=== PATIENT | female | born 1950 | race African-American/Black ===

== ENCOUNTER 2017-11-22 15:20 | Emergency (ER) | payer OTHER ==
--- OUTSIDE RECORDS SUMMARY | 2017-11-22 15:22 | XMS REPORT | Clinical Summary ---
:[address] [facility] Address [address] [place] [address] Phone Care Team Providers Name Role Phone Unavailable Primary Care Provider Unavailable Allergies No Known Allergies Current Medications Prescription Sig. Disp. Refills Start Date End Date Status predniSONE Take 20 mg PO daily for 3 days 10 tablet 0 04/16/2017 Active (DELTASONE) 20 MG then 10 mg PO daily for 4 days. tablet budesonide-formoter Inhale 2 puffs 1 Inhaler 12 04/16/2017 04/16/20 Active ol (SYMBICORT) by mouth via 18 160-4.5 inhaler 2 (two) mcg/actuation times daily. inhaler albuterol HFA Inhale 1 puff 1 Inhaler 0 04/16/2017 04/16/20 Active (PROVENTIL HFA) 90 by mouth via 18 mcg/actuation inhaler every 6 inhaler (six) hours as needed for Wheezing. traMADol (ULTRAM) Take 50 mg by Active 50 mg tablet mouth every 6 (six) hours as needed for Pain. ondansetron Take 4 mg by Active (ZOFRAN) 4 MG mouth 2 (two) tablet times daily as needed for Nausea. simvastatin (ZOCOR) Take 20 mg by Active 20 MG tablet mouth nightly. spironolactone Take 25 mg by Active (ALDACTONE) 25 MG mouth daily. tablet metroNIDAZOLE Take 500 mg by Active (FLAGYL) 500 MG mouth every 8 tablet (eight) hours. pantoprazole Take 40 mg by Active (PROTONIX) 40 MG mouth daily. tablet ambrisentan Take 10 mg by Active (LETAIRIS) 10 MG mouth daily. tablet furosemide (LASIX) Take 20 mg by Active 20 MG tablet mouth 2 (two) times daily. colchicine Take 0.6 mg by Active (COLCRYS) 0.6 mg mouth 2 (two) tablet times daily. ciprofloxacin HCl Take 500 mg by Active (CIPRO) 500 MG mouth 2 (two) tablet times daily. acetaminophen-codei Take 1 tablet Active ne (TYLENOL #3) by mouth every 300-30 mg per 6 (six) hours tablet as needed for Pain. cyanocobalamin, Take 1 tablet Active vitamin B-12, by mouth daily. (VITAMELTS ENERGY) 1,500 mcg TbDL cinnamon bark Take 500 mg by Active (CINNAMON) 500 mg mouth daily capsule Take 2 capsules per day . glimepiride Take 4 mg by Active (AMARYL) 4 MG mouth every tablet morning before breakfast. aspirin 81 MG Take 1 tablet 30 tablet 0 04/17/2017 05/17/20 chewable tablet (81 mg total) 17 by mouth daily for 30 days. atorvastatin Take 1 tablet 30 tablet 0 04/16/2017 05/01/20 Discontinued (LIPITOR) 40 MG (40 mg total) 17 tablet by mouth nightly for 30 days. tadalafil (CIALIS) Take 1 tablet 30 tablet 0 04/17/2017 05/17/20 20 MG tablet (20 mg total) 17 by mouth daily for 30 days. simethicone Take 1 tablet 30 tablet 0 04/16/2017 04/26/20 (MYLICON) 80 MG (80 mg total) 17 chewable tablet by mouth every 4 (four) hours as needed for Flatulence for up to 10 days. pantoprazole Take 1 tablet 10 tablet 0 04/17/2017 04/27/20 (PROTONIX) 40 MG (40 mg total) 17 tablet by mouth daily for 10 days. gabapentin Take 2 capsules 120 capsule 0 04/16/2017 05/16/20 (NEURONTIN) 300 MG (600 mg total) 17 capsule by mouth 2 (two) times daily for 30 days. acetaZOLAMIDE Take 250 mg by 05/01/20 Discontinued (DIAMOX) 250 MG mouth 3 (three) 17 tablet times daily. docusate sodium Take 1 capsule 60 capsule 0 05/01/2017 05/31/20 (COLACE) 100 MG (100 mg total) 17 capsule by mouth 2 (two) times daily for 30 days. polyethylene glycol Take 17 g by 255 g 0 05/01/2017 05/04/20 (GLYCOLAX) 17 mouth daily for 17 gram/dose powder 3 days. ferrous sulfate 325 Take 1 tablet 180 tablet 0 05/01/2017 07/30/19 (65 FE) MG tablet (325 mg total) 18 by mouth 2 (two) times daily with breakfast and dinner for 90 days. magnesium oxide Take 1 tablet 60 tablet 0 05/01/2017 05/31/20 (MAG-OX) 400 mg (400 mg total) 17 tablet by mouth 2 (two) times daily for 30 days. Hospital, Clinic, or Other Ordered Dose Route Frequency Start Date End Date Status Facility Administered Medication influenza vaccine (PF) 0.5 mL IM Once 05/01/2017 05/01/2017 Ended [id number] (FLUZONE HIGH DOSE) syringe (>/=65 yrs) Active Problems Problem Noted Date Chronic diastolic CHF (congestive heart failure) ([facility]) 05/01/2017 Essential hypertension 05/01/2017 Diabetic neuropathy associated with type 2 diabetes mellitus ([facility]) 05/01/2017 Depression 05/01/2017 Anemia of chronic disease 04/10/2017 NSTEMI (non-ST elevated myocardial infarction) ([facility]) 04/09/2017 Pulmonary hypertension ([facility]) 04/09/2017 COPD (chronic obstructive pulmonary disease) ([facility]) 04/09/2017 DM2 (diabetes mellitus, type 2) ([facility]) 04/09/2017 Resolved Problems Problem Noted Date Resolved Date Troponin level elevated 04/10/2017 05/01/2017 Acute renal failure, unspecified acute renal failure type 04/10/20172016 ([facility]) Acute respiratory failure with hypoxia and hypercarbia ([facility]) 04/09/201705/01 Acute renal failure (ARF) ([facility]) 04/09/2017 05/01/2017 Hypoglycemia 04/09/2017 05/01/2017 Hypotension 04/09/2017 05/01/2017 Acute CHF (congestive heart failure) ([facility]) 04/09/2017 05/01/2017 Encounters Date Type Specialty Care Team Description 05/01/2017 Office Visit Cardiology David Cruz NP Chronic diastolic heart failure (HCC) (Primary Dx);Hypomagnesemia 04/10/2017 Orders Only General Internal Medicine 04/09/2017 - Hospital Cardiology Alonzo Olivas Acute renal 04/16/2017 Encounter MD Dilan failure, Cristiano Jones MD unspecified acute [place], renal failure type MD Amanda ([facility]);Acute [place], respiratory failure MD Garcia with hypoxia and hypercarbia ([facility]);Hypoglycemia; NSTEMI (non-ST elevated myocardial infarction) ([facility]);Non-insulin dependent type 2 diabetes mellitus ([facility]);Acute congestive heart failure, unspecified congestive heart failure type ([facility]);Anemia, unspecified type;Pulmonary hypertension ([facility]);Troponin level elevated;COPD with acute exacerbation ([facility]) 04/09/2017 Telephone Critical Care Alonzo Olivas Hypoglycemia Medicine MD Dilan after 11/21/2016 Immunizations Name Dates Previously Given Next Due Influenza High Dose Preservative Free IM 05/01/2017 Family History Medical History Relation Name Comments Heart disease Father Heart failure Father Other Mother encephalitis Relation Name Status Comments Father Mother Social History Tobacco Use Types Packs/Day Years Used Date Former Smoker 07 31 Quit: 04/11/2005 Smokeless Tobacco: Never Used Alcohol Use Drinks/Week oz/Week Comments No Sex Assigned at Date Recorded Not on file Last Filed Vital Signs Vital Sign Reading Time Taken Blood Pressure 109/56 05/01/2017 11:44 AM CDT Pulse 88 05/01/2017 11:44 AM CDT Temperature 37 C (98.6 F) 05/01/2017 11:44 AM CDT Respiratory Rate 18 05/01/2017 11:44 AM CDT Oxygen Saturation 95% 05/01/2017 11:44 AM CDT Inhaled Oxygen Concentration - - Weight 106.1 kg (234 lb) 05/01/2017 11:44 AM CDT Height 166.4 cm (5' 5.5") 05/01/2017 11:44 AM CDT Body Mass Index 38.35 05/01/2017 11:44 AM CDT Plan of Treatment Health Maintenance Due Date Last Done Comments INFLUENZA VACCINE 04/01/2018 05/01/2017 Results B N P (05/01/2017 2:18 PM)Only the most recent of3 resultswithin the time period is included. Component Value Ref Range BNP 393 (H) 0 - 100 pg/mL Specimen Performing Laboratory Blood [facility] [address] [address] Magnesium (05/01/2017 2:18 PM)Only the most recent of2 resultswithin the time period is included. Component Value Ref Range Magnesium 1.5 (L) 1.6 - 2.6 mg/dL Specimen Performing Laboratory Blood [address] [address] Basic Metabolic Panel (05/01/2017 2:18 PM)Only the most recent of9 resultswithin the time period is included. Component Value Ref Range Sodium 140 136 - 145 meq/L Potassium 4.2 3.5 - 5.1 meq/L Chloride 99 98 - 107 meq/L CO2 31 (H) 22 - 29 meq/L BUN 19 7 - 21 mg/dL Creatinine 1.45 (H) 0.57 - 1.25 mg/dL Glucose 99 70 - 105 mg/dL Calcium 9.7 8.4 - 10.2 mg/dL EGFR 44Comment: ESTIMATED GFR IS NOT ACCURATE mL/min/1.73 sq m CREATININE CLEARANCE IN PREDICTING GLOMERULAR FILTRATION RATE. ESTIMATED GFR IS NOT APPLICABLE FOR DIALYSIS PATIENTS. Specimen Performing Laboratory Blood [address] [address] PULMONARY FUNCTION - SCAN (04/20/2017 11:30 AM)EKG-SCANNED (04/17/2017 1:31 PM) RHYTHM STRIP - SCAN (04/17/2017 1:30 PM)POC-Glucose meter (04/16/2017 11:48 AM) Only the most recent of32 resultswithin the time period is included. Component Value Ref Range POC-Glucose Meter 150 (H)Comment: TESTED AT [address] 70 - 110 mg/[place] [address] Specimen Performing Laboratory [address] [address] Lung volumes (04/16/2017 11:32 AM) Narrative Jason Turcios, DIGITAL CAMPAIGN MANAGER, STONE AND PLATE PREPARER APPRENTICE 04/16/2017 11:32 AM [facility] PFT CHARTING REPORT Infection Control/Hand Hygiene procedures followed throughout the encounter with patient: Yes Patient Identification Method: Patient name verified on armband, and Medical record on armband, Is the order complete?: Yes Account ID#: [id number] Patient Name: Radha Pascual Birthdate: 1950 Age: 66 y.o.Sex: female Admission Date: 04/09/2017Patient Status: Inpatient Reasons/Symptom for having the Test?: a history/complaint of a dyspnea and other diagnosis/symptoms as noted Type of study/treatment ordered by physician: Lung volumes with bronchodilator(s) and Single Breath DLCO Lab Results Component Value Date HGB 9.9 (L) 04/16/2017 Ranges: Adult Male 13 - 16.8 g/dlAdult Female 12 - 15 g/dl 6 Minute Walk (read only) 04/16/2017 04/16/2017 04/16/2017 Pulse 73 64 80 SpO2 97 99 98 Study Date: 04/16/17Study Time: 1045 ASSESSMENT History & Physical Mode of Arrival: Wheel chair Pulse: 76Resp: 18SPO2: 98 %On 2 LPM/ FiO2 Pain Assessment Pain:None TESTING/THERAPEUTICS Medications ordered or required for procedure: Albuterol, PT EDUCATION/INSTRUCTIONS Barriers to learning: No known barriers to learning. Learning need identified: Yes, Patient/Family/Guradian was informed of the ordered study by the physician Barriers to performing study or treatment: Patient has no known disability to perform the study or treatment. DISCHARGE The study was completed in accordance with the physician's order and patient released from the lab without adverse outcome. DLCO (single breath diffusion) (04/16/2017 11:32 AM) Jason Fonseca, DIGITAL CAMPAIGN MANAGER, ST[employer] AND PLATE PREPARER APPRENTICE 04/16/2017 11:32 AM [facility] PFT CHARTING REPORT Infection Control/Hand Hygiene procedures followed throughout the encounter with patient: Yes Patient Identification Method: Patient name verified on armband, and Medical record on armband, Is the order complete?: Yes Account ID#: [id number] Patient Name: Radha Pascual Birthdate: 1950 Age: 66 y.o.Sex: female Admission Date: 04/09/2017Patient Status: Inpatient Reasons/Symptom for having the Test?: a history/complaint of a dyspnea and other diagnosis/symptoms as noted Type of study/treatment ordered by physician: Lung volumes with bronchodilator(s) and Single Breath DLCO Lab Results Component Value Date HGB 9.9 (L) 04/16/2017 Ranges: Adult Male 13 - 16.8 g/dlAdult Female 12 - 15 g/dl 6 Minute Walk (read only) 04/16/2017 04/16/2017 04/16/2017 Pulse 73 64 80 SpO2 97 99 98 Study Date: 04/16/17udy Time: 1045 ASSESSMENT History & Physical Mode of Arrival: Wheel chair Pulse: 76Resp: 18SPO2: 98 %On 2 LPM/ FiO2 Pain Assessment Pain:None TESTING/THERAPEUTICS Medications ordered or required for procedure: Albuterol, PT EDUCATION/INSTRUCTIONS Barriers to learning: No known barriers to learning. Learning need identified: Yes, Patient/Family/Guradian was informed of the ordered study by the physician Barriers to performing study or treatment: Patient has no known disability to perform the study or treatment. DISCHARGE The study was completed in accordance with the physician's order and patient released from the lab without adverse outcome. Pulmonary Funct Lab bedside spirometry (04/16/2017 11:32 AM) Jason Fonseca RRT, STONE AND PLATE PREPARER APPRENTICE 04/16/2017 11:32 AM [facility] PFT CHARTING REPORT Infection Control/Hand Hygiene procedures followed throughout the encounter with patient: Yes Patient Identification Method: Patient name verified on armband, and Medical record on armband, Is the order complete?: Yes Account ID#: [id number] Patient Name: Radha Pascual Birthdate: 1950 Age: 66 y.o.Sex: female Admission Date: 04/09/2017Patient Status: Inpatient Reasons/Symptom for having the Test?: a history/complaint of a dyspnea and other diagnosis/symptoms as noted Type of study/treatment ordered by physician: Lung volumes with bronchodilator(s) and Single Breath DLCO Lab Results Component Value Date HGB 9.9 (L) 04/16/2017 Ranges: Adult Male 13 - 16.8 g/dlAdult Female 12 - 15 g/dl 6 Minute Walk (read only) 04/16/2017 04/16/2017 04/16/2017 Pulse 73 64 80 SpO2 97 99 98 Study Date: 04/16/17udy Time: 1045 ASSESSMENT History & Physical Mode of Arrival: Wheel chair Pulse: 76Resp: 18SPO2: 98 %On 2 LPM/ FiO2 Pain Assessment Pain:None TESTING/THERAPEUTICS Medications ordered or required for procedure: Albuterol, PT EDUCATION/INSTRUCTIONS Barriers to learning: No known barriers to learning. Learning need identified: Yes, Patient/Family/Guradian was informed of the ordered study by the physician Barriers to performing study or treatment: Patient has no known disability to perform the study or treatment. DISCHARGE The study was completed in accordance with the physician's order and patient released from the lab without adverse outcome. CBC (hemogram only) (04/16/2017 4:02 AM)Only the most recent of5 resultswithin the time period is included. Component Value Ref Range WBC 12.8 (H) 3.5 - 10.5 K/L RBC 3.43 (L) 3.93 - 5.22 M/L Hemoglobin 9.9 (L) 11.2 - 15.7 GM/DL Hematocrit 31.9 (L) 34.1 - 44.9 % MCV 93.0 79.4 - 94.8 fL MCH 28.9 25.6 - 32.2 pg MCHC 31.0 (L) 32.2 - 35.5 GM/DL RDW 15.0 (H) 11.7 - 14.4 % Platelets 223 150 - 450 K/CU MM MPV 9.3 (L) 9.4 - 12.3 fL nRBC 0 0 - 0 /100 WBC Specimen Performing Laboratory Blood [facility] [address] [place] [id number] CBC with platelet count + automated diff (04/15/2017 4:52 AM)Only the most recent of6 resultswithin the time period is included. Component Value Ref Range WBC 11.3 (H) 3.5 - 10.5 K/L RBC 3.60 (L) 3.93 - 5.22 M/L Hemoglobin 10.5 (L) 11.2 - 15.7 GM/DL Hematocrit 33.6 (L) 34.1 - 44.9 % MCV 93.3 79.4 - 94.8 fL MCH 29.2 25.6 - 32.2 pg MCHC 31.3 (L) 32.2 - 35.5 GM/DL RDW 15.3 (H) 11.7 - 14.4 % Platelets 223 150 - 450 K/CU MM MPV 9.2 (L) 9.4 - 12.3 fL nRBC 0 0 - 0 /100 WBC % Neutros 71 % % Lymphs 19 % % Monos 7 % % Eos 1 % % Baso 0 % # Neutros 7.99 (H) 1.56 - 6.13 K/L # Lymphs 2.15 1.18 - 3.74 K/L # Monos 0.79 (H) 0.24 - 0.36 K/L # Eos 0.16 0.04 - 0.36 K/L # Baso 0.02 0.01 - 0.08 K/L Immature Granulocytes-Relative 2 (H) 0 - 1 % Specimen Performing Laboratory Blood [facility] [address] [address] CBC with platelet count + automated diff (04/15/2017 4:52 AM)Only the most recent of6 resultswithin the time period is included. Specimen Performing Laboratory Blood Narrative The following orders were created for panel order CBC with platelet count + automated diff. Procedure Abnormality Status --------- ------ CBC with platelet count ...[[id number]]AbnormalFinal result Please view results for these tests on the individual orders. NM myocardial perfusion PET (rest and stress) (04/14/2017 12:49 PM) Specimen Performing Laboratory [employer] Narrative FINAL REPORT PROCEDURE: Rest/Stress MYOCARDIAL PERFUSION PET with regadenoson\\XA9\\ CPT CODE:08469 INDICATION:NSTEMI PROTOCOL:Limited low-dose CT imaging was performed for attenuation correction. 32.9 mCi of Rb-82 chloride was injected iv at rest, and gated PET (positron emission tomography) images were obtained. Subsequently, 32.6 mCi of Rb-82 chloride was injected iv at expected peak pharmacologic effect, and gated PET images were obtained. PRELIMINARY STRESS TEST DATA FROM NONINVASIVE CARDIOLOGY: Pharmacologic stress was by 10-second iv infusion of 0.4 mg of regadenoson. Radiotracer was injected 30 seconds after start of stress. Heart rate was 67 beats/min at rest and 85 beats/min (55% of MPHR) at tracer injection. BP was 142/84 mmHg at rest and 135/58 mmHg at tracer injection. Stress was stopped for predetermined endpoint. The patient experienced dyspnea; treatment was not required. Preliminary ECG evaluation revealed sinus rhythm at rest and no ischemic changes with stress. (Final ECG interpretation and other stress and monitoring data are reported separately by Cardiology.) IMAGING FINDINGS: Study quality is fair due to body habitus. Images obtained after rest and stress injections show normal LV activity. LV volume is normal. RV volume is increased. Gated images obtained with stress show normal LV wall motion and thickening. LVEF at stress is 68%. IMPRESSION: 1. Abnormal study only for RV dilation. Adequate pharmacologic stress.3. Normal LV myocardial perfusion.4. Normal resting LV function. RV dilation.5. Normal extracardiac tracer distribution.6. No prior study. Signed: Crow Rowell MD Report Verified Date/Time:04/14/2017 14:55:49 Procedure Note Interface, External Ris In - 04/14/2017 2:58 PM CDT FINAL REPORT PROCEDURE: Rest/Stress MYOCARDIAL PERFUSION PET with regadenoson\\XA9\\ CPT CODE: 90060 INDICATION: NSTEMI PROTOCOL: Limited low-dose CT imaging was performed for attenuation correction. 32.9 mCi of Rb-82 chloride was injected iv at rest, and gated PET (positron emission tomography) images were obtained. Subsequently, 32.6 mCi of Rb-82 chloride was injected iv at expected peak pharmacologic effect, and gated PET images were obtained. PRELIMINARY STRESS TEST DATA FROM NONINVASIVE CARDIOLOGY: Pharmacologic stress was by 10-second iv infusion of 0.4 mg of regadenoson. Radiotracer was injected 30 seconds after start of stress. Heart rate was 67 beats/min at rest and 85 beats/min (55% of MPHR) at tracer injection. BP was 142/84 mmHg at rest and 135/58 mmHg at tracer injection. Stress was stopped for predetermined endpoint. The patient experienced dyspnea; treatment was not required. Preliminary ECG evaluation revealed sinus rhythm at rest and no ischemic changes with stress. (Final ECG interpretation and other stress and monitoring data are reported separately by Cardiology.) IMAGING FINDINGS: Study quality is fair due to body habitus. Images obtained after rest and stress injections show normal LV activity. LV volume is normal. RV volume is increased. Gated images obtained with stress show normal LV wall motion and thickening. LVEF at stress is 68%. IMPRESSION: 1. Abnormal study only for RV dilation. Adequate pharmacologic stress. 3. Normal LV myocardial perfusion. 4. Normal resting LV function. RV dilation. 5. Normal extracardiac tracer distribution. 6. No prior study. Signed: Crow Rowell MD Report Verified Date/Time: 04/14/2017 14:55:49 Treadmill tolerance(Non-Nuclear Treadmill) (04/14/2017 12:42 PM) Specimen Performing Laboratory [employer] [facility] Narrative Protocol Name Regadenoson Time In Exercise Phase 00:01:00 Max. Systolic BP 135 mmHg Max Diastolic BP 58 mmHg Max Heart Rate 85 BPM Max Predicted Heart Rate 152 BPM Reason For Termination Predetermined end point Reason for Test NSTEMI Target HR Formula (220 - Age)*100% Arrhythmias none Resting ECG Normal sinus rhythm nonspecific T wave abnormality RAD ST Changes No Significant Changes Overall Impression Indeterminate due to pharmacological stress Chest Pain none HR Response To Exercise BP Response To Exercise ASA LASIX Atorvastatin Levemir Insulin Confirmed by fellow Vasquez Flood ([id number]) on 04/14/2017 2:34:57 PM Confirmed by MD CORTÉS JOSEPH P ([id number]) on 04/15/2017 6:05:17 PM Procedure Note Interface, External Ris In - 04/15/2017 6:05 PM CDT Protocol Name Regadenoson Time In Exercise Phase 00:01:00 Max. Systolic BP 135 mmHg Max Diastolic BP 58 mmHg Max Heart Rate 85 BPM Max Predicted Heart Rate 152 BPM Reason For Termination Predetermined end point Reason for Test NSTEMI Target HR Formula (220 - Age)*100% Arrhythmias none Resting ECG Normal sinus rhythm nonspecific T wave abnormality RAD ST Changes No Significant Changes Overall Impression Indeterminate due to pharmacological stress Chest Pain none HR Response To Exercise BP Response To Exercise ASA LASIX Atorvastatin Levemir Insulin Confirmed by fellow Vasquez Flood ([id number]) on 04/14/2017 2:34:57 PM Confirmed by MD CORTÉS JOSEPH P ([id number]) on 04/15/2017 6:05:17 PM Sjogren's antibodies (04/14/2017 4:02 AM) Component Value Ref Range Anti-Ss-A <1.0 NEG <1.0 NEGATIVE AI Anti-Ss-B <1.0 NEG <1.0 NEGATIVE AI Specimen Performing Laboratory Blood [facility] [address] [place] [address] Narrative Performing Lab [facility] [address] [place] [address] Jaycee Reed MD HIV-1 Antigen with HIV-1/2 Antibody (04/14/2017 4:02 AM) Component Value Ref Range HIV-1 Antigen with HIV 1&2 Antibody Nonreactive Nonreactive Specimen Performing Laboratory [address] [address] C-Reactive Protein (04/14/2017 4:02 AM) Component Value Ref Range CRP 0.43 0.00 - 0.50 mg/dL Specimen Performing Laboratory Blood [address] [address] Cyclic Citrullinated Peptide Ab,IgG (04/14/2017 4:02 AM) Component Value Ref Range CCP IgG <16 See Note: Units Comment: Reference Range: NEGATIVE: <20 WEAK POSITIVE: 20-39 MODERATE POSITIVE: 40-59 STRONG POSITIVE >59 Specimen Performing Laboratory Blood [facility] [address] [address] Narrative Performing Lab [facility] [address] [address] Jaycee Reed MD Rheumatoid factor Ab, reflex to titer (04/14/2017 4:02 AM) Component Value Ref Range Rheumatoid Factor Negative Specimen Performing Laboratory [address] [address] Sedimentation rate (04/14/2017 4:02 AM) Component Value Ref Range Sed Rate 17 0 - 40 mm/HR Specimen Performing Laboratory [address] [address] Anti-Nuclear Antibody (WAGNER) (04/14/2017 4:02 AM) Component Value Ref Range WAGNER Negative Negative Specimen Performing Laboratory [address] [address] NM lung scan (V/Q) (04/13/2017 4:03 PM) Specimen Performing Laboratory [employer] Narrative FINAL REPORT PROCEDURE: V/Q LUNG SCAN CPT CODE: 13360 INDICATION: Pulmonary hypertension acute respiratory failure PROTOCOL: 10.4 mCi ofXe-133 gas was administered by inhalation. Single breath and rebreathing/washout images were obtained in the anterior and the posterior projections.1.96 mCi of Tc-99m MAA was then injected intravenously, and static perfusion images were obtained in multiple projections. FINDINGS: Ventilation: Initial tracer distribution is physiological. Washout proceeds normally. Perfusion:Tracer distribution is physiological. IMPRESSION: Normal ventilation/perfusion lung scan. Signed: Daniel Kc MD Report Verified Date/Time:04/13/2017 17:00:02 Reading Location: [address] Reading Room Procedure Note Interface, External Ris In - 04/13/2017 5:02 PM CDT FINAL REPORT PROCEDURE: V/Q LUNG SCAN CPT CODE: 60222 INDICATION: Pulmonary hypertension acute respiratory failure PROTOCOL: 10.4 mCi of Xe-133 gas was administered by inhalation. Single breath and rebreathing/washout images were obtained in the anterior and the posterior projections. 1.96 mCi of Tc-99m MAA was then injected intravenously, and static perfusion images were obtained in multiple projections. FINDINGS: Ventilation: Initial tracer distribution is physiological. Washout proceeds normally. Perfusion: Tracer distribution is physiological. IMPRESSION: Normal ventilation/perfusion lung scan. Signed: Daniel Kc MD Report Verified Date/Time: 04/13/2017 17:00:02 Reading Location: [address] Med Reading Room 12 lead (04/13/2017 10:22 AM)Only the most recent of3 resultswithin the time period is included. Specimen Performing Laboratory [facility] Ventricular Rate 84 BPM Atrial Rate 84 BPM P-R Interval 178 ms QRS Duration 104 ms Q-T Interval 360 ms QTC Calculation(Bazett) 425 ms P [place] 74 degrees R [place] 107 degrees T [place] 10 degrees Normal sinus rhythm Possible Right ventricular hypertrophy T wave abnormality, consider inferior ischemia T wave abnormality, consider anterior ischemia Abnormal ECG When compared with ECG of 10-APR-2017 02:16, Incomplete right bundle branch block is no longer Present Confirmed by MD MILANA, MANUEL Hernandez ([id number]) on 04/13/2017 8:25:35 PM Procedure Note Interface, External Ris In - 04/13/2017 8:25 PM CDT Ventricular Rate 84 BPM Atrial Rate 84 BPM P-R Interval 178 ms QRS Duration 104 ms Q-T Interval 360 ms QTC Calculation(Bazett) 425 ms P [place] 74 degrees R [place] 107 degrees T [place] 10 degrees Normal sinus rhythm Possible Right ventricular hypertrophy T wave abnormality, consider inferior ischemia T wave abnormality, consider anterior ischemia Abnormal ECG When compared with ECG of 10-APR-2017 02:16, Incomplete right bundle branch block is no longer Present Confirmed by MD MILANA, MANUEL Hernandez ([id number]) on 04/13/2017 8:25:35 PM Troponin I (04/12/2017 12:13 PM)Only the most recent of2 resultswithin the time period is included. Component Value Ref Range Troponin I 0.35 (HH) 0.00 - 0.03 ng/mL Specimen Performing Laboratory Blood - Central Venous Line [address] [address] Narrative Troponin I (TnI) levels must be interpreted in the context of the presenting symptoms and the clinical findings. Elevated TnI levels indicate myocardial damage, but are not specific for ischemic heart disease. Elevated TnI levels are seen in patients with other cardiac conditions (including myocarditis and congestive heart failure), and slight TnI elevations occur in patients with other conditions, including sepsis, renal failure, acidosis, acute neurological disease, and persistent tachyarrhythmia. Hemoglobin A1c (04/12/2017 4:19 AM) Component Value Ref Range Hemoglobin A1C 5.8 4.3 - 6.1 % Specimen Performing Laboratory Blood - Central Venous Line [address] [address] TRANSFUSION SERVICE REPORT - SCAN (04/11/2017 5:41 PM)CT chest without IV contrast (04/11/2017 1:26 AM) Specimen Performing Laboratory [email or web address] RIS Narrative FINAL REPORT EXAMINATION:CT SCAN OF THE CHEST, ABDOMEN AND PELVIS CLINICAL HISTORY:Sepsis, pneumonia, pulmonary edema COMPARISON EXAM: Abdominal ultrasound 04/10/2017 TECHNIQUE: Following the administration of oral contrast, axial tomographic images were acquired through the chest, abdomen and pelvis. Postprocessing was performed and coronal and sagittal reformatted images were created and reviewed. The exam was performed according to our departmental dose optimization program which includes automated exposure control, adjustment of the mA and/or kV according to patient's size and/or use of iterative reconstructive technique. FINDINGS: Chest: The examination is limited by the absence of IV contrast. Tip of the right jugular central line is in the superior vena cava. The thoracic aorta is normal in caliber. Calcific atherosclerotic changes are noted involving the aorta and great vessels arising off of the aortic arch. The pulmonary trunk is prominent measuring greater than 4 cm. The central pulmonary arteries are also mildly dilated. The heart is enlarged. No evidence of a pericardial effusion. The esophagus is decompressed. No definite evidence of pathologically enlarged axillary or mediastinal lymph nodes. There are small bilateral pleural effusions. Curvilinear parenchymal lung opacities are compatible with associated atelectasis. Groundglass opacities are also noted which may also be related to the atelectatic lung, motion degradation or mild edema. No evidence of a pneumothorax or pneumomediastinum. Trachea and central airways are unremarkable. No evidence of a discrete endobronchial lesion or significant luminal debris. No evidence of an acute thoracic osseous abnormality. Abdomen and pelvis the liver demonstrates mild diffuse increased attenuation, nonspecific but possible minimal disc position. Sequela from amiodarone therapy would be a consideration given the cardiac enlargement. The gallbladder is mildly distended without evidence of pericholecystic edema or biliary dilatation. The pancreas is mildly atrophic with fatty infiltration. The spleen is unremarkable. The adrenal glands are normal in size and shape. No evidence of renal obstruction or nephrolithiasis. There is mild perinephric fat stranding, right slightly greater than left. Upper pole of the right kidney is associated with a mildly heterogeneous 2.5 cm nodule. Lower pole of the right kidney is associated with a relatively simple appearing 6 cm cyst. The stomach is grossly unremarkable. The loops of small bowel are normal in caliber. Colonic diverticulosis is noted without definite evidence of diverticulitis. No evidence of an appendicitis, mechanical bowel obstruction or pneumatosis. The abdominal aorta is normal in caliber. Scattered calcific atherosclerotic plaques are noted involving the aorta, mesenteric, iliac arteries. Further characterization the vascular structures is limited by the absence of contrast. The uterus and adnexa are unremarkable. The bladder is decompressed with a Salas catheter. No significant pelvic free fluid. There are numerous small punctate pelvic calcifications. The vast majority are vascular phleboliths. Evaluation for a nonobstructing distal ureteral calculus is limited on today's noncontrast study. There are numerous small nonspecific mesenteric, upper abdominal and retroperitoneal lymph nodes. There is an adipose tissue containing umbilical hernia. No evidence of associated bowel involvement. Subtle infiltration of the subcutaneous tissues is compatible with third spacing of fluid/anasarca. Degenerative changes are noted in the lumbar spine, sacroiliac joints and the hips. No definite evidence of an acute osseous abnormality. IMPRESSION: Right renal 2.5 cm hyperdense upper pole nodule. Although the finding may reflect a cyst, the nodule is mildly heterogeneous on CT as well as ultrasound. A renal neoplasm cannot be excluded. MRI recommended for further tissue characterization. Mild perinephric fat stranding without evidence of associated hydronephrosis/hydroureter. Although findings may be chronic, correlation with patient's renal function and urinalysis is recommended as a nephritis or pyelitis/pyelonephritis should also be considered. Cardiac enlargement. Small bilateral pleural effusions and adjacent passive atelectasis. Subtle groundglass opacities may reflect mild pulmonary edema. Dilatation of the pulmonary trunk and central pulmonary arteries, nonspecific but concerning for pulmonary hypertension. Colonic diverticulosis without definite evidence of diverticulitis. Signed: Tristan Zaidi MD Report Verified Date/Time:04/11/2017 02:12:58 Reading Location: [address] Reading Room Procedure Note Interface, External Ris In - 04/11/2017 2:15 AM CDT FINAL REPORT EXAMINATION: CT SCAN OF THE CHEST, ABDOMEN AND PELVIS CLINICAL HISTORY:Sepsis, pneumonia, pulmonary edema COMPARISON EXAM: Abdominal ultrasound 04/10/2017 TECHNIQUE: Following the administration of oral contrast, axial tomographic images were acquired through the chest, abdomen and pelvis. Postprocessing was performed and coronal and sagittal reformatted images were created and reviewed. The exam was performed according to our departmental dose optimization program which includes automated exposure control, adjustment of the mA and/or kV according to patient's size and/or use of iterative reconstructive technique. FINDINGS: Chest: The examination is limited by the absence of IV contrast. Tip of the right jugular central line is in the superior vena cava. The thoracic aorta is normal in caliber. Calcific atherosclerotic changes are noted involving the aorta and great vessels arising off of the aortic arch. The pulmonary trunk is prominent measuring greater than 4 cm. The central pulmonary arteries are also mildly dilated. The heart is enlarged. No evidence of a pericardial effusion. The esophagus is decompressed. No definite evidence of pathologically enlarged axillary or mediastinal lymph nodes. There are small bilateral pleural effusions. Curvilinear parenchymal lung opacities are compatible with associated atelectasis. Groundglass opacities are also noted which may also be related to the atelectatic lung, motion degradation or mild edema. No evidence of a pneumothorax or pneumomediastinum. Trachea and central airways are unremarkable. No evidence of a discrete endobronchial lesion or significant luminal debris. No evidence of an acute thoracic osseous abnormality. Abdomen and pelvis the liver demonstrates mild diffuse increased attenuation, nonspecific but possible minimal disc position. Sequela from amiodarone therapy would be a consideration given the cardiac enlargement. The gallbladder is mildly distended without evidence of pericholecystic edema or biliary dilatation. The pancreas is mildly atrophic with fatty infiltration. The spleen is unremarkable. The adrenal glands are normal in size and shape. No evidence of renal obstruction or nephrolithiasis. There is mild perinephric fat stranding, right slightly greater than left. Upper pole of the right kidney is associated with a mildly heterogeneous 2.5 cm nodule. Lower pole of the right kidney is associated with a relatively simple appearing 6 cm cyst. The stomach is grossly unremarkable. The loops of small bowel are normal in caliber. Colonic diverticulosis is noted without definite evidence of diverticulitis. No evidence of an appendicitis, mechanical bowel obstruction or pneumatosis. The abdominal aorta is normal in caliber. Scattered calcific atherosclerotic plaques are noted involving the aorta, mesenteric, iliac arteries. Further characterization the vascular structures is limited by the absence of contrast. The uterus and adnexa are unremarkable. The bladder is decompressed with a Salas catheter. No significant pelvic free fluid. There are numerous small punctate pelvic calcifications. The vast majority are vascular phleboliths. Evaluation for a nonobstructing distal ureteral calculus is limited on today's noncontrast study. There are numerous small nonspecific mesenteric, upper abdominal and retroperitoneal lymph nodes. There is an adipose tissue containing umbilical hernia. No evidence of associated bowel involvement. Subtle infiltration of the subcutaneous tissues is compatible with third spacing of fluid/anasarca. Degenerative changes are noted in the lumbar spine, sacroiliac joints and the hips. No definite evidence of an acute osseous abnormality. IMPRESSION: Right renal 2.5 cm hyperdense upper pole nodule. Although the finding may reflect a cyst, the nodule is mildly heterogeneous on CT as well as ultrasound. A renal neoplasm cannot be excluded. MRI recommended for further tissue characterization. Mild perinephric fat stranding without evidence of associated hydronephrosis/hydroureter. Although findings may be chronic, correlation with patient's renal function and urinalysis is recommended as a nephritis or pyelitis/pyelonephritis should also be considered. Cardiac enlargement. Small bilateral pleural effusions and adjacent passive atelectasis. Subtle groundglass opacities may reflect mild pulmonary edema. Dilatation of the pulmonary trunk and central pulmonary arteries, nonspecific but concerning for pulmonary hypertension. Colonic diverticulosis without definite evidence of diverticulitis. Signed: Tristan Zaidi MD Report Verified Date/Time: 04/11/2017 02:12:58 Reading Location: [address] Reading Room abdomen/pelvis without iv contrast (04/11/2017 1:26 AM) Specimen Performing Laboratory [employer] Narrative FINAL REPORT EXAMINATION:CT SCAN OF THE CHEST, ABDOMEN AND PELVIS CLINICAL HISTORY:Sepsis, pneumonia, pulmonary edema COMPARISON EXAM: Abdominal ultrasound 04/10/2017 TECHNIQUE: Following the administration of oral contrast, axial tomographic images were acquired through the chest, abdomen and pelvis. Postprocessing was performed and coronal and sagittal reformatted images were created and reviewed. The exam was performed according to our departmental dose optimization program which includes automated exposure control, adjustment of the mA and/or kV according to patient's size and/or use of iterative reconstructive technique. FINDINGS: Chest: The examination is limited by the absence of IV contrast. Tip of the right jugular central line is in the superior vena cava. The thoracic aorta is normal in caliber. Calcific atherosclerotic changes are noted involving the aorta and great vessels arising off of the aortic arch. The pulmonary trunk is prominent measuring greater than 4 cm. The central pulmonary arteries are also mildly dilated. The heart is enlarged. No evidence of a pericardial effusion. The esophagus is decompressed. No definite evidence of pathologically enlarged axillary or mediastinal lymph nodes. There are small bilateral pleural effusions. Curvilinear parenchymal lung opacities are compatible with associated atelectasis. Groundglass opacities are also noted which may also be related to the atelectatic lung, motion degradation or mild edema. No evidence of a pneumothorax or pneumomediastinum. Trachea and central airways are unremarkable. No evidence of a discrete endobronchial lesion or significant luminal debris. No evidence of an acute thoracic osseous abnormality. Abdomen and pelvis the liver demonstrates mild diffuse increased attenuation, nonspecific but possible minimal disc position. Sequela from amiodarone therapy would be a consideration given the cardiac enlargement. The gallbladder is mildly distended without evidence of pericholecystic edema or biliary dilatation. The pancreas is mildly atrophic with fatty infiltration. The spleen is unremarkable. The adrenal glands are normal in size and shape. No evidence of renal obstruction or nephrolithiasis. There is mild perinephric fat stranding, right slightly greater than left. Upper pole of the right kidney is associated with a mildly heterogeneous 2.5 cm nodule. Lower pole of the right kidney is associated with a relatively simple appearing 6 cm cyst. The stomach is grossly unremarkable. The loops of small bowel are normal in caliber. Colonic diverticulosis is noted without definite evidence of diverticulitis. No evidence of an appendicitis, mechanical bowel obstruction or pneumatosis. The abdominal aorta is normal in caliber. Scattered calcific atherosclerotic plaques are noted involving the aorta, mesenteric, iliac arteries. Further characterization the vascular structures is limited by the absence of contrast. The uterus and adnexa are unremarkable. The bladder is decompressed with a Salas catheter. No significant pelvic free fluid. There are numerous small punctate pelvic calcifications. The vast majority are vascular phleboliths. Evaluation for a nonobstructing distal ureteral calculus is limited on today's noncontrast study. There are numerous small nonspecific mesenteric, upper abdominal and retroperitoneal lymph nodes. There is an adipose tissue containing umbilical hernia. No evidence of associated bowel involvement. Subtle infiltration of the subcutaneous tissues is compatible with third spacing of fluid/anasarca. Degenerative changes are noted in the lumbar spine, sacroiliac joints and the hips. No definite evidence of an acute osseous abnormality. IMPRESSION: Right renal 2.5 cm hyperdense upper pole nodule. Although the finding may reflect a cyst, the nodule is mildly heterogeneous on CT as well as ultrasound. A renal neoplasm cannot be excluded. MRI recommended for further tissue characterization. Mild perinephric fat stranding without evidence of associated hydronephrosis/hydroureter. Although findings may be chronic, correlation with patient's renal function and urinalysis is recommended as a nephritis or pyelitis/pyelonephritis should also be considered. Cardiac enlargement. Small bilateral pleural effusions and adjacent passive atelectasis. Subtle groundglass opacities may reflect mild pulmonary edema. Dilatation of the pulmonary trunk and central pulmonary arteries, nonspecific but concerning for pulmonary hypertension. Colonic diverticulosis without definite evidence of diverticulitis. Signed: Tristan Zaidi MD Report Verified Date/Time:04/11/2017 02:12:58 Reading Location: [address] Reading Room Procedure Note Interface, External Ris In - 04/11/2017 2:15 AM CDT FINAL REPORT EXAMINATION: CT SCAN OF THE CHEST, ABDOMEN AND PELVIS CLINICAL HISTORY:Sepsis, pneumonia, pulmonary edema COMPARISON EXAM: Abdominal ultrasound 04/10/2017 TECHNIQUE: Following the administration of oral contrast, axial tomographic images were acquired through the chest, abdomen and pelvis. Postprocessing was performed and coronal and sagittal reformatted images were created and reviewed. The exam was performed according to our departmental dose optimization program which includes automated exposure control, adjustment of the mA and/or kV according to patient's size and/or use of iterative reconstructive technique. FINDINGS: Chest: The examination is limited by the absence of IV contrast. Tip of the right jugular central line is in the superior vena cava. The thoracic aorta is normal in caliber. Calcific atherosclerotic changes are noted involving the aorta and great vessels arising off of the aortic arch. The pulmonary trunk is prominent measuring greater than 4 cm. The central pulmonary arteries are also mildly dilated. The heart is enlarged. No evidence of a pericardial effusion. The esophagus is decompressed. No definite evidence of pathologically enlarged axillary or mediastinal lymph nodes. There are small bilateral pleural effusions. Curvilinear parenchymal lung opacities are compatible with associated atelectasis. Groundglass opacities are also noted which may also be related to the atelectatic lung, motion degradation or mild edema. No evidence of a pneumothorax or pneumomediastinum. Trachea and central airways are unremarkable. No evidence of a discrete endobronchial lesion or significant luminal debris. No evidence of an acute thoracic osseous abnormality. Abdomen and pelvis the liver demonstrates mild diffuse increased attenuation, nonspecific but possible minimal disc position. Sequela from amiodarone therapy would be a consideration given the cardiac enlargement. The gallbladder is mildly distended without evidence of pericholecystic edema or biliary dilatation. The pancreas is mildly atrophic with fatty infiltration. The spleen is unremarkable. The adrenal glands are normal in size and shape. No evidence of renal obstruction or nephrolithiasis. There is mild perinephric fat stranding, right slightly greater than left. Upper pole of the right kidney is associated with a mildly heterogeneous 2.5 cm nodule. Lower pole of the right kidney is associated with a relatively simple appearing 6 cm cyst. The stomach is grossly unremarkable. The loops of small bowel are normal in caliber. Colonic diverticulosis is noted without definite evidence of diverticulitis. No evidence of an appendicitis, mechanical bowel obstruction or pneumatosis. The abdominal aorta is normal in caliber. Scattered calcific atherosclerotic plaques are noted involving the aorta, mesenteric, iliac arteries. Further characterization the vascular structures is limited by the absence of contrast. The uterus and adnexa are unremarkable. The bladder is decompressed with a Salas catheter. No significant pelvic free fluid. There are numerous small punctate pelvic calcifications. The vast majority are vascular phleboliths. Evaluation for a nonobstructing distal ureteral calculus is limited on today's noncontrast study. There are numerous small nonspecific mesenteric, upper abdominal and retroperitoneal lymph nodes. There is an adipose tissue containing umbilical hernia. No evidence of associated bowel involvement. Subtle infiltration of the subcutaneous tissues is compatible with third spacing of fluid/anasarca. Degenerative changes are noted in the lumbar spine, sacroiliac joints and the hips. No definite evidence of an acute osseous abnormality. IMPRESSION: Right renal 2.5 cm hyperdense upper pole nodule. Although the finding may reflect a cyst, the nodule is mildly heterogeneous on CT as well as ultrasound. A renal neoplasm cannot be excluded. MRI recommended for further tissue characterization. Mild perinephric fat stranding without evidence of associated hydronephrosis/hydroureter. Although findings may be chronic, correlation with patient's renal function and urinalysis is recommended as a nephritis or pyelitis/pyelonephritis should also be considered. Cardiac enlargement. Small bilateral pleural effusions and adjacent passive atelectasis. Subtle groundglass opacities may reflect mild pulmonary edema. Dilatation of the pulmonary trunk and central pulmonary arteries, nonspecific but concerning for pulmonary hypertension. Colonic diverticulosis without definite evidence of diverticulitis. Signed: Tristan Zaidi MD Report Verified Date/Time: 04/11/2017 02:12:58 Reading Location: [address] Reading Room Blood gas, arterial (04/10/2017 8:37 PM)Only the most recent of5 resultswithin the time period is included. Component Value Ref Range pH, Arterial 7.45 7.35 - 7.45 pCO2, Arterial 51 (H) 35 - 45 mmHg pO2, Arterial 151 (H) 80 - 90 mmHg O2 Sat, Arterial 99.0 (H) 96.0 - 97.0 % HCO3, Arterial 35 (H) 21 - 29 mmol/L Base Excess, Arterial 9.9 (H) -2.0 - 3.0 mmol/L Patient Temperature 37.0 C FIO2 36.0 % Specimen Performing Laboratory Blood, [place] [address] ECHOCARDIOGRAM REPORT - SCAN (04/10/2017 6:20 PM)2D Echo W/Doppler(CW/PW/Color ) (04/10/2017 3:43 PM) Component Value Ref Range Ejection Fraction Specimen Performing Laboratory [facility] MKCKESSON CPACS Narrative Transthoracic Echocardiography Report (TTE) Demographics Patient NameRADHA PASCUAL Date of Study04/10/2017 Gender Female Visit [id number] Race Black [id number] Number Date of 1950 Referring PhysicianChristopher Olivas Age 66 year(s) [employer]ap [employer] Rewrite Editor Toni Clark MD Physician Procedure Type of Study TTE procedure:2DECHO W DOPPLER(CW/PW/COLOR) (VAHID) Indications:Known or suspected cardiomyopathy. Clinical History NSTEMI HYPOTENSION CHF COPD DM Elevated Troponin Contrast Medium: Definity. Height: 60 inches Weight: 90.72 kg (200 lbs) BSA: 1.87 m^2 BMI: 39.06 kg/m^2 HR: 66 bpm BP: 126/63 mmHg Summary The LV apex is incompletely visualized due to foreshortening. Normal left ventricular chamber size. Normal wall thickness. Normal overall left ventricular systolic function. No apparent segmental wall motion abnormalities. Systolic septal flattening suggests RV pressure overload. All of the LV segments contract normally . Estimated LVEF by qualitative assessment is normal (55-60%) . LV endocardium is adequately visualized with IV contrast. Normal left ventricular chamber size. Normal wall thickness. Normal overall left ventricular systolic function. No apparent segmental wall motion abnormalities. Systolic septal flattening suggests RV pressure overload. All of the LV segments contract normally . Estimated LVEF by qualitative assessment is normal (55-60%) . LV endocardium is adequately visualized with IV contrast. The LV apex is incompletely visualized due to foreshortening. The estimated RA pressure by IVC dynamics 5-10mmHg . RV chamber size is severely enlarged . Global RV systolic function is depressed . Mild tricuspid regurgitation. Estimated peak systolic PA pressure is 70-75 mmHg . Signature Findings Technical Quality: Technically difficult exam. Rhythm/BPRegular sinus rhythm during the exam. Left Ventricle Normal left ventricular chamber size. Normal wall thickness. Normal overall left ventricular systolic function. No apparent segmental wall motion abnormalities. Systolic septal flattening suggests RV pressure overload. All of the LV segments contract normally . Estimated LVEF by qualitative assessment is normal (55-60%) . LV endocardium is adequately visualized with IV contrast. The LV apex is incompletely visualized due to foreshortening. Left AtriumLA size is moderately enlarged . Right VentricleRV chamber size is severely enlarged . Global RV systolic function is depressed . Right Atrium RA size is dilated. Aortic Valve Mild AoV cusp thickening. AoV cusp mobility is normal . Mitral Valve Mild MV leaflet thickening. Tricuspid ValveMild tricuspid regurgitation. Estimated peak systolic PA pressure is 70-75 mmHg . Pulmonic Valve Normal PV structure and function by limited views and Doppler. AortaAortic root size (SInus of Valsalva diameter) is normal . PericardiumNo evidence of pericardial effusion. IVC/SVC/PA/PV/PleuralThe estimated RA pressure by IVC dynamics 5-10mmHg . Chambers/Structures Left Atrium LA Dimension: 3.8 cm LA Area: 24.58 cm^2 LA Volume: 83.86 ml LA Vol. Index: 45 ml/m^2 Left Ventricle LVIDd: 4.75 cm LVEDV 2D:104.97 ml LV Septum Diastolic: 1.12 cm LV PW Diastolic: 1.15 cm LVOT Diameter: 2.27 cm Aorta Ao Root S of Carlie.: 3.13 cm Shunts QS:93.2 ml Doppler/Quantitative Measurements LVOT Peak Velocity: 1.14 m/s Peak Gradient: 5.21 mmHg Mean Velocity: 0.71 m/s Mean Gradient: 2.49 mmHg LVOT Diameter: 2.27 cmLVOT VTI: 23.03 cm LVOT Area: 4.05 cm^2LVOT SV:93.16 ml LVOT CO: 6.15 l/min LVOT CI: 3.29 l/min/m^2 Procedure Note Interface, External Ris In - 04/10/2017 5:41 PM CDT Transthoracic Echocardiography Report (TTE) Demographics Patient Name RADHA PASCUAL Date of Study 04/10/2017 Gender Female Visit Number [id number] Race Black Room Number [id number] Number Date of 1950 Referring Physician Alonzo Olivas Age 66 year(s) Sap Bpc Architect Rewrite Editor Toni Lema Interpreting Carlitos Clark MD Physician Procedure Type of Study TTE procedure:2DECHO W DOPPLER(CW/PW/COLOR) (VAHID) Indications:Known or suspected cardiomyopathy. Clinical History NSTEMI HYPOTENSION CHF COPD DM Elevated Troponin Contrast Medium: Definity. Height: 60 inches Weight: 90.72 kg (200 lbs) BSA: 1.87 m^2 BMI: 39.06 kg/m^2 HR: 66 bpm BP: 126/63 mmHg Summary The LV apex is incompletely visualized due to foreshortening. Normal left ventricular chamber size. Normal wall thickness. Normal overall left ventricular systolic function. No apparent segmental wall motion abnormalities. Systolic septal flattening suggests RV pressure overload. All of the LV segments contract normally . Estimated LVEF by qualitative assessment is normal (55-60%) . LV endocardium is adequately visualized with IV contrast. Normal left ventricular chamber size. Normal wall thickness. Normal overall left ventricular systolic function. No apparent segmental wall motion abnormalities. Systolic septal flattening suggests RV pressure overload. All of the LV segments contract normally . Estimated LVEF by qualitative assessment is normal (55-60%) . LV endocardium is adequately visualized with IV contrast. The LV apex is incompletely visualized due to foreshortening. The estimated RA pressure by IVC dynamics 5-10mmHg . RV chamber size is severely enlarged . Global RV systolic function is depressed . Mild tricuspid regurgitation. Estimated peak systolic PA pressure is 70-75 mmHg . Signature Findings Technical Quality: Technically difficult exam. Rhythm/BP Regular sinus rhythm during the exam. Left Ventricle Normal left ventricular chamber size. Normal wall thickness. Normal overall left ventricular systolic function. No apparent segmental wall motion abnormalities. Systolic septal flattening suggests RV pressure overload. All of the LV segments contract normally . Estimated LVEF by qualitative assessment is normal (55-60%) . LV endocardium is adequately visualized with IV contrast. The LV apex is incompletely visualized due to foreshortening. Left Atrium LA size is moderately enlarged . Right Ventricle RV chamber size is severely enlarged . Global RV systolic function is depressed . Right Atrium RA size is dilated. Aortic Valve Mild AoV cusp thickening. AoV cusp mobility is normal . Mitral Valve Mild MV leaflet thickening. Tricuspid Valve Mild tricuspid regurgitation. Estimated peak systolic PA pressure is 70-75 mmHg . Pulmonic Valve Normal PV structure and function by limited views and Doppler. Aorta Aortic root size (SInus of Valsalva diameter) is normal . Pericardium No evidence of pericardial effusion. IVC/SVC/PA/PV/Pleural The estimated RA pressure by IVC dynamics 5-10mmHg . Chambers/Structures Left Atrium LA Dimension: 3.8 cm LA Area: 24.58 cm^2 LA Volume: 83.86 ml LA Vol. Index: 45 ml/m^2 Left Ventricle LVIDd: 4.75 cm LVEDV 2D:104.97 ml LV Septum Diastolic: 1.12 cm LV PW Diastolic: 1.15 cm LVOT Diameter: 2.27 cm Aorta Ao Root S of Carlie.: 3.13 cm Shunts QS:93.2 ml Doppler/Quantitative Measurements LVOT Peak Velocity: 1.14 m/s Peak Gradient: 5.21 mmHg Mean Velocity: 0.71 m/s Mean Gradient: 2.49 mmHg LVOT Diameter: 2.27 cm LVOT VTI: 23.03 cm LVOT Area: 4.05 cm^2 LVOT SV:93.16 ml LVOT CO: 6.15 l/min LVOT CI: 3.29 l/min/m^2 PERIPHERAL VASCULAR REPORT - SCAN (04/10/2017 1:20 PM)US abdomen complete (04/2017 9:23 AM) Specimen Performing Laboratory [facility] FINAL REPORT Abdominal Ultrasound Clinical Diagnosis: Abdomen pain cholecystitis and ascites Comparison: No comparison Technique: Multiple transaxial and longitudinal images were obtained through the abdomen with real time ultrasonography.Five MHz transducer was utilized.91 images were submitted for interpretation. Report: Liver: The liver measures 16 cm in the right midaxillary line.There are no focal masses.The echogenicity is within normal limits. Spleen: The spleen measures 8.9 cm. in the left mid axillary line. Gallbladder: The transverse diameter is 1.6 cm.The wall measures three mm.There are no shadowing stones visualized. Biliary tree: There is no evidence of intra or extra hepatic biliary ductal dilatation.The common bile duct measures six mm. Portal vein: The portal vein measures 12 mm. Pancreas:The pancreatic tail is not well seen secondary to overlying bowel gas. Ascites: Negative Pleural Effusion: Negative Right kidney: The right kidney measures 10.0 cm. in length without evidence of hydronephrosis. There are two renal cysts one lower pole renal cyst measuring 4.9 cm a second upper pole renal cyst measuring 2.3 cm Left kidney: Theleft kidney measures cm. in length evidence of hydronephrosis. IVC/Aorta: Partially seen segments demonstrate no abnormality. maximum transverse dimension of the aorta was visualized proximally measuring 1.8 cm Impression: Mild hepatomegaly. There is no evidence of ascites. Right renal cysts. No sonographic evidence of cholecystitis. No sonographic evidence of cholelithiasis. Signed: Tamar Matthews MD Report Verified Date/Time:04/10/2017 10:09:29 Reading Location: [address] Ultrasound Reading Room Procedure Note Interface, External Ris In - 04/10/2017 10:11 AM CDT FINAL REPORT Abdominal Ultrasound Clinical Diagnosis: Abdomen pain cholecystitis and ascites Comparison: No comparison Technique: Multiple transaxial and longitudinal images were obtained through the abdomen with real time ultrasonography. Five MHz transducer was utilized. 91 images were submitted for interpretation. Report: Liver: The liver measures 16 cm in the right midaxillary line. There are no focal masses. The echogenicity is within normal limits. Spleen: The spleen measures 8.9 cm. in the left mid axillary line. Gallbladder: The transverse diameter is 1.6 cm. The wall measures three mm. There are no shadowing stones visualized. Biliary tree: There is no evidence of intra or extra hepatic biliary ductal dilatation. The common bile duct measures six mm. Portal vein: The portal vein measures 12 mm. Pancreas: The pancreatic tail is not well seen secondary to overlying bowel gas. Ascites: Negative Pleural Effusion: Negative Right kidney: The right kidney measures 10.0 cm. in length without evidence of hydronephrosis. There are two renal cysts one lower pole renal cyst measuring 4.9 cm a second upper pole renal cyst measuring 2.3 cm Left kidney: The left kidney measures cm. in length evidence of hydronephrosis. IVC/Aorta: Partially seen segments demonstrate no abnormality. maximum transverse dimension of the aorta was visualized proximally measuring 1.8 cm Impression: Mild hepatomegaly. There is no evidence of ascites. Right renal cysts. No sonographic evidence of cholecystitis. No sonographic evidence of cholelithiasis. Signed: Tamar Matthews MD Report Verified Date/Time: 04/10/2017 10:09:29 Reading Location: [address] Ultrasound Reading Room Blood culture (04/10/2017 8:25 AM)Only the most recent of2 resultswithin the time period is included. Component Value Ref Range Result No growth in 5 days Specimen Performing Laboratory Blood - Central Venous Line [address] [address] Venous doppler legs bilateral (04/10/2017 8:24 AM) Component Value Ref Range Ejection Fraction Specimen Performing Laboratory [facility] ECHO [facility]ART[facility] MKCKESSON CPACS Impressions Right Impression 1. There is no deep venous obstruction in the common femoral, profunda femoral, femoral, popliteal, posterior tibial or peroneal veins. 2. Only one peroneal vein is visualized. 3. There is no superficial venous obstruction in the great saphenous vein. Left Impression 1. There is no deep venous obstruction in the common femoral, profunda femoral, femoral, popliteal, posterior tibial or peroneal veins. 2. There is no superficial venous obstruction in the great saphenous vein. Conclusions Summary Venous duplex imaging and compression of the bilateral lower extremities were performed. The veins were adequately visualized. The bilateral venous systems were patent and compressible with no evidence of thrombus. The venous Doppler waveforms were phasic with respiration . Signature Velocities are measured in cm/s ; Diameters are measured in cm Narrative PV LAB - Lower Extremities DVT Study Demographics Patient Steven Murrell of Study 2016 66 Visit [id number] Female of 1950 Number Referring [place] Room Number [id number] Physician Dilan Olivas Sap Bpc Architect Edson Garzon. InterpretingVania Pedro RVT, Randal WRIGHT, FRANCESCO Procedure Type of Study: Veins: Lower Extremities DVT Study, VENOUS DOPPLER LEG, BILATERAL. Indications for Study:Bilateral leg swelling. Patient Status:VAHID. Study Location:Portable. Technical Quality:Technically Difficult. Risk Factors History of Disease +---------+----+ + !Diagnosis!Date!Comments ! +---------+----+ + !Other!!CHF, DM, ARF, CHF ! +---------+----+ + - The patient's risk factor(s) include: obesity. Procedure Note Interface, External Ris In - 04/10/2017 12:56 PM CDT PV LAB - Lower Extremities DVT Study Demographics Patient Name RADHA PASCUAL Date of Study 04/10/2017 Age 66 Visit Number [id number] Gender Female Date of 1950 Number Referring [place] Room Number 7218 Physician Dilan Olivas Sap Bpc Architect Edson Garzon. Interpreting Vania Pedro RVT, SUS Physician , FRANCESCO Procedure Type of Study: Veins: Lower Extremities DVT Study, VENOUS DOPPLER LEG, BILATERAL. Indications for Study:Bilateral leg swelling. Patient Status:VAHID. Study Location:Portable. Technical Quality:Technically Difficult. Risk Factors History of Disease +---------+----+ + !Diagnosis!Date!Comments ! +---------+----+ + !Other ! !CHF, DM, ARF, CHF ! +---------+----+ + - The patient's risk factor(s) include: obesity. Impressions Right Impression 1. There is no deep venous obstruction in the common femoral, profunda femoral, femoral, popliteal, posterior tibial or peroneal veins. 2. Only one peroneal vein is visualized. 3. There is no superficial venous obstruction in the great saphenous vein. Left Impression 1. There is no deep venous obstruction in the common femoral, profunda femoral, femoral, popliteal, posterior tibial or peroneal veins. 2. There is no superficial venous obstruction in the great saphenous vein. Conclusions Summary Venous duplex imaging and compression of the bilateral lower extremities were performed. The veins were adequately visualized. The bilateral venous systems were patent and compressible with no evidence of thrombus. The venous Doppler waveforms were phasic with respiration . Signature Velocities are measured in cm/s ; Diameters are measured in cm Lipase (04/10/2017 8:23 AM) Component Value Ref Range Lipase 8 8 - 78 U/L Specimen Performing Laboratory Blood - Central Venous Line [address] [address] Haptoglobin (04/10/2017 8:23 AM) Component Value Ref Range Haptoglobin 194 14 - 258 mg/dL Specimen Performing Laboratory Blood - Central Venous Line [address] [address] Vitamin B12 and Folate (04/10/2017 6:59 AM) Component Value Ref Range Vitamin B12 >2000 (H) 213 - 816 pg/mL Folate 14.9 >=7.0 ng/mL Specimen Performing Laboratory Blood - Central Venous Line [address] [address] Iron, TIBC, % sat. (without ferritin) (04/10/2017 6:59 AM) Component Value Ref Range Iron 20 (L) 40 - 160 ug/dL TIBC 243 (L) 250 - 450 ug/dL Iron % Saturation 8 (L) 20 - 55 % Specimen Performing Laboratory Blood - Central Venous Line [address] [address] Reticulocyte count (04/10/2017 6:59 AM) Component Value Ref Range % Retic 1.9 (H) 0.5 - 1.7 % Specimen Performing Laboratory Blood - Central Venous Line [address] [address] Lactate dehydrogenase (LDH) (04/10/2017 6:59 AM) Component Value Ref Range LDH 276 (H) 125 - 220 U/L Specimen Performing Laboratory Blood - Central Venous Line [address] [address] Ferritin (04/10/2017 6:59 AM) Component Value Ref Range Ferritin 106 5 - 275 ng/mL Specimen Performing Laboratory Blood - Central Venous Line [facility] [address] [address] Lipid panel (04/10/2017 6:59 AM) Component Value Ref Range Triglycerides 54 mg/dL Cholesterol 107 mg/dL HDL 41 mg/dL LDL Calculated 55 mg/dL Specimen Performing Laboratory Blood - Central Venous Line [address] [address] Narrative Triglyceride Reference Range: Low Risk <150 [id number] High Risk 200-499 Very High Risk>=500 Cholesterol Reference Range: Low Risk <200 [id number] High Risk>240 HDL Cholesterol Reference Range: Low Risk >=60 High Risk <40 LDL Cholesterol Reference Range: Optimal<100 Near [id number] [id number] [id number] Very High >=190 XR chest 1 view portable / bedside (04/10/2017 6:19 AM)Only the most recent of2 resultswithin the time period is included. Specimen Performing Laboratory [facility] Narrative FINAL REPORT Comparison exam: 04/10/2017 time 1:09 AM Interval placement of a right IJ central venous catheter with the tip located in the superior vena cava.No pneumothorax. No focal pulmonary consolidation or significant pleural effusion. Stable cardiomediastinal contours. Signed: Ariel Leigh MD Report Verified Date/Time:04/10/2017 06:34:32 Reading Location: [address] Ortho Consult Reading Room Procedure Note Interface, External Ris In - 04/10/2017 6:36 AM CDT FINAL REPORT Comparison exam: 04/10/2017 time 1:09 AM Interval placement of a right IJ central venous catheter with the tip located in the superior vena cava. No pneumothorax. No focal pulmonary consolidation or significant pleural effusion. Stable cardiomediastinal contours. Signed: Ariel Leigh MD Report Verified Date/Time: 04/10/2017 06:34:32 Reading Location: [facility] [id number] Ortho Consult Reading Room Urine culture (04/10/2017 6:16 AM) Component Value Ref Range Result No growth Specimen Performing Laboratory Urine - Urine, [place] [address] [address] Urinalysis w/Microscopic + Reflex to Culture (04/10/2017 6:15 AM) Component Value Ref Range Color, UA Yellow Clarity, UA Clear Specific [place], UA 1.007 1.001 - 1.035 pH, UA 5.0 5.0 - 8.0 Protein, UA Negative Negative Glucose, UA Negative Negative Ketones, UA Negative Negative Bilirubin, UA Negative Negative Blood, UA Negative Negative Nitrite, UA Negative Negative Leukocytes, UA Negative Negative Urobilinogen, UA 0.2 0.2 - 1.0 mg/dL RBC, UA 1 /HPF WBC, UA 0 /HPF Bacteria, UA Rare Hyaline Casts, UA 6 /LPF Specimen Source Specimen Performing Laboratory Urine [address] [address] Sodium, random urine (04/10/2017 6:15 AM) Component Value Ref Range Sodium Urine <20 meq/L Specimen Performing Laboratory Urine [address] [address] Narrative Reference Range: No Normals Protein, random urine (04/10/2017 6:15 AM) Component Value Ref Range Protein, Urine <7 0 - 14 mg/dL Specimen Performing Laboratory Urine [address] [address] Creatinine, random urine (04/10/2017 6:15 AM) Component Value Ref Range Creatinine, Ur 92.9 mg/dL Specimen Performing Laboratory Urine [address] [address] Narrative Reference Range: No Normals aPTT (04/10/2017 5:36 AM) Component Value Ref Range PTT 34.8 22.5 - 36.0 seconds Specimen Performing Laboratory Blood [address] [address] Narrative Prior to initiating heparin Platelet count (04/10/2017 5:36 AM) Component Value Ref Range Platelets 201 150 - 450 K/CU MM Specimen Performing Laboratory Blood [address] [address] Type and screen, automated (04/10/2017 12:54 AM) Component Value Ref Range ABO/RH AUTOMATED (BEAKER) A POSITIVE Ab Scrn NEGATIVE Specimen Performing Laboratory Blood [address] [address] Lactic acid, venous, whole blood (04/10/2017 12:43 AM) Component Value Ref Range Lactate, Venous 0.7Comment: Specimen slightly hemolyzed 0.5 - 2.2 mmol/L Specimen Performing Laboratory Blood [address] [address] Narrative Effective 11/03/2015: Units/Reference Range Change New: 0.5-2.2 mmol/LPrevious: 5-20 mg/dL Phosphorus (04/10/2017 12:43 AM) Component Value Ref Range Phosphorus 4.1Comment: Specimen slightly hemolyzed 2.3 - 4.7 mg/dL Specimen Performing Laboratory Blood [address] [address] Creatine Kinase (CK), Total and MB (04/10/2017 12:43 AM) Component Value Ref Range Total CK 89 29 - 200 U/L CK-MB 2.1 0.0 - 6.6 ng/mL MB Relative Index 2.4 % Specimen Performing Laboratory Blood [address] [address] Narrative CK-MB Reference Range: <6.7Normal 6.7-10.0Borderline >10.0 Abnormal Hepatic function panel (04/10/2017 12:43 AM) Component Value Ref Range Protein, Total 7.2Comment: Specimen slightly hemolyzed 6.0 - 8.3 gm/dL Albumin 3.2 (L)Comment: Specimen slightly hemolyzed 3.5 - 5.0 g/dL Total Bilirubin 0.3Comment: Specimen slightly hemolyzed 0.2 - 1.2 mg/dL Bilirubin, Direct 0.2Comment: Specimen slightly hemolyzed 0.1 - 0.5 mg/dL Alkaline Phosphatase 62 40 - 150 U/L AST 40 (H)Comment: Specimen slightly hemolyzed 5 - 34 U/L ALT 28Comment: Specimen slightly hemolyzed 6 - 55 U/L Specimen Performing Laboratory Blood [address] [address] PT/aPTT (04/10/2017 12:30 AM) Component Value Ref Range Protime 14.7 11.7 - 14.7 seconds INR 1.2 <=5.9 PTT 45.8 (H) 22.5 - 36.0 seconds Specimen Performing Laboratory Blood [address] [address] Narrative RECOMMENDED COUMADIN/WARFARIN INR THERAPY RANGES STANDARD DOSE: 2.0 - 3.0 Includes: PROPHYLAXIS for venous thrombosis, systemic embolization; TREATMENT for venous thrombosis and/or pulmonary embolus. HIGH RISK: Target INR is 2.5-3.5 for patients with mechanical heart valves. Prothrombin time/INR (04/10/2017 12:30 AM) Component Value Ref Range Protime 14.7 11.7 - 14.7 seconds INR 1.2 <=5.9 Specimen Performing Laboratory Blood [address] [address] Narrative RECOMMENDED COUMADIN/WARFARIN INR THERAPY RANGES STANDARD DOSE: 2.0 - 3.0 Includes: PROPHYLAXIS for venous thrombosis, systemic embolization; TREATMENT for venous thrombosis and/or pulmonary embolus. HIGH RISK: Target INR is 2.5-3.5 for patients with mechanical heart valves. after 11/21/2016
--- OUTSIDE RECORDS SUMMARY | 2017-11-22 15:24 | XMS REPORT ---
:1950 [facility] [address] [place] [address] Dr. Vazquez [address] [place] [id number] Care Team Providers Name Role Phone JORDAN JACKSON Unavailable Unavailable TAMMIE WALKER Unavailable Unavailable Problems This patient has no known problems. Allergies, Adverse Reactions, Alerts This patient has no known allergies or adverse reactions. Medications This patient has no known medications. Results Test Description Test Time Test Comments Text Results Atomic Results Result Comments B-TYPE NATRIURETIC FACTOR (BNP) 2017-05-01 14:47:00 Test Item Value Reference Range Comments B-TYPE NATRIURETIC PEPTIDE (BEAKER) (test wude=061) 393 pg/mL 0-100 [id number] 14:39:00 Test Item Value Reference Range Comments MAGNESIUM (BEAKER) (test ffxc=388) 1.5 mg/dL 1.6-2.6 BASIC METABOLIC [id number] 14:39:00 Test Item Value Reference Range Comments SODIUM (BEAKER) (test 140 meq/L 136-145 lnie=583) POTASSIUM (BEAKER) (test 4.2 meq/L 3.5-5.1 qojn=980) CHLORIDE (BEAKER) (test 99 meq/L 98-107 cftb=567) CO2 (BEAKER) (test 31 meq/L 22-29 wpeq=114) BLOOD UREA NITROGEN 19 mg/dL 7-21 (BEAKER) (test jvlc=178) CREATININE (BEAKER) (test 1.45 mg/dL 0.57-1.25 hlpm=681) GLUCOSE RANDOM (BEAKER) 99 mg/dL 70-105 (test myjk=139) CALCIUM (BEAKER) (test 9.7 mg/dL 8.4-10.2 aajm=530) EGFR (BEAKER) (test 44 mL/min/1.73 sq m ESTIMATED GFR IS NOT spyy=6418) ACCURATE CREATININE CLEARANCE IN PREDICTING GLOMERULAR FILTRATION RATE. ESTIMATED GFR IS NOT APPLICABLE FOR DIALYSIS PATIENTS. POCT-GLUCOSE [id number] 11:53:00 Test Item Value Reference Range Comments POC-GLUCOSE METER (BEAKER) 150 mg/dL 70-110 TESTED AT [address] (test nxuu=7139) [place] [address] POCT-GLUCOSE [id number] 07:44:00 Test Item Value Reference Range Comments POC-GLUCOSE METER (BEAKER) 80 mg/dL 70-110 TESTED AT [address] (test mhei=5923) [place] [address] CBC (HEMOGRAM ONLY)2017-04-16 04:17:00 Test Item Value Reference Range Comments WHITE BLOOD CELL COUNT (BEAKER) (test lhaq=060) 12.8 K/ L 3.5-10.5 RED BLOOD CELL COUNT (BEAKER) (test cwpu=622) 3.43 M/ L 3.93-5.22 HEMOGLOBIN (BEAKER) (test lxba=515) 9.9 GM/DL 11.2-15.7 HEMATOCRIT (BEAKER) (test ojvn=687) 31.9 % 34.1-44.9 MEAN CORPUSCULAR VOLUME (BEAKER) (test gzqg=468) 93.0 fL 79.4-94.8 MEAN CORPUSCULAR HEMOGLOBIN (BEAKER) (test 28.9 pg 25.6-32.2 vpqp=360) MEAN CORPUSCULAR HEMOGLOBIN CONC (BEAKER) (test 31.0 GM/DL 32.2-35.5 kwwx=760) RED CELL DISTRIBUTION WIDTH (BEAKER) (test 15.0 % 11.7-14.4 mnhe=872) PLATELET COUNT (BEAKER) (test bpiv=664) 223 K/CU MM 150-450 MEAN PLATELET VOLUME (BEAKER) (test jvuh=526) 9.3 fL 9.4-12.3 NUCLEATED RED BLOOD CELLS (BEAKER) (test 0 /100 WBC 0-0 gcqi=956) POCT-GLUCOSE [id number] 21:08:00 Test Item Value Reference Range Comments POC-GLUCOSE METER (BEAKER) 112 mg/dL 70-110 TESTED AT [address] (test bgrm=9216) [place] [address] POCT-GLUCOSE [id number] 18:00:00 Test Item Value Reference Range Comments POC-GLUCOSE METER (BEAKER) 223 mg/dL 70-110 TESTED AT [facility] [address] [facility] (test acqz=4520) [facility] [address] POCT-GLUCOSE [id number] 11:55:00 Test Item Value Reference Range Comments POC-GLUCOSE METER (BEAKER) 175 mg/dL 70-110 TESTED AT [place] [id number] [facility] (test dyif=2528) [facility] [address] BLOOD [id number] 11:00:00 Test Item Value Reference Range Comments CULTURE (BEAKER) (test zjvt=9578) No growth in 5 days BLOOD [id number] 11:00:00 Test Item Value Reference Range Comments CULTURE (BEAKER) (test aycw=7405) No growth in 5 days POCT-GLUCOSE [id number] 08:11:00 Test Item Value Reference Range Comments POC-GLUCOSE METER (BEAKER) 85 mg/dL 70-110 TESTED AT [address] (test gawm=0233) [place] [id number] BASIC METABOLIC [id number] 06:23:00 Test Item Value Reference Range Comments SODIUM (BEAKER) (test 142 meq/L 136-145 kvpw=545) POTASSIUM (BEAKER) (test 3.7 meq/L 3.5-5.1 slai=117) CHLORIDE (BEAKER) (test 97 meq/L 98-107 plff=301) CO2 (BEAKER) (test 36 meq/L 22-29 ncnz=163) BLOOD UREA NITROGEN 47 mg/dL 7-21 (BEAKER) (test rvhh=407) CREATININE (BEAKER) (test 1.32 mg/dL 0.57-1.25 msfv=972) GLUCOSE RANDOM (BEAKER) 82 mg/dL 70-105 (test jgxv=026) CALCIUM (BEAKER) (test 9.1 mg/dL 8.4-10.2 aokk=556) EGFR (BEAKER) (test 49 mL/min/1.73 sq m ESTIMATED GFR IS NOT furi=2783) ACCURATE CREATININE CLEARANCE IN PREDICTING GLOMERULAR FILTRATION RATE. ESTIMATED GFR IS NOT APPLICABLE FOR DIALYSIS PATIENTS. CBC (HEMOGRAM ONLY)2017-04-15 05:42:00 Test Item Value Reference Range Comments WHITE BLOOD CELL COUNT (BEAKER) (test trqn=604) 11.3 K/ L 3.5-10.5 RED BLOOD CELL COUNT (BEAKER) (test rmuk=895) 3.60 M/ L 3.93-5.22 HEMOGLOBIN (BEAKER) (test tstg=309) 10.5 GM/DL 11.2-15.7 HEMATOCRIT (BEAKER) (test rvlo=335) 33.6 % 34.1-44.9 MEAN CORPUSCULAR VOLUME (BEAKER) (test fqpw=584) 93.3 fL 79.4-94.8 MEAN CORPUSCULAR HEMOGLOBIN (BEAKER) (test 29.2 pg 25.6-32.2 ezmy=218) MEAN CORPUSCULAR HEMOGLOBIN CONC (BEAKER) (test 31.3 GM/DL 32.2-35.5 ljqx=290) RED CELL DISTRIBUTION WIDTH (BEAKER) (test 15.3 % 11.7-14.4 gtdt=450) PLATELET COUNT (BEAKER) (test esju=685) 223 K/CU MM 150-450 MEAN PLATELET VOLUME (BEAKER) (test yxdv=552) 9.2 fL 9.4-12.3 NUCLEATED RED BLOOD CELLS (BEAKER) (test 0 /100 WBC 0-0 bjsu=832) CBC W/PLT COUNT & AUTO [id number] 05:42:00 Test Item Value Reference Range Comments WHITE BLOOD CELL COUNT (BEAKER) (test izjk=763) 11.3 K/ L 3.5-10.5 RED BLOOD CELL COUNT (BEAKER) (test mqfr=648) 3.60 M/ L 3.93-5.22 HEMOGLOBIN (BEAKER) (test funx=091) 10.5 GM/DL 11.2-15.7 HEMATOCRIT (BEAKER) (test yfvi=391) 33.6 % 34.1-44.9 MEAN CORPUSCULAR VOLUME (BEAKER) (test kiws=277) 93.3 fL 79.4-94.8 MEAN CORPUSCULAR HEMOGLOBIN (BEAKER) (test 29.2 pg 25.6-32.2 blgr=055) MEAN CORPUSCULAR HEMOGLOBIN CONC (BEAKER) (test 31.3 GM/DL 32.2-35.5 kown=200) RED CELL DISTRIBUTION WIDTH (BEAKER) (test 15.3 % 11.7-14.4 lrvy=217) PLATELET COUNT (BEAKER) (test uktq=874) 223 K/CU MM 150-450 MEAN PLATELET VOLUME (BEAKER) (test pmzm=874) 9.2 fL 9.4-12.3 NUCLEATED RED BLOOD CELLS (BEAKER) (test 0 /100 WBC 0-0 qjli=154) NEUTROPHILS RELATIVE PERCENT (BEAKER) (test 71 % htka=596) LYMPHOCYTES RELATIVE PERCENT (BEAKER) (test 19 % imdu=296) MONOCYTES RELATIVE PERCENT (BEAKER) (test 7 % ljtm=346) EOSINOPHILS RELATIVE PERCENT (BEAKER) (test 1 % llcv=911) BASOPHILS RELATIVE PERCENT (BEAKER) (test 0 % pcpb=416) NEUTROPHILS ABSOLUTE COUNT (BEAKER) (test 7.99 K/ L 1.56-6.13 gjtt=160) LYMPHOCYTES ABSOLUTE COUNT (BEAKER) (test 2.15 K/ L 1.18-3.74 yoks=846) MONOCYTES ABSOLUTE COUNT (BEAKER) (test 0.79 K/ L 0.24-0.36 rcpe=810) EOSINOPHILS ABSOLUTE COUNT (BEAKER) (test 0.16 K/ L 0.04-0.36 nroe=641) BASOPHILS ABSOLUTE COUNT (BEAKER) (test 0.02 K/ L 0.01-0.08 gzqi=790) IMMATURE GRANULOCYTES-RELATIVE PERCENT (BEAKER) 2 % 0-1 (test auib=6342) POCT-GLUCOSE [id number] 21:27:00 Test Item Value Reference Range Comments POC-GLUCOSE METER (BEAKER) 185 mg/dL 70-110 TESTED AT [place] [id number] [facility] (test awbh=3570) [facility] [address] POCT-GLUCOSE [id number] 17:35:00 Test Item Value Reference Range Comments POC-GLUCOSE METER (BEAKER) 255 mg/dL 70-110 TESTED AT [facility] [address] [facility] (test jfca=3127) [facility] [address] PET, CARDIAC PERFUSION MULTIPLE STUDIES, REST AND [id number] 14:55: 00Reason for exam:->NSTEMIFINAL REPORT PROCEDURE: Rest/Stress MYOCARDIAL PERFUSION PET with regadenoson\XA9\[facility] CODE: [id number]: NSTEMIPROTOCOL: Limited low-dose CT imaging was performed for attenuation correction. 32.9 mCi of Rb-82 chloride was injected iv at rest, and gated PET (positron emission tomography) images were obtained. Subsequently, 32.6 mCi of Rb-82 chloride was injected iv at expected peak pharmacologic effect, and gated PET images were obtained. PRELIMINARY STRESS TEST DATA FROM NONINVASIVE CARDIOLOGY: Pharmacologic stress was by 10- second iv infusion of 0.4 mg of regadenoson. Radiotracer was injected 30 seconds after start of stress. Heart rate was 67 beats/min at rest and 85 beats/ min (55% of MPHR) at tracer injection. BP was 142/84 mmHg at rest and 135/58 mmHg at tracer injection. Stress was stopped for predetermined endpoint. The patient experienced dyspnea; treatment was not required. Preliminary ECG evaluation revealed sinus rhythm at rest and no ischemic changes with stress. ( Final ECG interpretation and other stress and monitoring dataare reported separately by Cardiology.) IMAGING FINDINGS: Study quality is fair due to body habitus. Images obtained after rest and stress injections show normal LV activity. LV volume is normal. RV volume is increased. Gated images obtained with stress show normal LV wall motion and thickening. LVEF at stress is 68%. IMPRESSION: 1. Abnormal study only for RV dilation. Adequate pharmacologicstress. 3. Normal LV myocardial perfusion. 4. Normal resting LV function. RV dilation. 5. Normal extracardiac tracer distribution. 6. No prior study. Signed: Crow Rowell MDReport Verified Date/Time: 04/14/2017 14 :55:49 02: 55PMPOCT-GLUCOSE [id number] 11:00:00 Test Item Value Reference Range Comments POC-GLUCOSE METER ([facility]) 131 mg/dL 70-110 TESTED AT [facility] [address] [place] [address] (test olby=1107) [facility] [address] ANTI-NUCLEAR ANTIBODY (WAGNER)2017-04-14 10:42:00 Test Item Value Reference Range Comments ANTI-NUCLEAR ANTIBODY (WAGNER) ([facility]) (test Negative Negative dmpq=213) SEDIMENTATION [id number] 09:35:00 Test Item Value Reference Range Comments SEDIMENTATION RATE, ERYTHROCYTE ([facility]) (test 17 mm/HR 0-40 ulwp=146) HIV-1 ANTIGEN WITH HIV-1/2 [id number] 09:09:00 Test Item Value Reference Range Comments HIV-1 ANTIGEN WITH HIV 1\T\2 ANTIBODY (2) Nonreactive Nonreactive (BEAKER) (test rsde=0839) POCT-GLUCOSE [id number] 09:08:00 Test Item Value Reference Range Comments POC-GLUCOSE METER (BEAKER) 86 mg/dL 70-110 TESTED AT [facility] [address] [facility] (test eupe=1770) [place] [address] RHEUMATOID FACTOR AB, REFLEX TO [id number] 06:02:00 Test Item Value Reference Range Comments RHEUMATOID FACTOR (BEAKER) (test hyje=158) Negative BASIC METABOLIC [id number] 05:46:00 Test Item Value Reference Range Comments SODIUM (BEAKER) (test 140 meq/L 136-145 siqt=619) POTASSIUM (BEAKER) (test 3.8 meq/L 3.5-5.1 oyoz=884) CHLORIDE (BEAKER) (test 97 meq/L 98-107 muvi=895) CO2 (BEAKER) (test 35 meq/L 22-29 ykhi=247) BLOOD UREA NITROGEN 48 mg/dL 7-21 (BEAKER) (test klos=277) CREATININE (BEAKER) (test 1.34 mg/dL 0.57-1.25 pwul=542) GLUCOSE RANDOM (BEAKER) 99 mg/dL 70-105 (test xhvn=277) CALCIUM (BEAKER) (test 9.0 mg/dL 8.4-10.2 qpjv=842) EGFR (BEAKER) (test 48 mL/min/1.73 sq m ESTIMATED GFR IS NOT vveu=0454) ACCURATE CREATININE CLEARANCE IN PREDICTING GLOMERULAR FILTRATION RATE. ESTIMATED GFR IS NOT APPLICABLE FOR DIALYSIS PATIENTS. C-REACTIVE [id number] 05:46:00 Test Item Value Reference Range Comments C-REACTIVE PROTEIN (BEAKER) (test crem=727) 0.43 mg/dL 0.00-0.50 CBC (HEMOGRAM ONLY)2017-04-14 04:37:00 Test Item Value Reference Range Comments WHITE BLOOD CELL COUNT (BEAKER) (test znoh=312) 11.0 K/ L 3.5-10.5 RED BLOOD CELL COUNT (BEAKER) (test pnmw=807) 3.69 M/ L 3.93-5.22 HEMOGLOBIN (BEAKER) (test ycpc=523) 10.9 GM/DL 11.2-15.7 HEMATOCRIT (BEAKER) (test eubh=448) 34.1 % 34.1-44.9 MEAN CORPUSCULAR VOLUME (BEAKER) (test pfap=617) 92.4 fL 79.4-94.8 MEAN CORPUSCULAR HEMOGLOBIN (BEAKER) (test 29.5 pg 25.6-32.2 kohk=388) MEAN CORPUSCULAR HEMOGLOBIN CONC (BEAKER) (test 32.0 GM/DL 32.2-35.5 xwtt=116) RED CELL DISTRIBUTION WIDTH (BEAKER) (test 15.1 % 11.7-14.4 llxg=088) PLATELET COUNT (BEAKER) (test tfdz=522) 220 K/CU MM 150-450 MEAN PLATELET VOLUME (BEAKER) (test xzgv=430) 9.3 fL 9.4-12.3 NUCLEATED RED BLOOD CELLS (BEAKER) (test 0 /100 WBC 0-0 pcnu=480) CBC W/PLT COUNT & AUTO [id number] 04:37:00 Test Item Value Reference Range Comments WHITE BLOOD CELL COUNT (BEAKER) (test nzhd=568) 11.0 K/ L 3.5-10.5 RED BLOOD CELL COUNT (BEAKER) (test rcth=959) 3.69 M/ L 3.93-5.22 HEMOGLOBIN (BEAKER) (test snwn=065) 10.9 GM/DL 11.2-15.7 HEMATOCRIT (BEAKER) (test uepx=473) 34.1 % 34.1-44.9 MEAN CORPUSCULAR VOLUME (BEAKER) (test gmcu=379) 92.4 fL 79.4-94.8 MEAN CORPUSCULAR HEMOGLOBIN (BEAKER) (test 29.5 pg 25.6-32.2 kgoj=703) MEAN CORPUSCULAR HEMOGLOBIN CONC (BEAKER) (test 32.0 GM/DL 32.2-35.5 xzpg=560) RED CELL DISTRIBUTION WIDTH (BEAKER) (test 15.1 % 11.7-14.4 hnuu=932) PLATELET COUNT (BEAKER) (test kujj=371) 220 K/CU MM 150-450 MEAN PLATELET VOLUME (BEAKER) (test ojny=714) 9.3 fL 9.4-12.3 NUCLEATED RED BLOOD CELLS (BEAKER) (test 0 /100 WBC 0-0 anqg=290) NEUTROPHILS RELATIVE PERCENT (BEAKER) (test 72 % otjn=000) LYMPHOCYTES RELATIVE PERCENT (BEAKER) (test 17 % ckse=894) MONOCYTES RELATIVE PERCENT (BEAKER) (test 8 % rqml=819) EOSINOPHILS RELATIVE PERCENT (BEAKER) (test 1 % oufb=963) BASOPHILS RELATIVE PERCENT (BEAKER) (test 0 % szbi=623) NEUTROPHILS ABSOLUTE COUNT (BEAKER) (test 7.92 K/ L 1.56-6.13 deso=920) LYMPHOCYTES ABSOLUTE COUNT (BEAKER) (test 1.91 K/ L 1.18-3.74 piyh=797) MONOCYTES ABSOLUTE COUNT (BEAKER) (test 0.89 K/ L 0.24-0.36 gbbo=611) EOSINOPHILS ABSOLUTE COUNT (BEAKER) (test 0.09 K/ L 0.04-0.36 elrt=064) BASOPHILS ABSOLUTE COUNT (BEAKER) (test 0.00 K/ L 0.01-0.08 ikre=743) IMMATURE GRANULOCYTES-RELATIVE PERCENT (BEAKER) 1 % 0-1 (test rfsy=6560) CBC (HEMOGRAM ONLY)2017-04-14 04:36:00 Test Item Value Reference Range Comments WHITE BLOOD CELL COUNT (BEAKER) (test kbxj=225) 10.9 K/ L 3.5-10.5 RED BLOOD CELL COUNT (BEAKER) (test jrhn=811) 3.65 M/ L 3.93-5.22 HEMOGLOBIN (BEAKER) (test gtwl=002) 10.6 GM/DL 11.2-15.7 HEMATOCRIT (BEAKER) (test nffz=983) 33.8 % 34.1-44.9 MEAN CORPUSCULAR VOLUME (BEAKER) (test rhjp=472) 92.6 fL 79.4-94.8 MEAN CORPUSCULAR HEMOGLOBIN (BEAKER) (test 29.0 pg 25.6-32.2 xxjq=894) MEAN CORPUSCULAR HEMOGLOBIN CONC (BEAKER) (test 31.4 GM/DL 32.2-35.5 sfxw=773) RED CELL DISTRIBUTION WIDTH (BEAKER) (test 15.1 % 11.7-14.4 nhah=380) PLATELET COUNT (BEAKER) (test ynhc=338) 223 K/CU MM 150-450 MEAN PLATELET VOLUME (BEAKER) (test vnwl=241) 9.5 fL 9.4-12.3 NUCLEATED RED BLOOD CELLS (BEAKER) (test 0 /100 WBC 0-0 sryn=003) POCT-GLUCOSE [id number] 04:31:00 Test Item Value Reference Range Comments POC-GLUCOSE METER (BEAKER) 111 mg/dL 70-110 TESTED AT [address] (test kxkb=6456) [place] [address] POCT-GLUCOSE [id number] 21:57:00 Test Item Value Reference Range Comments POC-GLUCOSE METER (BEAKER) 153 mg/dL 70-110 TESTED AT [address] (test fwad=7856) [place] [address] POCT-GLUCOSE [id number] 17:20:00 Test Item Value Reference Range Comments POC-GLUCOSE METER (BEAKER) 240 mg/dL 70-110 TESTED AT [address] (test ksfs=3565) [place] [address] PUL PERF IMAGING, PARTIC, [id number] 17:00:00With NM brain/kidneys to look for shunting as well as CTEPHFINAL REPORT PROCEDURE: V/Q LUNG SCAN CPT CODE: 00157 INDICATION: Pulmonary hypertension acute respiratory failure PROTOCOL: 10.4 mCi of Xe-133 gas was administered by inhalation. Single breath and rebreathing/washout images were obtained in the anteriorand the posterior projections. 1.96 mCi of Tc-99m MAA was then injected intravenously, and static perfusion images were obtained in multiple projections. FINDINGS: Ventilation: Initial tracer distribution is physiological. Washout proceeds normally. Perfusion: Tracer distribution is physiological. IMPRESSION: Normal ventilation/ perfusion lung scan. Signed: Juan Kc MDRepssm rehab Verified Date/Time: 2016 17:00:02 Reading Location: [address] Reading Room POCT- GLUCOSE [id number] 12:20:00 Test Item Value Reference Range Comments POC-GLUCOSE METER (BEAKER) 178 mg/dL 70-110 TESTED AT [address] (test wluv=6874) [place] [id number] POCT-GLUCOSE [id number] 08:33:00 Test Item Value Reference Range Comments POC-GLUCOSE METER (BEAKER) 79 mg/dL 70-110 TESTED AT [facility] [address] (test mpph=3651) [facility] [address] B-TYPE NATRIURETIC FACTOR (BNP)2017-04-13 05:58:00 Test Item Value Reference Range Comments B-TYPE NATRIURETIC PEPTIDE (BEAKER) (test 312 pg/mL 0-100 xlrb=823) BASIC METABOLIC [id number] 05:47:00 Test Item Value Reference Range Comments SODIUM (BEAKER) (test 141 meq/L 136-145 palv=139) POTASSIUM (BEAKER) (test 4.3 meq/L 3.5-5.1 qtaz=639) CHLORIDE (BEAKER) (test 99 meq/L 98-107 hqmc=042) CO2 (BEAKER) (test 35 meq/L 22-29 tiof=786) BLOOD UREA NITROGEN 44 mg/dL 7-21 (BEAKER) (test ymkn=288) CREATININE (BEAKER) (test 1.40 mg/dL 0.57-1.25 yfzz=032) GLUCOSE RANDOM (BEAKER) 96 mg/dL 70-105 (test wkgp=710) CALCIUM (BEAKER) (test 9.0 mg/dL 8.4-10.2 ijzj=015) EGFR (BEAKER) (test 45 mL/min/1.73 sq m ESTIMATED GFR IS NOT hfqh=3227) ACCURATE CREATININE CLEARANCE IN PREDICTING GLOMERULAR FILTRATION RATE. ESTIMATED GFR IS NOT APPLICABLE FOR DIALYSIS PATIENTS. CBC W/PLT COUNT & AUTO [id number] 05:39:00 Test Item Value Reference Range Comments WHITE BLOOD CELL COUNT (BEAKER) (test vkud=393) 11.5 K/ L 3.5-10.5 RED BLOOD CELL COUNT (BEAKER) (test ouoh=471) 3.44 M/ L 3.93-5.22 HEMOGLOBIN (BEAKER) (test gnhs=311) 10.0 GM/DL 11.2-15.7 HEMATOCRIT (BEAKER) (test qjyf=483) 32.0 % 34.1-44.9 MEAN CORPUSCULAR VOLUME (BEAKER) (test iwfh=473) 93.0 fL 79.4-94.8 MEAN CORPUSCULAR HEMOGLOBIN (BEAKER) (test 29.1 pg 25.6-32.2 klad=291) MEAN CORPUSCULAR HEMOGLOBIN CONC (BEAKER) (test 31.3 GM/DL 32.2-35.5 vxnp=805) RED CELL DISTRIBUTION WIDTH (BEAKER) (test 15.3 % 11.7-14.4 twir=608) PLATELET COUNT (BEAKER) (test baay=196) 216 K/CU MM 150-450 MEAN PLATELET VOLUME (BEAKER) (test zpgg=836) 8.9 fL 9.4-12.3 NUCLEATED RED BLOOD CELLS (BEAKER) (test 0 /100 WBC 0-0 tvxb=809) NEUTROPHILS RELATIVE PERCENT (BEAKER) (test 75 % aqkp=995) LYMPHOCYTES RELATIVE PERCENT (BEAKER) (test 16 % rgjm=890) MONOCYTES RELATIVE PERCENT (BEAKER) (test 8 % xsad=653) EOSINOPHILS RELATIVE PERCENT (BEAKER) (test 1 % bhzj=090) BASOPHILS RELATIVE PERCENT (BEAKER) (test 0 % juim=914) NEUTROPHILS ABSOLUTE COUNT (BEAKER) (test 8.61 K/ L 1.56-6.13 ykby=883) LYMPHOCYTES ABSOLUTE COUNT (BEAKER) (test 1.81 K/ L 1.18-3.74 xigh=854) MONOCYTES ABSOLUTE COUNT (BEAKER) (test 0.92 K/ L 0.24-0.36 jnva=633) EOSINOPHILS ABSOLUTE COUNT (BEAKER) (test 0.11 K/ L 0.04-0.36 irvu=909) BASOPHILS ABSOLUTE COUNT (BEAKER) (test 0.01 K/ L 0.01-0.08 nwqr=668) IMMATURE GRANULOCYTES-RELATIVE PERCENT (BEAKER) 1 % 0-1 (test kljf=0481) POCT-GLUCOSE [id number] 05:04:00 Test Item Value Reference Range Comments POC-GLUCOSE METER (BEAKER) 103 mg/dL 70-110 TESTED AT [address] (test mlrt=7465) [facility] [address] POCT-GLUCOSE [id number] 21:41:00 Test Item Value Reference Range Comments POC-GLUCOSE METER (BEAKER) 176 mg/dL 70-110 TESTED AT [address] (test lqoq=8390) [facility] [address] POCT-GLUCOSE [id number] 17:05:00 Test Item Value Reference Range Comments POC-GLUCOSE METER (BEAKER) 207 mg/dL 70-110 TESTED AT [address] (test sksq=8204) [place] [address] TROPONIN [id number] 13:44:00 Test Item Value Reference Range Comments TROPONIN I (BEAKER) (test fmjh=118) 0.35 ng/mL 0.00-0.03 Troponin I (TnI) levels must be interpreted [...] failure, acidosis, acute neurological disease, and persistent tachyarrhythmia.HEMOGLOBIN [id number] 12:54:00 Test Item Value Reference Range Comments HEMOGLOBIN A1C (BEAKER) (test alyo=323) 5.8 % 4.3-6.1 POCT-GLUCOSE [id number] 11:37:00 Test Item Value Reference Range Comments POC-GLUCOSE METER (BEAKER) 231 mg/dL 70-110 TESTED AT [address] (test xjtj=5450) [place] [address] URINE [id number] 10:51:00 Test Item Value Reference Range Comments CULTURE (BEAKER) (test rszf=5159) No growth POCT-GLUCOSE [id number] 08:01:00 Test Item Value Reference Range Comments POC-GLUCOSE METER (BEAKER) 134 mg/dL 70-110 TESTED AT [address] (test fkvz=7859) [place] [address] BASIC METABOLIC [id number] 05:36:00 Test Item Value Reference Range Comments SODIUM (BEAKER) (test 136 meq/L 136-145 pifn=664) POTASSIUM (BEAKER) (test 5.2 meq/L 3.5-5.1 kjtv=323) CHLORIDE (BEAKER) (test 99 meq/L 98-107 mzie=340) CO2 (BEAKER) (test 30 meq/L 22-29 ezxw=296) BLOOD UREA NITROGEN 43 mg/dL 7-21 (BEAKER) (test veqk=101) CREATININE (BEAKER) (test 1.53 mg/dL 0.57-1.25 bdqy=008) GLUCOSE RANDOM (BEAKER) 159 mg/dL 70-105 (test fkhy=567) CALCIUM (BEAKER) (test 8.8 mg/dL 8.4-10.2 upof=095) EGFR (BEAKER) (test 41 mL/min/1.73 sq m ESTIMATED GFR IS NOT ajie=5167) ACCURATE CREATININE CLEARANCE IN PREDICTING GLOMERULAR FILTRATION RATE. ESTIMATED GFR IS NOT APPLICABLE FOR DIALYSIS PATIENTS. CBC W/PLT COUNT & AUTO [id number] 05:33:00 Test Item Value Reference Range Comments WHITE BLOOD CELL COUNT (BEAKER) (test augb=468) 14.2 K/ L 3.5-10.5 RED BLOOD CELL COUNT (BEAKER) (test bkcn=102) 3.53 M/ L 3.93-5.22 HEMOGLOBIN (BEAKER) (test rqqg=841) 10.5 GM/DL 11.2-15.7 HEMATOCRIT (BEAKER) (test zxrl=290) 33.0 % 34.1-44.9 MEAN CORPUSCULAR VOLUME (BEAKER) (test lhra=247) 93.5 fL 79.4-94.8 MEAN CORPUSCULAR HEMOGLOBIN (BEAKER) (test 29.7 pg 25.6-32.2 mexa=074) MEAN CORPUSCULAR HEMOGLOBIN CONC (BEAKER) (test 31.8 GM/DL 32.2-35.5 xdsc=235) RED CELL DISTRIBUTION WIDTH (BEAKER) (test 15.1 % 11.7-14.4 siwl=269) PLATELET COUNT (BEAKER) (test ednj=706) 229 K/CU MM 150-450 MEAN PLATELET VOLUME (BEAKER) (test zdij=164) 9.6 fL 9.4-12.3 NUCLEATED RED BLOOD CELLS (BEAKER) (test 0 /100 WBC 0-0 oaqa=115) NEUTROPHILS RELATIVE PERCENT (BEAKER) (test 90 % akvd=713) LYMPHOCYTES RELATIVE PERCENT (BEAKER) (test 5 % nvxn=656) MONOCYTES RELATIVE PERCENT (BEAKER) (test 4 % qlvx=184) EOSINOPHILS RELATIVE PERCENT (BEAKER) (test 0 % yxmy=521) BASOPHILS RELATIVE PERCENT (BEAKER) (test 0 % kxyr=428) NEUTROPHILS ABSOLUTE COUNT (BEAKER) (test 12.74 K/ L 1.56-6.13 obzp=554) LYMPHOCYTES ABSOLUTE COUNT (BEAKER) (test 0.76 K/ L 1.18-3.74 joqw=766) MONOCYTES ABSOLUTE COUNT (BEAKER) (test 0.52 K/ L 0.24-0.36 hhse=271) EOSINOPHILS ABSOLUTE COUNT (BEAKER) (test 0.00 K/ L 0.04-0.36 fnvq=836) BASOPHILS ABSOLUTE COUNT (BEAKER) (test 0.01 K/ L 0.01-0.08 scgj=067) IMMATURE GRANULOCYTES-RELATIVE PERCENT (BEAKER) 1 % 0-1 (test cpkf=5800) CBC (HEMOGRAM ONLY)2017-04-12 05:25:00 Test Item Value Reference Range Comments WHITE BLOOD CELL COUNT (BEAKER) (test rspk=558) 14.2 K/ L 3.5-10.5 RED BLOOD CELL COUNT (BEAKER) (test gfke=884) 3.53 M/ L 3.93-5.22 HEMOGLOBIN (BEAKER) (test yaxn=003) 10.5 GM/DL 11.2-15.7 HEMATOCRIT (BEAKER) (test dwzj=143) 33.0 % 34.1-44.9 MEAN CORPUSCULAR VOLUME (BEAKER) (test wdzt=232) 93.5 fL 79.4-94.8 MEAN CORPUSCULAR HEMOGLOBIN (BEAKER) (test 29.7 pg 25.6-32.2 lcud=271) MEAN CORPUSCULAR HEMOGLOBIN CONC (BEAKER) (test 31.8 GM/DL 32.2-35.5 lvru=609) RED CELL DISTRIBUTION WIDTH (BEAKER) (test 15.1 % 11.7-14.4 popc=345) PLATELET COUNT (BEAKER) (test gywi=927) 229 K/CU MM 150-450 MEAN PLATELET VOLUME (BEAKER) (test rikv=186) 9.6 fL 9.4-12.3 NUCLEATED RED BLOOD CELLS (BEAKER) (test 0 /100 WBC 0-0 dkux=917) POCT-GLUCOSE [id number] 21:38:00 Test Item Value Reference Range Comments POC-GLUCOSE METER (BEAKER) 178 mg/dL 70-110 TESTED AT [facility] [address] [facility] (test peev=7596) [facility] [address] POCT-GLUCOSE [id number] 16:53:00 Test Item Value Reference Range Comments POC-GLUCOSE METER (BEAKER) 305 mg/dL 70-110 TESTED AT [facility] [address] [facility] (test vmvr=8382) [facility] [address] POCT-GLUCOSE [id number] 12:07:00 Test Item Value Reference Range Comments POC-GLUCOSE METER (BEAKER) 213 mg/dL 70-110 TESTED AT [facility] [address] [facility] (test jzbi=1576) [facility] [address] POCT-GLUCOSE [id number] 08:42:00 Test Item Value Reference Range Comments POC-GLUCOSE METER (BEAKER) 179 mg/dL 70-110 TESTED AT [address] (test fcaw=7991) [facility] [address] BASIC METABOLIC [id number] 05:03:00 Test Item Value Reference Range Comments SODIUM (BEAKER) (test 138 meq/L 136-145 ednk=794) POTASSIUM (BEAKER) (test 4.7 meq/L 3.5-5.1 xnwh=113) CHLORIDE (BEAKER) (test 98 meq/L 98-107 fxvg=754) CO2 (BEAKER) (test 34 meq/L 22-29 bzgs=179) BLOOD UREA NITROGEN 32 mg/dL 7-21 (BEAKER) (test vrhb=225) CREATININE (BEAKER) (test 1.41 mg/dL 0.57-1.25 zekc=929) GLUCOSE RANDOM (BEAKER) 179 mg/dL 70-105 (test rpvw=014) CALCIUM (BEAKER) (test 9.0 mg/dL 8.4-10.2 gdgk=195) EGFR (BEAKER) (test 45 mL/min/1.73 sq m ESTIMATED GFR IS NOT ukgr=3616) ACCURATE CREATININE CLEARANCE IN PREDICTING GLOMERULAR FILTRATION RATE. ESTIMATED GFR IS NOT APPLICABLE FOR DIALYSIS PATIENTS. CBC W/PLT COUNT & AUTO [id number] 04:53:00 Test Item Value Reference Range Comments WHITE BLOOD CELL COUNT (BEAKER) (test ediu=596) 12.2 K/ L 3.5-10.5 RED BLOOD CELL COUNT (BEAKER) (test mrrm=765) 3.37 M/ L 3.93-5.22 HEMOGLOBIN (BEAKER) (test jxas=578) 9.7 GM/DL 11.2-15.7 HEMATOCRIT (BEAKER) (test nevu=468) 31.7 % 34.1-44.9 MEAN CORPUSCULAR VOLUME (BEAKER) (test ynae=135) 94.1 fL 79.4-94.8 MEAN CORPUSCULAR HEMOGLOBIN (BEAKER) (test 28.8 pg 25.6-32.2 ongi=221) MEAN CORPUSCULAR HEMOGLOBIN CONC (BEAKER) (test 30.6 GM/DL 32.2-35.5 xdpv=618) RED CELL DISTRIBUTION WIDTH (BEAKER) (test 14.7 % 11.7-14.4 yfrf=033) PLATELET COUNT (BEAKER) (test djub=123) 202 K/CU MM 150-450 MEAN PLATELET VOLUME (BEAKER) (test mbzo=107) 9.5 fL 9.4-12.3 NUCLEATED RED BLOOD CELLS (BEAKER) (test 0 /100 WBC 0-0 cklj=276) NEUTROPHILS RELATIVE PERCENT (BEAKER) (test 92 % inhm=351) LYMPHOCYTES RELATIVE PERCENT (BEAKER) (test 4 % thot=668) MONOCYTES RELATIVE PERCENT (BEAKER) (test 3 % kbfo=481) EOSINOPHILS RELATIVE PERCENT (BEAKER) (test 0 % xpzg=903) BASOPHILS RELATIVE PERCENT (BEAKER) (test 0 % aitj=181) NEUTROPHILS ABSOLUTE COUNT (BEAKER) (test 11.29 K/ L 1.56-6.13 czlx=295) LYMPHOCYTES ABSOLUTE COUNT (BEAKER) (test 0.44 K/ L 1.18-3.74 wygl=711) MONOCYTES ABSOLUTE COUNT (BEAKER) (test 0.41 K/ L 0.24-0.36 lnxp=019) EOSINOPHILS ABSOLUTE COUNT (BEAKER) (test 0.00 K/ L 0.04-0.36 uyqx=692) BASOPHILS ABSOLUTE COUNT (BEAKER) (test 0.01 K/ L 0.01-0.08 zwqs=037) IMMATURE GRANULOCYTES-RELATIVE PERCENT (BEAKER) 1 % 0-1 (test snmo=2423) POCT-GLUCOSE [id number] 04:46:00 Test Item Value Reference Range Comments POC-GLUCOSE METER (BEAKER) 201 mg/dL 70-110 TESTED AT [facility] [address] [facility] (test hxne=6570) [facility] [address] CT, CHEST, WITHOUT [id number] 02:12:00FINAL REPORT EXAMINATION: CT SCAN OF THE CHEST, ABDOMEN AND PELVIS CLINICALHISTORY :Sepsis, pneumonia, pulmonary edema COMPARISON EXAM: Abdominal ultrasound 2016 TECHNIQUE: Following the administration of oral contrast, [...] Calcific atherosclerotic changes are noted involving the aortaand great vessels arising off of the aortic arch. The pulmonary trunk is prominent measuring greater than 4 cm. The central pulmonary arteries are also mildly dilated. The heart is enlarged. No evidence of a pericardial effusion. The esophagus is decompressed. No definite evidence of pathologically enlarged axillary or mediastinal lymph nodes. There are small bilateral pleural effusions. Curvilinearparenchymal lung opacities are compatible with associated atelectasis. [...] is mildly atrophic with fatty infiltration. The spleenis unremarkable. The adrenal glands are normal in [...] in caliber. Scattered calcific atherosclerotic plaques are notedinvolving the aorta, mesenteric, iliac arteries. Further characterization the vascular structures islimited by the absence of contrast. The uterus and adnexa are unremarkable. The bladder is decompressed with a Salas catheter. No significant pelvic free fluid. There are numerous small punctate pelviccalcifications. The vast majority are vascular phleboliths. Evaluation [...] findings may be chronic, correlation with patient's renalfunction and urinalysis is recommended as a nephritis or pyelitis/pyelonephritis should also be considered. Cardiac enlargement. Small bilateral pleural effusions and adjacent passive atelectasis. Subtle groundglass opacities may reflect mild pulmonary edema. Dilatation of the pulmonary trunk and central pulmonary arteries, nonspecific but concerning for pulmonary hypertension. Colonic diverticulosis without definite evidence of diverticulitis. Signed: Gokul Zaidi [facility] Verified Date /Time: 04/11/2017 02:12:58 Reading Location: [address] Reading Room [facility] , [id number] 02:12:00FINAL REPORT EXAMINATION: CT SCAN OF THE CHEST, ABDOMEN AND PELVIS CLINICALHISTORY:Sepsis, pneumonia, pulmonary edema COMPARISON EXAM: Abdominal ultrasound [...] Calcific atherosclerotic changes are noted involving the aortaand great vessels arising off of the aortic arch. The pulmonary trunk is prominent measuring greater than 4 cm. The central pulmonary arteries are also mildly dilated. The heart is enlarged. No evidence of a pericardial effusion. The esophagus is decompressed. No definite evidence of pathologically enlarged axillary or mediastinal lymph nodes. There are small bilateral pleural effusions. Curvilinearparenchymal lung opacities are compatible with associated atelectasis. [...] is mildly atrophic with fatty infiltration. The spleenis unremarkable. The adrenal glands are normal in [...] in caliber. Scattered calcific atherosclerotic plaques are notedinvolving the aorta, mesenteric, iliac arteries. Further characterization the vascular structures islimited by the absence of contrast. The uterus and adnexa are unremarkable. The bladder is decompressed with a Salas catheter. No significant pelvic free fluid. There are numerous small punctate pelviccalcifications. The vast majority are vascular phleboliths. Evaluation [...] findings may be chronic, correlation with patient's renalfunction and urinalysis is recommended as a nephritis or pyelitis/pyelonephritis should also be considered. Cardiac enlargement. Small bilateral pleural effusions and adjacent passive atelectasis. Subtle groundglass opacities may reflect mild pulmonary edema. Dilatation of the pulmonary trunk and central pulmonary arteries, nonspecific but concerning for pulmonary hypertension. Colonic diverticulosis without definite evidence of diverticulitis. Signed: Gokul Zaidi [facility] Verified Date /Time: 04/11/2017 02:12:58 Reading Location: [address] Reading Room POCT-GLUCOSE [id number] 00:26:00 Test Item Value Reference Range Comments POC-GLUCOSE METER (BEAKER) 225 mg/dL 70-110 TESTED AT [address] (test aeqd=1634) [facility] [address] BLOOD GAS, [id number] 20:54:00 Test Item Value Reference Range Comments PH ARTERIAL (BEAKER) (test ixix=502) 7.45 7.35-7.45 PCO2 ARTERIAL (BEAKER) (test bghy=266) 51 mmHg 35-45 PO2 ARTERIAL (BEAKER) (test dnrh=647) 151 mmHg 80-90 O2 SATURATION ARTERIAL (BEAKER) (test gqgy=616) 99.0 % 96.0-97.0 HCO3 ARTERIAL (BEAKER) (test wytv=429) 35 mmol/L 21-29 BASE EXCESS ARTERIAL (BEAKER) (test wbdu=880) 9.9 mmol/L -2.0-3.0 PATIENT TEMPERATURE (BEAKER) (test haqo=1718) 37.0 C FIO2 (BEAKER) (test vltg=6235) 36.0 % POCT-GLUCOSE [id number] 20:50:00 Test Item Value Reference Range Comments POC-GLUCOSE METER (BEAKER) 211 mg/dL 70-110 TESTED AT [address] (test prfl=6035) [place] [address] POCT-GLUCOSE [id number] 16:25:00 Test Item Value Reference Range Comments POC-GLUCOSE METER (BEAKER) 227 mg/dL 70-110 TESTED AT [address] (test egkc=6164) [place] [address] BLOOD GAS, [id number] 14:59:00 Test Item Value Reference Range Comments PH ARTERIAL (BEAKER) (test zfij=348) 7.35 7.35-7.45 PCO2 ARTERIAL (BEAKER) (test crax=616) 70 mmHg 35-45 PO2 ARTERIAL (BEAKER) (test iwck=313) 46 mmHg 80-90 O2 SATURATION ARTERIAL (BEAKER) (test dlyn=189) 78.2 % 96.0-97.0 HCO3 ARTERIAL (BEAKER) (test wtzw=890) 37 mmol/L 21-29 BASE EXCESS ARTERIAL (BEAKER) (test jgma=755) 9.3 mmol/L -2.0-3.0 PATIENT TEMPERATURE (BEAKER) (test rdvn=1176) 37.0 C FIO2 (BEAKER) (test wzyg=2029) 40.0 % POCT-GLUCOSE [id number] 12:11:00 Test Item Value Reference Range Comments POC-GLUCOSE METER (BEAKER) 268 mg/dL 70-110 TESTED AT [address] (test mmwi=4428) [place] [id number] BLOOD GAS, [id number] 11:51:00 Test Item Value Reference Range Comments PH ARTERIAL (BEAKER) (test nnhh=141) 7.33 7.35-7.45 PCO2 ARTERIAL (BEAKER) (test yyce=788) 71 mmHg 35-45 PO2 ARTERIAL (BEAKER) (test erkd=851) 69 mmHg 80-90 O2 SATURATION ARTERIAL (BEAKER) (test jukq=793) 92.0 % 96.0-97.0 HCO3 ARTERIAL (BEAKER) (test dpqk=154) 37 mmol/L 21-29 BASE EXCESS ARTERIAL (BEAKER) (test dceu=848) 8.7 mmol/L -2.0-3.0 PATIENT TEMPERATURE (BEAKER) (test upot=6324) 37.0 C FIO2 (BEAKER) (test ysck=3515) 40.0 % U/S, ABDOMINAL, [id number] 10:09:00Reason for exam:->abdominal pain, cholecystitis, ascitesFINAL REPORT Abdominal Ultrasound Clinical Diagnosis: Abdomen pain cholecystitis and ascites Comparison: No comparison Technique: Multiple transaxial and longitudinal images were obtained through the abdomen with real time ultrasonography. Five MHz transducer was utilized. 91images were submitted for interpretation. Report:Liver: The liver measures 16 cm in the right midaxillary line. There are no focal masses. The echogenicity is within normal limits.Spleen: The spleen measures 8.9 cm. in the left mid axillary line. Gallbladder: The transverse diameter is 1.6 cm. The wall measures three mm. There are no shadowing stones visualized. Biliary tree: There is no evidence of intra or extra hepatic biliary ductal dilatation. The common bile duct measures six mm.Portal vein: The portal vein measures 12 mm. Pancreas: The pancreatic tail is not well seen secondary to overlying bowel gas. Ascites: NegativePleural Effusion: NegativeRight kidney: The right kidney measures 10.0 cm. in length without evidence of hydronephrosis. There are two renal cysts one lower pole renal cyst measuring 4.9 cm a second upper pole renal cyst measuring 2.3 cmLeft kidney: The left kidney measures cm. in length evidence of hydronephrosis.IVC/Aorta: Partially seen segments demonstrate no abnormality. maximum transverse dimension of the aorta was visualized proximally measuring 1.8 cm Impression: Mild hepatomegaly.There is no evidence of ascites.Right renal cysts.No sonographic evidence of cholecystitis. No sonographic evidence of cholelithiasis. Signed: Tahir Matthews Verified Date/Time: 2016 10:09:29 Reading Location: [address] Ultrasound ReadingRoom [id number] 09:53:00 Test Item Value Reference Range Comments LIPASE (BEAKER) (test qgvm=075) 8 U/L 8-78 BASIC METABOLIC [id number] 09:53:00 Test Item Value Reference Range Comments SODIUM (BEAKER) (test 136 meq/L 136-145 rhdz=073) POTASSIUM (BEAKER) (test 5.0 meq/L 3.5-5.1 oive=125) CHLORIDE (BEAKER) (test 95 meq/L 98-107 nosl=957) CO2 (BEAKER) (test 36 meq/L 22-29 zcrd=835) BLOOD UREA NITROGEN 32 mg/dL 7-21 (BEAKER) (test bkoe=602) CREATININE (BEAKER) (test 1.76 mg/dL 0.57-1.25 iyft=290) GLUCOSE RANDOM (BEAKER) 249 mg/dL 70-105 (test krxt=118) CALCIUM (BEAKER) (test 8.8 mg/dL 8.4-10.2 gjil=715) EGFR (BEAKER) (test 35 mL/min/1.73 sq m ESTIMATED GFR IS NOT sddc=9097) ACCURATE CREATININE CLEARANCE IN PREDICTING GLOMERULAR FILTRATION RATE. ESTIMATED GFR IS NOT APPLICABLE FOR DIALYSIS PATIENTS. [id number] 09:11:00 Test Item Value Reference Range Comments HAPTOGLOBIN (BEAKER) (test nilu=529) 194 mg/dL 14-258 VITAMIN B12 AND [id number] 08:57:00 Test Item Value Reference Range Comments VITAMIN B12 (BEAKER) (test sgdt=759) > pg/mL 213-816 FOLATE (BEAKER) (test fkzj=729) 14.9 ng/mL >=7.0 POCT-GLUCOSE [id number] 08:29:00 Test Item Value Reference Range Comments POC-GLUCOSE METER (BEAKER) 270 mg/dL 70-110 TESTED AT [facility] [address] [facility] (test nfef=1142) [facility] [address] [id number] 08:24:00 Test Item Value Reference Range Comments FERRITIN (BEAKER) (test owsf=137) 106 ng/mL 5-275 PROTEIN, RANDOM [id number] 08:14:00 Test Item Value Reference Range Comments PROTEIN, URINE (BEAKER) (test ehtf=0813) < mg/dL 0-14 SODIUM, RANDOM [id number] 08:14:00 Test Item Value Reference Range Comments SODIUM URINE (BEAKER) (test rcez=379) < meq/L Reference Range: No NormalsRETICULOCYTE [id number] 08:03:00 Test Item Value Reference Range Comments RETICULOCYTE COUNT PCT (BEAKER) (test qqne=267) 1.9 % 0.5-1.7 IRON, TIBC, % SAT. (WITHOUT FERRITIN)2017-04-10 08:02:00 Test Item Value Reference Range Comments IRON (BEAKER) (test bhoy=428) 20 ug/dL 40-160 TOTAL IRON BINDING CAPACITY (BEAKER) (test 243 ug/dL 250-450 qqxu=464) IRON % SATURATION (2) (BEAKER) (test cxal=1045) 8 % 20-55 LIPID [id number] 08:01:00 Test Item Value Reference Range Comments TRIGLYCERIDES (BEAKER) (test dygu=207) 54 mg/dL CHOLESTEROL (BEAKER) (test hhse=488) 107 mg/dL HDL CHOLESTEROL (BEAKER) (test fjrw=530) 41 mg/dL LDL CHOLESTEROL CALCULATED (BEAKER) (test 55 mg/dL dukq=344) Triglyceride Reference Range: Low Risk <150 Borderline 150- 199 High Risk 200-499 Very High Risk >=500Cholesterol Reference Range: Low Risk <200 Borderline 200-239 High Risk > 240HDL Cholesterol Reference Range: Low Risk >=60 High Risk <40LDL Cholesterol Reference Range: Optimal <100 Near Optimal 100-129 Borderline 130-159 High 160-189 Very High >=190LACTATE DEHYDROGENASE (LDH)2017-04-10 08:01:00 Test Item Value Reference Range Comments LACTATE DEHYDROGENASE (BEAKER) (test ywjj=149) 276 U/L 125-220 CREATININE, RANDOM [id number] 08:01:00 Test Item Value Reference Range Comments CREATININE URINE (BEAKER) (test psme=584) 92.9 mg/dL Reference Range: No NormalsURINALYSIS W/ REFLEX URINE [id number] 07:54:00 Test Item Value Reference Range Comments COLOR (BEAKER) (test ylpz=078) Yellow CLARITY (BEAKER) (test ykta=548) Clear SPECIFIC GRAVITY UA (BEAKER) (test puwz=869) 1.007 1.001-1.035 PH UA (BEAKER) (test iuag=698) 5.0 5.0-8.0 PROTEIN UA (BEAKER) (test cxoh=448) Negative Negative GLUCOSE UA (BEAKER) (test uify=510) Negative Negative KETONES UA (BEAKER) (test bjyz=682) Negative Negative BILIRUBIN UA (BEAKER) (test ponx=930) Negative Negative BLOOD UA (BEAKER) (test kbtm=217) Negative Negative NITRITE UA (BEAKER) (test xftk=412) Negative Negative LEUKOCYTE ESTERASE UA (BEAKER) (test fmyt=005) Negative Negative UROBILINOGEN UA (BEAKER) (test pirr=339) 0.2 mg/dL 0.2-1.0 RBC UA (BEAKER) (test ehrp=703) 1 /HPF WBC UA (BEAKER) (test ddiv=451) 0 /HPF BACTERIA (BEAKER) (test feae=881) Rare HYALINE CASTS (BEAKER) (test ynhb=691) 6 /LPF SOURCE(BEAKER) (test yiqa=5656) PLATELET [id number] 07:26:00 Test Item Value Reference Range Comments PLATELET COUNT (BEAKER) (test gpzw=792) 201 K/CU MM 150-450 POCT-GLUCOSE [id number] 07:15:00 Test Item Value Reference Range Comments POC-GLUCOSE METER (BEAKER) 258 mg/dL 70-110 TESTED AT [facility] [address] [facility] (test eolj=8623) [facility] [address] BASIC METABOLIC [id number] 06:52:00 Test Item Value Reference Range Comments SODIUM (BEAKER) (test 136 meq/L 136-145 dgrs=668) POTASSIUM (BEAKER) (test 4.9 meq/L 3.5-5.1 oqhs=459) CHLORIDE (BEAKER) (test 95 meq/L 98-107 iefp=730) CO2 (BEAKER) (test 32 meq/L 22-29 tauc=907) BLOOD UREA NITROGEN 33 mg/dL 7-21 (BEAKER) (test dztt=441) CREATININE (BEAKER) (test 1.85 mg/dL 0.57-1.25 ozba=852) GLUCOSE RANDOM (BEAKER) 247 mg/dL 70-105 (test tdhh=096) CALCIUM (BEAKER) (test 8.6 mg/dL 8.4-10.2 jxkc=349) EGFR (BEAKER) (test 33 mL/min/1.73 sq m ESTIMATED GFR IS NOT nion=4454) ACCURATE CREATININE CLEARANCE IN PREDICTING GLOMERULAR FILTRATION RATE. ESTIMATED GFR IS NOT APPLICABLE FOR DIALYSIS PATIENTS. BLOOD GAS, [id number] 06:49:00 Test Item Value Reference Range Comments PH ARTERIAL (BEAKER) (test vmrl=951) 7.30 7.35-7.45 PCO2 ARTERIAL (BEAKER) (test fdge=179) 75 mmHg 35-45 PO2 ARTERIAL (BEAKER) (test imik=689) 84 mmHg 80-90 O2 SATURATION ARTERIAL (BEAKER) (test lvpl=240) 94.9 % 96.0-97.0 HCO3 ARTERIAL (BEAKER) (test tbsv=052) 36 mmol/L 21-29 BASE EXCESS ARTERIAL (BEAKER) (test blfa=851) 7.4 mmol/L -2.0-3.0 PATIENT TEMPERATURE (BEAKER) (test cbdl=1414) 37.0 C FIO2 (BEAKER) (test ukoz=1496) 50.0 % RAD, CHEST, 1 VIEW, NON [id number] 06:34:00Reason for exam:->central line placement Should this be performed at the bedside?->YesFINAL REPORT Comparison exam: 04/10/2017 time 1:09 AM Interval placement of a right IJ central venous catheter with the tip located in the superior vena cava. No pneumothorax. No focal pulmonary consolidation or significant pleural effusion. Stable cardiomediastinal contours. Signed: Ariel Hearn [facility] Verified Date/Time: 04/10/2017 06:34:32 Reading Location : [address] Ortho Consult Reading Room [id number] 06:04:00 Test Item Value Reference Range Comments PARTIAL THROMBOPLASTIN TIME (BEAKER) (test 34.8 seconds 22.5-36.0 xicw=293) Prior to initiating heparinCBC W/PLT COUNT & AUTO [id number] 02: 14:00 Test Item Value Reference Range Comments WHITE BLOOD CELL COUNT (BEAKER) (test ypdu=680) 10.1 K/ L 3.5-10.5 RED BLOOD CELL COUNT (BEAKER) (test hhhv=642) 3.72 M/ L 3.93-5.22 HEMOGLOBIN (BEAKER) (test rlkv=777) 10.9 GM/DL 11.2-15.7 HEMATOCRIT (BEAKER) (test tgib=254) 36.7 % 34.1-44.9 MEAN CORPUSCULAR VOLUME (BEAKER) (test cwau=719) 98.7 fL 79.4-94.8 MEAN CORPUSCULAR HEMOGLOBIN (BEAKER) (test 29.3 pg 25.6-32.2 gyja=867) MEAN CORPUSCULAR HEMOGLOBIN CONC (BEAKER) (test 29.7 GM/DL 32.2-35.5 xalb=842) RED CELL DISTRIBUTION WIDTH (BEAKER) (test 14.6 % 11.7-14.4 ljyh=691) PLATELET COUNT (BEAKER) (test sbdj=857) 177 K/CU MM 150-450 MEAN PLATELET VOLUME (BEAKER) (test zhpl=833) 9.7 fL 9.4-12.3 NUCLEATED RED BLOOD CELLS (BEAKER) (test 0 /100 WBC 0-0 buiy=238) NEUTROPHILS RELATIVE PERCENT (BEAKER) (test 96 % igrw=298) LYMPHOCYTES RELATIVE PERCENT (BEAKER) (test 3 % npis=691) MONOCYTES RELATIVE PERCENT (BEAKER) (test 1 % wqre=326) EOSINOPHILS RELATIVE PERCENT (BEAKER) (test 0 % vcqj=463) BASOPHILS RELATIVE PERCENT (BEAKER) (test 0 % jjue=628) NEUTROPHILS ABSOLUTE COUNT (BEAKER) (test 9.70 K/ L 1.56-6.13 bxjh=523) LYMPHOCYTES ABSOLUTE COUNT (BEAKER) (test 0.26 K/ L 1.18-3.74 iseh=090) MONOCYTES ABSOLUTE COUNT (BEAKER) (test 0.09 K/ L 0.24-0.36 hftt=061) EOSINOPHILS ABSOLUTE COUNT (BEAKER) (test 0.00 K/ L 0.04-0.36 hngf=869) BASOPHILS ABSOLUTE COUNT (BEAKER) (test 0.01 K/ L 0.01-0.08 jfvk=026) IMMATURE GRANULOCYTES-RELATIVE PERCENT (BEAKER) 1 % 0-1 (test roaa=3538) TROPONIN [id number] 01:56:00 Test Item Value Reference Range Comments TROPONIN I (BEAKER) (test cjhy=520) 0.62 ng/mL 0.00-0.03 Troponin I (TnI) levels must be interpreted [...] failure, acidosis, acute neurological disease, and persistent tachyarrhythmia.BASIC METABOLIC [id number] 01:46:00 Test Item Value Reference Range Comments SODIUM (BEAKER) (test 135 meq/L 136-145 jpqm=258) POTASSIUM (BEAKER) (test 5.1 meq/L 3.5-5.1 Specimen slightly wpsw=583) hemolyzed CHLORIDE (BEAKER) (test 95 meq/L 98-107 achn=094) CO2 (BEAKER) (test 31 meq/L 22-29 dxll=231) BLOOD UREA NITROGEN 33 mg/dL 7-21 (BEAKER) (test wzrv=469) CREATININE (BEAKER) (test 2.04 mg/dL 0.57-1.25 Specimen slightly qvjy=069) hemolyzed GLUCOSE RANDOM (BEAKER) 234 mg/dL 70-105 (test ptxj=731) CALCIUM (BEAKER) (test 8.6 mg/dL 8.4-10.2 kagi=318) EGFR (BEAKER) (test 29 mL/min/1.73 sq m ESTIMATED GFR IS NOT hjwy=3432) ACCURATE CREATININE CLEARANCE IN PREDICTING GLOMERULAR FILTRATION RATE. ESTIMATED GFR IS NOT APPLICABLE FOR DIALYSIS PATIENTS. [id number] 01:46:00 Test Item Value Reference Range Comments PROTIME (BEAKER) (test plzw=619) 14.7 seconds 11.7-14.7 INR (BEAKER) (test oqkj=391) 1.2 <=5.9 PARTIAL THROMBOPLASTIN TIME (BEAKER) (test 45.8 seconds 22.5-36.0 cocn=148) RECOMMENDED COUMADIN/WARFARIN INR THERAPY RANGESSTANDARD DOSE: 2.0 - 3.0 Includes: PROPHYLAXIS forvenous thrombosis, systemic embolization; TREATMENT for venous thrombosis and/or pulmonary embolus.HIGH RISK: Target INR is 2.5-3.5 for patients with mechanical heart valves.PROTHROMBIN [id number] 01:45: 00 Test Item Value Reference Range Comments PROTIME (BEAKER) (test ykkn=306) 14.7 seconds 11.7-14.7 INR (BEAKER) (test dmxw=616) 1.2 <=5.9 RECOMMENDED COUMADIN/WARFARIN INR THERAPY RANGESSTANDARD DOSE: 2.0 - 3.0 Includes: PROPHYLAXIS forvenous thrombosis, systemic embolization; TREATMENT for venous thrombosis and/or pulmonary embolus.HIGH RISK: Target INR is 2.5-3.5 for patients with mechanical heart valves.CREATINE KINASE (CK), TOTAL AND [id number] 01:44:00 Test Item Value Reference Range Comments CREATINE KINASE TOTAL (BEAKER) (test pgac=396) 89 U/L 29-200 CREATINE KINASE-MB (BEAKER) (test iucs=950) 2.1 ng/mL 0.0-6.6 CREATINE KINASE-MB INDEX (BEAKER) (test mlvm=706) 2.4 % CK-MB Reference Range:<6.7 Normal6.7-10.0 Borderline>10.0 AbnormalRAD, CHEST, 1 VIEW, NON [id number] 01:44:00Reason for exam:-> acute hypoxemic hypercapnic respiratory failure; pneumonia, pulmonary edemaShould this be performed at the bedside?->YesFINAL REPORT Comparison examination: None No pneumothorax, focal pulmonary consolidation, or significant pleural effusion. The cardiac size is magnified by the portable technique. Normal mediastinal contours. Normal skeleton and soft tissues. Impression: No acute abnormality.Signed: Ariel Hearn Verified Date/Time: 04/10/2017 01:44:25 Reading Location: [facility] [id number] Ortho Consult Reading Room Electronically signed by: ARIEL HEARN M.D. on 04/10 01:44 AMB-TYPE NATRIURETIC FACTOR (BNP)2017-04-10 01:43:00 Test Item Value Reference Range Comments B-TYPE NATRIURETIC PEPTIDE (BEAKER) (test 1410 pg/mL 0-100 igtn=968) [id number] 01:38:00 Test Item Value Reference Range Comments MAGNESIUM (BEAKER) (test 1.8 mg/dL 1.6-2.6 Specimen slightly hemolyzed eyyx=783) [id number] 01:38:00 Test Item Value Reference Range Comments PHOSPHORUS (BEAKER) (test 4.1 mg/dL 2.3-4.7 Specimen slightly hemolyzed fywg=873) HEPATIC FUNCTION [id number] 01:38:00 Test Item Value Reference Range Comments TOTAL PROTEIN (BEAKER) (test 7.2 gm/dL 6.0-8.3 Specimen slightly hemolyzed ureg=260) ALBUMIN (BEAKER) (test 3.2 g/dL 3.5-5.0 Specimen slightly hemolyzed rsvr=9649) BILIRUBIN TOTAL (BEAKER) (test 0.3 mg/dL 0.2-1.2 Specimen slightly hemolyzed ejfu=194) BILIRUBIN DIRECT (BEAKER) (test 0.2 mg/dL 0.1-0.5 Specimen slightly hemolyzed gddi=133) ALKALINE PHOSPHATASE (BEAKER) 62 U/L 40-150 (test pkpd=413) AST (SGOT) (BEAKER) (test 40 U/L 5-34 Specimen slightly hemolyzed epsc=227) ALT (SGPT) (BEAKER) (test 28 U/L 6-55 Specimen slightly hemolyzed hcxw=506) LACTIC ACID, VENOUS, WHOLE [id number] 01:32:00 Test Item Value Reference Range Comments LACTATE BLOOD VENOUS (2) 0.7 mmol/L 0.5-2.2 Specimen slightly hemolyzed (BEAKER) (test dura=8816) Effective 11/03/2015: Units/Reference Range ChangeNew: 0.5-2.2 mmol/L Previous: 5 -20 mg/dLBLOOD GAS, [id number] 01:23:00 Test Item Value Reference Range Comments PH ARTERIAL (BEAKER) (test mhfw=482) 7.26 7.35-7.45 PCO2 ARTERIAL (BEAKER) (test gkkz=445) 81 mmHg 35-45 PO2 ARTERIAL (BEAKER) (test uvat=258) 250 mmHg 80-90 O2 SATURATION ARTERIAL (BEAKER) (test akqh=832) 99.4 % 96.0-97.0 HCO3 ARTERIAL (BEAKER) (test mncl=239) 35 mmol/L 21-29 BASE EXCESS ARTERIAL (BEAKER) (test kaqd=770) 5.9 mmol/L -2.0-3.0 PATIENT TEMPERATURE (BEAKER) (test fczj=9400) 37.1 C FIO2 (BEAKER) (test bckj=6782) 70.0 % POCT-GLUCOSE [id number] 23:56:00 Test Item Value Reference Range Comments POC-GLUCOSE METER (BEAKER) 243 mg/dL 70-110 TESTED AT [facility] [address] (test qgwv=6310) [facility] [address]
[2017-11-22 17:16] LABS: Absolute Lymphocytes (CBC) 1.9 K/uL (0.7-4.9); Absolute Monocytes 0.5 K/uL (0.1-1.3); Absolute Neutrophil 4.6 K/uL (1.8-8.0); Basophils % 0.7 % (0-1.3); Hematocrit 36.6 % (36.0-45.0); Lymphocytes % 25.8 % (15.3-44.8); MCH 30.3 pg (27.0-35.0); MCV 93.7 fL (80-100); MPV 7.5 fL (7.6-11.3); Monocytes % 7.2 % (3.3-12.3); RBC Red Blood Cell Count 3.91 M/uL (3.86-4.86)
[2017-11-22 17:22] LABS: Bicarbonate 36 mEq/L (21-31); Glucose Level 83 mg/dL (65-120); Lipase 29 U/L (22-51); Sodium Level 140 mEq/L (135-145)
[2017-11-22 17:29] LABS: ALT/SGPT 15 IU/L (10-60); AST/SGOT 22 IU/L (10-42); Albumin 3.9 g/dL (3.2-5.5); Alkaline Phosphatase 95 IU/L (42-121); BUN Blood Urea Nitrogen 37 mg/dL (6-20); Bilirubin Direct < 0.1 mg/dL (0-0.2); Bilirubin Total 0.5 mg/dL (0.3-1.2); Protein, Total 7.6 g/dL (6.0-8.3)
[2017-11-22 18:07] LABS: Urine Blood NEGATIVE (NEG); Urine Glucose NEGATIVE (NEG); Urine Protein NEGATIVE (NEG); Urine Specific Gravity 1.015 (1.005-1.030)
[2017-11-22 18:11] LABS: Urine Bacteria NONE SEEN /HPF (<20); Urine Culture Reflex Order NOT NEEDED; Urine RBC <5 /HPF (NONE SEEN)
--- NOTE | 2017-11-22 20:16 | RAD REPORT ---
EXAM DESCRIPTION: CT - Abdomen Pelvis Wo Contrast - 11/22/2017 7:49 pm CLINICAL HISTORY: Abdominal pain /lower abdominal pain for 2 weeks COMPARISON: July 2017 TECHNIQUE: Computed axial tomography of the abdomen and pelvis was obtained. IV was not requested. O ral contrast was given. Coronal reconstructions performed. All CT scans are performed using dose optimization technique as appropriate and may include automated exposure control or mA/KV adjustment according to patient size. FINDINGS: The evaluation of solid organs and vessels is limited secondary to the lack of contrast a dministration. The liver, spleen, pancreas, adrenals and left kidney appear grossly normal. Renal cysts are unchanged. The largest measures 5.4 centimeters. The appendix is normal. Diverticula stem from the colon. Minimal stranding is present adjacent to the sigmoid colon. . A small periumbilical hernia contains fat IMPRESSION: Minimal sigmoid diverticulitis
[2017-11-22] MEDS ORDERED: CIPROFLOXACIN HCL 500 MG TAB ONE (21:22)
[2017-11-22] MEDS ORDERED: METRONIDAZOLE 500mg IVPB 500 MG/100 ML BAG IV ONE (21:22)
--- NOTE | 2017-11-22 21:55 | ER ---
Nurse's Notes [facility] Name: Radah Valencia Age: 67 yrs Sex: Female : 1950 Arrival Date: 11/22/2017 Time: 15:23 Bed 13 Private MD: Jass Jasmine Diagnosis: Diverticulitis of large intestine without perforation or abscess without bleeding Presentation: 11/22 15:27 Presenting complaint: Patient states: Lower abdominal pain x 2 weeks. Sent to ER by Dr jose miguel Jasmine for evaluation or possible hernia. Transition of care: patient was not received from another setting of care. Onset of symptoms was November 03, 2017. Care prior to arrival: None. 15:27 Method Of Arrival: Ambulatory 15:27 Acuity: JAKOB 3 aj 21:46 Risk Assessment: Do you want to hurt yourself or someone else? Patient reports no bs1 desire to harm self or others. Initial Sepsis Screen: Does the patient meet any 2 criteria? No. Patient's initial sepsis screen is negative. Does the patient have a suspected source of infection? No. Patient's initial sepsis screen is negative. Triage Assessment: 15:29 General: Appears in no apparent distress. comfortable, Behavior is calm, cooperative, aj appropriate for age. Pain: Complains of pain in right lower quadrant and left lower quadrant. Neuro: Level of Consciousness is awake, alert, obeys commands, Oriented to person, place, time, situation, Appropriate for age. Respiratory: Airway is patent Respiratory effort is even, unlabored, Respiratory pattern is regular, symmetrical. GI: Reports lower abdominal pain. Derm: Skin is intact, is healthy with good turgor, Skin is pink, warm \T\ dry. normal. Historical: - Allergies: 15:29 No Known Allergies; aj - Home Meds: 15:29 Adcirca 20 mg Oral tab 1 tabs once daily [Active]; aspirin 81 mg Oral chew 1 tab once aj daily [Active]; Caltrate with Vitamin D3 Oral [Active]; Cinnamon 500 mg Oral cap 2 cap twice a day [Active]; Combivent 100 - 20 mcg/inh Inhl 1 puff 4 times a day as needed [Active]; diclofenac-capsicum Topical 4 times day [Active]; doxepin 10 mg Oral cap 1 cap nightly [Active]; furosemide 20 mg Oral tab 1 tab 2 times per day [Active]; gabapentin 800 mg Oral tab 1 tab 3 times per day [Active]; glimepiride 2 mg Oral tab 1 tab once daily [Active]; home o2 dependant [Active]; Iron CR Oral [Active]; Letairis 10 mg Oral tab 1 tab once daily [Active]; nabumetone 500 mg Oral tab 2 tabs once daily [Active]; pantoprazole 40 mg Oral TbEC 1 tab once daily [Active]; simvastatin 20 mg Oral tab 1 tab nightly [Active]; Ultram 50 mg Oral tab 1 tab [Active]; - PMHx: 15:29 CHF; COPD; Diabetes - NIDDM; Hypertension; aj - PSHx: 15:29 None; aj - Immunization history:: Adult Immunizations up to date. - Social history:: Smoking status: Patient/guardian denies using tobacco. - Ebola Screening: : Patient negative for fever greater than or equal to 101.5 degrees Fahrenheit, and additional compatible Ebola Virus Disease symptoms Patient denies exposure to infectious person. Screenin:00 Abuse screen: Denies threats or abuse. Denies injuries from another. Nutritional sg screening: No deficits noted. Tuberculosis screening: No symptoms or risk factors identified. Never had TB. Fall Risk None identified. Assessment: 17:00 General: Appears in no apparent distress. comfortable, well groomed, well developed, sg well nourished, Behavior is calm, cooperative, appropriate for age. Pain: Complains of pain in left lower quadrant and right lower quadrant Pain does not radiate. Quality of pain is described as aching, tender. Neuro: No deficits noted. Cardiovascular: Heart tones S1 S2 present Capillary refill is brisk in bilateral fingers Patient's skin is warm and dry. Chest pain is denied. Respiratory: Airway is patent Respiratory effort is even, unlabored, Respiratory pattern is regular, symmetrical, Breath sounds are clear. GI: Abdomen is flat, non-distended, Bowel sounds present X 4 quads. Abd is soft X 4 quads Abdomen is tender to palpation in right lower quadrant and left lower quadrant Reports lower abdominal pain. : No signs and/or symptoms were reported regarding the genitourinary system. EENT: No signs and/or symptoms were reported regarding the EENT system. Derm: Skin is intact, is healthy with good turgor, Skin is dry, Skin is normal, Skin temperature is warm. Musculoskeletal: No deficits noted. 19:10 Reassessment: Report received from TOÑO Bustamante. General: Appears in no apparent bs1 distress. comfortable, well nourished, Behavior is calm, cooperative, appropriate for age. 19:10 Pain: Complains of pain in abdomen and left lower quadrant and right lower quadrant bs1 Pain does not radiate. Neuro: Level of Consciousness is awake, alert, obeys commands, Oriented to person, place, time, situation, Appropriate for age Independent Sales Representative are equal bilaterally. Cardiovascular: Denies chest pain, shortness of breath, Heart tones S1 S2 present Capillary refill < 3 seconds is brisk Patient's skin is warm and dry. Cardiovascular: Chest pain is denied. Respiratory: Airway is patent Trachea midline Respiratory effort is even, unlabored, Respiratory pattern is regular, symmetrical, Breath sounds are clear bilaterally. GI: Abdomen is non-distended, Bowel sounds present X 4 quads. Abdomen is tender to palpation in right lower quadrant and left lower quadrant Reports lower abdominal pain. : No signs and/or symptoms were reported regarding the genitourinary system. EENT: No signs and/or symptoms were reported regarding the EENT system. Derm: Skin is intact, is healthy with good turgor, Skin is dry, Skin is normal, Skin temperature is warm. Musculoskeletal: Circulation, motion, and sensation intact. Capillary refill < 3 seconds, Range of motion: intact in all extremities. 20:45 Reassessment: No changes from previously documented assessment. Patient and/or family bs1 updated on plan of care and expected duration. Pain level reassessed. Patient is alert, oriented x 3, equal unlabored respirations, skin warm/dry/pink. 21:45 Reassessment: Patient appears in no apparent distress at this time. Patient and/or bs1 family updated on plan of care and expected duration. Pain level reassessed. Patient is alert, oriented x 3, equal unlabored respirations, skin warm/dry/pink. 22:00 Reassessment: Patient appears in no apparent distress at this time. Patient and/or bs1 family updated on plan of care and expected duration. Pain level reassessed. Patient is alert, oriented x 3, equal unlabored respirations, skin warm/dry/pink. Patient states feeling better. Vital Signs: 15:29 BP 126 / 61; Pulse 76; Resp 16; Temp 97.2; Pulse Ox 92% on 2 lpm NC; Weight 91.63 kg; aj Height 5 ft. 5 in. (165.10 cm); 18:42 BP 121 / 48; Pulse 78 MON; Resp 18 S; Pulse Ox 94% on 3 lpm NC; sg 20:00 BP 117 / 49; Pulse 84; Resp 16 S; Pulse Ox 98% on 2 lpm NC; bs1 21:00 BP 130 / 90; Pulse 88; Resp 16 S; Pulse Ox 96% on 2 lpm NC; bs1 22:00 BP 127 / 50; Pulse 62; Resp 16; Temp 97.8(O); Pulse Ox 99% on 2 lpm NC; bs1 15:29 Body Mass Index 33.61 (91.63 kg, 165.10 cm) aj ED Course: 15:23 Patient arrived in ED. mr 15:23 Jass Jasmine MD is Private Physician. mr 15:28 Triage completed. aj 15:29 Arm band placed on left wrist. Patient placed in waiting room, Patient notified of wait aj time. 16:32 Daniel Segovia, NASIR is PHCP. pm1 16:32 Cameron Saba MD is Attending Physician. pm1 16:51 Robby Mccoy, TOÑO is Primary Nurse. sg 17:01 Initial lab(s) drawn, by me, sent to lab. Inserted saline lock: 22 gauge in right dh3 antecubital area, using aseptic technique. Blood collected. 17:52 Urine collected: clean catch specimen, clear. 3 19:37 Patient moved to ME. vt 19:49 Abdomen In Process Unspecified. EDMS 21:46 No provider procedures requiring assistance completed. bs1 21:47 Patient has correct armband on for positive identification. Bed in low position. Call bs1 light in reach. Side rails up X 1. Pulse ox on. NIBP on. 21:53 Jass Jasmine MD is Referral Physician. pm1 22:07 IV discontinued, bleeding controlled, No redness/swelling at site. Pressure dressing bs1 applied. Administered Medications: 21:31 Drug: Flagyl 500 mg Volume: 100 ml; Route: IVPB; Rate: 200 ml/hr; Infused Over: 30 jd3 mins; Site: right antecubital; 22:08 Follow up: IV Status: Completed infusion bs1 21:31 Drug: Cipro 500 mg Route: PO; jd3 22:08 Follow up: Response: No adverse reaction bs1 Outcome: 21:54 Discharge ordered by . pm1 22:07 Discharged to home ambulatory. bs1 22:07 Condition: stable 22:07 Discharge instructions given to patient, Instructed on discharge instructions, follow up and referral plans. medication usage, Demonstrated understanding of instructions, follow-up care, medications, Prescriptions given X 2. 22:17 Patient left the ED. bs1 Signatures: Dispatcher [employer] EDMS Robby Mccoy RN Blanca Escobar RN RN aj Rivera, Maria mr Luca, Daniel, ALLIGATOR SHEAR OPERATOR ALLIGATOR SHEAR OPERATOR pm1 [facility] Emmanuel Hernandez RN RN jd3 Jing Hernandez RN RN bs1
--- NOTE | 2017-11-22 21:55 | EDPHYS ---
Physician Documentation [facility] Name: Radha Valencia Age: 67 yrs Sex: Female : 1950 Arrival Date: 11/22/2017 Time: 15:23 Bed 13 Private MD: Jass Jasmine ED Physician Cameron Saba HPI: 11/22 17:00 This 67 yrs old Black Female presents to ER via Ambulatory with complaints of Abdominal pm1 Pain. 17:00 The patient presents with abdominal pain in the lower abdomen. Onset: The pm1 symptoms/episode began/occurred 2 week(s) ago. The symptoms do not radiate. Associated signs and symptoms: Pertinent positives: dysuria, Pertinent negatives: nausea, vomiting, and diarrhea, chest pain, fever, palpitations, shortness of breath. The symptoms are described as achy. Modifying factors: The symptoms are alleviated by nothing, the symptoms are aggravated by nothing. Severity of pain: in the emergency department the pain is a 7 / 10. The patient has been recently seen by a physician: the patient's primary care provider, Dr. Jasmine. Patient sent here for evaluation of lower abdominal pain for the past two weeks. Pain comes and goes. Historical: - Allergies: 15:29 No Known Allergies; aj - Home Meds: 15:29 Adcirca 20 mg Oral tab 1 tabs once daily [Active]; aspirin 81 mg Oral chew 1 tab once aj daily [Active]; Caltrate with Vitamin D3 Oral [Active]; Cinnamon 500 mg Oral cap 2 cap twice a day [Active]; Combivent 100 - 20 mcg/inh Inhl 1 puff 4 times a day as needed [Active]; diclofenac-capsicum Topical 4 times day [Active]; doxepin 10 mg Oral cap 1 cap nightly [Active]; furosemide 20 mg Oral tab 1 tab 2 times per day [Active]; gabapentin 800 mg Oral tab 1 tab 3 times per day [Active]; glimepiride 2 mg Oral tab 1 tab once daily [Active]; home o2 dependant [Active]; Iron CR Oral [Active]; Letairis 10 mg Oral tab 1 tab once daily [Active]; nabumetone 500 mg Oral tab 2 tabs once daily [Active]; pantoprazole 40 mg Oral TbEC 1 tab once daily [Active]; simvastatin 20 mg Oral tab 1 tab nightly [Active]; Ultram 50 mg Oral tab 1 tab [Active]; - PMHx: 15:29 CHF; COPD; Diabetes - NIDDM; Hypertension; aj - PSHx: 15:29 None; aj - Immunization history:: Adult Immunizations up to date. - Social history:: Smoking status: Patient/guardian denies using tobacco. - Ebola Screening: : Patient negative for fever greater than or equal to 101.5 degrees Fahrenheit, and additional compatible Ebola Virus Disease symptoms Patient denies exposure to infectious person. ROS: 17:00 Constitutional: Negative for fever, chills, and weight loss, Eyes: Negative for injury, pm1 pain, redness, and discharge, ENT: Negative for injury, pain, and discharge, Neck: Negative for injury, pain, and swelling, Cardiovascular: Negative for chest pain, palpitations, and edema, Respiratory: Negative for shortness of breath, cough, wheezing, and pleuritic chest pain. 17:00 Back: Negative for injury and pain. 17:00 MS/Extremity: Negative for injury and deformity, Skin: Negative for injury, rash, and discoloration, Neuro: Negative for headache, weakness, numbness, tingling, and seizure. 17:00 Abdomen/GI: Positive for abdominal pain, of the suprapubic area, Negative for nausea, vomiting, and diarrhea. 17:00 : Positive for burning with urination. Exam: 17:00 Constitutional: This is a well developed, well nourished patient who is awake, alert, pm1 and in no acute distress. Head/Face: Normocephalic, atraumatic. Eyes: Pupils equal round and reactive to light, extra-ocular motions intact. Lids and lashes normal. Conjunctiva and sclera are non-icteric and not injected. Cornea within normal limits. Periorbital areas with no swelling, redness, or edema. ENT: Nares patent. No nasal discharge, no septal abnormalities noted. Tympanic membranes are normal and external auditory canals are clear. Oropharynx with no redness, swelling, or masses, exudates, or evidence of obstruction, uvula midline. Mucous membranes moist. Neck: Trachea midline, no thyromegaly or masses palpated, and no cervical lymphadenopathy. Supple, full range of motion without nuchal rigidity, or vertebral point tenderness. No Meningismus. Chest/axilla: Normal chest wall appearance and motion. Nontender with no deformity. No lesions are appreciated. Cardiovascular: Regular rate and rhythm with a normal S1 and S2. No gallops, murmurs, or rubs. Normal PMI, no JVD. No pulse deficits. Respiratory: Lungs have equal breath sounds bilaterally, clear to auscultation and percussion. No rales, rhonchi or wheezes noted. No increased work of breathing, no retractions or nasal flaring. 17:00 Back: No spinal tenderness. No costovertebral tenderness. Full range of motion. Skin: Warm, dry with normal turgor. Normal color with no rashes, no lesions, and no evidence of cellulitis. MS/ Extremity: Pulses equal, no cyanosis. Neurovascular intact. Full, normal range of motion. 17:00 Abdomen/GI: Inspection: abdomen appears normal, Bowel sounds: normal, Palpation: soft, mild abdominal tenderness, in the suprapubic area, mass, is not appreciated, rebound tenderness, is not appreciated. 17:00 Neuro: Orientation: is normal, Mentation: is normal, Motor: is normal, moves all fours. Vital Signs: 15:29 BP 126 / 61; Pulse 76; Resp 16; Temp 97.2; Pulse Ox 92% on 2 lpm NC; Weight 91.63 kg; aj Height 5 ft. 5 in. (165.10 cm); 18:42 BP 121 / 48; Pulse 78 MON; Resp 18 S; Pulse Ox 94% on 3 lpm NC; sg 20:00 BP 117 / 49; Pulse 84; Resp 16 S; Pulse Ox 98% on 2 lpm NC; bs1 21:00 BP 130 / 90; Pulse 88; Resp 16 S; Pulse Ox 96% on 2 lpm NC; bs1 22:00 BP 127 / 50; Pulse 62; Resp 16; Temp 97.8(O); Pulse Ox 99% on 2 lpm NC; bs1 15:29 Body Mass Index 33.61 (91.63 kg, 165.10 cm) aj MDM: 16:32 Patient medically screened. pm1 17:15 ED course: patient reports current pain level 7/10. Offered patient pain medications pm1 but she refused. 20:40 ED course: Cipro given PO due to bioequivalence with IV adminstration. pm1 21:09 Data reviewed: vital signs. Data interpreted: Pulse oximetry: on room air. pm1 21:43 Counseling: I had a detailed discussion with the patient and/or guardian regarding: the pm1 historical points, exam findings, and any diagnostic results supporting the discharge/admit diagnosis, the need for further work-up and treatment in the hospital, Request from her PCP that she stay in the hospital for IV antibiotics for at least observation. Patient refused. She wants to go home to take care of her dogs that are outside. Wants to be able to put them in the house. Patient reports that she has some pain medications at home. Refused pain medications in the ER and for discharge (prescriptions). 21:45 Physician consultation: Jass Jasmine MD was called at 20:25, was contacted at 21:40, pm1 regarding patient's condition, informed patient does not want to stay in the hospital. Request discharge the patient home with Cipro and Flagyl for 10 day. 11/22 16:33 Order name: Basic Metabolic Panel; Complete Time: 17:29 pm11/22 16:33 Order name: CBC with Diff; Complete Time: 17:29 pm11/22 16:33 Order name: Creatinine for Radiology; Complete Time: 17:29 pm11/22 16:33 Order name: Hepatic Function; Complete Time: 17:29 pm11/22 16:33 Order name: Lipase; Complete Time: 17:29 pm11/22 17:14 Order name: Urine Microscopic Only; Complete Time: 18:24 pm11/22 16:33 Order name: IV Saline Lock; Complete Time: 16:51 pm11/22 16:33 Order name: Labs collected and sent; Complete Time: 16:51 pm1 11/22 16:33 Order name: Urine Dipstick-Ancillary (obtain specimen); Complete Time: 17:53 pm1 11/22 18:06 Order name: Urine Dipstick--Ancillary (enter results); Complete Time: 18:24 bd 11/22 18:14 Order name: Abdomen ; Complete Time: 20:22 EDMS Administered Medications: 21:31 Drug: Flagyl 500 mg Volume: 100 ml; Route: IVPB; Rate: 200 ml/hr; Infused Over: 30 jd3 mins; Site: right antecubital; 22:08 Follow up: IV Status: Completed infusion bs1 21:31 Drug: Cipro 500 mg Route: PO; jd3 22:08 Follow up: Response: No adverse reaction bs1 Disposition: 11/23 10:47 Co-signature as Attending Physician, Cameron Saba MD I agree with the assessment and kdr plan of care. Disposition: 11/22/17 21:54 Discharged to Home. Impression: Diverticulitis of large intestine without perforation or abscess without bleeding. - Condition is Stable. - Discharge Instructions: Diverticulitis. - Prescriptions for Flagyl 500 mg Oral Tablet - take 1 tablet by ORAL route every 8 hours for 10 days; 30 tablet. Cipro 500 mg Oral Tablet - take 1 tablet by ORAL route every 12 hours for 10 days; 20 tablet. - Medication Reconciliation Form, Thank You Letter, Antibiotic Education, Prescription Opioid Use form. - Follow up: Emergency Department; When: As needed; Reason: Worsening of condition. Follow up: Jass Jasmine MD; When: 2 - 3 days; Reason: Recheck today's complaints, Continuance of care, Re-evaluation by your physician. - Problem is new. - Symptoms have improved. Signatures: Dispatcher [employer] [facility] Blanca You RN RN aj Rittger, Kevin, MD MD kdr Daniel Segovia, NASIR BANDOLEER STRAIGHTENER STAMPER pm1 Emmanuel Hernandez RN RN Jing Miguel RN RN bs1 Corrections: (The following items were deleted from the chart) 11/22 18:14 17:13 Abdomen Pelvis W [id number] ordered. [facility] 22:17 21:54 11/22/2017 21:54 Discharged to Home. Impression: Diverticulitis of large bs1 intestine without perforation or abscess without bleeding. Condition is Stable. Forms are Medication Reconciliation Form, Thank You Letter, Antibiotic Education, Prescription Opioid Use. Follow up: Emergency Department; When: As needed; Reason: Worsening of condition. Follow up: Jass Jasmine; When: 2 - 3 days; Reason: Recheck today's complaints, Continuance of care, Re-evaluation by your physician. Problem is new. Symptoms have improved. pm1
[2017-11-22 22:28] VITALS: BP 127/50; TEMP 97.8; O2SAT 99
== END 2017-11-22 22:17 | disposition home or self-care (01) ==
LOC: ER 15:20
DX: K57.32 Diverticulitis of large intestine without perforation or abscess without bleeding (principal); I10 Essential (primary) hypertension; E11.9 Type 2 diabetes mellitus without complications; J44.9 Chronic obstructive pulmonary disease, unspecified; Z79.82 Long term (current) use of aspirin
CPT/HCPCS: 36415; 74176; 80048; 80076; 81003; 81015; 83690; 85025; 96365; 99284

== ENCOUNTER 2019-02-18 07:12 | Day surgery (SDC) | payer OTHER ==
--- OUTSIDE RECORDS SUMMARY | 2019-02-18 07:15 | XMS REPORT | Clinical Summary ---
:1950 Author Organization [facility] Address [address] [place] [address] Care Team Providers Name Role Phone Natividad Primary Care Provider Allergies No Known Allergies Medications Medication Sig Dispensed Refills Start Date End Date Status predniSONE (DELTASONE) Take 20 mg PO daily for 3 days 10 tablet 0 2016 Active 20 MG tablet then 10 mg PO daily for 4 days. traMADol (ULTRAM) 50 Take 50 mg by 0 Active mg tablet mouth every 6 (six) hours as needed for Pain. ondansetron (ZOFRAN) 4 Take 4 mg by 0 Active MG tablet mouth 2 (two) times daily as needed for Nausea. simvastatin (ZOCOR) 20 Take 20 mg by 0 Active MG tablet mouth nightly. spironolactone Take 25 mg by 0 Active (ALDACTONE) 25 MG mouth daily. tablet metroNIDAZOLE (FLAGYL) Take 500 mg by 0 Active 500 MG tablet mouth every 8 (eight) hours. pantoprazole Take 40 mg by 0 Active (PROTONIX) 40 MG mouth daily. tablet ambrisentan (LETAIRIS) Take 10 mg by 0 Active 10 MG tablet mouth daily. furosemide (LASIX) 20 Take 20 mg by 0 Active MG tablet mouth 2 (two) times daily. colchicine (COLCRYS) Take 0.6 mg by 0 Active 0.6 mg tablet mouth 2 (two) times daily. ciprofloxacin HCl Take 500 mg by 0 Active (CIPRO) 500 MG tablet mouth 2 (two) times daily. acetaminophen-codeine Take 1 tablet 0 Active (TYLENOL #3) 300-30 mg by mouth every per tablet 6 (six) hours as needed for Pain. cyanocobalamin, Take 1 tablet 0 Active vitamin B-12, by mouth daily. (VITAMELTS ENERGY) 1,500 mcg TbDL cinnamon bark Take 500 mg by 0 Active (CINNAMON) 500 mg mouth daily capsule Take 2 capsules per day . glimepiride (AMARYL) 4 Take 4 mg by 0 Active MG tablet mouth every morning before breakfast. budesonide-formoterol Inhale 2 puffs 1 Inhaler 12 04/16/2017 04/16/2018 (SYMBICORT) 160-4.5 by mouth via mcg/actuation inhaler inhaler 2 (two) times daily. albuterol HFA Inhale 1 puff 1 Inhaler 0 04/16/2017 04/16/2018 (PROVENTIL HFA) 90 by mouth via mcg/actuation inhaler inhaler every 6 (six) hours as needed for Wheezing. Active Problems Problem Noted Date Chronic diastolic CHF (congestive heart failure) 05/01/2017 Essential hypertension 05/01/2017 Diabetic neuropathy associated with type 2 diabetes mellitus 05/01/2017 Depression 05/01/2017 Anemia of chronic disease 04/10/2017 NSTEMI (non-ST elevated myocardial infarction) 04/09/2017 Pulmonary hypertension 04/09/2017 COPD (chronic obstructive pulmonary disease) 04/09/2017 DM2 (diabetes mellitus, type 2) 04/09/2017 Immunizations Name Dates Previously Given Next Due Influenza High Dose Preservative Free IM 05/01/2017 Family History Medical History Relation Name Comments Heart disease Father Heart failure Father Other Mother encephalitis Relation Name Status Comments Father Mother Social History Tobacco Use Types Packs/Day Years Used Date Former Smoker 1 30 Quit: 04/11/2005 Smokeless Tobacco: Never Used Alcohol Use Drinks/Week oz/Week Comments No Sex Assigned at Date Recorded Not on file Job Start Date Occupation Industry Not on file Not on file Not on file Travel History Travel Start Travel End No recent travel history available. Last Filed Vital Signs Not on file Plan of Treatment Health Maintenance Due Date Last Done Comments INFLUENZA VACCINE 04/01/2018 05/01/2017 Results Not on fileafter 02/17/2018 Insurance Payer Benefit Plan / Group Subscriber ID Type Phone Address [employer] - UNITED MEDICARE HMO xxxxxxxxx MEDICARE [place] CARE MEDICAID MEDICAID [place] xxxxxxxxx Medicaid (Home) [address] [place] [address] Advance Directives For more information, please contact:[address] [phone] Code Status Date Activated Date Inactivated Comments Full Code 04/10/2017 8:15 AM 04/16/2017 4:39 PM This code status was determined by: Patient
--- OUTSIDE RECORDS SUMMARY | 2019-02-18 07:16 | XMS REPORT ---
:1950 Author Organization [facility] Address [address] [place] [address] Dr. Vazquez [address] [place] [address] Care Team Providers Name Role Phone JORDAN [...] Range Comments B-TYPE NATRIURETIC PEPTIDE (BEAKER) (test okcb=455) 393 pg/mL 0-100 [id number] 14:39:00 Test Item Value Reference Range Comments MAGNESIUM (BEAKER) (test ftgo=196) 1.5 mg/dL 1.6-2.6 BASIC METABOLIC [id number] 14:39:00 Test Item Value Reference Range Comments SODIUM (BEAKER) (test 140 meq/L 136-145 ckge=643) POTASSIUM (BEAKER) (test 4.2 meq/L 3.5-5.1 mlyt=631) CHLORIDE (BEAKER) (test 99 meq/L 98-107 ubcs=285) CO2 (BEAKER) (test 31 meq/L 22-29 njbk=314) BLOOD UREA NITROGEN 19 mg/dL 7-21 (BEAKER) (test yryh=002) CREATININE (BEAKER) (test 1.45 mg/dL 0.57-1.25 ntlb=454) GLUCOSE RANDOM (BEAKER) 99 mg/dL 70-105 (test horj=758) CALCIUM (BEAKER) (test 9.7 mg/dL 8.4-10.2 nrfr=583) EGFR (BEAKER) (test 44 mL/min/1.73 sq m ESTIMATED GFR IS NOT mrpy=4438) ACCURATE CREATININE CLEARANCE IN PREDICTING GLOMERULAR FILTRATION RATE. ESTIMATED GFR IS NOT APPLICABLE FOR DIALYSIS PATIENTS. POCT-GLUCOSE [id number] 11:53:00 Test Item Value Reference Range Comments POC-GLUCOSE METER (BEAKER) 150 mg/dL 70-110 TESTED AT [address] (test ipwy=9987) [place] [id number] POCT-GLUCOSE [id number] 07:44:00 Test Item Value Reference Range Comments POC-GLUCOSE METER (BEAKER) 80 mg/dL 70-110 TESTED AT [address] (test yyjl=1654) [place] [address] CBC (HEMOGRAM ONLY)2017-04-16 04:17:00 Test Item Value Reference Range Comments WHITE BLOOD CELL COUNT (BEAKER) (test qtvi=283) 12.8 K/ L 3.5-10.5 RED BLOOD CELL COUNT (BEAKER) (test tpdv=424) 3.43 M/ L 3.93-5.22 HEMOGLOBIN (BEAKER) (test etim=978) 9.9 GM/DL 11.2-15.7 HEMATOCRIT (BEAKER) (test qpjd=962) 31.9 % 34.1-44.9 MEAN CORPUSCULAR VOLUME (BEAKER) (test tksn=555) 93.0 fL 79.4-94.8 MEAN CORPUSCULAR HEMOGLOBIN (BEAKER) (test 28.9 pg 25.6-32.2 jcly=506) MEAN CORPUSCULAR HEMOGLOBIN CONC (BEAKER) (test 31.0 GM/DL 32.2-35.5 zdff=411) RED CELL DISTRIBUTION WIDTH (BEAKER) (test 15.0 % 11.7-14.4 jrid=770) PLATELET COUNT (BEAKER) (test tyjf=369) 223 K/CU MM 150-450 MEAN PLATELET VOLUME (BEAKER) (test sdqq=494) 9.3 fL 9.4-12.3 NUCLEATED RED BLOOD CELLS (BEAKER) (test 0 /100 WBC 0-0 nzty=196) POCT-GLUCOSE [id number] 21:08:00 Test Item Value Reference Range Comments POC-GLUCOSE METER (BEAKER) 112 mg/dL 70-110 TESTED AT [address] (test cmyz=4686) [place] [address] POCT-GLUCOSE [id number] 18:00:00 Test Item Value Reference Range Comments POC-GLUCOSE METER (BEAKER) 223 mg/dL 70-110 TESTED AT [facility] [address] [facility] (test subr=2019) [facility] [address] POCT-GLUCOSE [id number] 11:55:00 Test Item Value Reference Range Comments POC-GLUCOSE METER (BEAKER) 175 mg/dL 70-110 TESTED AT [place] [id number] [facility] (test fhzs=9245) [facility] [address] BLOOD [id number] 11:00:00 Test Item Value Reference Range Comments CULTURE (BEAKER) (test ougf=4982) No growth in 5 days BLOOD [id number] 11:00:00 Test Item Value Reference Range Comments CULTURE (BEAKER) (test fdbf=7035) No growth in 5 days POCT-GLUCOSE [id number] 08:11:00 Test Item Value Reference Range Comments POC-GLUCOSE METER (BEAKER) 85 mg/dL 70-110 TESTED AT [address] (test knok=6443) [place] [id number] BASIC METABOLIC [id number] 06:23:00 Test Item Value Reference Range Comments SODIUM (BEAKER) (test 142 meq/L 136-145 bcfd=208) POTASSIUM (BEAKER) (test 3.7 meq/L 3.5-5.1 zlwa=465) CHLORIDE (BEAKER) (test 97 meq/L 98-107 ksku=698) CO2 (BEAKER) (test 36 meq/L 22-29 ahiv=203) BLOOD UREA NITROGEN 47 mg/dL 7-21 (BEAKER) (test jelp=225) CREATININE (BEAKER) (test 1.32 mg/dL 0.57-1.25 ggsh=741) GLUCOSE RANDOM (BEAKER) 82 mg/dL 70-105 (test igus=117) CALCIUM (BEAKER) (test 9.1 mg/dL 8.4-10.2 ghpg=244) EGFR (BEAKER) (test 49 mL/min/1.73 sq m ESTIMATED GFR IS NOT aill=1644) ACCURATE CREATININE CLEARANCE IN PREDICTING GLOMERULAR FILTRATION RATE. ESTIMATED GFR IS NOT APPLICABLE FOR DIALYSIS PATIENTS. CBC (HEMOGRAM ONLY)2017-04-15 05:42:00 Test Item Value Reference Range Comments WHITE BLOOD CELL COUNT (BEAKER) (test dupp=217) 11.3 K/ L 3.5-10.5 RED BLOOD CELL COUNT (BEAKER) (test aydd=174) 3.60 M/ L 3.93-5.22 HEMOGLOBIN (BEAKER) (test zotj=174) 10.5 GM/DL 11.2-15.7 HEMATOCRIT (BEAKER) (test fymt=438) 33.6 % 34.1-44.9 MEAN CORPUSCULAR VOLUME (BEAKER) (test pnlf=272) 93.3 fL 79.4-94.8 MEAN CORPUSCULAR HEMOGLOBIN (BEAKER) (test 29.2 pg 25.6-32.2 tnef=731) MEAN CORPUSCULAR HEMOGLOBIN CONC (BEAKER) (test 31.3 GM/DL 32.2-35.5 bdbl=212) RED CELL DISTRIBUTION WIDTH (BEAKER) (test 15.3 % 11.7-14.4 yvig=189) PLATELET COUNT (BEAKER) (test vfmd=053) 223 K/CU MM 150-450 MEAN PLATELET VOLUME (BEAKER) (test pyeh=442) 9.2 fL 9.4-12.3 NUCLEATED RED BLOOD CELLS (BEAKER) (test 0 /100 WBC 0-0 crwu=796) CBC W/PLT COUNT & AUTO [id number] 05:42:00 Test Item Value Reference Range Comments WHITE BLOOD CELL COUNT (BEAKER) (test awwc=069) 11.3 K/ L 3.5-10.5 RED BLOOD CELL COUNT (BEAKER) (test lpuz=803) 3.60 M/ L 3.93-5.22 HEMOGLOBIN (BEAKER) (test zddj=797) 10.5 GM/DL 11.2-15.7 HEMATOCRIT (BEAKER) (test cwep=674) 33.6 % 34.1-44.9 MEAN CORPUSCULAR VOLUME (BEAKER) (test bqkn=899) 93.3 fL 79.4-94.8 MEAN CORPUSCULAR HEMOGLOBIN (BEAKER) (test 29.2 pg 25.6-32.2 mjjf=748) MEAN CORPUSCULAR HEMOGLOBIN CONC (BEAKER) (test 31.3 GM/DL 32.2-35.5 xkwy=083) RED CELL DISTRIBUTION WIDTH (BEAKER) (test 15.3 % 11.7-14.4 sane=658) PLATELET COUNT (BEAKER) (test nlxl=491) 223 K/CU MM 150-450 MEAN PLATELET VOLUME (BEAKER) (test dyzb=094) 9.2 fL 9.4-12.3 NUCLEATED RED BLOOD CELLS (BEAKER) (test 0 /100 WBC 0-0 wypi=871) NEUTROPHILS RELATIVE PERCENT (BEAKER) (test 71 % awgv=565) LYMPHOCYTES RELATIVE PERCENT (BEAKER) (test 19 % xejb=175) MONOCYTES RELATIVE PERCENT (BEAKER) (test 7 % ibbg=621) EOSINOPHILS RELATIVE PERCENT (BEAKER) (test 1 % srcl=855) BASOPHILS RELATIVE PERCENT (BEAKER) (test 0 % awue=015) NEUTROPHILS ABSOLUTE COUNT (BEAKER) (test 7.99 K/ L 1.56-6.13 qjsg=979) LYMPHOCYTES ABSOLUTE COUNT (BEAKER) (test 2.15 K/ L 1.18-3.74 tepw=465) MONOCYTES ABSOLUTE COUNT (BEAKER) (test 0.79 K/ L 0.24-0.36 bwvb=244) EOSINOPHILS ABSOLUTE COUNT (BEAKER) (test 0.16 K/ L 0.04-0.36 rnhp=904) BASOPHILS ABSOLUTE COUNT (BEAKER) (test 0.02 K/ L 0.01-0.08 hgxc=399) IMMATURE GRANULOCYTES-RELATIVE PERCENT (BEAKER) 2 % 0-1 (test yqqo=9758) POCT-GLUCOSE [id number] 21:27:00 Test Item Value Reference Range Comments POC-GLUCOSE METER (BEAKER) 185 mg/dL 70-110 TESTED AT [place] [id number] [facility] (test rkyw=5867) [facility] [address] POCT-GLUCOSE [id number] 17:35:00 Test Item Value Reference Range Comments POC-GLUCOSE METER (BEAKER) 255 mg/dL 70-110 TESTED AT [place] [id number] [facility] (test odkh=7125) [facility] [address] PET, CARDIAC PERFUSION MULTIPLE STUDIES, REST AND [id number] 14:55: 00Reason for exam:->NSTEMIFINAL REPORT PROCEDURE: Rest/Stress MYOCARDIAL PERFUSION PET with regadenoson\XA9\[facility] CODE: 52561MHAONUCTRE: NSTEMIPROTOCOL: Limited low-dose CT imaging was performed [...] Verified Date/Time: 04/14/2017 14 :55:49 02: 55PMPOCT-GLUCOSE [id number] 11:00:00 Test Item Value Reference Range Comments POC-GLUCOSE METER (LiveRSVP) 131 mg/dL 70-110 TESTED AT [facility] [address] [place] [address] (test sdjl=0484) [facility] [address] ANTI-NUCLEAR ANTIBODY (WAGNER)2017-04-14 10:42:00 Test Item Value Reference Range Comments ANTI-NUCLEAR ANTIBODY (WAGNER) (LiveRSVP) (test Negative Negative sdgk=004) SEDIMENTATION [id number] 09:35:00 Test Item Value Reference Range Comments SEDIMENTATION RATE, ERYTHROCYTE (LiveRSVP) (test 17 mm/HR 0-40 dfav=009) HIV-1 ANTIGEN WITH HIV-1/2 [id number] 09:09:00 Test Item Value Reference Range Comments HIV-1 ANTIGEN WITH HIV 1\T\2 ANTIBODY (2) Nonreactive Nonreactive (BEAKER) (test uxcs=3608) POCT-GLUCOSE [id number] 09:08:00 Test Item Value Reference Range Comments POC-GLUCOSE METER (BEAKER) 86 mg/dL 70-110 TESTED AT [facility] [address] [facility] (test xcxi=9705) [facility] [address] RHEUMATOID FACTOR AB, REFLEX TO [id number] 06:02:00 Test Item Value Reference Range Comments RHEUMATOID FACTOR (BEAKER) (test uquu=104) Negative BASIC METABOLIC [id number] 05:46:00 Test Item Value Reference Range Comments SODIUM (BEAKER) (test 140 meq/L 136-145 fkab=924) POTASSIUM (BEAKER) (test 3.8 meq/L 3.5-5.1 ancl=661) CHLORIDE (BEAKER) (test 97 meq/L 98-107 wciv=996) CO2 (BEAKER) (test 35 meq/L 22-29 nwyu=022) BLOOD UREA NITROGEN 48 mg/dL 7-21 (BEAKER) (test mzib=016) CREATININE (BEAKER) (test 1.34 mg/dL 0.57-1.25 suox=984) GLUCOSE RANDOM (BEAKER) 99 mg/dL 70-105 (test bhyt=386) CALCIUM (BEAKER) (test 9.0 mg/dL 8.4-10.2 mmfw=242) EGFR (BEAKER) (test 48 mL/min/1.73 sq m ESTIMATED GFR IS NOT xkwc=8429) ACCURATE CREATININE CLEARANCE IN PREDICTING GLOMERULAR FILTRATION RATE. ESTIMATED GFR IS NOT APPLICABLE FOR DIALYSIS PATIENTS. C-REACTIVE [id number] 05:46:00 Test Item Value Reference Range Comments C-REACTIVE PROTEIN (BEAKER) (test iwhh=834) 0.43 mg/dL 0.00-0.50 CBC (HEMOGRAM ONLY)2017-04-14 04:37:00 Test Item Value Reference Range Comments WHITE BLOOD CELL COUNT (BEAKER) (test vjns=364) 11.0 K/ L 3.5-10.5 RED BLOOD CELL COUNT (BEAKER) (test dopx=333) 3.69 M/ L 3.93-5.22 HEMOGLOBIN (BEAKER) (test ljuo=993) 10.9 GM/DL 11.2-15.7 HEMATOCRIT (BEAKER) (test zvxg=574) 34.1 % 34.1-44.9 MEAN CORPUSCULAR VOLUME (BEAKER) (test ngoo=856) 92.4 fL 79.4-94.8 MEAN CORPUSCULAR HEMOGLOBIN (BEAKER) (test 29.5 pg 25.6-32.2 mohu=597) MEAN CORPUSCULAR HEMOGLOBIN CONC (BEAKER) (test 32.0 GM/DL 32.2-35.5 ognf=053) RED CELL DISTRIBUTION WIDTH (BEAKER) (test 15.1 % 11.7-14.4 dxnh=895) PLATELET COUNT (BEAKER) (test mdzj=096) 220 K/CU MM 150-450 MEAN PLATELET VOLUME (BEAKER) (test lcto=482) 9.3 fL 9.4-12.3 NUCLEATED RED BLOOD CELLS (BEAKER) (test 0 /100 WBC 0-0 vlyv=153) CBC W/PLT COUNT & AUTO [id number] 04:37:00 Test Item Value Reference Range Comments WHITE BLOOD CELL COUNT (BEAKER) (test jeaf=118) 11.0 K/ L 3.5-10.5 RED BLOOD CELL COUNT (BEAKER) (test nqfn=299) 3.69 M/ L 3.93-5.22 HEMOGLOBIN (BEAKER) (test wnre=882) 10.9 GM/DL 11.2-15.7 HEMATOCRIT (BEAKER) (test jrju=825) 34.1 % 34.1-44.9 MEAN CORPUSCULAR VOLUME (BEAKER) (test mpgz=355) 92.4 fL 79.4-94.8 MEAN CORPUSCULAR HEMOGLOBIN (BEAKER) (test 29.5 pg 25.6-32.2 cbwt=886) MEAN CORPUSCULAR HEMOGLOBIN CONC (BEAKER) (test 32.0 GM/DL 32.2-35.5 pmld=788) RED CELL DISTRIBUTION WIDTH (BEAKER) (test 15.1 % 11.7-14.4 upmi=878) PLATELET COUNT (BEAKER) (test ctii=262) 220 K/CU MM 150-450 MEAN PLATELET VOLUME (BEAKER) (test wmqm=141) 9.3 fL 9.4-12.3 NUCLEATED RED BLOOD CELLS (BEAKER) (test 0 /100 WBC 0-0 psag=986) NEUTROPHILS RELATIVE PERCENT (BEAKER) (test 72 % pcyx=542) LYMPHOCYTES RELATIVE PERCENT (BEAKER) (test 17 % wown=880) MONOCYTES RELATIVE PERCENT (BEAKER) (test 8 % mdwa=107) EOSINOPHILS RELATIVE PERCENT (BEAKER) (test 1 % vbnt=357) BASOPHILS RELATIVE PERCENT (BEAKER) (test 0 % vuxi=416) NEUTROPHILS ABSOLUTE COUNT (BEAKER) (test 7.92 K/ L 1.56-6.13 paqk=503) LYMPHOCYTES ABSOLUTE COUNT (BEAKER) (test 1.91 K/ L 1.18-3.74 gjwf=895) MONOCYTES ABSOLUTE COUNT (BEAKER) (test 0.89 K/ L 0.24-0.36 kvpz=063) EOSINOPHILS ABSOLUTE COUNT (BEAKER) (test 0.09 K/ L 0.04-0.36 paxn=389) BASOPHILS ABSOLUTE COUNT (BEAKER) (test 0.00 K/ L 0.01-0.08 pzmw=362) IMMATURE GRANULOCYTES-RELATIVE PERCENT (BEAKER) 1 % 0-1 (test nbvt=5626) CBC (HEMOGRAM ONLY)2017-04-14 04:36:00 Test Item Value Reference Range Comments WHITE BLOOD CELL COUNT (BEAKER) (test kqbz=583) 10.9 K/ L 3.5-10.5 RED BLOOD CELL COUNT (BEAKER) (test gssl=932) 3.65 M/ L 3.93-5.22 HEMOGLOBIN (BEAKER) (test tkds=668) 10.6 GM/DL 11.2-15.7 HEMATOCRIT (BEAKER) (test qwil=615) 33.8 % 34.1-44.9 MEAN CORPUSCULAR VOLUME (BEAKER) (test ilaw=873) 92.6 fL 79.4-94.8 MEAN CORPUSCULAR HEMOGLOBIN (BEAKER) (test 29.0 pg 25.6-32.2 nlwy=481) MEAN CORPUSCULAR HEMOGLOBIN CONC (BEAKER) (test 31.4 GM/DL 32.2-35.5 vpsm=000) RED CELL DISTRIBUTION WIDTH (BEAKER) (test 15.1 % 11.7-14.4 tmce=844) PLATELET COUNT (BEAKER) (test wihv=610) 223 K/CU MM 150-450 MEAN PLATELET VOLUME (BEAKER) (test zucc=111) 9.5 fL 9.4-12.3 NUCLEATED RED BLOOD CELLS (BEAKER) (test 0 /100 WBC 0-0 xwiz=155) POCT-GLUCOSE [id number] 04:31:00 Test Item Value Reference Range Comments POC-GLUCOSE METER (BEAKER) 111 mg/dL 70-110 TESTED AT [address] (test nnqd=9651) [place] [address] POCT-GLUCOSE [id number] 21:57:00 Test Item Value Reference Range Comments POC-GLUCOSE METER (BEAKER) 153 mg/dL 70-110 TESTED AT [address] (test ixok=2412) [place] [id number] POCT-GLUCOSE [id number] 17:20:00 Test Item Value Reference Range Comments POC-GLUCOSE METER (BEAKER) 240 mg/dL 70-110 TESTED AT [address] (test okxd=2674) [place] [address] PUL PERF IMAGING, PARTIC, [id number] 17:00:00With NM brain/kidneys to look for shunting as well as CTEPHFINAL REPORT PROCEDURE: V/Q LUNG SCAN CPT CODE: 45090 INDICATION: Pulmonary hypertension acute respiratory failure PROTOCOL: [...] ventilation/ perfusion lung scan. Signed: Juan Kc [facility] Verified Date/Time: 2016 17:00:02 Reading Location: [address] [place] [address] Reading Room POCT- GLUCOSE [id number] 12:20:00 Test Item Value Reference Range Comments POC-GLUCOSE METER (BEAKER) 178 mg/dL 70-110 TESTED AT [address] (test objd=0112) [place] [id number] POCT-GLUCOSE [id number] 08:33:00 Test Item Value Reference Range Comments POC-GLUCOSE METER (BEAKER) 79 mg/dL 70-110 TESTED AT [facility] [address] (test xsqr=8179) [place] [address] B-TYPE NATRIURETIC FACTOR (BNP)2017-04-13 05:58:00 Test Item Value Reference Range Comments B-TYPE NATRIURETIC PEPTIDE (BEAKER) (test 312 pg/mL 0-100 jaov=506) BASIC METABOLIC [id number] 05:47:00 Test Item Value Reference Range Comments SODIUM (BEAKER) (test 141 meq/L 136-145 senr=527) POTASSIUM (BEAKER) (test 4.3 meq/L 3.5-5.1 dspt=315) CHLORIDE (BEAKER) (test 99 meq/L 98-107 zddm=921) CO2 (BEAKER) (test 35 meq/L 22-29 mues=434) BLOOD UREA NITROGEN 44 mg/dL 7-21 (BEAKER) (test kazg=182) CREATININE (BEAKER) (test 1.40 mg/dL 0.57-1.25 yzck=154) GLUCOSE RANDOM (BEAKER) 96 mg/dL 70-105 (test ceoc=665) CALCIUM (BEAKER) (test 9.0 mg/dL 8.4-10.2 tvro=905) EGFR (BEAKER) (test 45 mL/min/1.73 sq m ESTIMATED GFR IS NOT tbjw=4839) ACCURATE CREATININE CLEARANCE IN PREDICTING GLOMERULAR FILTRATION RATE. ESTIMATED GFR IS NOT APPLICABLE FOR DIALYSIS PATIENTS. CBC W/PLT COUNT & AUTO [id number] 05:39:00 Test Item Value Reference Range Comments WHITE BLOOD CELL COUNT (BEAKER) (test fcht=561) 11.5 K/ L 3.5-10.5 RED BLOOD CELL COUNT (BEAKER) (test drfq=863) 3.44 M/ L 3.93-5.22 HEMOGLOBIN (BEAKER) (test zngr=418) 10.0 GM/DL 11.2-15.7 HEMATOCRIT (BEAKER) (test mqdv=965) 32.0 % 34.1-44.9 MEAN CORPUSCULAR VOLUME (BEAKER) (test hnma=299) 93.0 fL 79.4-94.8 MEAN CORPUSCULAR HEMOGLOBIN (BEAKER) (test 29.1 pg 25.6-32.2 vrxx=647) MEAN CORPUSCULAR HEMOGLOBIN CONC (BEAKER) (test 31.3 GM/DL 32.2-35.5 ksxn=131) RED CELL DISTRIBUTION WIDTH (BEAKER) (test 15.3 % 11.7-14.4 hieo=588) PLATELET COUNT (BEAKER) (test hjqz=103) 216 K/CU MM 150-450 MEAN PLATELET VOLUME (BEAKER) (test jxmt=857) 8.9 fL 9.4-12.3 NUCLEATED RED BLOOD CELLS (BEAKER) (test 0 /100 WBC 0-0 gfhd=366) NEUTROPHILS RELATIVE PERCENT (BEAKER) (test 75 % klbx=002) LYMPHOCYTES RELATIVE PERCENT (BEAKER) (test 16 % jmpx=392) MONOCYTES RELATIVE PERCENT (BEAKER) (test 8 % kkwt=743) EOSINOPHILS RELATIVE PERCENT (BEAKER) (test 1 % thzh=307) BASOPHILS RELATIVE PERCENT (BEAKER) (test 0 % yzuj=212) NEUTROPHILS ABSOLUTE COUNT (BEAKER) (test 8.61 K/ L 1.56-6.13 ckry=027) LYMPHOCYTES ABSOLUTE COUNT (BEAKER) (test 1.81 K/ L 1.18-3.74 wuqq=437) MONOCYTES ABSOLUTE COUNT (BEAKER) (test 0.92 K/ L 0.24-0.36 cslj=585) EOSINOPHILS ABSOLUTE COUNT (BEAKER) (test 0.11 K/ L 0.04-0.36 qxbc=319) BASOPHILS ABSOLUTE COUNT (BEAKER) (test 0.01 K/ L 0.01-0.08 ruep=764) IMMATURE GRANULOCYTES-RELATIVE PERCENT (BEAKER) 1 % 0-1 (test fyvy=3478) POCT-GLUCOSE [id number] 05:04:00 Test Item Value Reference Range Comments POC-GLUCOSE METER (BEAKER) 103 mg/dL 70-110 TESTED AT [address] (test gaxy=5358) [facility] [address] POCT-GLUCOSE [id number] 21:41:00 Test Item Value Reference Range Comments POC-GLUCOSE METER (BEAKER) 176 mg/dL 70-110 TESTED AT [address] (test ltzz=5798) [facility] [address] POCT-GLUCOSE [id number] 17:05:00 Test Item Value Reference Range Comments POC-GLUCOSE METER (BEAKER) 207 mg/dL 70-110 TESTED AT [address] (test jlyk=2739) [place] [address] TROPONIN [id number] 13:44:00 Test Item Value Reference Range Comments TROPONIN I (BEAKER) (test opqc=522) 0.35 ng/mL 0.00-0.03 Troponin I (TnI) levels [...] acidosis, acute neurological disease, and persistent tachyarrhythmia.HEMOGLOBIN [id number] 12:54:00 Test Item Value Reference Range Comments HEMOGLOBIN A1C (BEAKER) (test xqpu=987) 5.8 % 4.3-6.1 POCT-GLUCOSE [id number] 11:37:00 Test Item Value Reference Range Comments POC-GLUCOSE METER (BEAKER) 231 mg/dL 70-110 TESTED AT [address] (test ayei=6963) [place] [address] URINE [id number] 10:51:00 Test Item Value Reference Range Comments CULTURE (BEAKER) (test tyrl=5490) No growth POCT-GLUCOSE [id number] 08:01:00 Test Item Value Reference Range Comments POC-GLUCOSE METER (BEAKER) 134 mg/dL 70-110 TESTED AT [address] (test yldz=2137) [place] [address] BASIC METABOLIC [id number] 05:36:00 Test Item Value Reference Range Comments SODIUM (BEAKER) (test 136 meq/L 136-145 ifix=055) POTASSIUM (BEAKER) (test 5.2 meq/L 3.5-5.1 voor=729) CHLORIDE (BEAKER) (test 99 meq/L 98-107 vhph=563) CO2 (BEAKER) (test 30 meq/L 22-29 uiwy=265) BLOOD UREA NITROGEN 43 mg/dL 7-21 (BEAKER) (test edua=913) CREATININE (BEAKER) (test 1.53 mg/dL 0.57-1.25 wrup=454) GLUCOSE RANDOM (BEAKER) 159 mg/dL 70-105 (test rknj=592) CALCIUM (BEAKER) (test 8.8 mg/dL 8.4-10.2 hdje=399) EGFR (BEAKER) (test 41 mL/min/1.73 sq m ESTIMATED GFR IS NOT cvse=2231) ACCURATE CREATININE CLEARANCE IN PREDICTING GLOMERULAR FILTRATION RATE. ESTIMATED GFR IS NOT APPLICABLE FOR DIALYSIS PATIENTS. CBC W/PLT COUNT & AUTO [id number] 05:33:00 Test Item Value Reference Range Comments WHITE BLOOD CELL COUNT (BEAKER) (test kdxk=737) 14.2 K/ L 3.5-10.5 RED BLOOD CELL COUNT (BEAKER) (test inss=181) 3.53 M/ L 3.93-5.22 HEMOGLOBIN (BEAKER) (test mebn=818) 10.5 GM/DL 11.2-15.7 HEMATOCRIT (BEAKER) (test yibd=091) 33.0 % 34.1-44.9 MEAN CORPUSCULAR VOLUME (BEAKER) (test zegk=826) 93.5 fL 79.4-94.8 MEAN CORPUSCULAR HEMOGLOBIN (BEAKER) (test 29.7 pg 25.6-32.2 lpto=507) MEAN CORPUSCULAR HEMOGLOBIN CONC (BEAKER) (test 31.8 GM/DL 32.2-35.5 wjhq=147) RED CELL DISTRIBUTION WIDTH (BEAKER) (test 15.1 % 11.7-14.4 mttc=956) PLATELET COUNT (BEAKER) (test pahs=420) 229 K/CU MM 150-450 MEAN PLATELET VOLUME (BEAKER) (test jgdd=601) 9.6 fL 9.4-12.3 NUCLEATED RED BLOOD CELLS (BEAKER) (test 0 /100 WBC 0-0 ruyd=875) NEUTROPHILS RELATIVE PERCENT (BEAKER) (test 90 % tbwt=451) LYMPHOCYTES RELATIVE PERCENT (BEAKER) (test 5 % rign=162) MONOCYTES RELATIVE PERCENT (BEAKER) (test 4 % pbss=449) EOSINOPHILS RELATIVE PERCENT (BEAKER) (test 0 % zrno=946) BASOPHILS RELATIVE PERCENT (BEAKER) (test 0 % cnct=034) NEUTROPHILS ABSOLUTE COUNT (BEAKER) (test 12.74 K/ L 1.56-6.13 tlju=694) LYMPHOCYTES ABSOLUTE COUNT (BEAKER) (test 0.76 K/ L 1.18-3.74 avhw=032) MONOCYTES ABSOLUTE COUNT (BEAKER) (test 0.52 K/ L 0.24-0.36 rtjx=891) EOSINOPHILS ABSOLUTE COUNT (BEAKER) (test 0.00 K/ L 0.04-0.36 wbtx=190) BASOPHILS ABSOLUTE COUNT (BEAKER) (test 0.01 K/ L 0.01-0.08 pnsm=954) IMMATURE GRANULOCYTES-RELATIVE PERCENT (BEAKER) 1 % 0-1 (test tebu=4099) CBC (HEMOGRAM ONLY)2017-04-12 05:25:00 Test Item Value Reference Range Comments WHITE BLOOD CELL COUNT (BEAKER) (test pnxv=246) 14.2 K/ L 3.5-10.5 RED BLOOD CELL COUNT (BEAKER) (test qluy=094) 3.53 M/ L 3.93-5.22 HEMOGLOBIN (BEAKER) (test edzb=784) 10.5 GM/DL 11.2-15.7 HEMATOCRIT (BEAKER) (test hlna=314) 33.0 % 34.1-44.9 MEAN CORPUSCULAR VOLUME (BEAKER) (test jxno=647) 93.5 fL 79.4-94.8 MEAN CORPUSCULAR HEMOGLOBIN (BEAKER) (test 29.7 pg 25.6-32.2 wafd=003) MEAN CORPUSCULAR HEMOGLOBIN CONC (BEAKER) (test 31.8 GM/DL 32.2-35.5 cdxg=432) RED CELL DISTRIBUTION WIDTH (BEAKER) (test 15.1 % 11.7-14.4 mfbv=534) PLATELET COUNT (BEAKER) (test xmgt=745) 229 K/CU MM 150-450 MEAN PLATELET VOLUME (BEAKER) (test kzak=736) 9.6 fL 9.4-12.3 NUCLEATED RED BLOOD CELLS (BEAKER) (test 0 /100 WBC 0-0 fzuy=060) POCT-GLUCOSE [id number] 21:38:00 Test Item Value Reference Range Comments POC-GLUCOSE METER (BEAKER) 178 mg/dL 70-110 TESTED AT [facility] [address] [facility] (test bxyy=0168) [facility] [address] POCT-GLUCOSE [id number] 16:53:00 Test Item Value Reference Range Comments POC-GLUCOSE METER (BEAKER) 305 mg/dL 70-110 TESTED AT [facility] [address] [facility] (test rxym=9360) [facility] [address] POCT-GLUCOSE [id number] 12:07:00 Test Item Value Reference Range Comments POC-GLUCOSE METER (BEAKER) 213 mg/dL 70-110 TESTED AT [facility] [address] [facility] (test wiys=2345) [facility] [address] POCT-GLUCOSE [id number] 08:42:00 Test Item Value Reference Range Comments POC-GLUCOSE METER (BEAKER) 179 mg/dL 70-110 TESTED AT [address] (test xyla=7860) [facility] [address] BASIC METABOLIC [id number] 05:03:00 Test Item Value Reference Range Comments SODIUM (BEAKER) (test 138 meq/L 136-145 issb=366) POTASSIUM (BEAKER) (test 4.7 meq/L 3.5-5.1 xvfz=513) CHLORIDE (BEAKER) (test 98 meq/L 98-107 ltfv=030) CO2 (BEAKER) (test 34 meq/L 22-29 jeie=714) BLOOD UREA NITROGEN 32 mg/dL 7-21 (BEAKER) (test hdyv=597) CREATININE (BEAKER) (test 1.41 mg/dL 0.57-1.25 jfsc=793) GLUCOSE RANDOM (BEAKER) 179 mg/dL 70-105 (test qmtv=206) CALCIUM (BEAKER) (test 9.0 mg/dL 8.4-10.2 wnok=086) EGFR (BEAKER) (test 45 mL/min/1.73 sq m ESTIMATED GFR IS NOT ewcd=9232) ACCURATE CREATININE CLEARANCE IN PREDICTING GLOMERULAR FILTRATION RATE. ESTIMATED GFR IS NOT APPLICABLE FOR DIALYSIS PATIENTS. CBC W/PLT COUNT & AUTO [id number] 04:53:00 Test Item Value Reference Range Comments WHITE BLOOD CELL COUNT (BEAKER) (test skjw=935) 12.2 K/ L 3.5-10.5 RED BLOOD CELL COUNT (BEAKER) (test srun=149) 3.37 M/ L 3.93-5.22 HEMOGLOBIN (BEAKER) (test dgfb=115) 9.7 GM/DL 11.2-15.7 HEMATOCRIT (BEAKER) (test prhu=043) 31.7 % 34.1-44.9 MEAN CORPUSCULAR VOLUME (BEAKER) (test akte=078) 94.1 fL 79.4-94.8 MEAN CORPUSCULAR HEMOGLOBIN (BEAKER) (test 28.8 pg 25.6-32.2 thuj=813) MEAN CORPUSCULAR HEMOGLOBIN CONC (BEAKER) (test 30.6 GM/DL 32.2-35.5 fjex=466) RED CELL DISTRIBUTION WIDTH (BEAKER) (test 14.7 % 11.7-14.4 bghv=356) PLATELET COUNT (BEAKER) (test mbrc=822) 202 K/CU MM 150-450 MEAN PLATELET VOLUME (BEAKER) (test pcua=710) 9.5 fL 9.4-12.3 NUCLEATED RED BLOOD CELLS (BEAKER) (test 0 /100 WBC 0-0 byox=330) NEUTROPHILS RELATIVE PERCENT (BEAKER) (test 92 % mlsi=152) LYMPHOCYTES RELATIVE PERCENT (BEAKER) (test 4 % nnoi=243) MONOCYTES RELATIVE PERCENT (BEAKER) (test 3 % vndo=864) EOSINOPHILS RELATIVE PERCENT (BEAKER) (test 0 % ggct=585) BASOPHILS RELATIVE PERCENT (BEAKER) (test 0 % zccm=815) NEUTROPHILS ABSOLUTE COUNT (BEAKER) (test 11.29 K/ L 1.56-6.13 wavq=668) LYMPHOCYTES ABSOLUTE COUNT (BEAKER) (test 0.44 K/ L 1.18-3.74 kmzy=546) MONOCYTES ABSOLUTE COUNT (BEAKER) (test 0.41 K/ L 0.24-0.36 vhuk=471) EOSINOPHILS ABSOLUTE COUNT (BEAKER) (test 0.00 K/ L 0.04-0.36 vged=335) BASOPHILS ABSOLUTE COUNT (BEAKER) (test 0.01 K/ L 0.01-0.08 qyjc=693) IMMATURE GRANULOCYTES-RELATIVE PERCENT (BEAKER) 1 % 0-1 (test jnzm=7925) POCT-GLUCOSE [id number] 04:46:00 Test Item Value Reference Range Comments POC-GLUCOSE METER (BEAKER) 201 mg/dL 70-110 TESTED AT [facility] [address] [facility] (test jewb=0803) [facility] [address] CT, CHEST, WITHOUT [id number] 02:12:00FINAL REPORT EXAMINATION: CT SCAN OF THE [...] definite evidence of diverticulitis. Signed: Gokul Zaidi [facility] Verified Date /Time: 04/11/2017 02:12:58 Reading Location: [address] Reading Room [facility] , [id number] 02:12:00FINAL REPORT EXAMINATION: CT SCAN OF THE [...] Verified Date /Time: 04/11/2017 02:12:58 Reading Location: [address] Reading Room POCT-GLUCOSE [id number] 00:26:00 Test Item Value Reference Range Comments POC-GLUCOSE METER (BEAKER) 225 mg/dL 70-110 TESTED AT [address] (test wwvb=8061) [facility] [address] BLOOD GAS, [id number] 20:54:00 Test Item Value Reference Range Comments PH ARTERIAL (BEAKER) (test ohzb=651) 7.45 7.35-7.45 PCO2 ARTERIAL (BEAKER) (test fkhy=628) 51 mmHg 35-45 PO2 ARTERIAL (BEAKER) (test yzoq=797) 151 mmHg 80-90 O2 SATURATION ARTERIAL (BEAKER) (test snzs=175) 99.0 % 96.0-97.0 HCO3 ARTERIAL (BEAKER) (test dfst=227) 35 mmol/L 21-29 BASE EXCESS ARTERIAL (BEAKER) (test lbfr=626) 9.9 mmol/L -2.0-3.0 PATIENT TEMPERATURE (BEAKER) (test sort=4800) 37.0 C FIO2 (BEAKER) (test qeys=1397) 36.0 % POCT-GLUCOSE [id number] 20:50:00 Test Item Value Reference Range Comments POC-GLUCOSE METER (BEAKER) 211 mg/dL 70-110 TESTED AT [address] (test rlit=2300) [place] [address] POCT-GLUCOSE [id number] 16:25:00 Test Item Value Reference Range Comments POC-GLUCOSE METER (BEAKER) 227 mg/dL 70-110 TESTED AT [address] (test wohg=0020) [place] [id number] BLOOD GAS, [id number] 14:59:00 Test Item Value Reference Range Comments PH ARTERIAL (BEAKER) (test lxhb=047) 7.35 7.35-7.45 PCO2 ARTERIAL (BEAKER) (test ppkl=806) 70 mmHg 35-45 PO2 ARTERIAL (BEAKER) (test sixr=471) 46 mmHg 80-90 O2 SATURATION ARTERIAL (BEAKER) (test hzro=451) 78.2 % 96.0-97.0 HCO3 ARTERIAL (BEAKER) (test gbkc=167) 37 mmol/L 21-29 BASE EXCESS ARTERIAL (BEAKER) (test pniq=766) 9.3 mmol/L -2.0-3.0 PATIENT TEMPERATURE (BEAKER) (test knag=5823) 37.0 C FIO2 (BEAKER) (test ohaf=6998) 40.0 % POCT-GLUCOSE [id number] 12:11:00 Test Item Value Reference Range Comments POC-GLUCOSE METER (BEAKER) 268 mg/dL 70-110 TESTED AT [address] (test wkrr=5162) [place] [id number] BLOOD GAS, [id number] 11:51:00 Test Item Value Reference Range Comments PH ARTERIAL (BEAKER) (test taig=716) 7.33 7.35-7.45 PCO2 ARTERIAL (BEAKER) (test dwya=932) 71 mmHg 35-45 PO2 ARTERIAL (BEAKER) (test moft=877) 69 mmHg 80-90 O2 SATURATION ARTERIAL (BEAKER) (test lkjo=385) 92.0 % 96.0-97.0 HCO3 ARTERIAL (BEAKER) (test bsyy=287) 37 mmol/L 21-29 BASE EXCESS ARTERIAL (BEAKER) (test xkdv=764) 8.7 mmol/L -2.0-3.0 PATIENT TEMPERATURE (BEAKER) (test tgru=4141) 37.0 C FIO2 (BEAKER) (test mflu=1240) 40.0 % U/S, ABDOMINAL, [id number] 10:09:00Reason for exam:->abdominal pain, cholecystitis, ascitesFINAL REPORT [...] No sonographic evidence of cholelithiasis. Signed: Tahir Matthewsort Verified Date/Time: 2016 10:09:29 Reading Location: [address] Ultrasound ReadingRoom [id number] 09:53:00 Test Item Value Reference Range Comments LIPASE (BEAKER) (test rqii=699) 8 U/L 8-78 BASIC METABOLIC [id number] 09:53:00 Test Item Value Reference Range Comments SODIUM (BEAKER) (test 136 meq/L 136-145 ypas=643) POTASSIUM (BEAKER) (test 5.0 meq/L 3.5-5.1 thlj=009) CHLORIDE (BEAKER) (test 95 meq/L 98-107 pfcy=093) CO2 (BEAKER) (test 36 meq/L 22-29 rboz=025) BLOOD UREA NITROGEN 32 mg/dL 7-21 (BEAKER) (test wtkj=079) CREATININE (BEAKER) (test 1.76 mg/dL 0.57-1.25 swfb=018) GLUCOSE RANDOM (BEAKER) 249 mg/dL 70-105 (test somr=091) CALCIUM (BEAKER) (test 8.8 mg/dL 8.4-10.2 qdfp=908) EGFR (BEAKER) (test 35 mL/min/1.73 sq m ESTIMATED GFR IS NOT duwh=9900) ACCURATE CREATININE CLEARANCE IN PREDICTING GLOMERULAR FILTRATION RATE. ESTIMATED GFR IS NOT APPLICABLE FOR DIALYSIS PATIENTS. [id number] 09:11:00 Test Item Value Reference Range Comments HAPTOGLOBIN (BEAKER) (test fzsb=662) 194 mg/dL 14-258 VITAMIN B12 AND [id number] 08:57:00 Test Item Value Reference Range Comments VITAMIN B12 (BEAKER) (test reql=566) > pg/mL 213-816 FOLATE (BEAKER) (test vzlz=965) 14.9 ng/mL >=7.0 POCT-GLUCOSE [id number] 08:29:00 Test Item Value Reference Range Comments POC-GLUCOSE METER (BEAKER) 270 mg/dL 70-110 TESTED AT [facility] [address] [facility] (test rwyw=3468) [facility] [address] [id number] 08:24:00 Test Item Value Reference Range Comments FERRITIN (BEAKER) (test fiip=514) 106 ng/mL 5-275 PROTEIN, RANDOM [id number] 08:14:00 Test Item Value Reference Range Comments PROTEIN, URINE (BEAKER) (test dvnx=3212) < mg/dL 0-14 SODIUM, RANDOM [id number] 08:14:00 Test Item Value Reference Range Comments SODIUM URINE (BEAKER) (test lpie=444) < meq/L Reference Range: No NormalsRETICULOCYTE [id number] 08:03:00 Test Item Value Reference Range Comments RETICULOCYTE COUNT PCT (BEAKER) (test ndqi=633) 1.9 % 0.5-1.7 IRON, TIBC, % SAT. (WITHOUT FERRITIN)2017-04-10 08:02:00 Test Item Value Reference Range Comments IRON (BEAKER) (test rlhl=838) 20 ug/dL 40-160 TOTAL IRON BINDING CAPACITY (BEAKER) (test 243 ug/dL 250-450 wcax=804) IRON % SATURATION (2) (BEAKER) (test dhmp=5947) 8 % 20-55 LIPID [id number] 08:01:00 Test Item Value Reference Range Comments TRIGLYCERIDES (BEAKER) (test gdql=943) 54 mg/dL CHOLESTEROL (BEAKER) (test diaw=742) 107 mg/dL HDL CHOLESTEROL (BEAKER) (test odlz=708) 41 mg/dL LDL CHOLESTEROL CALCULATED (BEAKER) (test 55 mg/dL chne=927) Triglyceride Reference Range: Low Risk <150 Borderline [...] Reference Range Comments LACTATE DEHYDROGENASE (BEAKER) (test sorw=411) 276 U/L 125-220 CREATININE, RANDOM [id number] 08:01:00 Test Item Value Reference Range Comments CREATININE URINE (BEAKER) (test ixdg=925) 92.9 mg/dL Reference Range: No NormalsURINALYSIS W/ REFLEX URINE [id number] 07:54:00 Test Item Value Reference Range Comments COLOR (BEAKER) (test wkfb=100) Yellow CLARITY (BEAKER) (test fgwb=089) Clear SPECIFIC GRAVITY UA (BEAKER) (test dxjc=147) 1.007 1.001-1.035 PH UA (BEAKER) (test nnmy=159) 5.0 5.0-8.0 PROTEIN UA (BEAKER) (test bsvv=156) Negative Negative GLUCOSE UA (BEAKER) (test yxyg=088) Negative Negative KETONES UA (BEAKER) (test sgmu=946) Negative Negative BILIRUBIN UA (BEAKER) (test wfyp=931) Negative Negative BLOOD UA (BEAKER) (test cqcn=305) Negative Negative NITRITE UA (BEAKER) (test ndcc=120) Negative Negative LEUKOCYTE ESTERASE UA (BEAKER) (test pfzf=483) Negative Negative UROBILINOGEN UA (BEAKER) (test ivnu=579) 0.2 mg/dL 0.2-1.0 RBC UA (BEAKER) (test intd=487) 1 /HPF WBC UA (BEAKER) (test uvax=624) 0 /HPF BACTERIA (BEAKER) (test gebm=576) Rare HYALINE CASTS (BEAKER) (test wvsf=011) 6 /LPF SOURCE(BEAKER) (test xlyh=5647) PLATELET [id number] 07:26:00 Test Item Value Reference Range Comments PLATELET COUNT (BEAKER) (test jxap=585) 201 K/CU MM 150-450 POCT-GLUCOSE [id number] 07:15:00 Test Item Value Reference Range Comments POC-GLUCOSE METER (BEAKER) 258 mg/dL 70-110 TESTED AT [facility] [address] [facility] (test ghmv=2338) [facility] [address] BASIC METABOLIC [id number] 06:52:00 Test Item Value Reference Range Comments SODIUM (BEAKER) (test 136 meq/L 136-145 qptp=432) POTASSIUM (BEAKER) (test 4.9 meq/L 3.5-5.1 dwfa=668) CHLORIDE (BEAKER) (test 95 meq/L 98-107 aihj=450) CO2 (BEAKER) (test 32 meq/L 22-29 ztvy=804) BLOOD UREA NITROGEN 33 mg/dL 7-21 (BEAKER) (test pnfv=338) CREATININE (BEAKER) (test 1.85 mg/dL 0.57-1.25 aock=500) GLUCOSE RANDOM (BEAKER) 247 mg/dL 70-105 (test ztcm=103) CALCIUM (BEAKER) (test 8.6 mg/dL 8.4-10.2 kpus=691) EGFR (BEAKER) (test 33 mL/min/1.73 sq m ESTIMATED GFR IS NOT veeg=6847) ACCURATE CREATININE CLEARANCE IN PREDICTING GLOMERULAR FILTRATION RATE. ESTIMATED GFR IS NOT APPLICABLE FOR DIALYSIS PATIENTS. BLOOD GAS, [id number] 06:49:00 Test Item Value Reference Range Comments PH ARTERIAL (BEAKER) (test java=072) 7.30 7.35-7.45 PCO2 ARTERIAL (BEAKER) (test qkvd=387) 75 mmHg 35-45 PO2 ARTERIAL (BEAKER) (test srxx=182) 84 mmHg 80-90 O2 SATURATION ARTERIAL (BEAKER) (test qsol=140) 94.9 % 96.0-97.0 HCO3 ARTERIAL (BEAKER) (test ropd=039) 36 mmol/L 21-29 BASE EXCESS ARTERIAL (BEAKER) (test fwua=339) 7.4 mmol/L -2.0-3.0 PATIENT TEMPERATURE (BEAKER) (test ongu=4754) 37.0 C FIO2 (BEAKER) (test vjpr=8329) 50.0 % RAD, CHEST, 1 VIEW, NON [id number] 06:34:00Reason for exam:->central line placement Should this be performed at the bedside?->YesFINAL REPORT Comparison exam: 04/10/2017 time 1:09 AM Interval placement of a right IJ central venous catheter with the tip located in the superior vena cava. No pneumothorax. No focal pulmonary consolidation or significant pleural effusion. Stable cardiomediastinal contours. Signed: Ariel Hearneport Verified Date/Time: 04/10/2017 06:34:32 Reading Location : [facility] C0X Ortho Consult Reading Room [id number] 06:04:00 Test Item Value Reference Range Comments PARTIAL THROMBOPLASTIN TIME (BEAKER) (test 34.8 seconds 22.5-36.0 lfqr=540) Prior to initiating heparinCBC W/PLT COUNT & AUTO [id number] 02: 14:00 Test Item Value Reference Range Comments WHITE BLOOD CELL COUNT (BEAKER) (test ykpz=476) 10.1 K/ L 3.5-10.5 RED BLOOD CELL COUNT (BEAKER) (test uclb=965) 3.72 M/ L 3.93-5.22 HEMOGLOBIN (BEAKER) (test gppi=519) 10.9 GM/DL 11.2-15.7 HEMATOCRIT (BEAKER) (test xncw=633) 36.7 % 34.1-44.9 MEAN CORPUSCULAR VOLUME (BEAKER) (test idxw=345) 98.7 fL 79.4-94.8 MEAN CORPUSCULAR HEMOGLOBIN (BEAKER) (test 29.3 pg 25.6-32.2 tedj=209) MEAN CORPUSCULAR HEMOGLOBIN CONC (BEAKER) (test 29.7 GM/DL 32.2-35.5 zgbo=540) RED CELL DISTRIBUTION WIDTH (BEAKER) (test 14.6 % 11.7-14.4 bueq=568) PLATELET COUNT (BEAKER) (test mkjg=176) 177 K/CU MM 150-450 MEAN PLATELET VOLUME (BEAKER) (test mgqy=088) 9.7 fL 9.4-12.3 NUCLEATED RED BLOOD CELLS (BEAKER) (test 0 /100 WBC 0-0 wakr=024) NEUTROPHILS RELATIVE PERCENT (BEAKER) (test 96 % cery=226) LYMPHOCYTES RELATIVE PERCENT (BEAKER) (test 3 % wlbq=102) MONOCYTES RELATIVE PERCENT (BEAKER) (test 1 % dpaj=420) EOSINOPHILS RELATIVE PERCENT (BEAKER) (test 0 % cwmx=925) BASOPHILS RELATIVE PERCENT (BEAKER) (test 0 % qkgi=019) NEUTROPHILS ABSOLUTE COUNT (BEAKER) (test 9.70 K/ L 1.56-6.13 sabi=360) LYMPHOCYTES ABSOLUTE COUNT (BEAKER) (test 0.26 K/ L 1.18-3.74 ulta=430) MONOCYTES ABSOLUTE COUNT (BEAKER) (test 0.09 K/ L 0.24-0.36 wxmy=529) EOSINOPHILS ABSOLUTE COUNT (BEAKER) (test 0.00 K/ L 0.04-0.36 vcni=595) BASOPHILS ABSOLUTE COUNT (BEAKER) (test 0.01 K/ L 0.01-0.08 falc=358) IMMATURE GRANULOCYTES-RELATIVE PERCENT (BEAKER) 1 % 0-1 (test ehip=8266) TROPONIN [id number] 01:56:00 Test Item Value Reference Range Comments TROPONIN I (BEAKER) (test jbzz=432) 0.62 ng/mL 0.00-0.03 Troponin I (TnI) levels [...] acute neurological disease, and persistent tachyarrhythmia.BASIC METABOLIC [id number] 01:46:00 Test Item Value Reference Range Comments SODIUM (BEAKER) (test 135 meq/L 136-145 hxaw=262) POTASSIUM (BEAKER) (test 5.1 meq/L 3.5-5.1 Specimen slightly jkre=662) hemolyzed CHLORIDE (BEAKER) (test 95 meq/L 98-107 vwgr=164) CO2 (BEAKER) (test 31 meq/L 22-29 bzir=706) BLOOD UREA NITROGEN 33 mg/dL 7-21 (BEAKER) (test dcjr=994) CREATININE (BEAKER) (test 2.04 mg/dL 0.57-1.25 Specimen slightly vfvd=229) hemolyzed GLUCOSE RANDOM (BEAKER) 234 mg/dL 70-105 (test jyre=166) CALCIUM (BEAKER) (test 8.6 mg/dL 8.4-10.2 lmjx=762) EGFR (BEAKER) (test 29 mL/min/1.73 sq m ESTIMATED GFR IS NOT anmt=3037) ACCURATE CREATININE CLEARANCE IN PREDICTING GLOMERULAR FILTRATION RATE. ESTIMATED GFR IS NOT APPLICABLE FOR DIALYSIS PATIENTS. [id number] 01:46:00 Test Item Value Reference Range Comments PROTIME (BEAKER) (test jjzs=791) 14.7 seconds 11.7-14.7 INR (BEAKER) (test ijym=443) 1.2 <=5.9 PARTIAL THROMBOPLASTIN TIME (BEAKER) (test 45.8 seconds 22.5-36.0 flkb=224) RECOMMENDED COUMADIN/WARFARIN INR THERAPY RANGESSTANDARD DOSE: 2.0 - 3.0 Includes: PROPHYLAXIS forvenous thrombosis, systemic embolization; TREATMENT for venous thrombosis and/or pulmonary embolus.HIGH RISK: Target INR is 2.5-3.5 for patients with mechanical heart valves.PROTHROMBIN [id number] 01:45: 00 Test Item Value Reference Range Comments PROTIME (BEAKER) (test tcdn=871) 14.7 seconds 11.7-14.7 INR (BEAKER) (test izga=051) 1.2 <=5.9 RECOMMENDED COUMADIN/WARFARIN INR THERAPY RANGESSTANDARD DOSE: 2.0 - 3.0 Includes: PROPHYLAXIS forvenous thrombosis, systemic embolization; TREATMENT for venous thrombosis and/or pulmonary embolus.HIGH RISK: Target INR is 2.5-3.5 for patients with mechanical heart valves.CREATINE KINASE (CK), TOTAL AND [id number] 01:44:00 Test Item Value Reference Range Comments CREATINE KINASE TOTAL (BEAKER) (test gfsk=205) 89 U/L 29-200 CREATINE KINASE-MB (BEAKER) (test cgqc=054) 2.1 ng/mL 0.0-6.6 CREATINE KINASE-MB INDEX (BEAKER) (test lnsz=866) 2.4 % CK-MB Reference Range:<6.7 Normal6.7-10.0 Borderline>10.0 AbnormalRAD, CHEST, 1 VIEW, NON [id number] 01:44:00Reason for exam:-> acute hypoxemic hypercapnic respiratory failure; pneumonia, pulmonary edemaShould this be performed at the bedside?->YesFINAL REPORT Comparison examination: None No pneumothorax, focal pulmonary consolidation, or significant pleural effusion. The cardiac size is magnified by the portable technique. Normal mediastinal contours. Normal skeleton and soft tissues. Impression: No acute abnormality.Signed: Ariel Hearn Verified Date/Time: 04/10/2017 01:44:25 Reading Location: [facility] C013X [facility] Consult Reading Room Electronically signed by: ARIEL HEARN M.D. on 04/10 01:44 AMB-TYPE NATRIURETIC FACTOR (BNP)2017-04-10 01:43:00 Test Item Value Reference Range Comments B-TYPE NATRIURETIC PEPTIDE (BEAKER) (test 1410 pg/mL 0-100 qmbc=366) [id number] 01:38:00 Test Item Value Reference Range Comments MAGNESIUM (BEAKER) (test 1.8 mg/dL 1.6-2.6 Specimen slightly hemolyzed kgzw=569) [id number] 01:38:00 Test Item Value Reference Range Comments PHOSPHORUS (BEAKER) (test 4.1 mg/dL 2.3-4.7 Specimen slightly hemolyzed zdko=458) HEPATIC FUNCTION [id number] 01:38:00 Test Item Value Reference Range Comments TOTAL PROTEIN (BEAKER) (test 7.2 gm/dL 6.0-8.3 Specimen slightly hemolyzed fexa=238) ALBUMIN (BEAKER) (test 3.2 g/dL 3.5-5.0 Specimen slightly hemolyzed qtfj=3904) BILIRUBIN TOTAL (BEAKER) (test 0.3 mg/dL 0.2-1.2 Specimen slightly hemolyzed wnmd=239) BILIRUBIN DIRECT (BEAKER) (test 0.2 mg/dL 0.1-0.5 Specimen slightly hemolyzed aaui=183) ALKALINE PHOSPHATASE (BEAKER) 62 U/L 40-150 (test tjxw=510) AST (SGOT) (BEAKER) (test 40 U/L 5-34 Specimen slightly hemolyzed cfec=698) ALT (SGPT) (BEAKER) (test 28 U/L 6-55 Specimen slightly hemolyzed stgr=705) LACTIC ACID, VENOUS, WHOLE [id number] 01:32:00 Test Item Value Reference Range Comments LACTATE BLOOD VENOUS (2) 0.7 mmol/L 0.5-2.2 Specimen slightly hemolyzed (BEAKER) (test lkwk=0752) Effective 11/03/2015: Units/Reference Range ChangeNew: 0.5-2.2 mmol/L Previous: 5 -20 mg/dLBLOOD GAS, [id number] 01:23:00 Test Item Value Reference Range Comments PH ARTERIAL (BEAKER) (test wqnf=114) 7.26 7.35-7.45 PCO2 ARTERIAL (BEAKER) (test rkxe=647) 81 mmHg 35-45 PO2 ARTERIAL (BEAKER) (test wpmc=624) 250 mmHg 80-90 O2 SATURATION ARTERIAL (BEAKER) (test rryp=895) 99.4 % 96.0-97.0 HCO3 ARTERIAL (BEAKER) (test ruho=409) 35 mmol/L 21-29 BASE EXCESS ARTERIAL (BEAKER) (test btdb=878) 5.9 mmol/L -2.0-3.0 PATIENT TEMPERATURE (BEAKER) (test hlcy=7962) 37.1 C FIO2 (BEAKER) (test txim=9497) 70.0 % POCT-GLUCOSE [id number] 23:56:00 Test Item Value Reference Range Comments POC-GLUCOSE METER (BEAKER) 243 mg/dL 70-110 TESTED AT [facility] [address] [facility] (test bjrw=6138) [facility] [address]
[2019-02-18] MEDS ORDERED: NA CHLORIDE 0.9% 1,000 ML ONE (07:17)
[2019-02-18 07:40] VITALS: O2SAT 100
[2019-02-18] MEDS ORDERED: LIDOCAINE 1% MPF 5 ML VIAL ONE (08:31)
[2019-02-18] MEDS ORDERED: PROPOFOL 200 MG/20 ML VIAL IV ONE (08:31)
[2019-02-18 10:06] VITALS: BP 134/70; TEMP 97
--- NOTE | 2019-02-18 20:29 | OP ---
Surgeon: Raphael Burch MD Procedure To Be Performed: Colonoscopy. Indication For Procedure: Screening, also history of polyps. Plan For Anesthesia: Monitored anesthesia care. Complexity: High due to patient's significant COPD, requiring oxygen. Technique: After obtaining informed consent from the patient and explaining risks and complications which include, but are not limited to bleeding, infection, perforation, and anesthesia complication, the patient was placed in the left lateral position and sedation was given. From then on, a digital rectal exam was performed. Scope was advanced through the rectum and carefully guided up until the c ecum. The cecum was identified by the ileocecal valve and appendiceal orifice. Subsequently, the sc ope was gradually withdrawn while carefully examining the mucosa. Scope withdrawal time was 12 minut es. Quality of prep according to [place] prep score was 2 + 2 + 2, which is equal to 6/9. Findings: Digital rectal exam was normal. A few small diverticula were seen in the sigmoid. In the descending colon, a sessile 4 mm polyp was seen. This was removed by hot biopsy. No other gross le sions were seen in the remainder of colon. Retroflexion revealed grade 1 internal hemorrhoids. Complications: None. Tolerance To Anesthesia: Excellent. Postoperative Diagnoses: Diverticulosis, colon polyp. Plan: 1.Await pathology results. 2.Follow up in the GI clinic in 2 weeks. 3.Repeat colonoscopy based on pathology results in 3-5 years. 4.High-fiber diet. US/MODL Voice ID: [id number] Report ID: [id number]
== END 2019-02-18 10:25 | disposition home or self-care (01) ==
LOC: OR 07:12
PROVIDERS: ATTEND Internal Medicine Gastroenterology
PROC: 0DBM8ZX Excision of Descending Colon, Via Natural or Artificial Opening Endoscopic, Diagnostic (ICD-10-PCS; principal; 2019-02-18 08:45)
DX: Z12.11 Encounter for screening for malignant neoplasm of colon (principal); K63.5 Polyp of colon; K57.30 Diverticulosis of large intestine without perforation or abscess without bleeding; K64.8 Other hemorrhoids; E11.9 Type 2 diabetes mellitus without complications; I10 Essential (primary) hypertension; J44.9 Chronic obstructive pulmonary disease, unspecified; Z86.010 Personal history of colon polyps; Z99.81 Dependence on supplemental oxygen; E66.9 Obesity, unspecified; Z68.35 Body mass index [BMI] 35.0-35.9, adult; Z09 Encounter for follow-up examination after completed treatment for conditions other than malignant neoplasm
CPT/HCPCS: 45384; 82962 ×2; 88305; J2704; J7030

== ENCOUNTER 2019-11-05 05:35 | Inpatient (IN) | payer OTHER ==
--- OUTSIDE RECORDS SUMMARY | 2019-11-05 05:39 | XMS REPORT ---
:1950 Author Organization [facility] t Address [address] [place] [address] Dr. Vazquez [address] [place] [address] Care Team Providers Name Role Phone MANUEL Unavailable Unavailable MARY BETH WALKER Unavailable Unavailable Payers Payer Name Policy Type Policy Number Effective Date Expiration D ate Problems This patient has no known problems. Allergies, Adverse Reactions, Alerts Allergy Allergy Status Severity Reaction(s) Onset Inactive Treating C delio Name Type Date Date Clinician No Known DA Active U 2019-07 Allergies -13 00:00:0 0 No Known DA Active U 2019-07 Allergies -07 00:00:0 0 Medications This patient has no known medications. Results Test Description Test Time Test Comments Text Results Atomic Results Result Comments SURG 2019-07-15 RUN DATE: 14:46:00 07/15/19 [facility] PAGE 1 RUN TIME: 1446 Specimen Inquiry RUN USER: INTERFACE PATIENT: BARBARA PASCUAL LOC: SUKH U #: [id number] AGE/SX: 68/F ROOM: RE07/14/19[facility] DR: Uday Peter MD : BED: DIS: STATUS: [facility] [place]: SPEC #: [id number] RECD: 07/14/19 [facility]: [id number] MIRIAM: [facility] DR: Uday Peter MD ENTERED: 07/14/19 SP TYPE: SURG O THR DR: Jass Jasmine MD ORDERED: SURG PATH LVL 10/01 COPIES TO: Jass Jasmine MD [address] [place] [id number] Uday Peter MD [address] [place], [place] [id number] HIS TOLOGY: TISSUE ID BLK PCS ANG LEV PROCEDURE DISPOSITION ____ ___ ___ ___ STOMACH, NOS A 1 2 STOMACH, NOS B 1 2 PROCEDURES: SURG PATH LVL 4 (07/14/191445) TISSUES: A. STOMACH, NOS - ANTRUM BIOPSY B. STOMACH, NOS - BODY AND FUNDUS BIOPS Y CLINICAL HISTORY ABD PAIN -R10.84; NAUSEA -R11 CPT CODES CPT CODE(S): 91550K2 , , , , , , FINAL DIAGNOSIS A. Stomach, antrum, biopsy: REACTIVE/CHEMICAL GASTROPATHY NEGATIVE FOR HELICOBACTER PYL DAVID ORGANISMS NEGATIVE FOR INTESTINAL METAPLASIA, DYSPLASIA, OR MALIGNANCY B. Stomach, body an d fundus, biopsy: GASTRIC MUCOSA WITH NO PATHOLOGIC DIAGNOSIS NEGATIVE FOR INTESTINAL METAP LASIA, DYSPLASIA, OR MALIGNANCY CONTINUED ON NEXT PAGE RUN DATE: 07/15/19 [facility] PAGE 2 RUN TIME: 1446 Specimen Inquiry RUN USER: INTERFACE SPEC #: [id number] PATIENT: BARBARA GERMAN #[id number] (Continued) FINAL UNRY GNOSIS (Continued) NEGATIVE FOR HELICOBACTER PYLORI ORGANISMS GROSS DESCRIPTION A . Antrum biopsy. Received in formalin is a ferreira tissue fragment, 0.3 cm. The entire specimen submitt ed as A. B. Body and fundus biopsy. Received in formalin are two ferreira tissue fragments, 0.1 and 0.8 cm. The entire specimen submitted as B. camila/nr Grossing performed at [facility] Pathology, [address] [place] [address], [address], [place] [address]. Ladle Pourer: Rubens Genia, M.D. MICROSCOPIC DESCRIPTION A. Antrum biopsy. Sections demonstrate gastric mucosa is slightly reactiv e appearance. The lamina propria demonstrates spindle cell muscle cells, consistent with reactive ga stropathy. No dysplasia or malignancy is identified. B. Body and fundus biopsy. Sections demonstrate gastric mucosa with no increased inflammation. No dysplasia or malignancy is identified. Signed SIGNATURE ON FILE Nicho Xavier Iggy 07/15/19 1446 END OF REPORT GLUCOSE BEDSIDE TESTING 2019-07-14 07:00:00 Test Item Value Reference Range Comments GLUCOSE BEDSIDE TESTING (test code = GLUBED) 89 mg/dL 70- 110 B-TYPE NATRIURETIC FACTOR (BNP)2017-05-01 14:47:00 Test Item Value Reference Range Comments B-TYPE NATRIURETIC PEPTIDE (BEAKER) (test code = 393 pg/mL 0-100 700) [id number] 14:39:00 Test Item Value Reference Range Comments MAGNESIUM (BEAKER) (test code = 627) 1.5 mg/dL 1.6-2.6 BASIC METABOLIC [id number] 14:39:00 Test Item Value Reference Range Comments SODIUM (BEAKER) (test 140 meq/L 136-145 code = 381) POTASSIUM (BEAKER) (test 4.2 meq/L 3.5-5.1 code = 379) CHLORIDE (BEAKER) (test 99 meq/L 98-107 code = 382) CO2 (BEAKER) (test code = 31 meq/L 22-29 355) BLOOD UREA NITROGEN 19 mg/dL 7-21 (BEAKER) (test code = 354) CREATININE (BEAKER) (test 1.45 mg/dL 0.57-1.25 code = 358) GLUCOSE RANDOM (BEAKER) 99 mg/dL 70-105 (test code = 652) CALCIUM (BEAKER) (test 9.7 mg/dL 8.4-10.2 code = 697) EGFR (BEAKER) (test code 44 mL/min/1.73 sq m EST IMATED GFR IS NOT = 1092) ACCURATE CREA TININE CLEARANCE IN PRE DICTING GLOMERULAR FILTR ATION RATE. ESTIMATED GFR IS NOT APPLICABLE F OR DIALYSIS PATIENT S. POCT-GLUCOSE [id number] 11:53:00 Test Item Value Reference Range Comments POC-GLUCOSE METER (BEAKER) 150 mg/dL 70-110 TESTE D AT [facility] [address] [facility] (test code = 1538) [place] [address]30 POCT-GLUCOSE [id number] 07:44:00 Test Item Value Reference Range Comments POC-GLUCOSE METER (BEAKER) 80 mg/dL 70-110 TESTE D AT [facility] [address] [place] [address] (test code = 1538) [facility] 77 030 CBC (HEMOGRAM ONLY)2017-04-16 04:17:00 Test Item Value Reference Range Comments WHITE BLOOD CELL COUNT (BEAKER) (test code = 12.8 K/ L 3.5 -10.5 775) RED BLOOD CELL COUNT (BEAKER) (test code = 761) 3.43 M/ L 3.93-5.22 HEMOGLOBIN (BEAKER) (test code = 410) 9.9 GM/DL 11.2-15.7 HEMATOCRIT (BEAKER) (test code = 411) 31.9 % 34.1-44.9 MEAN CORPUSCULAR VOLUME (BEAKER) (test code = 93.0 fL 79 .4-94.8 753) MEAN CORPUSCULAR HEMOGLOBIN (BEAKER) (test code 28.9 pg 25.6-32.2 = 751) MEAN CORPUSCULAR HEMOGLOBIN CONC (BEAKER) (test 31.0 GM/DL 32.2-35.5 code = 752) RED CELL DISTRIBUTION WIDTH (BEAKER) (test code 15.0 % 11.7-14.4 = 412) PLATELET COUNT (BEAKER) (test code = 756) 223 K/CU MM 150-45 0 MEAN PLATELET VOLUME (BEAKER) (test code = 754) 9.3 fL 9.4-12.3 NUCLEATED RED BLOOD CELLS (BEAKER) (test code = 0 /100 WBC 0-0 413) POCT-GLUCOSE [id number] 21:08:00 Test Item Value Reference Range Comments POC-GLUCOSE METER (BEAKER) 112 mg/dL 70-110 TESTE D AT [address] (test code = 1538) [place] [address]30 POCT-GLUCOSE [id number] 18:00:00 Test Item Value Reference Range Comments POC-GLUCOSE METER (BEAKER) 223 mg/dL 70-110 TESTE D AT [address] (test code = 1538) [place] [address]30 POCT-GLUCOSE [id number] 11:55:00 Test Item Value Reference Range Comments POC-GLUCOSE METER (BEAKER) 175 mg/dL 70-110 TESTE D AT [address] (test code = 1538) [place] [address]30 BLOOD [id number] 11:00:00 Test Item Value Reference Range Comments CULTURE (BEAKER) (test code = 1095) No growth in 5 days BLOOD [id number] 11:00:00 Test Item Value Reference Range Comments CULTURE (BEAKER) (test code = 1095) No growth in 5 days POCT-GLUCOSE [id number] 08:11:00 Test Item Value Reference Range Comments POC-GLUCOSE METER (BEAKER) 85 mg/dL 70-110 TESTE D AT [address] (test code = 1538) [place] [address]30 BASIC METABOLIC [id number] 06:23:00 Test Item Value Reference Range Comments SODIUM (BEAKER) (test 142 meq/L 136-145 code = 381) POTASSIUM (BEAKER) (test 3.7 meq/L 3.5-5.1 code = 379) CHLORIDE (BEAKER) (test 97 meq/L 98-107 code = 382) CO2 (BEAKER) (test code = 36 meq/L 22-29 355) BLOOD UREA NITROGEN 47 mg/dL 7-21 (BEAKER) (test code = 354) CREATININE (BEAKER) (test 1.32 mg/dL 0.57-1.25 code = 358) GLUCOSE RANDOM (BEAKER) 82 mg/dL 70-105 (test code = 652) CALCIUM (BEAKER) (test 9.1 mg/dL 8.4-10.2 code = 697) EGFR (BEAKER) (test code 49 mL/min/1.73 sq m EST IMATED GFR IS NOT = 1092) ACCURATE CREA TININE CLEARANCE IN PRE DICTING GLOMERULAR FILTR ATION RATE. ESTIMATED GFR IS NOT APPLICABLE F OR DIALYSIS PATIENT S. CBC (HEMOGRAM ONLY)2017-04-15 05:42:00 Test Item Value Reference Range Comments WHITE BLOOD CELL COUNT (BEAKER) (test code = 11.3 K/ L 3.5 -10.5 775) RED BLOOD CELL COUNT (BEAKER) (test code = 761) 3.60 M/ L 3.93-5.22 HEMOGLOBIN (BEAKER) (test code = 410) 10.5 GM/DL 11.2-15.7 HEMATOCRIT (BEAKER) (test code = 411) 33.6 % 34.1-44.9 MEAN CORPUSCULAR VOLUME (BEAKER) (test code = 93.3 fL 79 .4-94.8 753) MEAN CORPUSCULAR HEMOGLOBIN (BEAKER) (test code 29.2 pg 25.6-32.2 = 751) MEAN CORPUSCULAR HEMOGLOBIN CONC (BEAKER) (test 31.3 GM/DL 32.2-35.5 code = 752) RED CELL DISTRIBUTION WIDTH (BEAKER) (test code 15.3 % 11.7-14.4 = 412) PLATELET COUNT (BEAKER) (test code = 756) 223 K/CU MM 150-45 0 MEAN PLATELET VOLUME (BEAKER) (test code = 754) 9.2 fL 9.4-12.3 NUCLEATED RED BLOOD CELLS (BEAKER) (test code = 0 /100 WBC 0-0 413) CBC W/PLT COUNT & AUTO [id number] 05:42:00 Test Item Value Reference Range Comments WHITE BLOOD CELL COUNT (BEAKER) (test code = 11.3 K/ L 3.5 -10.5 775) RED BLOOD CELL COUNT (BEAKER) (test code = 761) 3.60 M/ L 3.93-5.22 HEMOGLOBIN (BEAKER) (test code = 410) 10.5 GM/DL 11.2-15.7 HEMATOCRIT (BEAKER) (test code = 411) 33.6 % 34.1-44.9 MEAN CORPUSCULAR VOLUME (BEAKER) (test code = 93.3 fL 79 .4-94.8 753) MEAN CORPUSCULAR HEMOGLOBIN (BEAKER) (test code 29.2 pg 25.6-32.2 = 751) MEAN CORPUSCULAR HEMOGLOBIN CONC (BEAKER) (test 31.3 GM/DL 32.2-35.5 code = 752) RED CELL DISTRIBUTION WIDTH (BEAKER) (test code 15.3 % 11.7-14.4 = 412) PLATELET COUNT (BEAKER) (test code = 756) 223 K/CU MM 150-45 0 MEAN PLATELET VOLUME (BEAKER) (test code = 754) 9.2 fL 9.4-12.3 NUCLEATED RED BLOOD CELLS (BEAKER) (test code = 0 /100 WBC 0-0 413) NEUTROPHILS RELATIVE PERCENT (BEAKER) (test code 71 % = 429) LYMPHOCYTES RELATIVE PERCENT (BEAKER) (test code 19 % = 430) MONOCYTES RELATIVE PERCENT (BEAKER) (test code = 7 % 431) EOSINOPHILS RELATIVE PERCENT (BEAKER) (test code 1 % = 432) BASOPHILS RELATIVE PERCENT (BEAKER) (test code = 0 % 437) NEUTROPHILS ABSOLUTE COUNT (BEAKER) (test code = 7.99 K/ L 1.56-6.13 670) LYMPHOCYTES ABSOLUTE COUNT (BEAKER) (test code = 2.15 K/ L 1.18-3.74 414) MONOCYTES ABSOLUTE COUNT (BEAKER) (test code = 0.79 K/ L 0 .24-0.36 415) EOSINOPHILS ABSOLUTE COUNT (BEAKER) (test code = 0.16 K/ L 0.04-0.36 416) BASOPHILS ABSOLUTE COUNT (BEAKER) (test code = 0.02 K/ L 0 .01-0.08 417) IMMATURE GRANULOCYTES-RELATIVE PERCENT (BEAKER) 2 % 0-1 (test code = 2801) POCT-GLUCOSE [id number] 21:27:00 Test Item Value Reference Range Comments POC-GLUCOSE METER (BEAKER) 185 mg/dL 70-110 TESTE D AT [address] (test code = 1538) [facility] 77 030 POCT-GLUCOSE [id number] 17:35:00 Test Item Value Reference Range Comments POC-GLUCOSE METER (SACHA) 255 mg/dL 70-110 TESTE D AT [facility] [address] (test code = 1538) [place] [address] PET, CARDIAC PERFUSION MULTIPLE STUDIES, REST AND [id number] 14:55:00 Reason for exam:->NSTEMIFINAL REPORT PROCEDURE: Rest/Stress MYOCARDIAL PERFUSION PET with regadenoson\XA9\CPT CODE: [id number]: NSTEMIPROTOCOL: Limited low-dose CT imaging was performed [...] was stopped for predetermined endpoint. The patient expe rienced dyspnea; treatment was not required. Preliminary ECG [...] resting LV function. RV dilation. 5. Normal e xtracardiac tracer distribution. 6. No prior study. Signed: Crow Rowell MDReport Verified Date/Time: 04/14/2017 14:55:49 POCT-GLUCOSE [id number] 11:00:00 Test Item Value Reference Range Comments POC-GLUCOSE METER (BEAKER) 131 mg/dL 70-110 TESTE D AT [address] (test code = 1538) [place] [address] ANTI-NUCLEAR ANTIBODY (WAGNER)2017-04-14 10:42:00 Test Item Value Reference Range Comments ANTI-NUCLEAR ANTIBODY (WAGNER) (BEAKER) (test code = Negative Negative 418) SEDIMENTATION [id number] 09:35:00 Test Item Value Reference Range Comments SEDIMENTATION RATE, ERYTHROCYTE (BEAKER) (test code 17 mm/HR 0-40 = 766) HIV-1 ANTIGEN WITH HIV-1/2 [id number] 09:09:00 Test Item Value Reference Range Comments HIV-1 ANTIGEN WITH HIV 1\T\2 ANTIBODY (2) Nonreactive Nonrea ctive (BEAKER) (test code = 2586) POCT-GLUCOSE [id number] 09:08:00 Test Item Value Reference Range Comments POC-GLUCOSE METER (BEAKER) 86 mg/dL 70-110 TESTE D AT [address] (test code = 1538) [place] [address]30 RHEUMATOID FACTOR AB, REFLEX TO [id number] 06:02:00 Test Item Value Reference Range Comments RHEUMATOID FACTOR (BEAKER) (test code = 573) Negative BASIC METABOLIC [id number] 05:46:00 Test Item Value Reference Range Comments SODIUM (BEAKER) (test 140 meq/L 136-145 code = 381) POTASSIUM (BEAKER) (test 3.8 meq/L 3.5-5.1 code = 379) CHLORIDE (BEAKER) (test 97 meq/L 98-107 code = 382) CO2 (BEAKER) (test code = 35 meq/L 22-29 355) BLOOD UREA NITROGEN 48 mg/dL 7-21 (BEAKER) (test code = 354) CREATININE (BEAKER) (test 1.34 mg/dL 0.57-1.25 code = 358) GLUCOSE RANDOM (BEAKER) 99 mg/dL 70-105 (test code = 652) CALCIUM (BEAKER) (test 9.0 mg/dL 8.4-10.2 code = 697) EGFR (BEAKER) (test code 48 mL/min/1.73 sq m EST IMATED GFR IS NOT = 1092) ACCURATE CREA TININE CLEARANCE IN PRE DICTING GLOMERULAR FILTR ATION RATE. ESTIMATED GFR IS NOT APPLICABLE F OR DIALYSIS PATIENT S. C-REACTIVE [id number] 05:46:00 Test Item Value Reference Range Comments C-REACTIVE PROTEIN (BEAKER) (test code = 676) 0.43 mg/dL 0. 00-0.50 CBC (HEMOGRAM ONLY)2017-04-14 04:37:00 Test Item Value Reference Range Comments WHITE BLOOD CELL COUNT (BEAKER) (test code = 11.0 K/ L 3.5 -10.5 775) RED BLOOD CELL COUNT (BEAKER) (test code = 761) 3.69 M/ L 3.93-5.22 HEMOGLOBIN (BEAKER) (test code = 410) 10.9 GM/DL 11.2-15.7 HEMATOCRIT (BEAKER) (test code = 411) 34.1 % 34.1-44.9 MEAN CORPUSCULAR VOLUME (BEAKER) (test code = 92.4 fL 79 .4-94.8 753) MEAN CORPUSCULAR HEMOGLOBIN (BEAKER) (test code 29.5 pg 25.6-32.2 = 751) MEAN CORPUSCULAR HEMOGLOBIN CONC (BEAKER) (test 32.0 GM/DL 32.2-35.5 code = 752) RED CELL DISTRIBUTION WIDTH (BEAKER) (test code 15.1 % 11.7-14.4 = 412) PLATELET COUNT (BEAKER) (test code = 756) 220 K/CU MM 150-45 0 MEAN PLATELET VOLUME (BEAKER) (test code = 754) 9.3 fL 9.4-12.3 NUCLEATED RED BLOOD CELLS (BEAKER) (test code = 0 /100 WBC 0-0 413) CBC W/PLT COUNT & AUTO [id number] 04:37:00 Test Item Value Reference Range Comments WHITE BLOOD CELL COUNT (BEAKER) (test code = 11.0 K/ L 3.5 -10.5 775) RED BLOOD CELL COUNT (BEAKER) (test code = 761) 3.69 M/ L 3.93-5.22 HEMOGLOBIN (BEAKER) (test code = 410) 10.9 GM/DL 11.2-15.7 HEMATOCRIT (BEAKER) (test code = 411) 34.1 % 34.1-44.9 MEAN CORPUSCULAR VOLUME (BEAKER) (test code = 92.4 fL 79 .4-94.8 753) MEAN CORPUSCULAR HEMOGLOBIN (BEAKER) (test code 29.5 pg 25.6-32.2 = 751) MEAN CORPUSCULAR HEMOGLOBIN CONC (BEAKER) (test 32.0 GM/DL 32.2-35.5 code = 752) RED CELL DISTRIBUTION WIDTH (BEAKER) (test code 15.1 % 11.7-14.4 = 412) PLATELET COUNT (BEAKER) (test code = 756) 220 K/CU MM 150-45 0 MEAN PLATELET VOLUME (BEAKER) (test code = 754) 9.3 fL 9.4-12.3 NUCLEATED RED BLOOD CELLS (BEAKER) (test code = 0 /100 WBC 0-0 413) NEUTROPHILS RELATIVE PERCENT (BEAKER) (test code 72 % = 429) LYMPHOCYTES RELATIVE PERCENT (BEAKER) (test code 17 % = 430) MONOCYTES RELATIVE PERCENT (BEAKER) (test code = 8 % 431) EOSINOPHILS RELATIVE PERCENT (BEAKER) (test code 1 % = 432) BASOPHILS RELATIVE PERCENT (BEAKER) (test code = 0 % 437) NEUTROPHILS ABSOLUTE COUNT (BEAKER) (test code = 7.92 K/ L 1.56-6.13 670) LYMPHOCYTES ABSOLUTE COUNT (BEAKER) (test code = 1.91 K/ L 1.18-3.74 414) MONOCYTES ABSOLUTE COUNT (BEAKER) (test code = 0.89 K/ L 0 .24-0.36 415) EOSINOPHILS ABSOLUTE COUNT (BEAKER) (test code = 0.09 K/ L 0.04-0.36 416) BASOPHILS ABSOLUTE COUNT (BEAKER) (test code = 0.00 K/ L 0 .01-0.08 417) IMMATURE GRANULOCYTES-RELATIVE PERCENT (BEAKER) 1 % 0-1 (test code = 2801) CBC (HEMOGRAM ONLY)2017-04-14 04:36:00 Test Item Value Reference Range Comments WHITE BLOOD CELL COUNT (BEAKER) (test code = 10.9 K/ L 3.5 -10.5 775) RED BLOOD CELL COUNT (BEAKER) (test code = 761) 3.65 M/ L 3.93-5.22 HEMOGLOBIN (BEAKER) (test code = 410) 10.6 GM/DL 11.2-15.7 HEMATOCRIT (BEAKER) (test code = 411) 33.8 % 34.1-44.9 MEAN CORPUSCULAR VOLUME (BEAKER) (test code = 92.6 fL 79 .4-94.8 753) MEAN CORPUSCULAR HEMOGLOBIN (BEAKER) (test code 29.0 pg 25.6-32.2 = 751) MEAN CORPUSCULAR HEMOGLOBIN CONC (BEAKER) (test 31.4 GM/DL 32.2-35.5 code = 752) RED CELL DISTRIBUTION WIDTH (BEAKER) (test code 15.1 % 11.7-14.4 = 412) PLATELET COUNT (BEAKER) (test code = 756) 223 K/CU MM 150-45 0 MEAN PLATELET VOLUME (BEAKER) (test code = 754) 9.5 fL 9.4-12.3 NUCLEATED RED BLOOD CELLS (BEAKER) (test code = 0 /100 WBC 0-0 413) POCT-GLUCOSE [id number] 04:31:00 Test Item Value Reference Range Comments POC-GLUCOSE METER (BEAKER) 111 mg/dL 70-110 TESTE D AT [address] (test code = 1538) [place] [address] POCT-GLUCOSE [id number] 21:57:00 Test Item Value Reference Range Comments POC-GLUCOSE METER (BEAKER) 153 mg/dL 70-110 TESTE D AT [address] (test code = 1538) [place] [address]30 POCT-GLUCOSE [id number] 17:20:00 Test Item Value Reference Range Comments POC-GLUCOSE METER (BEAKER) 240 mg/dL 70-110 TESTE D AT [address] (test code = 1538) [place] [address] PUL PERF IMAGING, PARTIC, [id number] 17:00:00With NM brain/kidneys to look for shunting as well as CTEPHFINAL REPORT PROCEDURE: V/Q LUNG SCAN CPT CODE: 97435 INDICATION: Pulmonary hypertension acute respiratory failure PROTOCOL: [...] Normal ventilation/perfusion lung scan. Signed: [place] MDReport Verified Date/Time: 04/13/2017 17:00:02 Reading Location: [address] Reading Room POCT-GLUCOSE METER 2017-04-13 12:20:00 Test Item Value Reference Range Comments POC-GLUCOSE METER (BEAKER) 178 mg/dL 70-110 TESTE D AT [address] (test code = 1538) [place] [address] POCT-GLUCOSE [id number] 08:33:00 Test Item Value Reference Range Comments POC-GLUCOSE METER (BEAKER) 79 mg/dL 70-110 TESTE D AT [address] (test code = 1538) [place] [address] B-TYPE NATRIURETIC FACTOR (BNP)2017-04-13 05:58:00 Test Item Value Reference Range Comments B-TYPE NATRIURETIC PEPTIDE (BEAKER) (test code = 312 pg/mL 0-100 700) BASIC METABOLIC [id number] 05:47:00 Test Item Value Reference Range Comments SODIUM (BEAKER) (test 141 meq/L 136-145 code = 381) POTASSIUM (BEAKER) (test 4.3 meq/L 3.5-5.1 code = 379) CHLORIDE (BEAKER) (test 99 meq/L 98-107 code = 382) CO2 (BEAKER) (test code = 35 meq/L 22-29 355) BLOOD UREA NITROGEN 44 mg/dL 7-21 (BEAKER) (test code = 354) CREATININE (BEAKER) (test 1.40 mg/dL 0.57-1.25 code = 358) GLUCOSE RANDOM (BEAKER) 96 mg/dL 70-105 (test code = 652) CALCIUM (BEAKER) (test 9.0 mg/dL 8.4-10.2 code = 697) EGFR (BEAKER) (test code 45 mL/min/1.73 sq m EST IMATED GFR IS NOT = 1092) ACCURATE CREA TININE CLEARANCE IN PRE DICTING GLOMERULAR FILTR ATION RATE. ESTIMATED GFR IS NOT APPLICABLE F OR DIALYSIS PATIENT S. CBC W/PLT COUNT & AUTO [id number] 05:39:00 Test Item Value Reference Range Comments WHITE BLOOD CELL COUNT (BEAKER) (test code = 11.5 K/ L 3.5 -10.5 775) RED BLOOD CELL COUNT (BEAKER) (test code = 761) 3.44 M/ L 3.93-5.22 HEMOGLOBIN (BEAKER) (test code = 410) 10.0 GM/DL 11.2-15.7 HEMATOCRIT (BEAKER) (test code = 411) 32.0 % 34.1-44.9 MEAN CORPUSCULAR VOLUME (BEAKER) (test code = 93.0 fL 79 .4-94.8 753) MEAN CORPUSCULAR HEMOGLOBIN (BEAKER) (test code 29.1 pg 25.6-32.2 = 751) MEAN CORPUSCULAR HEMOGLOBIN CONC (BEAKER) (test 31.3 GM/DL 32.2-35.5 code = 752) RED CELL DISTRIBUTION WIDTH (BEAKER) (test code 15.3 % 11.7-14.4 = 412) PLATELET COUNT (BEAKER) (test code = 756) 216 K/CU MM 150-45 0 MEAN PLATELET VOLUME (BEAKER) (test code = 754) 8.9 fL 9.4-12.3 NUCLEATED RED BLOOD CELLS (BEAKER) (test code = 0 /100 WBC 0-0 413) NEUTROPHILS RELATIVE PERCENT (BEAKER) (test code 75 % = 429) LYMPHOCYTES RELATIVE PERCENT (BEAKER) (test code 16 % = 430) MONOCYTES RELATIVE PERCENT (BEAKER) (test code = 8 % 431) EOSINOPHILS RELATIVE PERCENT (BEAKER) (test code 1 % = 432) BASOPHILS RELATIVE PERCENT (BEAKER) (test code = 0 % 437) NEUTROPHILS ABSOLUTE COUNT (BEAKER) (test code = 8.61 K/ L 1.56-6.13 670) LYMPHOCYTES ABSOLUTE COUNT (BEAKER) (test code = 1.81 K/ L 1.18-3.74 414) MONOCYTES ABSOLUTE COUNT (BEAKER) (test code = 0.92 K/ L 0 .24-0.36 415) EOSINOPHILS ABSOLUTE COUNT (BEAKER) (test code = 0.11 K/ L 0.04-0.36 416) BASOPHILS ABSOLUTE COUNT (BEAKER) (test code = 0.01 K/ L 0 .01-0.08 417) IMMATURE GRANULOCYTES-RELATIVE PERCENT (BEAKER) 1 % 0-1 (test code = 2801) POCT-GLUCOSE [id number] 05:04:00 Test Item Value Reference Range Comments POC-GLUCOSE METER (BEAKER) 103 mg/dL 70-110 TESTE D AT [address] (test code = 1538) [place] [id number] POCT-GLUCOSE [id number] 21:41:00 Test Item Value Reference Range Comments POC-GLUCOSE METER (BEAKER) 176 mg/dL 70-110 TESTE D AT [address] (test code = 1538) [place] [id number] POCT-GLUCOSE [id number] 17:05:00 Test Item Value Reference Range Comments POC-GLUCOSE METER (BEAKER) 207 mg/dL 70-110 TESTE D AT [address] (test code = 1538) [place] [address] TROPONIN [id number] 13:44:00 Test Item Value Reference Range Comments TROPONIN I (BEAKER) (test code = 397) 0.35 ng/mL 0.00-0.03 Troponin I (TnI) levels [...] acidosis, acute neurological disease, and persistent tachyarrhythmia.HEMOGLOBIN [id number] 12:54:00 Test Item Value Reference Range Comments HEMOGLOBIN A1C (BEAKER) (test code = 368) 5.8 % 4.3-6. 1 POCT-GLUCOSE [id number] 11:37:00 Test Item Value Reference Range Comments POC-GLUCOSE METER (BEAKER) 231 mg/dL 70-110 TESTE D AT [address] (test code = 1538) [place] [id number] URINE [id number] 10:51:00 Test Item Value Reference Range Comments CULTURE (BEAKER) (test code = 1095) No growth POCT-GLUCOSE [id number] 08:01:00 Test Item Value Reference Range Comments POC-GLUCOSE METER (BEAKER) 134 mg/dL 70-110 TESTE D AT [facility] [address] (test code = 1538) [facility] [id number] BASIC METABOLIC [id number] 05:36:00 Test Item Value Reference Range Comments SODIUM (BEAKER) (test 136 meq/L 136-145 code = 381) POTASSIUM (BEAKER) (test 5.2 meq/L 3.5-5.1 code = 379) CHLORIDE (BEAKER) (test 99 meq/L 98-107 code = 382) CO2 (BEAKER) (test code = 30 meq/L 22-29 355) BLOOD UREA NITROGEN 43 mg/dL 7-21 (BEAKER) (test code = 354) CREATININE (BEAKER) (test 1.53 mg/dL 0.57-1.25 code = 358) GLUCOSE RANDOM (BEAKER) 159 mg/dL 70-105 (test code = 652) CALCIUM (BEAKER) (test 8.8 mg/dL 8.4-10.2 code = 697) EGFR (BEAKER) (test code 41 mL/min/1.73 sq m EST IMATED GFR IS NOT = 1092) ACCURATE CREA TININE CLEARANCE IN PRE DICTING GLOMERULAR FILTR ATION RATE. ESTIMATED GFR IS NOT APPLICABLE F OR DIALYSIS PATIENT S. CBC W/PLT COUNT & AUTO [id number] 05:33:00 Test Item Value Reference Range Comments WHITE BLOOD CELL COUNT (BEAKER) (test code = 14.2 K/ L 3.5 -10.5 775) RED BLOOD CELL COUNT (BEAKER) (test code = 761) 3.53 M/ L 3.93-5.22 HEMOGLOBIN (BEAKER) (test code = 410) 10.5 GM/DL 11.2-15.7 HEMATOCRIT (BEAKER) (test code = 411) 33.0 % 34.1-44.9 MEAN CORPUSCULAR VOLUME (BEAKER) (test code = 93.5 fL 79 .4-94.8 753) MEAN CORPUSCULAR HEMOGLOBIN (BEAKER) (test code 29.7 pg 25.6-32.2 = 751) MEAN CORPUSCULAR HEMOGLOBIN CONC (BEAKER) (test 31.8 GM/DL 32.2-35.5 code = 752) RED CELL DISTRIBUTION WIDTH (BEAKER) (test code 15.1 % 11.7-14.4 = 412) PLATELET COUNT (BEAKER) (test code = 756) 229 K/CU MM 150-45 0 MEAN PLATELET VOLUME (BEAKER) (test code = 754) 9.6 fL 9.4-12.3 NUCLEATED RED BLOOD CELLS (BEAKER) (test code = 0 /100 WBC 0-0 413) NEUTROPHILS RELATIVE PERCENT (BEAKER) (test code 90 % = 429) LYMPHOCYTES RELATIVE PERCENT (BEAKER) (test code 5 % = 430) MONOCYTES RELATIVE PERCENT (BEAKER) (test code = 4 % 431) EOSINOPHILS RELATIVE PERCENT (BEAKER) (test code 0 % = 432) BASOPHILS RELATIVE PERCENT (BEAKER) (test code = 0 % 437) NEUTROPHILS ABSOLUTE COUNT (BEAKER) (test code = 12.74 K/ L 1.56-6.13 670) LYMPHOCYTES ABSOLUTE COUNT (BEAKER) (test code = 0.76 K/ L 1.18-3.74 414) MONOCYTES ABSOLUTE COUNT (BEAKER) (test code = 0.52 K/ L 0 .24-0.36 415) EOSINOPHILS ABSOLUTE COUNT (BEAKER) (test code = 0.00 K/ L 0.04-0.36 416) BASOPHILS ABSOLUTE COUNT (BEAKER) (test code = 0.01 K/ L 0 .01-0.08 417) IMMATURE GRANULOCYTES-RELATIVE PERCENT (BEAKER) 1 % 0-1 (test code = 2801) CBC (HEMOGRAM ONLY)2017-04-12 05:25:00 Test Item Value Reference Range Comments WHITE BLOOD CELL COUNT (BEAKER) (test code = 14.2 K/ L 3.5 -10.5 775) RED BLOOD CELL COUNT (BEAKER) (test code = 761) 3.53 M/ L 3.93-5.22 HEMOGLOBIN (BEAKER) (test code = 410) 10.5 GM/DL 11.2-15.7 HEMATOCRIT (BEAKER) (test code = 411) 33.0 % 34.1-44.9 MEAN CORPUSCULAR VOLUME (BEAKER) (test code = 93.5 fL 79 .4-94.8 753) MEAN CORPUSCULAR HEMOGLOBIN (BEAKER) (test code 29.7 pg 25.6-32.2 = 751) MEAN CORPUSCULAR HEMOGLOBIN CONC (BEAKER) (test 31.8 GM/DL 32.2-35.5 code = 752) RED CELL DISTRIBUTION WIDTH (BEAKER) (test code 15.1 % 11.7-14.4 = 412) PLATELET COUNT (BEAKER) (test code = 756) 229 K/CU MM 150-45 0 MEAN PLATELET VOLUME (BEAKER) (test code = 754) 9.6 fL 9.4-12.3 NUCLEATED RED BLOOD CELLS (BEAKER) (test code = 0 /100 WBC 0-0 413) POCT-GLUCOSE [id number] 21:38:00 Test Item Value Reference Range Comments POC-GLUCOSE METER (BEAKER) 178 mg/dL 70-110 TESTE D AT [address] (test code = 1538) [place] [id number] POCT-GLUCOSE [id number] 16:53:00 Test Item Value Reference Range Comments POC-GLUCOSE METER (BEAKER) 305 mg/dL 70-110 TESTE D AT [address] (test code = 1538) [place] [address] POCT-GLUCOSE [id number] 12:07:00 Test Item Value Reference Range Comments POC-GLUCOSE METER (BEAKER) 213 mg/dL 70-110 TESTE D AT [address] (test code = 1538) [place] [address] POCT-GLUCOSE [id number] 08:42:00 Test Item Value Reference Range Comments POC-GLUCOSE METER (BEAKER) 179 mg/dL 70-110 TESTE D AT [address] (test code = 1538) [place] [address] BASIC METABOLIC [id number] 05:03:00 Test Item Value Reference Range Comments SODIUM (BEAKER) (test 138 meq/L 136-145 code = 381) POTASSIUM (BEAKER) (test 4.7 meq/L 3.5-5.1 code = 379) CHLORIDE (BEAKER) (test 98 meq/L 98-107 code = 382) CO2 (BEAKER) (test code = 34 meq/L 22-29 355) BLOOD UREA NITROGEN 32 mg/dL 7-21 (BEAKER) (test code = 354) CREATININE (BEAKER) (test 1.41 mg/dL 0.57-1.25 code = 358) GLUCOSE RANDOM (BEAKER) 179 mg/dL 70-105 (test code = 652) CALCIUM (BEAKER) (test 9.0 mg/dL 8.4-10.2 code = 697) EGFR (BEAKER) (test code 45 mL/min/1.73 sq m EST IMATED GFR IS NOT = 1092) ACCURATE CREA TININE CLEARANCE IN PRE DICTING GLOMERULAR FILTR ATION RATE. ESTIMATED GFR IS NOT APPLICABLE F OR DIALYSIS PATIENT S. CBC W/PLT COUNT & AUTO [id number] 04:53:00 Test Item Value Reference Range Comments WHITE BLOOD CELL COUNT (BEAKER) (test code = 12.2 K/ L 3.5 -10.5 775) RED BLOOD CELL COUNT (BEAKER) (test code = 761) 3.37 M/ L 3.93-5.22 HEMOGLOBIN (BEAKER) (test code = 410) 9.7 GM/DL 11.2-15.7 HEMATOCRIT (BEAKER) (test code = 411) 31.7 % 34.1-44.9 MEAN CORPUSCULAR VOLUME (BEAKER) (test code = 94.1 fL 79 .4-94.8 753) MEAN CORPUSCULAR HEMOGLOBIN (BEAKER) (test code 28.8 pg 25.6-32.2 = 751) MEAN CORPUSCULAR HEMOGLOBIN CONC (BEAKER) (test 30.6 GM/DL 32.2-35.5 code = 752) RED CELL DISTRIBUTION WIDTH (BEAKER) (test code 14.7 % 11.7-14.4 = 412) PLATELET COUNT (BEAKER) (test code = 756) 202 K/CU MM 150-45 0 MEAN PLATELET VOLUME (BEAKER) (test code = 754) 9.5 fL 9.4-12.3 NUCLEATED RED BLOOD CELLS (BEAKER) (test code = 0 /100 WBC 0-0 413) NEUTROPHILS RELATIVE PERCENT (BEAKER) (test code 92 % = 429) LYMPHOCYTES RELATIVE PERCENT (BEAKER) (test code 4 % = 430) MONOCYTES RELATIVE PERCENT (BEAKER) (test code = 3 % 431) EOSINOPHILS RELATIVE PERCENT (BEAKER) (test code 0 % = 432) BASOPHILS RELATIVE PERCENT (BEAKER) (test code = 0 % 437) NEUTROPHILS ABSOLUTE COUNT (BEAKER) (test code = 11.29 K/ L 1.56-6.13 670) LYMPHOCYTES ABSOLUTE COUNT (BEAKER) (test code = 0.44 K/ L 1.18-3.74 414) MONOCYTES ABSOLUTE COUNT (BEAKER) (test code = 0.41 K/ L 0 .24-0.36 415) EOSINOPHILS ABSOLUTE COUNT (BEAKER) (test code = 0.00 K/ L 0.04-0.36 416) BASOPHILS ABSOLUTE COUNT (BEAKER) (test code = 0.01 K/ L 0 .01-0.08 417) IMMATURE GRANULOCYTES-RELATIVE PERCENT (BEAKER) 1 % 0-1 (test code = 2801) POCT-GLUCOSE [id number] 04:46:00 Test Item Value Reference Range Comments POC-GLUCOSE METER (BEAKER) 201 mg/dL 70-110 TESTE D AT [address] (test code = 1538) [facility] [address], CHEST, WITHOUT [id number] 02:12:00FINAL REPORT EXAMINATION: CT SCAN OF THE [...] definite evidence of diverticulitis. Signed: Tristan Zaidi MDReport Verified Date/Time: 04/11/2017 02:12:58 Reading Location: [address] [place] CT, ABDOMEN 2017-04-11 02:12:00FINAL REPORT EXAMINATION: CT SCAN OF THE [...] a nephritis or pyelitis/pyelonephritis should also be consi dered. Cardiac enlargement. Small bilateral pleural effusions and adjacent passive atelectasis. Subtle groundglass opacities may reflect mild pulmonary edema. Dilatation of the pulmonary trunk and central pulmonary arteries, nonspecific but concerning for pulmonary hypertension. Colonic diverticulosis without definite evidence of diverticulitis. Signed: Tristan Zaiid MDReport Verified Date/Time: 04/11/2017 02:12:58 Reading Location: [address] Reading Room POCT-GLUCOSE [id number] 00:26:00 Test Item Value Reference Range Comments POC-GLUCOSE METER (BEAKER) 225 mg/dL 70-110 TESTE D AT [address] (test code = 1538) [place] [address] BLOOD GAS, [id number] 20:54:00 Test Item Value Reference Range Comments PH ARTERIAL (BEAKER) (test code = 383) 7.45 7.35-7.45 PCO2 ARTERIAL (BEAKER) (test code = 384) 51 mmHg 35-45 PO2 ARTERIAL (BEAKER) (test code = 385) 151 mmHg 80-90 O2 SATURATION ARTERIAL (BEAKER) (test code = 386) 99.0 % 96.0-97.0 HCO3 ARTERIAL (BEAKER) (test code = 388) 35 mmol/L 21-29 BASE EXCESS ARTERIAL (BEAKER) (test code = 387) 9.9 mmol/L -2.0-3.0 PATIENT TEMPERATURE (BEAKER) (test code = 1818) 37.0 C FIO2 (BEAKER) (test code = 1819) 36.0 % POCT-GLUCOSE [id number] 20:50:00 Test Item Value Reference Range Comments POC-GLUCOSE METER (BEAKER) 211 mg/dL 70-110 TESTE D AT [address] (test code = 1538) [place] [address] POCT-GLUCOSE [id number] 16:25:00 Test Item Value Reference Range Comments POC-GLUCOSE METER (BEAKER) 227 mg/dL 70-110 TESTE D AT [address] (test code = 1538) [place] [address] BLOOD GAS, [id number] 14:59:00 Test Item Value Reference Range Comments PH ARTERIAL (BEAKER) (test code = 383) 7.35 7.35-7.45 PCO2 ARTERIAL (BEAKER) (test code = 384) 70 mmHg 35-45 PO2 ARTERIAL (BEAKER) (test code = 385) 46 mmHg 80-90 O2 SATURATION ARTERIAL (BEAKER) (test code = 386) 78.2 % 96.0-97.0 HCO3 ARTERIAL (BEAKER) (test code = 388) 37 mmol/L 21-29 BASE EXCESS ARTERIAL (BEAKER) (test code = 387) 9.3 mmol/L -2.0-3.0 PATIENT TEMPERATURE (BEAKER) (test code = 1818) 37.0 C FIO2 (BEAKER) (test code = 1819) 40.0 % POCT-GLUCOSE [id number] 12:11:00 Test Item Value Reference Range Comments POC-GLUCOSE METER (BEAKER) 268 mg/dL 70-110 TESTE D AT [facility] [address] [facility] (test code = 1538) [facility] [address] BLOOD GAS, [id number] 11:51:00 Test Item Value Reference Range Comments PH ARTERIAL (BEAKER) (test code = 383) 7.33 7.35-7.45 PCO2 ARTERIAL (BEAKER) (test code = 384) 71 mmHg 35-45 PO2 ARTERIAL (BEAKER) (test code = 385) 69 mmHg 80-90 O2 SATURATION ARTERIAL (BEAKER) (test code = 386) 92.0 % 96.0-97.0 HCO3 ARTERIAL (BEAKER) (test code = 388) 37 mmol/L 21-29 BASE EXCESS ARTERIAL (BEAKER) (test code = 387) 8.7 mmol/L -2.0-3.0 PATIENT TEMPERATURE (BEAKER) (test code = 1818) 37.0 C FIO2 (BEAKER) (test code = 1819) 40.0 % U/S, ABDOMINAL, [id number] 10:09:00Reason for exam:->abdominal pain, cholecystitis, ascitesFINAL REPORT [...] The transverse diameter is 1.6 cm. The w all measures three mm. There are no shadowing [...] length evidence of hydronephrosis.IVC/Aorta: Partially seen segments d emonstrate no abnormality. maximum transverse dimension of the aorta was visualized proximally measuring 1.8 cm Impression:Mild hepatomegaly.There is no evidence of ascites.Right renal cysts.No sonographic evidence of cholecystitis. No sonographic evidence of cholelithiasis. Signed: Tamar Matthewseport Verified Date/Time: 04/10/2017 10:09:29 Reading Location: [facility] [id number] Ultrasound ReadingRoom [id number] 09:53:00 Test Item Value Reference Range Comments LIPASE (BEAKER) (test code = 749) 8 U/L 8-78 BASIC METABOLIC [id number] 09:53:00 Test Item Value Reference Range Comments SODIUM (BEAKER) (test 136 meq/L 136-145 code = 381) POTASSIUM (BEAKER) (test 5.0 meq/L 3.5-5.1 code = 379) CHLORIDE (BEAKER) (test 95 meq/L 98-107 code = 382) CO2 (BEAKER) (test code = 36 meq/L 22-29 355) BLOOD UREA NITROGEN 32 mg/dL 7-21 (BEAKER) (test code = 354) CREATININE (BEAKER) (test 1.76 mg/dL 0.57-1.25 code = 358) GLUCOSE RANDOM (BEAKER) 249 mg/dL 70-105 (test code = 652) CALCIUM (BEAKER) (test 8.8 mg/dL 8.4-10.2 code = 697) EGFR (BEAKER) (test code 35 mL/min/1.73 sq m EST IMATED GFR IS NOT = 1092) ACCURATE CREA TININE CLEARANCE IN PRE DICTING GLOMERULAR FILTR ATION RATE. ESTIMATED GFR IS NOT APPLICABLE F OR DIALYSIS PATIENT S. [id number] 09:11:00 Test Item Value Reference Range Comments HAPTOGLOBIN (BEAKER) (test code = 366) 194 mg/dL 14-258 VITAMIN B12 AND [id number] 08:57:00 Test Item Value Reference Range Comments VITAMIN B12 (BEAKER) (test code = 774) > pg/mL 213-816 FOLATE (BEAKER) (test code = 362) 14.9 ng/mL >=7.0 POCT-GLUCOSE [id number] 08:29:00 Test Item Value Reference Range Comments POC-GLUCOSE METER (BEAKER) 270 mg/dL 70-110 TESTE D AT [facility] [address] [facility] (test code = 1538) [place] [address] [id number] 08:24:00 Test Item Value Reference Range Comments FERRITIN (BEAKER) (test code = 361) 106 ng/mL 5-275 PROTEIN, RANDOM [id number] 08:14:00 Test Item Value Reference Range Comments PROTEIN, URINE (BEAKER) (test code = 1569) < mg/dL 0-14 SODIUM, RANDOM [id number] 08:14:00 Test Item Value Reference Range Comments SODIUM URINE (BEAKER) (test code = 243) < meq/L Reference Range: No NormalsRETICULOCYTE [id number] 08:03:00 Test Item Value Reference Range Comments RETICULOCYTE COUNT PCT (BEAKER) (test code = 575) 1.9 % 0.5-1.7 IRON, TIBC, % SAT. (WITHOUT FERRITIN)2017-04-10 08:02:00 Test Item Value Reference Range Comments IRON (BEAKER) (test code = 547) 20 ug/dL 40-160 TOTAL IRON BINDING CAPACITY (BEAKER) (test code = 243 ug/dL 250-450 769) IRON % SATURATION (2) (BEAKER) (test code = 2590) 8 % 20-55 LIPID [id number] 08:01:00 Test Item Value Reference Range Comments TRIGLYCERIDES (BEAKER) (test code = 540) 54 mg/dL CHOLESTEROL (BEAKER) (test code = 631) 107 mg/dL HDL CHOLESTEROL (BEAKER) (test code = 976) 41 mg/dL LDL CHOLESTEROL CALCULATED (BEAKER) (test code = 55 mg/dL 633) Triglyceride Reference Range: Low Risk <150 Borderline 150-199 High Risk 200-499 Very High Risk >=500Cholesterol Reference Range: Low Risk <200 Borderline 200-239 High Risk >240HDL Cholesterol Reference Range: Low Risk >=60 High Risk <40LDL Cholesterol Reference Range: Optimal <100 Near Optimal 100-129 Borderline 130-159 High 160-189 Very High >=190LACTATE DEHYDROGENASE (LDH)2017-04-10 08:01:00 Test Item Value Reference Range Comments LACTATE DEHYDROGENASE (BEAKER) (test code = 635) 276 U/L 125-220 CREATININE, RANDOM [id number] 08:01:00 Test Item Value Reference Range Comments CREATININE URINE (BEAKER) (test code = 375) 92.9 mg/dL Reference Range: No NormalsURINALYSIS W/ REFLEX URINE [id number] 07:54:00 Test Item Value Reference Range Comments COLOR (BEAKER) (test code = 470) Yellow CLARITY (BEAKER) (test code = 469) Clear SPECIFIC GRAVITY UA (BEAKER) (test code = 468) 1.007 1 .001-1.035 PH UA (BEAKER) (test code = 467) 5.0 5.0-8.0 PROTEIN UA (BEAKER) (test code = 464) Negative Negative GLUCOSE UA (BEAKER) (test code = 365) Negative Negative KETONES UA (BEAKER) (test code = 371) Negative Negative BILIRUBIN UA (BEAKER) (test code = 462) Negative Negative BLOOD UA (BEAKER) (test code = 461) Negative Negative NITRITE UA (BEAKER) (test code = 465) Negative Negative LEUKOCYTE ESTERASE UA (BEAKER) (test code = 466) Negative Negative UROBILINOGEN UA (BEAKER) (test code = 463) 0.2 mg/dL 0.2-1 .0 RBC UA (BEAKER) (test code = 519) 1 /HPF WBC UA (BEAKER) (test code = 520) 0 /HPF BACTERIA (BEAKER) (test code = 517) Rare HYALINE CASTS (BEAKER) (test code = 514) 6 /LPF SOURCE(BEAKER) (test code = 2795) PLATELET [id number] 07:26:00 Test Item Value Reference Range Comments PLATELET COUNT (BEAKER) (test code = 756) 201 K/CU MM 150-45 0 POCT-GLUCOSE [id number] 07:15:00 Test Item Value Reference Range Comments POC-GLUCOSE METER (BEAKER) 258 mg/dL 70-110 TESTE D AT [facility] [address] (test code = 1538) [facility] [address] BASIC METABOLIC [id number] 06:52:00 Test Item Value Reference Range Comments SODIUM (BEAKER) (test 136 meq/L 136-145 code = 381) POTASSIUM (BEAKER) (test 4.9 meq/L 3.5-5.1 code = 379) CHLORIDE (BEAKER) (test 95 meq/L 98-107 code = 382) CO2 (BEAKER) (test code = 32 meq/L 22-29 355) BLOOD UREA NITROGEN 33 mg/dL 7-21 (BEAKER) (test code = 354) CREATININE (BEAKER) (test 1.85 mg/dL 0.57-1.25 code = 358) GLUCOSE RANDOM (BEAKER) 247 mg/dL 70-105 (test code = 652) CALCIUM (BEAKER) (test 8.6 mg/dL 8.4-10.2 code = 697) EGFR (BEAKER) (test code 33 mL/min/1.73 sq m EST IMATED GFR IS NOT = 1092) ACCURATE CREA TININE CLEARANCE IN PRE DICTING GLOMERULAR FILTR ATION RATE. ESTIMATED GFR IS NOT APPLICABLE F OR DIALYSIS PATIENT S. BLOOD GAS, [id number] 06:49:00 Test Item Value Reference Range Comments PH ARTERIAL (BEAKER) (test code = 383) 7.30 7.35-7.45 PCO2 ARTERIAL (BEAKER) (test code = 384) 75 mmHg 35-45 PO2 ARTERIAL (BEAKER) (test code = 385) 84 mmHg 80-90 O2 SATURATION ARTERIAL (BEAKER) (test code = 386) 94.9 % 96.0-97.0 HCO3 ARTERIAL (BEAKER) (test code = 388) 36 mmol/L 21-29 BASE EXCESS ARTERIAL (BEAKER) (test code = 387) 7.4 mmol/L -2.0-3.0 PATIENT TEMPERATURE (BEAKER) (test code = 1818) 37.0 C FIO2 (BEAKER) (test code = 1819) 50.0 % RAD, CHEST, 1 VIEW, NON [id number] 06:34:00Reason for exam:->central line placement Should this be performed at the bedside?->YesFINAL REPORT Comparison exam: 04/10/2017 time 1:09 AM Interval placement of a right IJ central venous catheter with the tip located in the superior vena cava. No pneumothorax. No focal pulmonary consolidation or significant pleural effusion. Stable cardiomediastinal contours. Signed: Ariel Leigheport Verified Date/Time: 04/10/2017 06:34:32 Reading Location: [address] Ortho Consult Reading Room [id number] 06:04:00 Test Item Value Reference Range Comments PARTIAL THROMBOPLASTIN TIME (BEAKER) (test code 34.8 seconds 22.5-36.0 = 760) Prior to initiating heparinCBC W/PLT COUNT & AUTO [id number] 02:14:00 Test Item Value Reference Range Comments WHITE BLOOD CELL COUNT (BEAKER) (test code = 10.1 K/ L 3.5 -10.5 775) RED BLOOD CELL COUNT (BEAKER) (test code = 761) 3.72 M/ L 3.93-5.22 HEMOGLOBIN (BEAKER) (test code = 410) 10.9 GM/DL 11.2-15.7 HEMATOCRIT (BEAKER) (test code = 411) 36.7 % 34.1-44.9 MEAN CORPUSCULAR VOLUME (BEAKER) (test code = 98.7 fL 79 .4-94.8 753) MEAN CORPUSCULAR HEMOGLOBIN (BEAKER) (test code 29.3 pg 25.6-32.2 = 751) MEAN CORPUSCULAR HEMOGLOBIN CONC (BEAKER) (test 29.7 GM/DL 32.2-35.5 code = 752) RED CELL DISTRIBUTION WIDTH (BEAKER) (test code 14.6 % 11.7-14.4 = 412) PLATELET COUNT (BEAKER) (test code = 756) 177 K/CU MM 150-45 0 MEAN PLATELET VOLUME (BEAKER) (test code = 754) 9.7 fL 9.4-12.3 NUCLEATED RED BLOOD CELLS (BEAKER) (test code = 0 /100 WBC 0-0 413) NEUTROPHILS RELATIVE PERCENT (BEAKER) (test code 96 % = 429) LYMPHOCYTES RELATIVE PERCENT (BEAKER) (test code 3 % = 430) MONOCYTES RELATIVE PERCENT (BEAKER) (test code = 1 % 431) EOSINOPHILS RELATIVE PERCENT (BEAKER) (test code 0 % = 432) BASOPHILS RELATIVE PERCENT (BEAKER) (test code = 0 % 437) NEUTROPHILS ABSOLUTE COUNT (BEAKER) (test code = 9.70 K/ L 1.56-6.13 670) LYMPHOCYTES ABSOLUTE COUNT (BEAKER) (test code = 0.26 K/ L 1.18-3.74 414) MONOCYTES ABSOLUTE COUNT (BEAKER) (test code = 0.09 K/ L 0 .24-0.36 415) EOSINOPHILS ABSOLUTE COUNT (BEAKER) (test code = 0.00 K/ L 0.04-0.36 416) BASOPHILS ABSOLUTE COUNT (BEAKER) (test code = 0.01 K/ L 0 .01-0.08 417) IMMATURE GRANULOCYTES-RELATIVE PERCENT (BEAKER) 1 % 0-1 (test code = 2801) TROPONIN [id number] 01:56:00 Test Item Value Reference Range Comments TROPONIN I (BEAKER) (test code = 397) 0.62 ng/mL 0.00-0.03 Troponin I (TnI) levels [...] acute neurological disease, and persistent tachyarrhythmia.BASIC METABOLIC [id number] 01:46:00 Test Item Value Reference Range Comments SODIUM (BEAKER) (test 135 meq/L 136-145 code = 381) POTASSIUM (BEAKER) (test 5.1 meq/L 3.5-5.1 Specime n slightly code = 379) hemolyzed CHLORIDE (BEAKER) (test 95 meq/L 98-107 code = 382) CO2 (BEAKER) (test code = 31 meq/L 22-29 355) BLOOD UREA NITROGEN 33 mg/dL 7-21 (BEAKER) (test code = 354) CREATININE (BEAKER) (test 2.04 mg/dL 0.57-1.25 Specim en slightly code = 358) hemolyzed GLUCOSE RANDOM (BEAKER) 234 mg/dL 70-105 (test code = 652) CALCIUM (BEAKER) (test 8.6 mg/dL 8.4-10.2 code = 697) EGFR (BEAKER) (test code 29 mL/min/1.73 sq m EST IMATED GFR IS NOT = 1092) ACCURATE CREA TININE CLEARANCE IN PRE DICTING GLOMERULAR FILTR ATION RATE. ESTIMATED GFR IS NOT APPLICABLE F OR DIALYSIS PATIENT S. PT/[id number] 01:46:00 Test Item Value Reference Range Comments PROTIME (BEAKER) (test code = 759) 14.7 seconds 11.7-14.7 INR (BEAKER) (test code = 370) 1.2 <=5.9 PARTIAL THROMBOPLASTIN TIME (BEAKER) (test code 45.8 seconds 22.5-36.0 = 760) RECOMMENDED COUMADIN/WARFARIN INR THERAPY RANGESSTANDARD DOSE: 2.0 - 3.0 Includes: PROPHYLAXIS forvenous thrombosis, systemic embolization; TREATMENT for venous thrombosis and/or pulmonary embolus.HIGH RISK: Target INR is 2.5-3.5 for patients with mechanical heart valves.PROTHROMBIN TIME/[id number] 01:45:00 Test Item Value Reference Range Comments PROTIME (BEAKER) (test code = 759) 14.7 seconds 11.7-14.7 INR (BEAKER) (test code = 370) 1.2 <=5.9 RECOMMENDED COUMADIN/WARFARIN INR THERAPY RANGESSTANDARD DOSE: 2.0 - 3.0 Includes: PROPHYLAXIS forvenous thrombosis, systemic embolization; TREATMENT for venous thrombosis and/or pulmonary embolus.HIGH RISK: Target INR is 2.5-3.5 for patients with mechanical heart valves.CREATINE KINASE (CK), TOTAL AND MB 2017-04-10 01:44:00 Test Item Value Reference Range Comments CREATINE KINASE TOTAL (BEAKER) (test code = 380) 89 U/L 29-200 CREATINE KINASE-MB (BEAKER) (test code = 750) 2.1 ng/mL 0. 0-6.6 CREATINE KINASE-MB INDEX (BEAKER) (test code = 2.4 % 395) CK-MB Reference Range:<6.7 Normal6.7-10.0 Borderline>10.0 AbnormalRAD, CHEST, 1 VIEW, NON [id number] 01:44:00Reason for exam:- >acute hypoxemic hypercapnic respiratory failure; pneumonia, pulmonary edemaShould this be performed at the bedside?->YesFINAL REPORT Comparison examination: None No pneumothorax, focal pulmonary co nsolidation, or significant pleural effusion. The cardiac size is magnified by the portable technique. Normal mediastinal contours. Normal skeleton and soft tissues. Impression: No acute abnormality.Signed: Ariel Leigh Verified Date/Time: 04/10/2017 01:44:25 Reading Location: [address] Ortho Consult Reading Room B-TYPE NATRIURETIC FACTOR (BNP)2017-04-10 01:43:00 Test Item Value Reference Range Comments B-TYPE NATRIURETIC PEPTIDE (BEAKER) (test code = 1410 pg/mL 0-100 700) [id number] 01:38:00 Test Item Value Reference Range Comments MAGNESIUM (BEAKER) (test code = 1.8 mg/dL 1.6-2.6 Specimen slightly hemolyzed 627) [id number] 01:38:00 Test Item Value Reference Range Comments PHOSPHORUS (BEAKER) (test code 4.1 mg/dL 2.3-4.7 S pecimen slightly hemolyzed = 604) HEPATIC FUNCTION [id number] 01:38:00 Test Item Value Reference Range Comments TOTAL PROTEIN (BEAKER) (test 7.2 gm/dL 6.0-8.3 Spe cimen slightly hemolyzed code = 770) ALBUMIN (BEAKER) (test code = 3.2 g/dL 3.5-5.0 Sp ecimen slightly hemolyzed 1145) BILIRUBIN TOTAL (BEAKER) (test 0.3 mg/dL 0.2-1.2 S pecimen slightly hemolyzed code = 377) BILIRUBIN DIRECT (BEAKER) (test 0.2 mg/dL 0.1-0.5 Specimen slightly hemolyzed code = 706) ALKALINE PHOSPHATASE (BEAKER) 62 U/L 40-150 (test code = 346) AST (SGOT) (BEAKER) (test code 40 U/L 5-34 S pecimen slightly hemolyzed = 353) ALT (SGPT) (BEAKER) (test code 28 U/L 6-55 S pecimen slightly hemolyzed = 347) LACTIC ACID, VENOUS, WHOLE [id number] 01:32:00 Test Item Value Reference Range Comments LACTATE BLOOD VENOUS (2) 0.7 mmol/L 0.5-2.2 Specime n slightly hemolyzed (BEAKER) (test code = 2872) Effective 11/03/2015: Units/Reference Range ChangeNew: 0.5-2.2 mmol/L Previous: 5-20 mg/dLBLOOD GAS, [id number] 01:23:00 Test Item Value Reference Range Comments PH ARTERIAL (BEAKER) (test code = 383) 7.26 7.35-7.45 PCO2 ARTERIAL (BEAKER) (test code = 384) 81 mmHg 35-45 PO2 ARTERIAL (BEAKER) (test code = 385) 250 mmHg 80-90 O2 SATURATION ARTERIAL (BEAKER) (test code = 386) 99.4 % 96.0-97.0 HCO3 ARTERIAL (BEAKER) (test code = 388) 35 mmol/L 21-29 BASE EXCESS ARTERIAL (BEAKER) (test code = 387) 5.9 mmol/L -2.0-3.0 PATIENT TEMPERATURE (BEAKER) (test code = 1818) 37.1 C FIO2 (BEAKER) (test code = 1819) 70.0 % POCT-GLUCOSE [id number] 23:56:00 Test Item Value Reference Range Comments POC-GLUCOSE METER (BEAKER) 243 mg/dL 70-110 TESTE D AT [place] [id number] [facility] (test code = 1538) [facility] [address]
--- OUTSIDE RECORDS SUMMARY | 2019-11-05 05:41 | XMS REPORT | Summary of Care ---
:1950 Author Organization [facility] Address [address] [place] [id number] Care Team Providers Name Role Phone Jasmine Jass Zhang Primary Care Provider Reason for Visit Auth/Cert Status Reason Specialty Diagnoses / Procedures Referred By Leatha ontact Referred To Contact Surgery Diagnoses Age-related nuclear cataract, left eye Cataract of the L eye Adc Pre/Pacu/Post Procedures ME XCAPSL CTRC RMVL INSJ IO LENS PROSTH W/O ECP PHACOEMULSIFICATION OF CATARACT WITH INTRAOCULAR LENS IMPLANT [address] [place] [address] [place] [address] Phone: Fax: Encounter Details Date Type Department Care Team Description 08/26/2019 Hospital Encounter [facility] [address] [place] [address] [place] [address] [place] [address] [place] [address] Allergies No Known Allergiesdocumented as of this encounter (statuses as of 08/26/2019) Medications Medication Sig Dispensed Refills Start Date End Date Status gabapentin (NEURONTIN) Take 300 mg by 0 Active 300 mg capsule mouth 2 (two) times daily. brimonidine 0.15 % INSTILL 1 DROP 5 02/27/2019 Active ophthalmic drops INTO EACH EYE EVERY 12 HOURS SYMBICORT 160-4.5 INHALE 2 PUFFS BY 6 01/14/2019 Active mcg/actuation inhaler MOUTH TWICE DAILY NEEDED cyclobenzaprine 10 mg TAKE 1 TABLET BY 3 01/20/2019 Active tablet MOUTH EVERY DAY AT BEDTIME furosemide 20 mg Take 20 mg by 3 02/24/2019 Active tablet mouth 2 (two) times daily. COMBIVENT RESPIMAT INHALE 1 PUFF BY 2 02/15/2019 Active 20-100 mcg/actuation MOUTH 4 TIMES inhaler DAILY simvastatin 20 mg TAKE 1 TABLET BY 6 02/24/2019 Active tablet MOUTH ONCE DAILY IN THE EVENING spironolactone 25 mg Take 25 mg by 3 02/27/2019 Active tablet mouth 2 (two) times daily. traMADol 50 mg tablet TAKE 1 TABLET BY 0 01/13/2019 Active MOUTH THREE TIMES DAILY ambrisentan (LETAIRIS) Take 10 mg by 0 Active 10 mg tablet mouth daily. colchicine 0.6 mg Cap Take by mouth. 0 Active Cholecalciferol, Take by mouth. 0 Active Vitamin D3, (VITAMIN D3) 1,000 unit capsule vitamin B-12 (VITAMIN Take 500 mcg by 0 Active B-12) 500 mcg tablet mouth daily. flu vacc PHARMACIST 0 04/02/2019 Active [id number],65yr up,/PF ADMINISTERED (FLUZONE HIGH-DOSE IMMUNIZATION 2018-20, PF, IM) ADMINISTERED AT TIME OF DISPENSING baclofen 10 mg tablet Take 10 mg by 1 04/26/2019 Active mouth 2 (two) times daily. ONETOUCH VERIO strip USE TO TEST DAILY 11 05/04/2019 Active carBAMazepine 200 mg Take 200 mg by 3 05/13/2019 Active tablet mouth 2 (two) times daily. levoFLOXacin 500 mg TAKE 1 TABLET BY 0 05/21/2019 Active tablet MOUTH ONCE DAILY FOR 7 DAYS aspirin 81 mg EC Take 81 mg by 0 Active tablet mouth daily. ferrous sulfate 325 mg Take 325 mg by 0 Active (65 mg iron) tablet mouth daily. pantoprazole 40 mg EC Take 40 mg by 0 Active tablet mouth daily. tiotropium 18 mcg Inhale 18 mcg 0 Active inhalation daily. 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 me llitus 05/01/2017 Essential hypertension 05/01/2017 Anemia of chronic disease 04/10/2017 COPD (chronic obstructive pulmonary disease) 7 DM2 (diabetes mellitus, type 2) 04/09/2017 NSTEMI (non-ST elevated myocardial infarction) 017 Pulmonary hypertension 04/09/2017 documented as of this encounter (statuses as of 08/26/2019) Immunizations Name Administration Dates Next Due Influenza Virus Vaccine 04/02/2019 documented as of this encounter Social History Tobacco Use Types Packs/Day Years Used Date Former Smoker Cigarettes Quit: 03/21/19 99 Smokeless Tobacco: Never Used Alcohol Use Drinks/Week oz/Week Comments No 0 Standard drinks or equivalent 0.0 Sex Assigned at Date Recorded Not on file Job Start Date Occupation Industry Not on file Not on file Not on file Travel History Travel Start Travel End No recent travel history available. documented as of this encounter Last Filed Vital Signs Vital Sign Reading Time Taken Comments Blood Pressure 101/53 08/26/2019 9:19 AM WEB SITE ADMINISTRATOR Pulse 68 08/26/2019 9:19 AM WEB SITE ADMINISTRATOR Temperature 36.8 C (98.3 F) 08/26/2019 9:19 AM WEB SITE ADMINISTRATOR Respiratory Rate 18 08/26/2019 9:19 AM WEB SITE ADMINISTRATOR Oxygen Saturation 100% 08/26/2019 9:19 AM WEB SITE ADMINISTRATOR Inhaled Oxygen Concentration - - Weight 99.8 kg (220 lb) 08/22/2019 10:00 AM WEB SITE ADMINISTRATOR Height 166.4 cm (5' 5.5") 08/22/2019 10:00 AM WEB SITE ADMINISTRATOR Body Mass Index 36.05 08/22/2019 10:00 AM WEB SITE ADMINISTRATOR documented in this encounter Discharge Instructions Jorge Glass RN - 08/26/2019 Patient Discharge Instructions Discharge date: 08/26/2019 Procedure(s): Procedure(s): PHACOEMULSIFICATION OF CATARACT WITH INTRAOCULAR LENS IMPLANT Discharge Orders Wound Care Order Comments: WOUND CARE INSTRUCTIONS Leave patch on Regular Diet; Texture: Regular Texture Regular Diabetic: No Follow instructions as indicated below: 1. The medication that was used will be acting in your system for the next 24 hours, so you might feel a little drowsy, with impaired judgment and or motor function. This feeling should go wear off. Because the medication is still in your system for the next 24 hours you SHOULD NOT: Drive a car, operate machinery or power tool. Drink any alcohol beverages (including beer or wine). Make any important decisions or sign any legal documents. 2. You should rest the remainder of the day and not engage in any physical activity. Move slowly today. After lying down, sit on the edge of the bed for a moment before standing. YOU ARE RESPONSIBLEFOR HAVING SOMEONE AT HOME WITH YOU DURING THE AFTERNOON AND NIGHT IMMEDIATELY FOLLOWING YOUR SURGERY. Patient should cough and deep breathe every 2-4 hours while awake to avoid respiratory complications. 4. Lifting: No lifting over 5 pounds 5. Weight: In general, sudden weight gains or losses should be reported to your provider. Cardiac patients should weigh daily and notify their provider for a weight gain of 3 pounds per day or 5 pounds per week. 6. Tobacco Avoidance: Follow recommendations below 7. Because the medications used could procedure some residual nausea and vomiting after you go home,you should eat lightly today, starting with clear liquids (broth, soft drinks, apple juice, jello) and toast or crackers, progressing to bland solid foods and then to your normal diet as tolerated, unle ss otherwise stated by your surgeon. If you get sick, wait a couple of hours and then begin to eat. After 24 hours the nausea should be gone. 8. You may experience some pain and your physician will advise you on what to take for discomfort. This should be taken as directed. If the pain is not relieved, contact your physician. You may alsohave a sore throat from the airway that was in place. You may uses lozenges, throat spray (such as C hloraseptic), or warm salt water gargles for symptomatic relief. 9. If you feel warm, take your temperature. If it is 101 degrees or above call your physician. 10. If you are unable to urinate within five hours after your procedure, call your physician. 11. The type of surgery performed will determine how much bleeding (if any) to expect. Normally, some spotting might occur. If your dressing pad becomes saturated, notify your physician. Elevate surgical site, if applicable, to reduced swelling and pain. 12. Wound/dressing care: DO NOT REMOVE EYE PATCH UNTIL POST OP VISIT. DO NOT GET WET Tips on preventing a surgical site infection.. Dont smoke. It is best to quit at least 30 days before surgery, but quitting after surgery is also helpful. If you are diabetic, keep your blood sugar well controlled. WASH YOUR HANDS. Keep your wound clean and remember to wash your hands before and after contact with the area. All health care workers should also wash their hands or use an alcohol based hand rub prior to examining you. If antibiotics are prescribed, take them as directed. Finish the entire course of antibiotics. Call your doctor if you have signs of infection: ? Increased tenderness at the surgical site ? Red streaks or increased redness of the area ? Bad-smelling discharge from the incision ? Fever of 101F or higher ? General tired feeling that doesnt improve 13. Other discharge instructions: None 14. Special Instructions: NONE CATARACT DISCHARGE INSTRUCTIONS 1. DO NOT Remove the eye patch. Leave on until you post-operative visit tomorrow. Keep it dry. 2. Activities as tolerated 3. Please no heavy lifting, and do not drive or operate machinery until you are seen by a doctor on your first post op day. 4. Your depth perception may be off, so walk a little slower. Be careful on steps or stairs and uneven ground and go slower around corners. 5. Most likely your eye will stay numb until tomorrow and you should not experience any extreme pain. However, if you should have bad pain or nausea, please call the doctor's office or hospital assembly line robot operator to get in touch with doctor. 6. For mild discomfort or a headache, you may take Tylenol, Aspirin, or Ibuprofen (in not allergic). 7. You may resume your pre-operative diet. 8. If you have any further questions or concerns, please call the office or hospital assembly line robot operator to getin touch with the doctor. Take Home Medications These are medications ordered for you by your healthcare provider. Do not take any other medications or supplements unless advised by your healthcare provider. Current Discharge Medication List CONTINUE these medications which have NOT CHANGED Details aspirin 81 mg EC tablet Take 81 mg by mouth daily. ferrous sulfate 325 mg (65 mg iron) tablet Take 325 mg by mouth daily. pantoprazole 40 mg EC tablet Take 40 mg by mouth daily. tiotropium 18 mcg inhalation Inhale 18 mcg daily. baclofen 10 mg tablet Take 10 mg by mouth 2 (two) times daily. Refills: 1 carBAMazepine 200 mg tablet Take 200 mg by mouth 2 (two) times daily. Refills: 3 ambrisentan (LETAIRIS) 10 mg tablet Take 10 mg by mouth daily. cyclobenzaprine 10 mg tablet TAKE 1 TABLET BY MOUTH EVERY DAY AT BEDTIME Refills: 3 simvastatin 20 mg tablet TAKE 1 TABLET BY MOUTH ONCE DAILY IN THE EVENING Refills: 6 SYMBICORT 160-4.5 mcg/actuation inhaler INHALE 2 PUFFS BY MOUTH TWICE DAILY NEEDED Refills: 6 traMADol 50 mg tablet TAKE 1 TABLET BY MOUTH THREE TIMES DAILY Refills: 0 gabapentin (NEURONTIN) 300 mg capsule Take 300 mg by mouth 2 (two) times daily. flu vacc [id number],65yr up,/PF (FLUZONE HIGH-DOSE , PF, IM) PHARMACIST ADMINISTERED IMMUNIZATION ADMINISTERED AT TIME OF DISPENSING Refills: 0 levoFLOXacin 500 mg tablet TAKE 1 TABLET BY MOUTH ONCE DAILY FOR 7 DAYS Refills: 0 ONETOUCH VERIO strip USE TO TEST DAILY Refills: 11 brimonidine 0.15 % ophthalmic drops INSTILL 1 DROP INTO EACH EYE EVERY 12 HOURS Refills: 5 Cholecalciferol, Vitamin D3, (VITAMIN D3) 1,000 unit capsule Take by mouth. colchicine 0.6 mg Cap Take by mouth. COMBIVENT RESPIMAT 20-100 mcg/actuation inhaler INHALE 1 PUFF BY MOUTH 4 TIMES DAILY Refills: 2 furosemide 20 mg tablet Take 20 mg by mouth 2 (two) times daily. Refills: 3 spironolactone 25 mg tablet Take 25 mg by mouth 2 (two) times daily. Refills: 3 vitamin B-12 (VITAMIN B-12) 500 mcg tablet Take 500 mcg by mouth daily. Follow-up appointments: Your follow up appointment with your surgeon has been made. Appointment Date: August Appointment Time 0800. For questions regarding follow-up instructions call the Healthcare Hotline at or If you experience any of the following symptoms For worsening symptoms/changing condition/problems or questions: Non-emergency/urgent: Call the Healthcare Hotline at or or Emergency: Go to the closest emergency room or call 138 If you receive the patient satisfaction survey by mail please complete and return and let us know how we are doing. TOBACCO AVOIDANCE Exposure to tobacco either from smoking or from second hand (environmental) smoke or smokeless tobacco (snuff) is damaging to your health. This information is to encourage everyone to avoid tobacco exposure. It is recommended that you: ? If you smoke or use smokeless tobacco, we encourage you to quit. ? If you have already quit smoking, continue your good work! ? If you do not smoke or use smokeless tobacco, do not start. ? Avoid secondhand smoke. Additional Resources You may want to contact these organizations for further information on smoking and how to quit. [place] [employer], http://www.lungusa.org/stop-smoking/ [place] [employer], http://www.cancer.org/Healthy/StayAwayfromTobacco/index [place] [employer], http://www.heart.org/HEARTORG/GettingHealthy/QuitSmoking/Quit-Smoking_[facility] _001085_SubHomePage.jsp documented in this encounter Plan of Treatment Name Type Priority Associated Diagnoses Order S chedule EKG-12 LEAD ROUTINE HEART STATION Routine ONCE fo r 1 Occurrences starting 2019 until 0 Health Maintenance Due Date Last Done Comments HEPATITIS C (HCV) SCREEN 1948 HgA1C 1949 CREATININE (SERUM) 1958 EYE EXAM 1958 LDL-C 1958 URINE MICROALBUMIN 1958 DTaP,Tdap,and Td Vaccines (1 - Tdap) 09/07/1959 FOOT EXAM 1966 COLONOSCOPY 1998 Zoster Recombinant Vaccine (SHINGRIX) (1 of 2) 1998 Medicare Wellness Visit 2013 Osteoporosis Screening 2013 PNEUMOCOCCAL VACCINES 65+ (1 of 2 - PCV13) 2013 Breast Cancer Screening (MAMMOGRAM) 10/05/2019 10/04/2018 INFLUENZA VACCINE Completed 04/02/2019 documented as of this encounter Implants Implanted Type Area Packaging Supervisor Device Shelf Model / Serial Identifier Expiration / Lot Date Lens, Luke #[id number] - S0 LENS Left: Eye Luke 03/31 [id number] / Implanted: Qty: 1 on 08/26/2019 by Earnestine Felix MD at [facility] 0 / [id number] documented as of this encounter Procedures Procedure Name Priority Date/Time Associated Comments Diagnosis POCT GLUCOSE(AGE Routine 08/26/2019 7:53 Results for this >30DAYS) AM WEB SITE ADMINISTRATOR procedure are i n the results section. CBC WITH DIFFERENTIAL Routine 08/26/2019 7:39 Re sults for this AM WEB SITE ADMINISTRATOR procedure are i n the results section. CBC WITH DIFFERENTIAL Routine 08/26/2019 7:39 Re sults for this AM WEB SITE ADMINISTRATOR procedure are i n the results section. BASIC METABOLIC PANEL Routine 08/26/2019 7:39 Re sults for this (NA, K, CL, CO2, AM WEB SITE ADMINISTRATOR procedure a re in GLUCOSE, BUN, the results CREATININE, CA) section. documented in this encounter Results POCT Glucose (08/26/2019 7:53 AM WEB SITE ADMINISTRATOR) [facility] POCT Glu (age>30days) 95 70 - 110 mg/dL Specimen Blood - CAPILLARY CBC WITH DIFFERENTIAL (08/26/2019 7:39 AM WEB SITE ADMINISTRATOR) [facility] WBC 6.06 4.30 - 11.10 [facility] 10*3/L [facility] RBC 3.55 (L) 3.93 - 5.25 [facility] 10*6/L [facility] HGB 10.9 (L) 11.6 - 15.0 [facility] g/dL [facility] HCT 34.5 (L) 35.7 - 45.2 % [facility] MCV 97.2 (H) 80.6 - 95.5 fL [facility] MCH 30.7 25.9 - 32.8 pg [facility] MCHC 31.6 31.6 - 35.1 [facility] g/dL [facility] RDW-SD 47.1 39.0 - 49.9 fL [facility] RDW-CV 13.2 12.0 - 15.5 % [facility] PLT 147 (L) 166 - 358 [facility] 10*3/L [facility] MPV 9.5 9.5 - 12.9 fL [facility] NRBC/100 WBC 0.0 0.0 - 10.0 /100 [facility] WBCs [facility] NRBC x10^3 <0.01 10*3/L [facility] GRAN MAT (NEUT) % 57.7 % [facility] IMM GRAN % 0.30 % [facility] LYMPH % 33.3 % [facility] MONO % 5.9 % [facility] EOS % 2.6 % [facility] BASO % 0.2 % [facility] GRAN MAT x10^3(ANC) 3.49 1.88 - 7.09 [facility] 10*3/uL HOSPITAL LAB[facility] IMM GRAN x10^3 <0.03 0.00 - 0.06 [facility] 10*3/uL HOSPITAL [facility] LYMPH x10^3 2.02 1.32 - 3.29 [facility] 10*3/uL [facility] MONO x10^3 0.36 0.33 - 0.92 [facility] 10*3/uL [facility] EOS x10^3 0.16 0.03 - 0.39 [facility] 10*3/uL [facility] BASO x10^3 <0.03 0.01 - 0.[address]/[facility] LABORATORY Specimen Blood - ARM, LEFT Performing Organization Address City/State/Zipcode Phone Number [facility] CLIA: [id number], [address] [place], [place] [address] Basic Metabolic Panel (NA, K, CL, CO2, Glucose, BUN, Creatinine, CA) (08/26/2019 7:39 AM WEB SITE ADMINISTRATOR) NA 140 135 - 145 [facility] mmol/L [facility] K 4.6 3.5 - 5.0 [facility] mmol/L [facility] CL 98 98 - 108 mmol/L [facility] CO2 TOTAL 37 (H) 23 - 31 mmol/L [facility] AGAP 5 2 - 16 [facility] BUN 37 (H) 7 - 23 mg/dL [facility] GLUCOSE 105 70 - 110 mg/dL [facility] CREATININE 1.41 (H) 0.50 - 1.04 [facility] mg/dL [facility] CALCIUM 9.2 8.6 - 10.6 [facility] mg/dL [facility] eGFR Calculation 36.9 mL/min/1.73m2 [facility] ([facility] [place]) eGFR Calculation 44.7 mL/min/1.73m2 [facility] LABORATORY Specimen Blood - ARM, LEFT Narrative Performed At Association of Glomerular Filtration Rate (GFR) [facility] and Staging of Kidney Disease* + + +- + | GFR (mL/min/1.73 m2) | With Kidney Damage | Without Kidney Damage + + +- + | >90 | Stage one | Normal + + +- + | 60-89 | Stage two | Decreased GFR + + +- + | 30-59 | Stage three | Stage three + + +- + | 15-29 | Stage four | Stage four + + +- + | <15 (or dialysis) | Stage five | Stage five + + +- + *Each stage assumes the associated GFR level has been in effect for at least three months. Stages 1 to 5, with or without kidney disease, indicate chronic kidney disease. Notes: Determination of stages one and two (with eGFR >59mL/min/1.73 m2) requires estimation of kidney damage for at least three months as defined by structural or functional abnormalities of the kidney, manifested by either: Pathological abnormalities or Markers of kidney damage (including abnormalities in the composition of the blood or urine or abnormalities in imaging tests). Performing Organization Address City/State/Zipcode Phone Number [facility] CLIA: [id number], [address] [place], [place] [address] documented in this encounter Visit Diagnoses Diagnosis Cortical age-related cataract of left ey e - Primary Cortical senile cataract documented in this encounter Administered Medications Medication Order MAR Action Action Date Dose Rate Site lidocaine 1% (PF) (XYLOCAINE) Given 08/26/2019 8:40 AM WEB SITE ADMINISTRATOR 0.7 mL Left Eye injection PRN, Starting 08/26/19 at 0840, Until Discontinued, Routine, Intra-op moxifloxacin (VIGAMOX) 0.5 % Given 08/26/2019 8:39 AM WEB SITE ADMINISTRATOR 0.07 Drops Left Eye ophthalmic drops PRN, Starting 08/26/19 at 0839, Until Discontinued, Routine, Intra-op NaCl 0.9% (NS) IV infusion 500 mL New Bag 08/26/2019 7:42 AM WEB SITE ADMINISTRATOR 500 mL 42 mL/hr at 42 mL/hr, IV Infusion, CONTINUOUS, Starting 08/26/19 at 0745, Until Discontinued, Routine, DSU Pre-op trypan blue (VISION BLUE) 0.06 % Given 08/26/2019 8:38 AM WEB SITE ADMINISTRATOR 1 mL Left Eye syringe PRN, Starting Tue 20 at 0838, Until Discontinued, Routine, Intra-op Medication Order MAR Action Action Date Dose Rate Site cyclopentolate (CYCLOGYL) 1 % Given 08/26/2019 7:55 AM WEB SITE ADMINISTRATOR 1 Dr op ophthalmic drops 1 Drop 1 Drop, Left Eye, Q5MIN, 3 doses, First dose on Sun08/26/19 at 0745, Last dose on Sun08/26/19 at 0755, Routine, DSU Pre-op Given 08/26/2019 7:50 AM WEB SITE ADMINISTRATOR 1 Drop Given 08/26/2019 7:44 AM WEB SITE ADMINISTRATOR 1 Drop Lidocaine (PF) (AKTEN (PF)) 3.5 % ophthalmic Given 7:55 AM WEB SITE ADMINISTRATOR 1 Drop gel 1 Drop 1 Drop, Left Eye, ONCE, 1 dose, Sun08/26/19 at 0745, Routine, DSU Pre-op, membership assistant approving Non-formulary medication: EARNESTINE LONG, Reason for Non-Formulary Use: SPECIFIC INDICATION FOR NONFORMULARY PRODUCT phenylephrine (ALEX-SYNEPHRINE VISCOUS) 10 % Given 08/03 7:55 AM WEB SITE ADMINISTRATOR 1 Drop ophthalmic drops 1 Drop 1 Drop, Left Eye, Q5MIN, 3 doses, First dose on Sun08/26/19 at 0745, Last dose on Sun08/26/19 at 0755, Routine, DSU Pre-op Given 08/26/2019 7:50 AM WEB SITE ADMINISTRATOR 1 Drop Given 08/26/2019 7:44 AM WEB SITE ADMINISTRATOR 1 Drop documented in this encounter Insurance Payer Benefit Plan / Subscriber ID Effective Phone Address T ype [facility] [id number] 2017-Pres Medica re HEALTHCARE - HEALTHCARE ent Adv HM O MANAGED DUAL COMPLETE MEDICARE HMO [facility] MEDICAID OF xxxxxxxxx 2013-Pres [phone] [place] [phone] [place] [address] documented as of this encounter
--- OUTSIDE RECORDS SUMMARY | 2019-11-05 05:41 | XMS REPORT | Summary of Care ---
:1950 Author Organization [facility] - Health Address [address] [place] [id number] Care Team Providers Name Role Phone Jass Jasmine Primary Care Provider Encounter Details Date Type Department Care Team Description 08/13/2019 Orders Only [facility] Doctor Unassigned, No [facility] [place] [phone] [place] [id number] Allergies No Known Allergiesdocumented as of this encounter (statuses as of 08/13/2019) Medications Medication Sig Dispensed Refills Start Date End Date Status gabapentin (NEURONTIN) Take 300 mg by 0 Active 300 mg capsule mouth 2 (two) times daily. brimonidine 0.15 % INSTILL 1 DROP 5 02/27/2019 Active ophthalmic drops INTO EACH EYE EVERY 12 HOURS SYMBICORT 160-4.5 INHALE 2 PUFFS BY 01/14/2019 Active mcg/actuation inhaler MOUTH TWICE DAILY NEEDED cyclobenzaprine 10 mg TAKE 1 TABLET BY 01/20/2019 Active tablet MOUTH EVERY DAY AT BEDTIME furosemide 20 mg Take 20 mg by 02/24/2019 Active tablet mouth 2 (two) times daily. COMBIVENT RESPIMAT INHALE 1 PUFF BY 2 02/15/2019 Active 20-100 mcg/actuation MOUTH 4 TIMES inhaler DAILY simvastatin 20 mg TAKE 1 TABLET BY 02/24/2019 Active tablet MOUTH ONCE DAILY IN THE EVENING spironolactone 25 mg Take 25 mg by 02/27/2019 Active tablet mouth 2 (two) times [...] daily. flu vacc PHARMACIST 0 04/02/2019 Active [id number],65yr up,/PF ADMINISTERED (FLUZONE HIGH-DOSE IMMUNIZATION , PF, IM) ADMINISTERED AT TIME OF DISPENSING baclofen 10 mg tablet Take 10 mg by 1 04/26/2019 Active mouth 2 (two) times daily. ONETOUCH VERIO strip USE TO TEST DAILY 05/04/2019 Active carBAMazepine 200 mg Take 200 mg by 3 05/13/2019 Active tablet mouth 2 (two) times daily. levoFLOXacin 500 mg TAKE 1 TABLET BY 0 05/21/2019 Active tablet MOUTH ONCE DAILY FOR 7 DAYS documented as of this encounter (statuses as of 08/13/2019) Active Problems Problem Noted Date Postmenopausal atrophic [...] as of this encounter (statuses as of 08/13/2019) Immunizations Name Administration Dates Next Due Influenza [...] of this encounter Last Filed Vital Signs Not on filedocumented in this encounter Plan of Treatment Date Type Specialty Care Team Description 08/26/2019 Hospital Encounter Surgery Earnestine Randall MD [address] [place], [place] [id number] 08/26/2019 Surgery Surgery Earnestine Randall PHACOEMULSIFI CATION OF MD Luther CATARACT WITH INTRAOCULAR [address] LENS IMPLANT [place], [place] [id number] Health Maintenance Due Date Last Done Comments [...] Completed 04/02/2019 documented as of this encounter Procedures Procedure Name Priority Date/Time Associated Diagnosis Comme nts ASSIGNMENT OF BENEFITS Routine 08/13/2019 3:30 PM HELICOPTER PILOT documented in this encounter Results Not on filedocumented in this encounter Insurance Payer Benefit Plan / Subscriber ID Effective Phone Address T e Group Dates [facility] [id number] 2017-Pres Medica re HEALTHCARE - HEALTHCARE ent Adv HM O MANAGED DUAL COMPLETE MEDICARE HMO TMHP MEDICAID OF xxxxxxxxx 2013-Pres [phone] Medi caid [place] ent [id number] [place] [address] documented as of this encounter
--- OUTSIDE RECORDS SUMMARY | 2019-11-05 05:42 | XMS REPORT | Summary of Care ---
:1950 Author Organization [facility] - Health Address [address] [place] [id number] Care Team Providers Name Role Phone Jass Jasmine Primary Care Provider Encounter Details Date Type Department Care Team Description 08/26/2019 Orders Only [facility] Doctor Unassigned, No 301 [facility] Name [place] [phone] [place] [id number] Allergies No Known Allergiesdocumented as of this encounter (statuses as of 08/27/2019) Medications Medication Sig Dispensed Refills Start Date [...] daily. flu vacc PHARMACIST 0 04/02/2019 Active [id number],65yr up,/PF ADMINISTERED (FLUZONE HIGH-DOSE IMMUNIZATION , PF, [...] as of this encounter (statuses as of 08/27/2019) Active Problems Problem Noted Date Postmenopausal atrophic [...] as of this encounter (statuses as of 08/27/2019) Immunizations Name Administration Dates Next Due Influenza [...] filedocumented in this encounter Plan of Treatment Health Maintenance Due Date Last Done Comments HEPATITIS C (HCV) SCREEN 1950 HgA1C 1949 EYE EXAM 1958 LDL-C 1958 URINE MICROALBUMIN 1958 DTaP,Tdap,and Td Vaccines (1 - Tdap) 09/07/1959 FOOT EXAM 1966 COLONOSCOPY 1998 Zoster Recombinant Vaccine (SHINGRIX) (1 of 2) 1998 Medicare Wellness Visit 2013 Osteoporosis Screening 2013 PNEUMOCOCCAL VACCINES 65+ (1 of 2 - PCV13) 2013 Breast Cancer Screening (MAMMOGRAM) 10/05/2019 10/04/2018 CREATININE (SERUM) 08/26/2020 08/26/2019 INFLUENZA VACCINE Completed 04/02/2019 documented as of this encounter Implants Implanted Type Area Sole Tacker Device Shelf Model / Serial Identifier Expiration / Lot Date Lens, Luke #[id number] - [id number] LENS Left: Eye Luke 03/31/2024 [id number] / Implanted: Qty: 1 on 08/26/2019 by Earnestine Felix MD at [facility] 8 [id number] / 0 documented as of this encounter Procedures Procedure Name Priority Date/Time Associated Diagnosis Comme SURGERY - ADC Routine 08/26/2019 12:01 AM 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
[2019-11-05] MEDS ORDERED: RSI MEDICATION KIT IV ONE (05:53)
[2019-11-05] MEDS ORDERED: PROPOFOL 1,000 MG/100 ML VIAL IV ONE (05:56)
[2019-11-05] MEDS ORDERED: VECURONIUM 10 MG/VIAL IV ONE (06:22)
[2019-11-05] MEDS ORDERED: WATER FOR INJ,STERILE 10 ML ONE ×2 (06:24→21:55)
--- NOTE | 2019-11-05 06:38 | EDPHYS ---
Physician Documentation [facility] Name: Radha Valencia Age: 69 yrs Sex: Female : 1950 Arrival Date: 11/05/2019 Time: 05:36 Bed 2 Private MD: ED Physician Felix Cardozo HPI: 11/04 06:42 This 69 yrs old Black Female presents to ER via EMS with complaints of Altered Mental tw4 Status. 06:42 The patient presents with decreased mental status, decreased responsiveness. Onset: The tw4 symptoms/episode began/occurred just prior to arrival. Possible causes: unknown. Associated signs and symptoms: The patient has no apparent associated signs or symptoms. Current symptoms: In the emergency department the patient's symptoms are unchanged from the initial presentation. Patient's baseline: Neuro: alert and fully oriented, Motor: no deficits. The patient has not experienced similar symptoms in the past. Historical: - Allergies: 06:35 No Known Allergies; sg - PMHx: 06:35 CHF; COPD; Diabetes - NIDDM; Hypertension; sg - PSHx: 06:35 None; sg - Immunization history:: Adult Immunizations unknown. - Social history:: Smoking status: unknown. ROS: 06:42 Constitutional: Negative for fever, chills, and weight loss, Eyes: Negative for injury, tw4 pain, redness, and discharge, Cardiovascular: Negative for chest pain, palpitations, and edema, Abdomen/GI: Negative for abdominal pain, nausea, vomiting, diarrhea, and constipation, Back: Negative for injury and pain, MS/Extremity: Negative for injury and deformity, Skin: Negative for injury, rash, and discoloration. 06:42 Respiratory: Positive for shortness of breath. 06:42 Neuro: Positive for altered mental status. Exam: 06:42 Constitutional: This is a well developed, well nourished patient who is awake, alert, tw4 and in no acute distress. Head/Face: Normocephalic, atraumatic. Chest/axilla: Normal chest wall appearance and motion. Nontender with no deformity. No lesions are appreciated. Cardiovascular: Regular rate and rhythm with a normal S1 and S2. No gallops, murmurs, or rubs. Normal PMI, no JVD. No pulse deficits. 06:42 Respiratory: moderate respiratory distress is noted, Respirations: labored breathing, that is moderate, asymmetrical chest movement, that is moderate, accessory muscle usage, intercostal retractions, that is moderate, shallow respirations, Breath sounds: rhonchi, that are moderate, are heard diffusely. 07:18 ECG was reviewed by the Attending Physician. jr8 Vital Signs: 05:42 Pulse 108 MON; Resp 36 S; Temp 102.1; Pulse Ox 87% on 100% Non-rebreather mask; Weight sg 115 kg; Height 5 ft. 6 in. (167.64 cm); 05:45 BP 142 / 77; Pulse 113; Pulse Ox 98% ; ea 06:08 BP 125 / 65; Pulse 109; Resp 16 A; Pulse Ox 99% on ETT vent; ea 06:45 BP 105 / 56; Pulse 105; Resp 16; Pulse Ox 100% on ETT vent; ea 07:00 BP 109 / 73; Pulse 114; Resp 18; Pulse Ox 100% on ETT vent; ea 07:30 BP 95 / 60; Pulse 99; Resp 18; Temp 102.1(C); Pulse Ox 95% on 40% FiO2 ETT vent; hb 08:00 BP 108 / 57; Pulse 96; Resp 18; Pulse Ox 97% on 40% FiO2 ETT vent; hb 08:30 BP 109 / 68; Pulse 89; Resp 18; Pulse Ox 94% on 40% FiO2 ETT vent; hb 09:00 BP 103 / 52; Pulse 86; Resp 18; Temp 102(C); Pulse Ox 94% on 40% FiO2 ETT vent; hb 09:15 BP 94 / 60; Pulse 87; hb 09:30 BP 72 / 22; Pulse 80; hb 09:45 BP 74 / 58; Pulse 95; hb 10:00 BP 95 / 47; Pulse 90; Resp 18; Temp 102(C); Pulse Ox 96% on 40% FiO2 ETT vent; hb 10:15 BP 132 / 64; Pulse 93; hb 10:30 BP 109 / 59; Pulse 86; hb 10:45 BP 108 / 58; Pulse 89; hb 11:00 BP 82 / 49; Pulse 94; Resp 18; Temp 102.2(C); Pulse Ox 100% on 40% FiO2 ETT vent; hb 11:15 BP 92 / 56; Pulse 89; hb 11:30 BP 106 / 66; Pulse 89; hb 11:45 BP 112 / 68; Pulse 94; hb 12:00 BP 128 / 72; Pulse 90; Resp 18; Temp 102.2(C); Pulse Ox 96% on 40% FiO2 ETT vent; hb 12:15 BP 96 / 76; Pulse 94; hb 12:30 BP 102 / 67; Pulse 91; hb 05:42 Body Mass Index 40.92 (115.00 kg, 167.64 cm) sg Procedures: 06:40 Central Line: the site was prepped with Betadine, in sterile fashion, a triple lumen jr8 catheter was inserted, in the right femoral vein, in 1 attempts. placement was verified, by blood return, the site was dressed with 4X4s, Tegaderm, using sterile technique, the patient tolerated the procedure, well. 06:44 Intubation: Ventilated with 100% NRB prior to procedure. O2 saturation prior to tw4 procedure was 94 %. Intubated orally using # 4 Alcides blade with 7.5 mm ETT. was successful on first attempt. Ventilated with ventilator. Tube secured with ETT oneill Placement verified by CXR, Patient tolerated. MDM: 06:38 Patient medically screened. jr8 06:43 ED course: Restricting fluids as this is an active pulmonary edema patient with jr8 possible COVID-19. Antibiotics still given after stabilization of patient with central line and intubation . 07:51 ED course: After reviewing CXR. Determined most likely infectious in origin. No jr8 overload pattern noted. Will give the 30ml/kg fluid bolus to patient . 08:21 Data reviewed: vital signs, nurses notes, lab test result(s), EKG, radiologic studies, jr8 CT scan, plain films. Data interpreted: Pulse oximetry: on 100 % NRB is 88 %. Interpretation: hypoxia. Counseling: I had a detailed discussion with the patient and/or guardian regarding: the historical points, exam findings, and any diagnostic results supporting the discharge/admit diagnosis, lab results, radiology results, the need for further work-up and treatment in the hospital. Physician consultation: A Mitali WRIGHT was called at 08:21, was contacted at 08:21, regarding admission, to the ICU, consult, patient's condition, and will see patient in ED, in the emergency department to see patient at 08:21. 11/04 05:37 Order name: Basic Metabolic Panel; Complete Time: 09:09 tw4 11/04 05:37 Order name: CBC with Diff; Complete Time: 08:51 tw4 11/04 05:37 Order name: LFT's; Complete Time: 09:09 tw4 11/04 05:37 Order name: Magnesium; Complete Time: 09:09 4 11/04 05:37 Order name: NT PRO-BNP; Complete Time: 09:09 tw4 11/04 05:37 Order name: PT-INR; Complete Time: 08:51 tw4 11/04 05:37 Order name: Troponin (emerg Dept Use Only); Complete Time: 09:09 tw4 11/04 05:43 Order name: ABG; Complete Time: 07:51 4 11/04 05:49 Order name: COVID-19; Complete Time: 10:37 tw4 11/04 05:49 Order name: Flu; Complete Time: 07:33 4 11/04 05:49 Order name: Strep; Complete Time: 07:33 4 11/04 05:50 Order name: Lactate; Complete Time: 07:33 tw4 11/04 05:50 Order name: Blood Culture Adult (2) 11/04 06:39 Order name: Procalcitonin; Complete Time: 09:45 8 11/04 05:37 Order name: XRAY Chest (1 view); Complete Time: 07:33 tw4 11/04 05:43 Order name: CT Head Brain wo Cont tw4 11/04 06:39 Order name: CRP; Complete Time: 09:09 8 11/04 06:39 Order name: ESR; Complete Time: 09:09 8 11/04 07:22 Order name: Throat Culture EDMS 11/04 09:17 Order name: ABG Arterial Blood Gas EDMS 11/04 09:17 Order name: ABG Arterial Blood Gas EDMS 11/04 09:17 Order name: Chest Single View EDMS 11/04 09:25 Order name: Basic Metabolic Panel EDMS 11/04 09:25 Order name: Basic Metabolic Panel EDMS 11/04 09:25 Order name: CBC with Automated Diff EDMS 11/04 09:25 Order name: CBC with Automated Diff EDMS 11/04 09:25 Order name: Lipid Profile EDMS 11/04 09:25 Order name: Lipid Profile EDMS 11/04 09:25 Order name: Sputum Culture EDHI 11/04 09:25 Order name: Sputum Gram Stain EDHI 11/04 05:37 Order name: EKG; Complete Time: 05:38 tw4 11/04 05:37 Order name: Cardiac monitoring; Complete Time: 07:18 tw4 11/04 05:37 Order name: EKG - Nurse/Tech; Complete Time: 07:18 tw4 11/04 05:37 Order name: IV Saline Lock; Complete Time: 07:18 tw4 11/04 05:37 Order name: Labs collected and sent; Complete Time: 07:18 tw4 11/04 05:37 Order name: O2 Per Protocol; Complete Time: 07:18 tw4 11/04 05:37 Order name: O2 Sat Monitoring; Complete Time: 07:18 tw4 11/04 05:49 Order name: Droplet/Contact Precautions; Complete Time: 07:18 tw4 11/04 05:49 Order name: Labs collected and sent; Complete Time: 07:18 tw4 11/04 09:17 Order name: Respiratory Therapy Consult [facility] 11/04 09:18 Order name: Chest Single View [facility] 11/04 09:24 Order name: CONS Pharmacy Consult [facility] 11/04 09:24 Order name: Respiratory Therapy Consult [facility] 11/04 09:25 Order name: NPO [facility] 11/04 09:28 Order name: CONS Physician Consult [facility] 11/04 13:10 Order name: CT; Complete Time: 13:16 EDMS EC:18 Rate is 107 beats/min. Rhythm is regular, Sinus tachycardia. Right axis deviation jr8 noted. PA interval is normal at 154 msec. QRS interval is normal at 82 msec. QT interval is normal at 314 msec. No Q waves. T waves are Inverted in lead V1. No ST changes noted. Clinical impression: Sinus tachycardia and No evidence of ischemia. Interpreted by me. Reviewed by me. Administered Medications: 06:06 Drug: Succinylcholine 100 mg Route: IVP; Site: left wrist; jd3 06:06 Drug: Etomidate 20 mg Route: IVP; Site: left wrist; jd3 06:06 Drug: NS 0.9% 1000 ml Route: IV; Rate: 1 bolus; Site: left wrist; jd3 07:05 Follow up: Response: No adverse reaction; IV Status: Completed infusion; IV Intake: hb 1000ml 06:10 Drug: Propofol 5 mcg/kg/min Route: IV; Rate: calculated rate; Site: left wrist; jd3 12:40 Follow up: Response: No adverse reaction; IV Status: Infusion continued upon admission hb 06:30 Drug: VecuroNIUM 10 mg Route: IVP; Site: left wrist; jd3 10:23 Follow up: Response: No adverse reaction ph 06:45 Drug: Tylenol Suppository 650 mg Route: PA; jd3 10:23 Follow up: Response: No adverse reaction; Temperature is unchanged ph 08:00 Drug: Cefepime 1 grams Route: IVPB; Rate: 200 ml/hr; Infused Over: 30 mins; Site: Other;jd3 08:35 Follow up: Response: No adverse reaction; IV Status: Completed infusion ph 08:00 Drug: NS 0.9% 2000 ml Route: IV; Rate: 1000 ml; Site: Other; jd3 10:15 Follow up: Response: No adverse reaction; IV Status: Completed infusion; IV Intake: hb 2000ml 08:22 Drug: vancoMYCIN 1 grams Route: IVPB; Infused Over: 2 hrs; Site: left upper arm; hb 10:00 Follow up: Response: No adverse reaction; IV Status: Completed infusion; IV Intake: hb 200ml 09:36 Drug: Levophed (4 mg/250 mL D5W 4 mcg/min Route: IV; Rate: calculated rate; Site: Other;hb 12:40 Follow up: Response: No adverse reaction; IV Status: Infusion continued upon admission; hb IV Intake: 200ml Disposition: 17:13 Co-signature as Attending Physician, Felix Cardozo MD I agree with the assessment and 4 plan of care. 11/05 07:48 Critical Care:. jrDalila Disposition: 11/05/19 06:38 Hospitalization ordered by Jass Jasmine for Inpatient Admission. Preliminary diagnosis are Respiratory failure, unspecified with hypoxia, Severe sepsis, Pneumonia due to other specified bacteria. - Bed requested for Intensive Care Unit. - Status is Inpatient Admission. hb - Condition is Critical. - Problem is new. - Symptoms are unchanged. Critical care time excluding procedures: 07:48 Critical care time: Bedside Care: 30 minutes, Consultation: 10 minutes, Family jr8 Intervention: 5 minutes. Total time: 45 minutes Signatures: Dispatcher [employer] Robby Cornejo RN RN sg Wisam Moctezuma PA PA jr8 Shannan Garcia RN RN tl1 Estefania Sigala RN RN Emmanuel Hernandez RN RN jd3 Felix Cardozo MD MD tw4 Sammie Dia RN ph Corrections: (The following items were deleted from the chart) 11/04 06:56 06:38 Hospitalization Ordered by Jass Jasmine MD for Inpatient Admission. Preliminary jr8 diagnosis is Respiratory failure, unspecified with hypoxia. Bed requested for Intensive Care Unit. Status is Inpatient Admission. Condition is Critical. Problem is new. Symptoms are unchanged. tw4 11:33 06:56 11/05/2019 06:38 Hospitalization Ordered by Jass Jasmine MD for Inpatient tl1 Admission. Preliminary diagnosis is Respiratory failure, unspecified with hypoxia; Severe sepsis; Pneumonia due to other specified bacteria. Bed requested for Intensive Care Unit. Status is Inpatient Admission. Condition is Critical. Problem is new. Symptoms are unchanged. jr8 13:39 11:33 11/05/2019 06:38 Hospitalization Ordered by Jass Jasmine MD for Inpatient hb Admission. Preliminary diagnosis is Respiratory failure, unspecified with hypoxia; Severe sepsis; Pneumonia due to other specified bacteria. Bed requested for Intensive Care Unit. Status is Inpatient Admission. Condition is Critical. Problem is new. Symptoms are unchanged. tl1
--- NOTE | 2019-11-05 06:38 | ER ---
Nurse's Notes [facility] Name: Radha Valencia Age: 69 yrs Sex: Female : 1950 Arrival Date: 11/05/2019 Time: 05:36 Bed 2 Private MD: Diagnosis: Respiratory failure, unspecified with hypoxia;Severe sepsis;Pneumonia due to other specified bacteria Presentation: 11/04 05:42 Chief complaint: EMS states: [facility] report that the pt was found by family to sg have irregular respirations with "grunting noises" being made, called for help as patient was not very responsive. Coronavirus screen: Surgical mask placed on patient. Patient moved to private room, placed in contact and droplet isolation with eye protection until further assessment. Patient reports shortness of breath or difficulty breathing. Patient reports a measured and/or subjective temperature greater than 100.4F. Ebola Screen: Patient negative for fever greater than or equal to 101.5 degrees Fahrenheit, and additional compatible Ebola Virus Disease symptoms Patient denies exposure to infectious person. Patient denies travel to an Ebola-affected area in the 21 days before illness onset. No symptoms or risks identified at this time. Initial Sepsis Screen: Does the patient meet any 2 criteria? RR > 20 per min. HR > 90 bpm. Does the patient have a suspected source of infection? Yes: Productive cough/pneumonia. Risk Assessment: Do you want to hurt yourself or someone else? Unable to obtain. Onset of symptoms was November 05, 2019. Care prior to arrival: Medication(s) given: Albuterol Neb x 3, Atrovent Neb x 1, Oxygen administered. via a nebulizer mask. Transition of care: patient was not received from another setting of care. 05:42 Method Of Arrival: EMS: [facility] sg 06:17 Acuity: JAKOB 1 sg Historical: - Allergies: 06:35 No Known Allergies; sg - PMHx: 06:35 CHF; COPD; Diabetes - NIDDM; Hypertension; sg - PSHx: 06:35 None; sg - Immunization history:: Adult Immunizations unknown. - Social history:: Smoking status: unknown. Screenin:50 Abuse screen: Denies threats or abuse. Denies injuries from another. Nutritional sg screening: No deficits noted. Tuberculosis screening: No symptoms or risk factors identified. Never had TB. Fall Risk None identified. Assessment: 05:50 Reassessment: pt appears distressed, is unresponsive to verbal or tactile stimuli, sg at bedside with FACULTY MEMBER, pt to be intubated due to respiratory status and sudden decline in mentation. 05:50 General: Appears distressed, uncomfortable, Behavior is anxious, restless. Pain: Unable jd3 to use pain scale. Patient is disoriented. FLACC scale score is 6 out of 10. Neuro: Level of Consciousness is awake, confused, Oriented to person. Cardiovascular: Heart tones present Capillary refill < 3 seconds Rhythm is sinus tachycardia. Respiratory: Airway is patent Respiratory effort is labored, gasping, shallow, Respiratory pattern is symmetrical, hyperventilation tachypnea Breath sounds are coarse bilaterally. Breath sounds with crackles bilaterally. GI: Abdomen is round non-distended, Bowel sounds present X 4 quads. Abd is soft and non tender X 4 quads. : No signs and/or symptoms were reported regarding the genitourinary system. 05:50 EENT: No signs and/or symptoms were reported regarding the EENT system. Derm: Skin is jd3 intact, Skin is diaphoretic, Skin is normal, Skin temperature is warm. Musculoskeletal: No signs and/or symptoms reported regarding the musculoskeletal system. 06:50 Reassessment: Patient and/or family updated on plan of care and expected duration. Pain jd3 level reassessed. pt appears more relaxed, vent in place. central line in place with meds infusing per order. Neuro: Level of Consciousness is intubated. Oriented to none. Respiratory: Airway via oral intubation Breath sounds are coarse bilaterally. Breath sounds with crackles bilaterally. 06:50 Cardiovascular: Heart tones present Capillary refill < 3 seconds Rhythm is sinus jd3 tachycardia. 07:15 Reassessment: BOTTOM BLEACHER Cong at bedside for CVC placement. Pt is intubated and sedated. hb 07:55 Respiratory: Ventilator assessment: ET Tube: 7.5 23 cm at gum line. Ventilator Mode: hb Assist Control (AC) Tidal Volume: 550 Respiratory Rate: 18 FiO2: 40% PEEP: 7 HOB > 30 degrees. Suction provided. 08:45 Reassessment: Pt remains intubated and sedated. Admission ordered, awaiting room hb assignment at this time. COVID Droplet Protocol in place. 09:35 Reassessment: ABP 70s, PA Wisam notified, Levophed infusion started. Propofol continues hb to be titrated per protocol. Peak Pressure 50s, Elle RT and PA Wisam aware. No new orders at this time. Awaiting room assignment at this time. 09:52 Reassessment: PEEP reduced from 7 to 5 per Elle RT, peak pressure remains in the 50s, hb Elle and PA Wisam aware. 10:30 Reassessment:. Respiratory: Ventilator assessment: Ventilator Mode: Assist Control (AC) hb Tidal Volume: 550 Respiratory Rate: 18 FiO2: 40% PEEP: 5 HOB > 30 degrees. 11:30 Reassessment: No changes from previously documented assessment. Patient and/or family hb updated on plan of care and expected duration. Pain level reassessed. 12:30 Reassessment: Pt remains intubated and sedated, both titrated per protocol. COVID hb precautions in place. Vital Signs: 05:42 Pulse 108 MON; Resp 36 S; Temp 102.1; Pulse Ox 87% on 100% Non-rebreather mask; Weight sg 115 kg; Height 5 ft. 6 in. (167.64 cm); 05:45 BP 142 / 77; Pulse 113; Pulse Ox 98% ; ea 06:08 BP 125 / 65; Pulse 109; Resp 16 A; Pulse Ox 99% on ETT vent; ea 06:45 BP 105 / 56; Pulse 105; Resp 16; Pulse Ox 100% on ETT vent; ea 07:00 BP 109 / 73; Pulse 114; Resp 18; Pulse Ox 100% on ETT vent; ea 07:30 BP 95 / 60; Pulse 99; Resp 18; Temp 102.1(C); Pulse Ox 95% on 40% FiO2 ETT vent; hb 08:00 BP 108 / 57; Pulse 96; Resp 18; Pulse Ox 97% on 40% FiO2 ETT vent; hb 08:30 BP 109 / 68; Pulse 89; Resp 18; Pulse Ox 94% on 40% FiO2 ETT vent; hb 09:00 BP 103 / 52; Pulse 86; Resp 18; Temp 102(C); Pulse Ox 94% on 40% FiO2 ETT vent; hb 09:15 BP 94 / 60; Pulse 87; hb 09:30 BP 72 / 22; Pulse 80; hb 09:45 BP 74 / 58; Pulse 95; hb 10:00 BP 95 / 47; Pulse 90; Resp 18; Temp 102(C); Pulse Ox 96% on 40% FiO2 ETT vent; hb 10:15 BP 132 / 64; Pulse 93; hb 10:30 BP 109 / 59; Pulse 86; hb 10:45 BP 108 / 58; Pulse 89; hb 11:00 BP 82 / 49; Pulse 94; Resp 18; Temp 102.2(C); Pulse Ox 100% on 40% FiO2 ETT vent; hb 11:15 BP 92 / 56; Pulse 89; hb 11:30 BP 106 / 66; Pulse 89; hb 11:45 BP 112 / 68; Pulse 94; hb 12:00 BP 128 / 72; Pulse 90; Resp 18; Temp 102.2(C); Pulse Ox 96% on 40% FiO2 ETT vent; hb 12:15 BP 96 / 76; Pulse 94; hb 12:30 BP 102 / 67; Pulse 91; hb 05:42 Body Mass Index 40.92 (115.00 kg, 167.64 cm) sg ED Course: 05:36 Patient arrived in ED. ds1 05:36 Felix Cardozo MD is Attending Physician. tw4 05:50 Patient has correct armband on for positive identification. Placed in gown. Bed in low ea position. Call light in reach. Side rails up X2. automotive maintenance technician on. Pulse ox on. NIBP on. 06:00 Initial lab(s) drawn, by me. First set of blood cultures drawn by me. Missed sg attempt(s): 20 gauge in right antecubital area. Bleeding controlled, band aid applied, catheter tip intact. 06:06 Assisted provider with intubation using 7.5 mm ETT via oral route. ET tube secured at jd3 21cm at the lips. Set up intubation tray. Intubated by Felix Cardozo MD Placement verified by CO2 detector w/ + color change, auscultating bilateral breath sounds, CXR, Patient tolerated well. 06:10 Missed attempt(s): 22 gauge in left antecubital area. Bleeding controlled, band aid sg applied, catheter tip intact. 06:12 Inserted saline lock: 22 gauge in left wrist, using aseptic technique. Blood collected. sg 06:17 Triage completed. sg 06:30 Assisted provider with central line placement. Set up central line tray. Triple lumen jd3 line placed in right femoral. Line placed by Wisam SANDS Placement verified by blood return, Dressed with Tape, Tegaderm, Blood was collected. Patient tolerated well. Was handwashing/sanitizing done immediately prior to procedure? Yes. Was patient positioned to in a way to prevent air embolism? Yes. Was procedure site sterilized? Yes, with Was the site allowed to dry? Yes. Was local anesthetic and/or sedation utilized? Yes. During the procedure, did the Practitioner(s) maintain a sterile field? Yes. Were unused ports clamped during insertion? Yes. Was blood aspirated from each lumen? Yes. After the procedure, did the Practitioner(s) clean the site and apply a sterile dressing? Yes. 06:35 Arm band placed on. sg 06:37 Jass Jasmine MD is Hospitalizing Provider. tw4 06:38 Wisam Moctezuma PA [facility]. jr8 06:50 Salas cath inserted, using sterile technique, 16 Fr., by ri, balloon inflated, to jd3 gravity drainage. 06:55 XRAY Chest (1 view) In Process Unspecified. EDMS 06:58 Patient admitted, IV remains in place. ea 07:00 NGT: inserted 14 Fr. via left nare. verified placement of air over stomach, verified jd3 return of gastric contents, to intermittent suction. Returned gastric contents. Patient tolerated well. 07:20 Report given to ANG LUNDBERG. jd3 11:43 Estefania Sigala, TOÑO is Primary Nurse. hb Administered Medications: 06:06 Drug: Succinylcholine 100 mg Route: IVP; Site: left wrist; jd3 06:06 Drug: Etomidate 20 mg Route: IVP; Site: left wrist; jd3 06:06 Drug: NS 0.9% 1000 ml Route: IV; Rate: 1 bolus; Site: left wrist; jd3 07:05 Follow up: Response: No adverse reaction; IV Status: Completed infusion; IV Intake: hb 1000ml 06:10 Drug: Propofol 5 mcg/kg/min Route: IV; Rate: calculated rate; Site: left wrist; jd3 12:40 Follow up: Response: No adverse reaction; IV Status: Infusion continued upon admission hb 06:30 Drug: VecuroNIUM 10 mg Route: IVP; Site: left wrist; jd3 10:23 Follow up: Response: No adverse reaction ph 06:45 Drug: Tylenol Suppository 650 mg Route: MD; jd3 10:23 Follow up: Response: No adverse reaction; Temperature is unchanged ph 08:00 Drug: Cefepime 1 grams Route: IVPB; Rate: 200 ml/hr; Infused Over: 30 mins; Site: Other;jd3 08:35 Follow up: Response: No adverse reaction; IV Status: Completed infusion ph 08:00 Drug: NS 0.9% 2000 ml Route: IV; Rate: 1000 ml; Site: Other; jd3 10:15 Follow up: Response: No adverse reaction; IV Status: Completed infusion; IV Intake: hb 2000ml 08:22 Drug: vancoMYCIN 1 grams Route: IVPB; Infused Over: 2 hrs; Site: left upper arm; hb 10:00 Follow up: Response: No adverse reaction; IV Status: Completed infusion; IV Intake: hb 200ml 09:36 Drug: Levophed (4 mg/250 mL D5W 4 mcg/min Route: IV; Rate: calculated rate; Site: Other;hb 12:40 Follow up: Response: No adverse reaction; IV Status: Infusion continued upon admission; hb IV Intake: 200ml Intake: 07:05 IV: 1000ml; Total: 1000ml. hb 10:00 IV: 200ml; Total: 1200ml. hb 10:15 IV: 2000ml; Total: 3200ml. hb 12:40 IV: 200ml; Total: 3400ml. hb Outcome: 06:38 Decision to Hospitalize by Provider. tw4 13:38 Admitted to ICU accompanied by nurse, accompanied by tech, via stretcher, room ICU 7. hb 13:38 critical 13:39 Patient left the ED. hb 13:39 Instructed on hb Signatures: Dispatcher [employer] EDMS Robby Mccoy RN Priti Hinojosa ds1 Wisam Moctezuma PA PA jr8 Sammie Dia RN RN ph Baxter, Heather, RN RN El Quijano Elena, RN RN ea Davies, Jonathon, RN RN jd3 Wadley, Terrence, MD MD tw4 Corrections: (The following items were deleted from the chart) 07:34 07:20 Report given to Sherrell wills jd3 07:38 07:29 Salas cath inserted, using sterile technique, 16 Fr., by me, balloon inflated, to jd3 gravity drainage, oe 09:09 08:45 Reassessment: Pt intubated and sedated. Admission ordered, awaiting room hb assignment at this time. COVID Droplet Protocol in place, hb 11:41 07:30 BP 95 / 60; Pulse 99bpm; Resp 12bpm; Pulse Ox 95% FiO2 40% vent; Temp 102.1F hb Catheter; hb 11:41 08:00 BP 108 / 57; Pulse 96bpm; Resp 17bpm; Pulse Ox 97% FiO2 40% vent; hb hb 11:41 08:30 BP 109 / 68; Pulse 89bpm; Resp 17bpm; Pulse Ox 94% FiO2 40% vent; hb hb 11:41 09:00 BP 103 / 52; Pulse 86bpm; Resp 17bpm; Pulse Ox 94% FiO2 40% vent; Temp 102F hb Catheter; hb 11:41 10:00 BP 95 / 47; Pulse 90bpm; Resp 16bpm; Pulse Ox 96% FiO2 40% vent; Temp 102F hb Catheter; hb 11:41 11:00 BP 82 / 49; Pulse 94bpm; Resp 13bpm; Pulse Ox 100% FiO2 40% vent; Temp 102.2F hb Catheter; hb
[2019-11-05] MEDS ORDERED: NA CHLORIDE 0.9% 1,000 ML ONE ×2 (06:46→07:41)
[2019-11-05] MEDS ORDERED: ACETAMINOPHEN 650MG/RECT SUPP PR ONE (06:47)
[2019-11-05 07:10] LABS: Arterial Blood Carboxyhemoglob 1.1 % (0-1.5); Blood Gas Oxyhemoglobin 96.4 % (94-97); Blood O2 Saturation 98.8 % (92-98.5)
--- NOTE | 2019-11-05 07:20 | RAD REPORT ---
EXAM DESCRIPTION: RAD - Chest Single View - 11/05/2019 6:55 am CLINICAL HISTORY: Cough;SOB COMPARISON: Two view chest May 2019 TECHNIQUE: AP portable chest image was obtained 11/05/2019 6:55 am . FINDINGS: Fullness of the right hilum matches prior imaging. Extensive airspace opacification is pre sent in the right lung base partially obscuring the right hemidiaphragm. Patchy opacification in the medial left base as well. Endotracheal tube is in place. Tip is T5 level above the aortic arch. Heart and vasculature are matty l. No pneumothorax or large pleural effusion. No acute bony abnormality seen. No acute aortic finding s suspected. IMPRESSION: Moderately large aspiration or infectious pneumonia right lower lobe. Patchy airspace opacification medial left base also concerning for pneumonia.
[2019-11-05] MEDS ORDERED: NA CHLORIDE 0.9% 2,000 ML ONE (07:59)
[2019-11-05] MEDS ORDERED: VANCOMYCIN/NS 1 gm 1 GM/250 ML BAG IV ONE (08:00)
[2019-11-05 08:40] LABS: Absolute Lymphocytes (CBC) 1.6 K/uL (0.7-4.9); Basophils % 0.5 % (0-1.3); Hematocrit 31.5 % (36.0-45.0); Lymphocytes % 12.3 % (15.3-44.8); MPV 7.7 fL (7.6-11.3); RBC Red Blood Cell Count 3.36 M/uL (3.86-4.86)
[2019-11-05 08:44] LABS: Protime INR 1.01
[2019-11-05 09:01] LABS: Albumin 2.4 g/dL (3.4-5.0); Bilirubin Direct 0.1 mg/dL (0-0.2); Bilirubin Total 0.3 mg/dL (0.2-1.0); Potassium 4.4 mmol/L (3.5-5.1); Troponin (Emerg Dept Use Only) 0.09 ng/mL (0.0-0.045)
[2019-11-05] MEDS ORDERED: NOREPINEPHRINE 4mg/D5W 250mL 4 MG/250 ML BAG IV ONE (09:49)
[2019-11-05] MEDS ORDERED: Meropenem 1,000 MG in NA CHLORIDE 0.9% 100 ML IV SCH (10:00)
[2019-11-05] MEDS ORDERED: VANCOMYCIN/NS 1 gm 1 GM/250 ML BAG IVPB ONE (13:00)
[2019-11-05] MEDS: propofoL 1,000 MG/100 ML VIAL IV PRN ×2 (13:07→18:08)
[2019-11-05] MEDS: FAMOTIDINE 20 MG/2 ML VIAL IV SCH ×2 (13:07→21:50)
[2019-11-05] MEDS: ENOXAPARIN 40 MG/0.4 ML SQ SCH (13:08)
--- NOTE | 2019-11-05 13:08 | RAD REPORT ---
EXAM DESCRIPTION: CT - Head Brain Wo Cont - 11/05/2019 12:56 pm CLINICAL HISTORY: DECLINING STATE Headache, drowsiness COMPARISON: Head Brain Wo Cont dated 04/09/2017; Head Brain Wo Cont dated 01/13/2017 TECHNIQUE: All CT scans are performed using dose optimization technique as appropriate and may inclu de automated exposure control or mA/KV adjustment according to patient size. FINDINGS: No intracranial hemorrhage, hydrocephalus or extra-axial fluid collection.Moderate patchy areas of diminished density in the periventricular deep white matter likely represent chronic microva scular ischemia.No areas of brain edema or evidence of midline shift. The paranasal sinuses and mastoids are clear. The calvarium is intact. IMPRESSION: No acute intracranial abnormality.
[2019-11-05] MEDS: LORazepam 2 MG/ML VIAL IV PRN ×2 (13:15→15:49)
[2019-11-05] MEDS: FENTANYL CITR 100 MCG/2 ML IV PRN ×3 (13:23→21:51)
[2019-11-05] MEDS: ALBUTEROL 2.5 MG/3 ML NEB SOL NEB SCH ×2 (13:59→20:00)
[2019-11-05] MEDS: IPRATROPIUM BROM 0.5MG/2.5ML NEB SCH ×2 (13:59→20:00)
[2019-11-05] MEDS: NA CHLORIDE 0.9% 250 ML IV PRN ×3 (14:25→16:31)
[2019-11-05] MEDS: NOREPINEPHRINE 8 MG in D5W 250 ML IV PRN (14:38)
[2019-11-05] MEDS ORDERED: ACETAMINOPHEN 650MG/RECT SUPP PR PRN (14:57)
[2019-11-05] MEDS: ONDANSETRON 4 MG/2 ML VIAL IV PRN (15:49)
[2019-11-05] MEDS: ACETAMINOPHEN 325 MG TABLET PO PRN (15:55)
[2019-11-05] MEDS ORDERED: SUCCINYLCHOLINE 20 MG/ML (10 ML) IV ONE (16:00)
[2019-11-05] MEDS ORDERED: ETOMIDATE 20 MG/10 ML VIAL IV ONE (16:00)
--- NOTE | 2019-11-05 16:09 | P.CNS ---
Date of Consult: 11/05/19 Reason for Consult: Respiratory failure pneumonia Chief Complaint: Shortness of breath History of Present Illness: Patient is 69 years of age well known to me admitted with altered mental status shortness of breath admitted to the hospital [place] was intubated diagnosis right lower lobe pneumonia currently she is stable on a ventilator and acquiring vasopressor Allergies No Known Drug Allergies Allergy (Verified 09/20/16 15:32) Unknown No Known Allergies Allergy (Uncoded 04/05/17 21:12) Unknown Home Medications: Simvastatin 20 mg PO BEDTIME 10/09/14 Adcirca 20 mg PO DAILY 01/10/17 Ambrisentan [Letairis] 10 mg PO DAILY 01/10/17 Aspirin [Aspirin EC 81 MG] 81 mg PO DAILY 01/10/17 Calcium Carbonate/Vitamin D3 [Caltrate 600 Plus D3 Tablet] 1 each PO DAILY 01/10/17 Cinnamon Bark [Cinnamon] 1,000 mg PO DAILY 01/10/17 Diclofenac/Capsicum [Dermacinrx Lexitral Pharmapak] 387 ml TP QID 01/10/17 Ferrous Sulfate [Iron] 325 mg PO DAILY 01/10/17 Furosemide [Lasix] 20 mg PO BID 01/10/17 Gabapentin [Neurontin] 800 mg PO TID 01/10/17 Ipratropium/Albuterol Sulfate [Combivent Respimat 20-100 Mcg] 4 gm IH QID PRN 01/10/17 Nabumetone [Relafen] 500 mg PO BID 01/10/17 Pantoprazole [Protonix Tab*] 40 mg PO DAILY 01/10/17 Tiotropium [place] [Spiriva] 1 puff IH BID 01/10/17 Tramadol HCl [Ultram] 50 mg PO BID 01/10/17 Cyclobenzaprine [Flexeril*] 10 mg PO BEDTIME 01/11/17 Spironolactone [Aldactone*] 25 mg PO BID #60 tab 01/17/17 levoFLOXacin [Levaquin*] 500 mg PO DAILY #7 tab 01/17/17 predniSONE [Deltasone*] 10 mg PO SEECOM #16 tab 01/17/17 - Past Medical/Surgical History Diabetic: Yes -: dm -: htn -: hypercholesterol -: diverticulitis -: Mo dCOPD -: high cholesterol -: CHF -: Severe Pulmonary HTN -: sleep apnea -: GErd -: tubal ligation - Family History Father Medical History: Heart disease, Hypertension, Diabetes Sister Medical History: Hypertension, Kidney disease - Social History Smoking Status: Former smoker Alcohol use: No CD- Drugs: No Caffeine use: Yes Physical Examination Temp Pulse Resp BP Pulse Ox 100.9 F 86 18 88/52 L 98 11/05/19 15:55 11/05/19 15:00 11/05/19 15:00 11/05/19 15:00 11/05/19 15:00 General: Unresponsive Respiratory: Crackles/rales (Crackles on the right side) Cardiovascular: Normal S1 S2, Edema Gastrointestinal: Normal bowel sounds, Soft and benign Musculoskeletal: No clubbing, No swelling Laboratory Data (last 24 hrs) 11/05/19 08:24: PT 11.9, INR 1.01 11/05/19 08:24: WBC 12.7 H, Hgb 10.1 L, Hct 31.5 L, Plt Count 173 11/05/19 08:24: Sodium 144, Potassium 4.4, BUN 35 H, Creatinine 1.42 H, Glucose 148 H, Magnesium 2.0, Total Bilirubin 0.3, AST 64 H, ALT 47, Alkaline Phosphata se 95 - Problems (1) Respiratory failure Current Visit: Yes Status: Acute Plan: Patient is 69 years of age well known to me with a history of COPD and pulmonary hypertension was doing reasonably well. I spoke to her last week recently had a flareup and I prescribed some Levaquin and antibiotics patient seemed to have recovered relapsed again on his right lower lobe pneumonia currently in septic shock patient has chronic renal failure elevated white count at pro calcitonin hypoxic hypercarbic chest x-ray shows right lower lobe pneumonia valderrama virus negative continue with IV fluids wean off the vasopressors 1 dose of hydrocortisone thymine continue with vancomycin meropenem Qualifiers: Chronicity: acute on chronic
--- NOTE | 2019-11-05 16:18 | EKG ---
Test Date: 2019-11-05 Test Time: 06:50:20 Aircraft Designer: CASH MEASUREMENT RESULTS: Intervals: Rate: 107 AR: 154 QRSD: 82 QT: 314 QTc: 419 Clay: P: 78 AR: 154 QRS: 109 T: 46 INTERPRETIVE STATEMENTS: Sinus tachycardia Possible Right ventricular hypertrophy Abnormal ECG Compared to ECG 04/09/2017 13:41:23 Sinus rhythm no longer present Incomplete right bundle-branch block no longer present Electronically Signed On 11-05-19 16:16:33 CDT by Irwin Pinto
[2019-11-05] MEDS: THIAMINE 200 MG/2 ML INJ IVP SCH (16:30)
[2019-11-05] MEDS: HYDROCORTISONE SUC 100 MG INJ IV SCH ×2 (16:31→21:50)
[2019-11-05] MEDS ORDERED: Meropenem 1000 MG/VIAL IV SCH (17:00)
[2019-11-05] MEDS ORDERED: Ringers Lactate 1,000 ML IV SCH (17:00)
[2019-11-05] MEDS ORDERED: IBUPROFEN 400 MG TAB PO PRN (18:57)
[2019-11-05] MEDS: Meropenem 1,000 MG in NA CHLORIDE 0.9% 100 ML IV SCH (21:53)
[2019-11-05] MEDS ORDERED: NOREPINEPHRINE 4 MG/4 ML VIAL ONE ×2 (22:12→22:50)
[2019-11-05] MEDS ORDERED: D5W 250 ML IV ONE (22:13)
[2019-11-06] MEDS: ALBUTEROL 2.5 MG/3 ML NEB SOL NEB SCH ×4 (01:56→19:35)
[2019-11-06] MEDS: IPRATROPIUM BROM 0.5MG/2.5ML NEB SCH ×4 (01:56→19:35)
[2019-11-06] MEDS: propofoL 1,000 MG/100 ML VIAL IV PRN ×3 (02:04→21:49)
[2019-11-06 05:20] LABS: Absolute Lymphocytes (CBC) 0.9 K/uL (0.7-4.9); Basophils % 0.2 % (0-1.3); Lymphocytes % 6.3 % (15.3-44.8); MPV 7.8 fL (7.6-11.3); RBC Red Blood Cell Count 3.31 M/uL (3.86-4.86)
[2019-11-06 05:42] LABS: Magnesium 1.7 mg/dL (1.8-2.4); Phosphorus 2.2 mg/dL (2.5-4.9)
[2019-11-06 05:55] LABS: Arterial Blood Carboxyhemoglob 1.2 % (0-1.5); Blood Gas Oxyhemoglobin 95.9 % (94-97); Blood O2 Saturation 98.4 % (92-98.5)
[2019-11-06] MEDS ORDERED: MAGNESIUM SULFATE 1 gm IVPB 1 GM/100 ML BAG IV ONE (06:08)
[2019-11-06] MEDS: POTASS/SODIUM PHOSPHATE 1 PKT POWD.PACK PO SCH ×3 (06:35→08:51)
--- NOTE | 2019-11-06 07:26 | HP ---
Date of Admission: 11/05/2019 Chief Complaint: Shortness of breath and altered mental status. History Of Present Illness: This is a 69-year-old female patient who was doing fine in her normal usual state of health until last night. Her went to check on her when he heard some noise coming out of her bedroom as if she was calling for help and when he went there, he noted that she was confused, having shortness of breath, and subsequently she was brought to emergency room. I have talked to patient's and patient's son and they reported no fever, chills, but there was some evidence of vomiting that happened during nighttime. After she came to emergency room, she was noted to be in acute respiratory failure and she was intubated in the emergency room. When I saw her in emergency room, she was on ventilator. All the information on her was obtained by talking to emergency room provider as well as talking to patient's family member as well as review of my office records. Allergies: NO KNOWN ALLERGIES. Medications: List reviewed. Review of Systems: Respiratory: As mentioned above. GI: As mentioned above. All other systems unable to review because patient is not able to answer any questions at this point. 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 Past Surgical History: Tubal ligation. Family History: Father , had myocardial infarction. Mother , details unknown, but she had hypertension. Sister with hypertension and kidney disorder. Social History: Prior history of smoking, not at present time. Use of alcohol, very rarely uses a glass of wine. Physical Examination: Vital Signs: Temperature 102.1, pulse 108, blood pressure 142/77, respiratory rate 36, oxygen saturation 87%. Height 5 feet 6 inches, weight 253 pounds. General: Patient lying in bed, on a ventilator, unresponsive, with presence of endotracheal tube in place. HEENT: Head atraumatic, normocephalic. Conjunctivae nonerythematous. Sclerae white. Mouth, no thrush or edema noted. Ears/Nose, no mass, lesion, discharge noted. Neck: Supple. No JVD, lymph nodes, bruit, thyromegaly noted. Lungs: Bilateral good equal air entry. Clear to auscultation. No rhonchi. No rales. Heart: Normal heart sounds, no murmur or gallop. Abdomen: Soft, bowel sounds normal. No guarding, rigidity, tenderness, mass, hepatosplenomegaly, distention, or bruit noted. Extremities: No leg edema. No calf tenderness. Skin: No rash, ulcer, cellulitis. Lymphatics: No lymph node enlargement in neck, supraclavicular, infraclavicular region. Neuro: Patient unresponsive, detailed neuro exam not possible. Chest: Unremarkable. External Genitalia: Deferred. Rectal: Deferred. Laboratory Data: White count 12.7, hemoglobin 10.1, and a platelet count of 173. Sedimentation rate 31. Her arterial blood gas: pH 7.35, pCO2 was 65.1, pO2 was 159, and oxygen saturation 98.8% on 100% FiO2. Sodium 144, potassium 4.4, chloride 106, bicarb 35, BUN 35, creatinine 1.42, glucose 148. Liver function test unremarkable except AST 64. C-reactive protein 54. Procalcitonin 2.2. CAT scan of the head was negative for any acute intracranial changes. Chest x-ray shows moderately large aspiration or infectious pneumonia right lower lobe, patchy airspace opacification medial left base, also concerning for pneumonia. Impression: 1. Acute respiratory failure with hypercapnia. 2. Aspiration pneumonia. 3. Acute exacerbation of chronic obstructive pulmonary disease. 4. Pulmonary hypertension. 5. Chronic kidney disease stage 3. 6. Type 2 diabetes mellitus with diabetic neuropathy. 7. Chronic headache. 8. Hypertension. 9. Hyperlipidemia. 10. Gastroesophageal reflux disease. 11. Diverticulosis. 12. Anemia due to chronic kidney disease. 13. Osteoarthritis, multiple sites. Plan: Admit patient to hospital for further evaluation and management of this problem. Patient is appropriate for inpatient and is expected to spend 2 midnights in hospital. Patient will be admitted to ICU. DVT prophylaxis will be given per order. We will give empiric antibiotics including meropenem and vancomycin. Consult Pharmacy for vancomycin dose management. Consult Dr. Hernandez from pulmonary service, and I have contacted patient's family members who are son and and details were discussed with them. Patient's COVID- 19 test came back negative. I will see her tomorrow for followup. FEDERICO/MODL Voice ID: [id number] MTDD
[2019-11-06] MEDS: FENTANYL CITR 100 MCG/2 ML IV PRN ×4 (07:35→23:01)
--- NOTE | 2019-11-06 08:08 | RAD REPORT ---
EXAM DESCRIPTION: [place] Single View11/06/2019 6:25 am CLINICAL HISTORY: Shortness breath COMPARISON: November 04 FINDINGS: Mild improvement in the right basilar consolidation Left lung appears clear Heart is normal size Endotracheal tube with its tip well above the sudha. Nasogastric tube has been placed. The tip is no t well seen secondary to technical factors. It is not clear if it lies within the distal esophagus or stomach IMPRESSION: Mild improvement in right basilar consolidation likely pneumonia
[2019-11-06] MEDS: THIAMINE 200 MG/2 ML INJ IVP SCH (08:45)
[2019-11-06] MEDS: ENOXAPARIN 40 MG/0.4 ML SQ SCH (08:46)
[2019-11-06] MEDS: HYDROCORTISONE SUC 100 MG INJ IV SCH (08:47)
[2019-11-06] MEDS: FAMOTIDINE 20 MG/2 ML VIAL IV SCH ×2 (08:47→21:47)
[2019-11-06] MEDS: LORazepam 2 MG/ML VIAL IV PRN ×2 (08:51→16:41)
[2019-11-06] MEDS: Meropenem 1,000 MG in NA CHLORIDE 0.9% 100 ML IV SCH ×2 (08:52→21:46)
[2019-11-06] MEDS: NA CHLORIDE 0.9% 250 ML IV PRN ×2 (09:13→09:53)
[2019-11-06] MEDS ORDERED: LORazepam 2 MG/ML VIAL IV ONE (10:00)
--- NOTE | 2019-11-06 12:11 | P.PN ---
Subjective Date of Service: 11/06/19 Chief Complaint: Respiratory failure Patient's condition is stable he is off vasopressors blood pressure is slightly low still has right lower lobe consolidation failed spontaneous breathing trial Review of Systems is unable to be obtained Physical Examination - Vital Signs Temperature: 97.0 F Blood Pressure: 107/76 Pulse: 49 Respirations: 19 Pulse Ox (%): 100 - Physical Exam General: Unresponsive Respiratory: Crackles/rales (Crackles on the right side) Cardiovascular: Normal S1 S2, Edema - Studies Microbiology Data (last 24 hrs): 11/05/19 06:47 Nasopharnyx Coronavirus COVID-19 PCR - Final 11/05/19 06:56 Throat Group A Streptococcus Rapid Screen - Final 11/05/19 06:56 Nasopharnyx Influenza Type A Antigen Screen - Final 11/05/19 06:56 Nasopharnyx Influenza Type B Antigen Screen - Final Assessment & Plan - Problems (Diagnosis) (1) Respiratory failure Current Visit: Yes Status: Acute Plan: Patient admitted with respiratory failure history and right lower lobe consolidation for calcitonin level elevated he will function is slightly worse patient is now alkalotic respiratory rate has been reduced white count elevated continue with present treatment cultures still pending patient failed outpatient therapy with levofloxacin currently on meropenem and vancomycin cultures still pending patient is afebrile now Qualifiers: Chronicity: acute on chronic
[2019-11-06] MEDS: VANCOMYCIN 2 GM in NA CHLORIDE 0.9% 500 ML IVPB SCH (14:00)
[2019-11-06] MEDS: GABAPENTIN 400 MG CAP PO SCH ×2 (16:00→21:47)
[2019-11-06] MEDS: ONDANSETRON 4 MG/2 ML VIAL IV PRN (16:41)
[2019-11-06] MEDS: METHYLPREDNISOLONE 40 MG INJ IV SCH (16:41)
[2019-11-06] MEDS ORDERED: GLUCERNA 1.2 CAL 1,000 ML BOT FT SCH (22:00)
[2019-11-06] MEDS ORDERED: GLUCAGON 1 MG/VIAL IM PRN (22:22)
[2019-11-06] MEDS ORDERED: D50W 25 GM/50 ML SYRINGE/VIAL IV PRN (22:22)
--- NOTE | 2019-11-07 00:02 | PN ---
Date of Progress Note: 11/06/2019 Subjective: Patient was seen this morning for followup. No new complaints, problems reported by nursing staff. Patient remains sedated with propofol drip, on ventilator. Intake output records reviewed. Vital signs reviewed. She also remains on Levophed. Objective: HEENT: Unremarkable. Lungs: Clear to auscultation. No rhonchi, rales. Cardiac: Heart sounds normal. Abdomen: Soft, bowel sounds normal. No guarding, rigidity, tenderness, or distention. Extremities: No leg edema. Laboratory Data: White count 14.5, hemoglobin 10.1, platelets 164. Sodium 142, potassium 4, chloride 108, bicarb 29, BUN 34, creatinine 1.70, glucose 192, magnesium 1.7. Chest x-ray shows improvement in the infiltrate. Impression: 1. Acute respiratory failure with hypercapnia. 2. Acute exacerbation of chronic obstructive pulmonary disease. 3. Pneumonia, aspiration. 4. Chronic kidney disease, stage 3. 5. Pulmonary hypertension. 6. Anemia. Plan: We will go ahead and continue to follow up with Dr. Hernandez, continue oxygen and ventilator support. DVT prophylaxis. Nurse was advised to go ahead and start the patient on NG tube feeding using Glucerna at 10 cc/hour and every 6 hours increase rate by 10 cc as long as she tolerates feeding with the goal of 50 cc per hour. I will see her tomorrow for followup. We will repeat chest x- ray and blood work tomorrow. I did call patient's son this evening and updates were given to him. FEDERICO/MODL Voice ID: [id number] Report ID: [id number]
[2019-11-07] MEDS: NOREPINEPHRINE 8 MG in D5W 250 ML IV PRN (00:15)
[2019-11-07] MEDS: INSULIN -REGULAR HUMAN 50 UNIT/0.5 ML ML SQ SCH ×4 (00:44→17:42)
[2019-11-07] MEDS: METHYLPREDNISOLONE 40 MG INJ IV SCH ×3 (00:44→17:44)
[2019-11-07] MEDS: ALBUTEROL 2.5 MG/3 ML NEB SOL NEB SCH ×4 (01:30→20:00)
[2019-11-07] MEDS: IPRATROPIUM BROM 0.5MG/2.5ML NEB SCH ×4 (01:30→20:00)
[2019-11-07 06:13] LABS: Absolute Lymphocytes (CBC) 0.6 K/uL (0.7-4.9); Basophils % 0.1 % (0-1.3); Hematocrit 29.7 % (36.0-45.0); Lymphocytes % 3.3 % (15.3-44.8); MPV 8.5 fL (7.6-11.3); RBC Red Blood Cell Count 3.16 M/uL (3.86-4.86)
[2019-11-07 06:50] LABS: Magnesium 2.1 mg/dL (1.8-2.4); Potassium 4.3 mmol/L (3.5-5.1)
[2019-11-07] MEDS: FENTANYL CITR 100 MCG/2 ML IV PRN ×3 (07:53→17:25)
[2019-11-07] MEDS: ACETAMINOPHEN 325 MG TABLET PO PRN (07:53)
[2019-11-07] MEDS: propofoL 1,000 MG/100 ML VIAL IV PRN (07:53)
--- NOTE | 2019-11-07 08:47 | RAD REPORT ---
EXAM DESCRIPTION: RAD - Chest Single View - 11/07/2019 5:18 am CLINICAL HISTORY: aspiration pneumonia Chest pain. COMPARISON: Chest Single View dated 11/06/2019; Chest Single View dated 11/05/2019; Chest Pa And Lat (2 Views) dated 05/21/2019; Chest Single View dated 04/09/2017 FINDINGS: Portable technique limits examination quality. Right lower lobe lung consolidation appears fractionally improved since the comparative study. The he art is moderately enlarged in size. Tip of the ET tube is above the sudha. Enteric tube tip is poorl y visualized due to technical factors. .
[2019-11-07] MEDS: THIAMINE 200 MG/2 ML INJ IVP SCH (09:19)
[2019-11-07] MEDS: FAMOTIDINE 20 MG/2 ML VIAL IV SCH ×2 (09:20→22:17)
[2019-11-07] MEDS: Meropenem 1,000 MG in NA CHLORIDE 0.9% 100 ML IV SCH ×2 (09:20→22:17)
[2019-11-07] MEDS: GABAPENTIN 400 MG CAP PO SCH ×3 (09:20→22:17)
[2019-11-07 09:26] LABS: Blood Morphology Comment NOT SEEN (NOT SEEN); Platelet Estimate ADEQ; Urine White Blood Cell Casts OK
--- NOTE | 2019-11-07 10:35 | P.PN ---
Subjective Date of Service: 11/07/19 Chief Complaint: Respiratory failure Patient is improving low doses of vasopressors not on any sedation had some hemoptysis cultures so far negative chest x-ray has improved Review of Systems is unable to be obtained Physical Examination - Vital Signs Temperature: 100.4 F Blood Pressure: 126/54 Pulse: 65 Respirations: 14 Pulse Ox (%): 92 - Physical Exam General: Unresponsive Respiratory: Clear to auscultation bilaterally, Diminished Cardiovascular: No edema, Normal pulses, Normal S1 S2 Gastrointestinal: Normal bowel sounds, Soft and benign, Non-distended - Studies Microbiology Data (last 24 hrs): 11/05/19 06:56 Throat Culture & Sensitivity - Final Assessment & Plan - Problems (Diagnosis) (1) Respiratory failure Current Visit: Yes Status: Acute Plan: Patient admitted with respiratory failure hemoptysis right lower lobe consolidation which is improving white count is still elevated change in ventilator settings patient is alkalotic bleeding seems to have subsided prognosis is poor patient has severe pulmonary hypertension severe COPD significant debilitation and baseline pro calcitonin level elevated slight temperature Qualifiers: Chronicity: acute on chronic
--- NOTE | 2019-11-07 13:33 | PN ---
Date of Progress Note: 11/07/2019 Subjective: Patient was seen this morning for followup. No new complaints or problems reported by t katie patient's nurse this morning in ICU. She remains on ventilator. Intake and output records review ed. She is getting her NG tube feeding. Tolerating that well. Remains on propofol. Objective: Vital Signs: Reviewed. HEENT: Unremarkable. Lungs: Clear to auscultation. Heart: Sounds normal. Abdomen: Soft. Bowel sounds normal. No guarding, rigidity, tenderness, or distention. Extremities: No leg edema. Laboratory Data: White count 17.4, hemoglobin 9.7, platelets 170. Sodium 146, potassium 4.3, chlori de 110, bicarb 27, BUN 26, creatinine 1.37, glucose 252, procalcitonin pending. Impression: 1.Acute respiratory failure with hypercapnia. 2.Acute exacerbation of chronic obstructive pulmonary disease. 3.Aspiration pneumonia. 4.Anemia due to chronic kidney disease. 5.Pulmonary hypertension. Plan: We will go ahead and continue to follow with Dr. Hernandez. Patient remains on ventilator. Co ntinue current antibiotics, which are meropenem and vancomycin. Continue NG tube feeding per order. Diabetes will be managed with sliding scale insulin. FEDERICO/MODL Voice ID: [id number] Report ID: [id number]
[2019-11-07] MEDS: HEPARIN 5000 UNIT/ML 1 ML VIAL SQ SCH ×2 (13:35→22:17)
[2019-11-07] MEDS: LORazepam 2 MG/ML VIAL IV PRN ×2 (15:20→17:25)
[2019-11-07] MEDS: ONDANSETRON 4 MG/2 ML VIAL IV PRN (17:44)
[2019-11-08] MEDS: INSULIN -REGULAR HUMAN 50 UNIT/0.5 ML ML SQ SCH ×6 (01:03→21:48)
[2019-11-08] MEDS: METHYLPREDNISOLONE 40 MG INJ IV SCH ×4 (01:04→21:47)
[2019-11-08] MEDS: VANCOMYCIN 2 GM in NA CHLORIDE 0.9% 500 ML IVPB SCH (01:05)
[2019-11-08] MEDS: propofoL 1,000 MG/100 ML VIAL IV PRN (01:11)
[2019-11-08] MEDS: IPRATROPIUM BROM 0.5MG/2.5ML NEB SCH ×4 (01:39→19:50)
[2019-11-08] MEDS: ALBUTEROL 2.5 MG/3 ML NEB SOL NEB SCH ×4 (01:39→19:50)
[2019-11-08 06:42] LABS: Absolute Lymphocytes (CBC) 0.7 K/uL (0.7-4.9); Basophils % 0.1 % (0-1.3); Hematocrit 31.3 % (36.0-45.0); Lymphocytes % 4.8 % (15.3-44.8); RBC Red Blood Cell Count 3.37 M/uL (3.86-4.86)
[2019-11-08 06:56] LABS: Magnesium 2.4 mg/dL (1.8-2.4)
[2019-11-08] MEDS: GABAPENTIN 400 MG CAP PO SCH ×3 (09:00→21:47)
--- NOTE | 2019-11-08 09:23 | RAD REPORT ---
EXAM DESCRIPTION: RAD - Chest Single View - 11/08/2019 9:04 am CLINICAL HISTORY: aspiration pneumonia COMPARISON: Portable November 06 TECHNIQUE: AP portable chest image was obtained 11/08/2019 9:04 am . FINDINGS: ET tube and NG tube remain in place, unchanged in positioning. Cardiomegaly is present but improved. Vasculature has decreased in prominence. Fullness of each hilum remains. Lung parenchymal opacification not substantially different when adjusting for film technique. No pneumothorax or large pleural effusion. No acute bony abnormality seen. No acute aortic findings suspected. IMPRESSION: ET tube and NG tube remain in place in good position. Cardiomegaly has improved. Lower lung field parenchymal opacification not substantially different.
[2019-11-08] MEDS: FAMOTIDINE 20 MG/2 ML VIAL IV SCH ×2 (09:56→21:48)
[2019-11-08] MEDS: HEPARIN 5000 UNIT/ML 1 ML VIAL SQ SCH ×2 (09:56→21:47)
[2019-11-08] MEDS: THIAMINE 200 MG/2 ML INJ IVP SCH (09:56)
[2019-11-08] MEDS ORDERED: GLUCAGON 1 MG/VIAL IM PRN ×2 (10:06→11:09)
[2019-11-08] MEDS ORDERED: D50W 25 GM/50 ML SYRINGE/VIAL IV PRN ×2 (10:06→11:09)
[2019-11-08] MEDS: Meropenem 1,000 MG in NA CHLORIDE 0.9% 100 ML IV SCH ×2 (10:09→21:49)
[2019-11-08] MEDS: NACHLORIDE 0.45% 1,000 ML IV SCH (10:51)
[2019-11-08] MEDS: INSULIN GLARGINE 100 UNITS/ML SQ SCH (11:21)
[2019-11-08] MEDS ORDERED: VANCOMYCIN 250 MG in NA CHLORIDE 0.9% 100 ML IVPB ONE (12:00)
--- NOTE | 2019-11-08 13:40 | PN ---
Date of Progress Note: 11/08/2019 History Of Present Illness: Patient was seen this morning for followup. I saw her this morning. Trisha gregory was in ICU, was on ventilator, and she was in the process of getting extubated and I saw her after extubation as well. After extubation, she was lying in bed, not in any distress, answering questions appropriately. Denied any complaints except was just feeling little tired. Objective: Vital Signs: Reviewed HEENT: Unremarkable. Lungs: Clear to auscultation. CARDIOVASCULAR: Heart sounds normal. Gastrointestinal: Abdomen soft, bowel sounds normal. No guarding, rigidity, tenderness, or distenti on. Extremities: No leg edema. Laboratory Data: White count 15, hemoglobin 10.2, platelets 180. Sodium 147, potassium 5, chloride 113, bicarb 30, BUN 42, creatinine 1.35, glucose 261. Impression: 1.Acute respiratory failure, with hypercapnia. 2.Acute exacerbation of chronic obstructive pulmonary disease. 3.Aspiration pneumonia. 4.Volume depletion. 5.Anemia. 6.Diabetes mellitus. Plan: We will go ahead and start patient on clear liquid diet and advance as tolerated. Start Lantu s 15 units subcutaneous injection daily, first dose to be given this morning. Continue sliding scale insulin for diabetes control. We will give IV fluid half-normal saline at 50 cc/hour for volume dep letion problem. BUN has slightly gone up. Sodium and chloride also have slightly gone up today. We will repeat blood work tomorrow. She is tolerating heparin 5000 units subcutaneous injection every 12 hours very well. No evidence of any bleeding. FEDERICO/MODL Voice ID: [id number] Report ID: [id number]
--- NOTE | 2019-11-08 15:53 | P.PN ---
Subjective Date of Service: 11/08/19 Chief Complaint: Respiratory failure Patient is more responsive now passed a spontaneous breathing trial and was extubated no hemorrhage noticed by the staff Review of Systems is unable to be obtained Physical Examination - Vital Signs Temperature: 98.8 F Blood Pressure: 139/42 Pulse: 73 Respirations: 19 Pulse Ox (%): 8 - Physical Exam General: Alert HEENT: Atraumatic Neck: Supple Respiratory: Clear to auscultation bilaterally Cardiovascular: No edema, Regular rate/rhythm, Normal S1 S2 Capillary refill: >2 Seconds Gastrointestinal: Soft and benign Assessment & Plan - Problems (Diagnosis) (1) Respiratory failure Current Visit: Yes Status: Acute Plan: Patient admitted with respiratory failure had developed some hemoptysis now extubated hemodynamically stable oxygenation satisfactory no further bleeding noticed from the lungs white count is declining renal function stable mildly hypernatremic cultures so far negative autoimmune workup which include P and C Anca anti glomerular basement antibody is pending blood cultures negative sputum cultures pending will narrow the antibiotic therapy chest x-ray shows significant improvement CT scan of the chest ordered an echo Qualifiers: Chronicity: acute on chronic
--- NOTE | 2019-11-08 16:59 | RAD REPORT ---
EXAM DESCRIPTION: CT - Thorax Wo Con - 11/08/2019 4:40 pm CLINICAL HISTORY: hemoptysis COMPARISON: Chest For Pe Angio dated 01/14/2017; Thorax Wo Con dated 01/11/2017; Chest For Pe Angio da piter 06/09/2016 TECHNIQUE: Axial 5 mm thick images of the chest were obtained without IV contrast. All CT scans are performed using dose optimization technique as appropriate and may include automated exposure control or mA/KV adjustment according to patient size. FINDINGS: Both upper lobes are clear. Patchy alveolar opacities are present in the right middle lobe . Bilateral posterior lung base parenchymal opacification is present. A few air bronchograms are pres ent. Minimal laura pleural fluid present. No pleural thickening or pleural based mass. No pneumothorax . No abnormal mediastinal or hilar masses or lymphadenopathy seen. No gross aortic or pulmonary artery finding suspected. No endobronchial lesions identified. Assessment is limited in the absence of IV co ntrast. No chest wall mass or abnormal axillary lymphadenopathy. IMPRESSION: Bilateral posterior lung base infiltrates with some component of atelectasis. Patchy airspace infiltrates right middle lobe.
[2019-11-08] MEDS ORDERED: HOME MED 1 EA UNK (Simvastatin [Simvastatin] 20 MG) PO SCH (21:00)
[2019-11-08] MEDS: ATORVASTATIN 10 MG TAB PO SCH (21:48)
[2019-11-09] MEDS: ALBUTEROL 2.5 MG/3 ML NEB SOL NEB SCH ×4 (01:20→19:50)
[2019-11-09] MEDS: IPRATROPIUM BROM 0.5MG/2.5ML NEB SCH ×4 (01:20→19:50)
[2019-11-09 05:50] VITALS: BMI 37.2
[2019-11-09] MEDS: NACHLORIDE 0.45% 1,000 ML IV SCH (05:58)
[2019-11-09 07:26] LABS: Magnesium 2.2 mg/dL (1.8-2.4); Potassium 4.9 mmol/L (3.5-5.1)
[2019-11-09 07:32] LABS: Absolute Lymphocytes (CBC) 1.1 K/uL (0.7-4.9); Basophils % 0.1 % (0-1.3); Hematocrit 30.3 % (36.0-45.0); Lymphocytes % 8.3 % (15.3-44.8); RBC Red Blood Cell Count 3.21 M/uL (3.86-4.86)
[2019-11-09] MEDS: INSULIN GLARGINE 100 UNITS/ML SQ SCH (08:28)
[2019-11-09] MEDS: THIAMINE 200 MG/2 ML INJ IVP SCH (08:29)
[2019-11-09] MEDS: FAMOTIDINE 20 MG/2 ML VIAL IV SCH (08:29)
[2019-11-09] MEDS: GABAPENTIN 400 MG CAP PO SCH ×3 (08:29→20:57)
[2019-11-09] MEDS: METHYLPREDNISOLONE 40 MG INJ IV SCH (08:29)
[2019-11-09] MEDS: INSULIN -REGULAR HUMAN 50 UNIT/0.5 ML ML SQ SCH ×4 (08:29→20:57)
[2019-11-09] MEDS: HEPARIN 5000 UNIT/ML 1 ML VIAL SQ SCH ×2 (08:30→20:58)
[2019-11-09] MEDS: Meropenem 1,000 MG in NA CHLORIDE 0.9% 100 ML IV SCH (08:30)
[2019-11-09] MEDS ORDERED: TIOTROPIUM 5 SPRAYS/INHALER IH SCH (09:00)
[2019-11-09] MEDS ORDERED: HOME MED [TIOTROPIUM 5 SPRAYS/INHALER] IH SCH (09:00)
[2019-11-09 11:16] LABS: Blood Morphology Comment NOT SEEN (NOT SEEN); Platelet Estimate ADEQ
[2019-11-09] MEDS: FERROUS SULFATE 325 MG TAB PO SCH (12:08)
[2019-11-09] MEDS: predniSONE 20 MG TAB PO SCH ×2 (12:08→20:57)
--- NOTE | 2019-11-09 12:26 | PN ---
Date of Progress Note: 11/09/2019 Subjective: Patient was seen this morning for followup. No new complaints, problems reported by her . She was in ICU, tolerating diet very well, not getting much rest at night time. Otherwise, denies any chest pain, shortness of breath, abdominal pain, nausea, vomiting. Has a Salas catheter in plac e and right groin central line in place and central line insertion site appears normal. Objective: Vital signs: Reviewed. HEENT: Unremarkable. Lungs: Clear to auscultation. Cardiac: Heart sounds normal. Abdomen: Soft, bowel sounds normal. No guarding, rigidity, tenderness, or distention. Extremities: No leg edema. Laboratory Data: White count 13, hemoglobin 9.8, platelets 199. Sodium 147, potassium 4.9, chloride 112, bicarb 31, BUN 41, creatinine 1.15, glucose 211, magnesium 2.2. Impression: 1.Aspiration pneumonia. 2.Acute exacerbation of chronic obstructive pulmonary disease. 3.Volume depletion. 4.Anemia. 5.Generalized weakness. Plan: We will go ahead and discontinue IV steroid which is withheld prednisolone and instead of that start her on oral prednisone 20 mg twice a day. Hemodynamically, she is stable. Continue IV fluid, half-normal saline at 50 cc. Continue current antibiotics. We will leave the Salas catheter in for another day or 2 days and then will make a decision to remove it once she is able to use the bedside commode as we do not want to take any chances of infect central line access area which is in the rig ht groin. Overall, she is doing much better. We will consult Physical Therapy to help. We will see her tomorrow for followup and the patient's son was contacted and all the updates given. FEDERICO/MODL Voice ID: [id number] Report ID: [id number]
--- NOTE | 2019-11-09 16:50 | P.PN ---
Subjective Date of Service: 11/09/19 Chief Complaint: Hemoptysis Patient was extubated transfer to the floor she is very alert responsive cooperative according to the patient as she coughed up some blood on the day of admission son was unable to communicate with her any Center to the emergency room denies any fever or chills denies any hemoptysis for chest pain Review of Systems Unremarkable General: Weakness Respiratory: Shortness of Breath Physical Examination - Vital Signs Temperature: 97.4 F Blood Pressure: 137/62 Pulse: 64 Respirations: 18 Pulse Ox (%): 94 - Physical Exam General: Alert, In no apparent distress, Oriented x3 Neck: Supple Respiratory: Clear to auscultation bilaterally Cardiovascular: No edema, Regular rate/rhythm Gastrointestinal: Normal bowel sounds, Non-distended Assessment & Plan - Problems (Diagnosis) (1) Hemoptysis Current Visit: Yes Status: Acute Plan: Patient is 69 years of age admitted with acute hemoptysis CT scan shows bilateral basilar infiltrate right greater than the left cultures are all negative renal function is now normal mildly hypernatremic white count is declining mildly elevated patient's vital signs are stable this start physical therapy tomorrow Dc meropenem . Patient was on levofloxacin at home immunological studies are pending can narrow the treatment down to p.o. doxycycline and a cephalosporin
[2019-11-09] MEDS ORDERED: CEFUROXIME 250 MG TAB PO SCH (18:30)
[2019-11-09] MEDS: CEFUROXIME 250 MG TAB PO SCH (20:57)
[2019-11-09] MEDS: ATORVASTATIN 10 MG TAB PO SCH (20:57)
[2019-11-09] MEDS: DOXYCYCLINE 100 MG CAP PO SCH (20:57)
[2019-11-09] MEDS ORDERED: VANCOMYCIN 2.25 GM in NA CHLORIDE 0.9% 500 ML IVPB SCH (23:00)
[2019-11-10] MEDS: ALBUTEROL 2.5 MG/3 ML NEB SOL NEB SCH ×4 (00:20→19:45)
[2019-11-10] MEDS: IPRATROPIUM BROM 0.5MG/2.5ML NEB SCH ×4 (01:02→19:45)
[2019-11-10] MEDS: NACHLORIDE 0.45% 1,000 ML IV SCH (02:51)
[2019-11-10 04:51] LABS: Absolute Lymphocytes (CBC) 1.2 K/uL (0.7-4.9); Basophils % 0.2 % (0-1.3); Hematocrit 30.5 % (36.0-45.0); MPV 7.5 fL (7.6-11.3); RBC Red Blood Cell Count 3.28 M/uL (3.86-4.86)
[2019-11-10 04:59] LABS: Magnesium 1.9 mg/dL (1.8-2.4); Potassium 5.1 mmol/L (3.5-5.1)
[2019-11-10] MEDS ORDERED: SOD POLYSTYREN SUL 15 GM/60 ML UCUP PO ONE (07:25)
[2019-11-10] MEDS: INSULIN -REGULAR HUMAN 50 UNIT/0.5 ML ML SQ SCH ×4 (07:30→20:54)
[2019-11-10] MEDS ORDERED: IPRATROPIUM BROM 0.5MG/2.5ML ONE (08:11)
[2019-11-10] MEDS: GABAPENTIN 400 MG CAP PO SCH ×3 (09:14→20:53)
[2019-11-10] MEDS: CEFUROXIME 250 MG TAB PO SCH ×2 (09:14→20:53)
[2019-11-10] MEDS: INSULIN GLARGINE 100 UNITS/ML SQ SCH (09:14)
[2019-11-10] MEDS: predniSONE 20 MG TAB PO SCH ×2 (09:15→20:53)
[2019-11-10] MEDS: FERROUS SULFATE 325 MG TAB PO SCH (09:15)
[2019-11-10] MEDS: HEPARIN 5000 UNIT/ML 1 ML VIAL SQ SCH ×2 (09:15→20:53)
[2019-11-10] MEDS: THIAMINE 200 MG/2 ML INJ IVP SCH (09:15)
[2019-11-10] MEDS: DOXYCYCLINE 100 MG CAP PO SCH ×2 (09:15→20:53)
[2019-11-10] MEDS: ATORVASTATIN 10 MG TAB PO SCH (20:53)
[2019-11-10] MEDS: GUAIFENESIN/DM 5 ML UCUP PO PRN (20:53)
--- NOTE | 2019-11-10 23:45 | PN ---
Date of Progress Note: 11/10/2019 Subjective: Patient was seen this morning for followup. No new complaints or problems reported by any hernandez. She was lying in bed, complaining of some dry cough, and was requesting some cough medicine. No shortness of breath. No abdominal pain, nausea, vomiting. Objective: Vital Signs: Reviewed. HEENT: Unremarkable. Lungs: Clear to auscultation. Heart: Sounds normal. Abdomen: Soft. Bowel sounds normal. No guarding, rigidity, tenderness, or distention. Extremities: No leg edema. Laboratory Data: White count 13.2, hemoglobin 9.9, platelets 205. Sodium 144, potassium 5.1, chlori de 108, bicarb 33, BUN 37, creatinine 1.10, glucose 155, magnesium 1.9. Impression: 1.Aspiration pneumonia. 2.Chronic obstructive pulmonary disease. 3.Generalized weakness. 4.Volume depletion. Plan: We will go ahead and discontinue IV fluid. Cough medicine was ordered. Continue current anti biotics. Physical therapy to help ambulate the patient. Social Service consultation was requested t o assist with discharge planning and make arrangements for home health and home physical therapy. Peyman ken discharge to go home sometime later part of this week. I will see her tomorrow for followup. FEDERICO/MODL Voice ID: [id number] Report ID: [id number]
[2019-11-11] MEDS: ALBUTEROL 2.5 MG/3 ML NEB SOL NEB SCH ×4 (00:15→19:52)
[2019-11-11] MEDS: IPRATROPIUM BROM 0.5MG/2.5ML NEB SCH ×4 (00:15→19:52)
[2019-11-11 04:53] LABS: Absolute Lymphocytes (CBC) 1.1 K/uL (0.7-4.9); Basophils % 0.2 % (0-1.3); Hematocrit 29.3 % (36.0-45.0); Lymphocytes % 8.5 % (15.3-44.8); MPV 7.7 fL (7.6-11.3); RBC Red Blood Cell Count 3.17 M/uL (3.86-4.86)
[2019-11-11 05:01] LABS: Magnesium 1.7 mg/dL (1.8-2.4); Potassium 4.4 mmol/L (3.5-5.1)
[2019-11-11] MEDS ORDERED: MAGNESIUM SULFATE 1 gm IVPB 1 GM/100 ML BAG IV ONE (07:30)
[2019-11-11] MEDS: INSULIN -REGULAR HUMAN 50 UNIT/0.5 ML ML SQ SCH ×4 (07:30→21:00)
[2019-11-11] MEDS: predniSONE 20 MG TAB PO SCH ×2 (07:48→20:34)
[2019-11-11] MEDS: GABAPENTIN 400 MG CAP PO SCH ×3 (07:48→20:34)
[2019-11-11] MEDS: HEPARIN 5000 UNIT/ML 1 ML VIAL SQ SCH ×2 (07:48→20:34)
[2019-11-11] MEDS: CEFUROXIME 250 MG TAB PO SCH ×2 (07:48→20:34)
[2019-11-11] MEDS: DOXYCYCLINE 100 MG CAP PO SCH ×2 (07:48→20:34)
[2019-11-11] MEDS: THIAMINE 200 MG/2 ML INJ IVP SCH (07:48)
[2019-11-11] MEDS: FERROUS SULFATE 325 MG TAB PO SCH (07:49)
[2019-11-11] MEDS: INSULIN GLARGINE 100 UNITS/ML SQ SCH (07:49)
--- NOTE | 2019-11-11 10:19 | RAD REPORT ---
EXAM DESCRIPTION: RAD - Chest Pa And Lat (2 Views) - 11/11/2019 10:13 am CLINICAL HISTORY: pneumonia Chest pain. COMPARISON: Chest Single View dated 11/08/2019; Chest Single View dated 11/07/2019; Chest Single View da piter 11/06/2019; Chest Single View dated 11/05/2019; Thorax Wo Con dated 11/08/2019 FINDINGS: Posterior bibasilar lung infiltrates are again seen with small pleural effusions, appearin g mildly improved since 11/08/2019. The heart is mildly enlarged in size. No displaced fractures. IMPRESSION: Mild to moderate improvement in bibasilar lung infiltrates since 11/08/2019 study.
[2019-11-11] MEDS: ATORVASTATIN 10 MG TAB PO SCH (20:34)
[2019-11-11] MEDS: GUAIFENESIN/DM 5 ML UCUP PO PRN (20:35)
--- NOTE | 2019-11-11 23:10 | PN ---
Date of Progress Note: 11/11/2019 Subjective: Patient was seen this morning for followup. No new complaints or problems reported by any hernandez. Lying in bed, not in any distress. Denies any complaints. No nausea, vomiting, or cough th is morning. She started ambulating well with physical therapy. Objective: Vital Signs: Reviewed. HEENT: Unremarkable. Lungs: Clear to auscultation. Cardiac: Heart sounds normal Abdomen: Soft. Bowel sounds normal. No guarding, rigidity, tenderness, or distention. Extremities: No leg edema. Laboratory Data: White count 12.7, hemoglobin 9.7, platelets 219. Sodium 142, potassium 4.4, chlori de 105, bicarb 35, BUN 30, creatinine 1.02, glucose 173, magnesium 1.7. Impression: 1.Aspiration pneumonia. 2.Chronic obstructive pulmonary disease, acute exacerbation. 3.Anemia. 4.Hypomagnesemia. 5.Volume depletion. 6.Diabetes mellitus. Plan: We will continue current diabetes management. Remove Salas catheter, remove central line, est ablish peripheral IV access in the event if needed. Patient is on oral antibiotics. We will have ysical therapy continue to work with her and Social Service to assist with home health care arrangeme nts. I did call patient's son this evening and gave updates. Possible discharge to go home in next couple of days and that will happen either tomorrow or day after tomorrow depending on her condition. Replace magnesium per protocol. FEDERICO/MODL Voice ID: [id number] Report ID: [id number]
[2019-11-12] MEDS: IPRATROPIUM BROM 0.5MG/2.5ML NEB SCH ×4 (02:33→19:56)
[2019-11-12] MEDS: ALBUTEROL 2.5 MG/3 ML NEB SOL NEB SCH ×4 (02:33→19:56)
[2019-11-12 04:48] LABS: Magnesium 1.7 mg/dL (1.8-2.4)
[2019-11-12] MEDS ORDERED: MAGNESIUM SULFATE 1 gm IVPB 1 GM/100 ML BAG IV ONE (06:30)
[2019-11-12] MEDS: GUAIFENESIN/DM 5 ML UCUP PO PRN (07:12)
[2019-11-12] MEDS: INSULIN -REGULAR HUMAN 50 UNIT/0.5 ML ML SQ SCH ×4 (07:30→21:00)
--- NOTE | 2019-11-12 08:39 | ECHO ---
HEIGHT: 5 ft 6 in WEIGHT: 230 lb 8 oz DATE OF STUDY: 11/11/[address]: Delvin Hernandez MD 2-DIMENSIONAL: YES M.MODE: YES DOPPLER: YES COLOR FLOW: YES TDS: NO PORTABLE: NO DEFINITY: NO BUBBLE STUDY: NO DIAGNOSIS: RESPIRATORY FAILURE CARDIAC HISTORY: CATHERIZATION: NO SURGERY: NO PROSTHETIC VALVE: NO PACEMAKER: NO MEASUREMENTS (cm) DIASTOLIC (NORMALS) SYSTOLIC (NORMALS) IVSd 1.1 (0.6-1.2) LA Diam 2.8 (1.9-4.0) LVEF 73% LVIDd 4.6 (3.5-5.7) LVIDs 2.7 (2.0-3.5) %FS 42% LVPWd 1.0 (0.6-1.2) Ao Diam 3.1 (2.0-3.7) 2 DIMENSIONAL ASSESSMENT: RIGHT ATRIUM: NORMAL LEFT ATRIUM: NORMAL RIGHT VENTRICLE: NORMAL LEFT VENTRICLE: NORMAL TRICUSPID VALVE: NORMAL MITRAL VALVE: NORMAL PULMONIC VALVE: NORMAL AORTIC VALVE: NORMAL PERICARDIAL EFFUSION: NONE AORTIC ROOT: NORMAL LEFT VENTRICULAR WALL MOTION: NORMAL. DOPPLER/COLOR FLOW: MILD TRICUSPID REGURGITATION. COMMENTS: MILD TRICUSPID REGURGITATION - NORMAL RIGHT VENTRICULAR SYSTOLIC PRESSURE. NORMAL LEFT VENTRICULAR SIZE AND FUNCTION. NO WALL MOTION ABNORMALITY. NO EFFUSION. TECHNOLOGIST: JAYLYN MIRAMONTES
[2019-11-12] MEDS: DOXYCYCLINE 100 MG CAP PO SCH ×2 (09:53→21:30)
[2019-11-12] MEDS: THIAMINE 200 MG/2 ML INJ IVP SCH (09:54)
[2019-11-12] MEDS: HEPARIN 5000 UNIT/ML 1 ML VIAL SQ SCH ×2 (09:54→21:31)
[2019-11-12] MEDS: FERROUS SULFATE 325 MG TAB PO SCH (09:54)
[2019-11-12] MEDS: INSULIN GLARGINE 100 UNITS/ML SQ SCH (09:54)
[2019-11-12] MEDS: predniSONE 20 MG TAB PO SCH (09:55)
[2019-11-12] MEDS: CEFUROXIME 250 MG TAB PO SCH ×2 (09:55→21:30)
[2019-11-12] MEDS: GABAPENTIN 400 MG CAP PO SCH ×3 (09:55→21:30)
[2019-11-12] MEDS: ACETAMINOPHEN 325 MG TABLET PO PRN (19:41)
[2019-11-12] MEDS: ATORVASTATIN 10 MG TAB PO SCH (21:30)
[2019-11-13] MEDS: IPRATROPIUM BROM 0.5MG/2.5ML NEB SCH ×2 (01:00→08:40)
[2019-11-13] MEDS: ALBUTEROL 2.5 MG/3 ML NEB SOL NEB SCH ×2 (01:00→08:40)
--- NOTE | 2019-11-13 01:39 | PN ---
Date of Progress Note: 11/12/2019 Subjective: Patient was seen this morning for followup. Lying in bed, not in distress, still has so me dry cough, but overall better. No shortness of breath, abdominal pain, nausea, vomiting. She is able to get out of the bed and go to the bathroom on her own and no problem voiding. Objective: Vital Signs: Reviewed. HEENT: Unremarkable. Lungs: Clear to auscultation. Heart: Sounds normal. Abdomen: Soft. Bowel sounds normal. No guarding, rigidity, tenderness, or distention. Extremities: No leg edema. Laboratory Data: Sodium 142, potassium 5, chloride 106, bicarb 34, BUN 33, creatinine 1.13, glucose 159, magnesium 1.7. Impression: 1.Aspiration pneumonia. 2.Chronic obstructive pulmonary disease. 3.Anemia. 4.Hypomagnesemia. 5.Generalized weakness. Plan: This morning when I saw her, she was on 5 L nasal cannula oxygen and normally at home she take s anywhere between 2 to 3 L nasal cannula oxygen. We will go ahead and I did talk to respiratory the rapist and asked respiratory therapist to cut back on her oxygen down to 2-3 L/min per nasal cannula as she tolerates. Physical Therapy to continue to work with her. Possible discharge to go home tomorrow. Details were discusse d with patient. FEDERICO/MODL Voice ID: [id number] Report ID: [id number]
[2019-11-13 04:39] LABS: Absolute Lymphocytes (CBC) 2.4 K/uL (0.7-4.9); Basophils % 0.2 % (0-1.3); Hematocrit 29.6 % (36.0-45.0); Lymphocytes % 20.6 % (15.3-44.8); MPV 7.4 fL (7.6-11.3); RBC Red Blood Cell Count 3.15 M/uL (3.86-4.86)
[2019-11-13 04:52] LABS: Magnesium 1.7 mg/dL (1.8-2.4); Potassium 4.3 mmol/L (3.5-5.1)
[2019-11-13] MEDS ORDERED: MAGNESIUM SULFATE 1 gm IVPB 1 GM/100 ML BAG IV ONE (06:47)
[2019-11-13 06:51] LABS: Blood Morphology Comment NOT SEEN (NOT SEEN); Platelet Estimate ADEQ
[2019-11-13] MEDS: INSULIN -REGULAR HUMAN 50 UNIT/0.5 ML ML SQ SCH (07:30)
[2019-11-13] MEDS: THIAMINE 200 MG/2 ML INJ IVP SCH (08:22)
[2019-11-13] MEDS: HEPARIN 5000 UNIT/ML 1 ML VIAL SQ SCH (08:22)
[2019-11-13] MEDS: DOXYCYCLINE 100 MG CAP PO SCH (08:22)
[2019-11-13] MEDS: GABAPENTIN 400 MG CAP PO SCH (08:22)
[2019-11-13] MEDS: CEFUROXIME 250 MG TAB PO SCH (08:22)
[2019-11-13] MEDS: predniSONE 20 MG TAB PO SCH (08:23)
[2019-11-13] MEDS: FERROUS SULFATE 325 MG TAB PO SCH (08:23)
--- NOTE | 2019-11-13 08:50 | RAD REPORT ---
EXAM DESCRIPTION: RAD - Chest Single View - 11/13/2019 5:37 am CLINICAL HISTORY: pneumonia Chest pain. COMPARISON: Chest Pa And Lat (2 Views) dated 11/11/2019; Chest Single View dated 11/08/2019; Chest Sing le View dated 11/07/2019; Chest Single View dated 11/06/2019; Thorax Wo Con dated 11/08/2019 FINDINGS: Portable technique limits examination quality. Little overall change is seen in the appearance of the basilar lung infiltrate since comparative stud y. The heart is moderately enlarged in size. Aortic atherosclerosis. IMPRESSION: Stable chest since 11/11/2019.
[2019-11-13] MEDS: INSULIN GLARGINE 100 UNITS/ML SQ SCH (09:00)
[2019-11-13 09:59] VITALS: BP 131/58; TEMP 97.1
[2019-11-13 10:21] VITALS: O2SAT 94
--- NOTE | 2019-11-14 03:37 | DS ---
Date of Discharge: 11/13/2019 Disposition: Discharged to go home. Physical Examination: HEENT: Unremarkable. Lungs: Clear to auscultation. Heart: Sounds normal. Abdomen: Soft. Bowel sounds normal. No guarding, rigidity, tenderness, or distention. Extremities: No leg edema. Laboratory Data: Highest white count during this hospitalization was 17.4 on 11/07/2019 with hemoglobin 9.7, platelets 170. Last blood work from today; white count 11.6, hemoglobin 9.7, platelets 226. Chemistry today; sodium 143, potassium 4.3, chloride 105, bicarb 36, BUN 30, creatinine 0.98, glucose 152, magnesium 1.7. Hospital Course: 69-year-old female patient admitted to the hospital with shortness of breath and altered mental status. Please see dictated H and P for more information. After patient was evaluated in the emergency room, she was admitted to the hospital. Patient was admitted to initially ICU, had acute respiratory failure with hypercapnia. Patient was on ventilator and Dr. Hernandez was consulted. Oxygen, nebulizer treatment, steroids, antibiotics were given to her. Her overall condition improved. She was successfully extubated and then subsequently transferred out of ICU to regular room. Has significant generalized weakness and she started participating well with physical therapy, started to ambulate well. She is eating very well, tolerating diet well. Denies any complaints with swallowing. Her Salas catheter was removed. Right femoral central line was removed and social service was consulted to help make arrangements for home health care services and home physical therapy. Today, she was discharged to go home in stable condition. Chest x-ray has shown significant improvement over a period of this hospitalization. I did talk to patient's son on multiple occasions during this hospital stay. Final Diagnoses: 1. Acute respiratory failure with hypercapnia. 2. Aspiration pneumonia. 3. Acute exacerbation of chronic obstructive pulmonary disease. 4. Pulmonary hypertension. 5. Chronic kidney disease, stage 3. 6. Hypomagnesemia. 7. Type 2 diabetes mellitus with diabetic neuropathy. 8. Chronic headache. 9. Hypertension. 10. Hyperlipidemia. 11. Gastroesophageal reflux disease. 12. Anemia due to chronic kidney disease. 13. Osteoarthritis, multiple sites. 14. Diverticulosis. Discharge Medications And Instructions: 1. Continue prior home medications. 2. Follow up with my office next week and follow up with Dr. Hernandez a week after. 3. Take new medications as prescribed below: a. Prednisone 10 mg. Patient is to take 2 tablets daily for 4 days, then 1 tablet daily for 4 days, then 1/2 tablet daily for 4 days, then stop. b. Cefuroxime 250 mg p.o. twice a day for 1 week. c. Doxycycline 100 mg twice a day for 1 week. d. Magnesium oxide 400 mg p.o. daily. FEDERICO/BETTYL Voice ID: [id number] Report ID: [id number] MTDD
== END 2019-11-13 11:03 | disposition home health service (06) | DRG 208 ==
LOC: ER 05:35 → ERHOLD 09:16 → 3RD-ICU 12:20 → 2ND 11-09 14:57
PROVIDERS: ADMIT Internal Medicine; ATTEND Internal Medicine
PROC: 5A1945Z Respiratory Ventilation, 24-96 Consecutive Hours (ICD-10-PCS; principal; 2019-11-05)
PROC: 0BH17EZ Insertion of Endotracheal Airway into Trachea, Via Natural or Artificial Opening (ICD-10-PCS; 2019-11-05)
PROC: 06HY33Z Insertion of Infusion Device into Lower Vein, Percutaneous Approach (ICD-10-PCS; 2019-11-05)
DX: J96.22 Acute and chronic respiratory failure with hypercapnia (principal); J69.0 Pneumonitis due to inhalation of food and vomit; J44.1 Chronic obstructive pulmonary disease with (acute) exacerbation; R04.2 Hemoptysis; E87.0 Hyperosmolality and hypernatremia; Z79.890 Hormone replacement therapy; Z79.82 Long term (current) use of aspirin; Z79.899 Other long term (current) drug therapy; E78.5 Hyperlipidemia, unspecified; K21.9 Gastro-esophageal reflux disease without esophagitis; N18.3 Chronic kidney disease, stage 3 (moderate); I12.9 Hypertensive chronic kidney disease with stage 1 through stage 4 chronic kidney disease, or unspecified chronic kidney disease; E11.22 Type 2 diabetes mellitus with diabetic chronic kidney disease; Z98.51 Tubal ligation status; Z87.891 Personal history of nicotine dependence; I27.20 Pulmonary hypertension, unspecified; E11.40 Type 2 diabetes mellitus with diabetic neuropathy, unspecified; D63.1 Anemia in chronic kidney disease; M19.90 Unspecified osteoarthritis, unspecified site; K57.90 Diverticulosis of intestine, part unspecified, without perforation or abscess without bleeding; R51 Headache; Z20.828 Contact with and (suspected) exposure to other viral communicable diseases; Z79.52 Long term (current) use of systemic steroids
CPT/HCPCS: 31500; 36415; 70450; 71045; 71046; 71250; 80048; 80061; 80076; 80202; 82805; 82947; 83036; 83520; 83605; 83735; 83880; 84100; 84145; 84484; 85025; 85610; 85652; 86021; 86140; 87040; 87070; 87081; 87205; 87804; 93005; 93306; 94002; 94003; 94640; 97112; 97116; 97161; 97530; 99291; J0330; J1644; J1650; J1720; J1815; J2405; J2704; J2920; J3010; J3370; J3411; J3475; J7030; J7040; J7060; J7120; J7512; U0002

== ENCOUNTER 2020-04-15 19:36 | Inpatient (IN) | payer OTHER ==
--- OUTSIDE RECORDS SUMMARY | 2020-04-15 19:37 | XMS REPORT | Clinical Summary ---
:1950 Author Organization [facility] Address [address] [place] [address] Care Team Providers Name Role Phone Natividad Primary Care Provider Allergies No Known Allergies Medications Medication Sig Dispensed Refills Start Date End Date Status predniSONE (DELTASONE) Take 20 mg PO daily for 3 days 10 tablet 0 04/16/2017 Active 20 MG tablet then 10 mg PO daily for 4 days. traMADol (ULTRAM) 50 mg Take 50 mg by 0 Active tablet mouth every 6 (six) hours as needed for Pain. ondansetron (ZOFRAN) 4 Take 4 mg by 0 Active MG tablet mouth 2 (two) times daily as needed for Nausea. simvastatin (ZOCOR) 20 Take 20 mg by 0 Active MG tablet mouth nightly. spironolactone Take 25 mg by 0 A ctive (ALDACTONE) 25 MG mouth daily. tablet metroNIDAZOLE (FLAGYL) Take 500 mg by 0 Active 500 MG tablet mouth every 8 (eight) hours. pantoprazole (PROTONIX) Take 40 mg by 0 Active 40 MG tablet mouth daily. ambrisentan (LETAIRIS) Take 10 mg by 0 [...] (two) times daily. acetaminophen-codeine Take 1 tablet by 0 Active (TYLENOL #3) 300-30 mg mouth every 6 per tablet (six) hours as needed for Pain. cyanocobalamin, vitamin Take 1 tablet by 0 Active B-12, (VITAMELTS mouth daily. ENERGY) 1,500 mcg TbDL cinnamon bark Take 500 mg by 0 A ctive (CINNAMON) 500 mg mouth daily Take capsule 2 capsules per day . glimepiride (AMARYL) 4 Take 4 mg by 0 Active MG tablet mouth every morning before breakfast. 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 05/01/2017 Depression 05/01/2017 Anemia of chronic disease 04/10/2017 NSTEMI (non-ST elevated myocardial infarction) 017 Pulmonary hypertension 04/09/2017 COPD (chronic obstructive pulmonary disease) 7 DM2 (diabetes mellitus, type 2) 04/09/2017 Encounters Date Type Specialty Care Team Description 11/05/2019 Lab Requisition Lab after 04/15/2019 Immunizations Name Administration Dates Next Due Influenza High Dose Preservative Free IM 05/01/2017 Family History Medical History Relation Name Comments Heart disease Father Heart failure Father Other Mother encephalitis Relation Name Status Comments Father Mother Social History Tobacco Use Types Packs/Day Years Used Date Former Smoker 1 30 Quit: 04/11/20 05 Smokeless Tobacco: Never Used Alcohol Use Drinks/Week oz/Week Comments No Sex Assigned at Date Recorded Not on file Last Filed Vital Signs Not on file Plan of Treatment Health Maintenance Due Date Last Done Comments BREAST CANCER SCREENING 1950 COLON CANCER SCREENING COLONOSCOPY 1950 DIABETIC EYE EXAM 1958 DIABETIC FOOT EXAM 1958 URINE MICROALBUMIN 1958 PNEUMOCOCCAL 65+ YRS (1 of 1 - [id number]) 2013 HEMOGLOBIN A1C 10/11/2017 04/12/2017 MEDICARE ANNUAL WELLNESS (YEAR 2 or FIRST YEAR if no 04/02/2018 IPPE) INFLUENZA VACCINE (#1) 2020 05/01/2017 Procedures Procedure Name Priority Date/Time Associated Diagnosis Comme nts SARS-COV2/RT-PCR Routine 11/05/2019 6:47 AM Resu lts for this ([facility]) CDT procedure are in the results section. after 04/15/2019 Results SARS-CoV2/RT-PCR ([facility]) (11/05/2019 6:47 AM CDT) SARS-COV2/RT-PCR Not Detected Not Detected, [facility] Negative [facility] SARS-COV-2 [facility] PERFORMING LAB [facility] Specimen Other - Nasopharyngeal wall structure (b leo structure) Narrative Performed At Negative results do not preclude SARS-CoV-2 [facility] infection and should not be used as the sole basis for patient management decisions. Negative results must be combined with clinical observations, patient history, and epidemiological information. A false negative result may occur if a specimen is improperly collected, transported or handled. The limit of detection for this assay is 250 copies/mL. This SARS CoV-2 test is a rapid, real-time RT-PCR test intended for the qualitative detection of nucleic acid from SARS-CoV-2 in a nasopharyngeal swab specimen collected from individuals suspected of COVID-19 by their healthcare provider. This test has not been Food and Drug Administration (FDA) cleared or approved and has been authorized by FDA under an Emergency Use Authorization (EUA). This EUA will be effective until the declaration that circumstances exist justifying the authorization of the emergency use of in vitro diagnostic tests for detection and/or diagnosis of COVID-19 is terminated under Section 564(b)(2) of the Act or the EUA is revoked under Section 564(g) of the Act. Fact Sheet for Healthcare Providers: https://www.[employer]/Documents/Xpert%20Xpre ss%20SARS%20CoV-2/Fact%20Sheets/3023802%20SAR S-COV-2%20HEALTHCARE%20PROVIDERS%20FACT%20SHEE T.pdf Fact Sheet for Healthcare Patients: https://www.[employer]/Documents/Xpert%20Xpre ss%20SARS%20CoV-2/Fact%20Sheets/3023801%20SAR S-COV-2%20PATIENT%20FACT%20SHEET.pdf Performing Laboratory: [facility] [address] [place] [address] Performing Organization Address City/State/Zipcode Phone Number [facility] [address] [place] [address] CENTER after 04/15/2019 Insurance Payer Benefit Plan / Subscriber ID Effective Dates Phone Addre ss Type Group [facility] MEDICARE [id number] 2017-Presen - MEDICARE MGD O [facility] MEDICAID MEDICAID OF [id number] 2013-Present M gaudencio [place] Advance Directives For more information, please contact: [phone] Code Status Date Activated Date Inactivated Comments Full Code 04/10/2017 8:15 AM 04/16/2017 4:39 PM This code status was determined by: Patient
--- OUTSIDE RECORDS SUMMARY | 2020-04-15 19:39 | XMS REPORT | Continuity of Care Document ---
:1950 Author Organization [facility] t Address [address] [place] [place] [address] Care Team Providers Name Role Phone Sharpless Primary Care Physician Earnestine Randall MD Attending Clinician Doctor Unassigned, Name Attending Clinician Unavailable Alvaro VITALE, Lluvia Attending Clinician MANUEL Attending Clinician Unavailable MARY BETH WALKER Attending Clinician Unavailable Luther Randall MD Admitting Clinician MARY BETH WALKER Admitting Clinician Unavailable Payers Payer Name Policy Type Policy Effective Date Expiration Date Sour ce Number [facility] - [id number] 2017 ADITHYA Acosta MEDICARE MGD 00:00:00 - Medical CAREUNITED MEDICARE [id number] 2016- Present MEDICAIDMEDICAID OF [id number] ADITHYA Acosta [id number] 00:00:00 - Medical -PresentMedicaid Center Problems Condition Condition Condition Status Onset Resolution Last Treating Co mments Source Name Details Category Date Date Treatment Clinician Date Chronic Chronic Disease Active 2016-[address] [facility] diastolic diastolic 0-31 [facility] - CHF CHF 00:00: Medical (congestiv (congestiv 00 Ce nter e heart e heart failure) failure) Essential Essential Disease Active 2016-[address] [facility] hypertensi hypertensi 0-31 [facility] - on on 00:00: Medical 00 [place] Diabetic Diabetic Disease Active 2016-07 [facility] neuropathy neuropathy 0-31 [facility] - associated associated 00:00: Me dical with type with type 00 Cent er 2 diabetes 2 diabetes mellitus mellitus Depression Depression Disease Active 2016-[address] 0-31 [facility] - 00:00: Medical 00 [place] Anemia of Anemia of Disease Active 2016-[address] [facility] chronic chronic 0-10 [facility] - disease disease 00:00: Medical 00 [place] NSTEMI NSTEMI Disease Active 2016-[address] [facility] (non-ST (non-ST 0-09 [facility] - elevated elevated 00:00: Medica l myocardial myocardial 00 Ce nter infarction infarction ) ) Pulmonary Pulmonary Disease Active 2016-[address] [facility] hypertensi hypertensi 0-09 [facility] - on on 00:00: Medical 00 [place] COPD COPD Disease Active 2016-[address] [facility] (chronic (chronic 0-09 [facility] - obstructiv obstructiv 00:00: Me dical e e 00 Center pulmonary pulmonary disease) disease) DM2 DM2 Disease Active 2016-[address] [facility] (diabetes (diabetes 0-09 [facility] - mellitus, mellitus, 00:00: [facility] kh[facility]ram type 2) type 2) 00 Center Allergies, Adverse Reactions, Alerts Allergy Allergy Status Severity Reaction(s) Onset Inactive Treating Comm ents Source Name Type Date Date Clinician No Known DA Active U 2020-0 [facility] [place] [facility] 00:[facility]: d 00 [facility] No Known DA Active U 2020-0 [facility] Allergie 07-08 [facility] [facility] 00:[facility]: d 00 [facility] Family History Family Member Diagnosis Comments Start Date Stop Date Source Natural father Heart disease [facility] Natural father Heart failure [facility] Natural mother Other [facility] Social History Social Habit Start Date Stop Date Quantity Comments Source Sex Assigned At [facility] Cigarettes smoked 2017-05-01 2017-05-[address] [facility] - current (pack per 00:00:00 00:00:00 [facility] Center day) - Reported Cigarette 2017-05-01 2017-05-[address] [facility] - pack-years 00:00:00 00:00:00 [facility] Center Tobacco use and 2017-05-01 2017-05-[address] [facility] - exposure 00:00:00 00:00:00 Medical Center Alcohol intake 2017-05-01 2017-05-[address] [facility] [address] [place] [facility] - 00:00:00 00:00:00 non-drinker of Medical Ce nter alcohol (finding) History of tobacco 2005-04-11 [facility] sm[facility] use 00:00:00 [facility] Smoking Status Start Date Stop Date Source Former smoker 2017-05-01 00:00:00 2017-05-01 00:00:[address] [facility] - [facility] Medications Ordered Filled Start Stop Current Ordering Indication Dosage Frequency Signature Comments Components Source Medication Medication Date Date Medication? Clinician (SIG) Name Name glimepiride 2016-07 Yes 4mg Take [address] (AMARYL) 4 0-31 by mouth [facility] - MG tablet 13:37: every Medical 56 morning Center before breakfast. acetaminoph 2016-07 Yes 1{tbl} Take [address] en-codeine 0-31 tablet by [facility] - (TYLENOL 13:26: mouth Medical #3) 300-30 29 every 6 Center mg per (six) tablet hours as needed for Pain. traMADol 2016-07 Yes 50mg Take [address] (ULTRAM) 50 0-31 by mouth [facility] - mg tablet 13:10: every 6 Medic al 39 (six) Center hours as needed for Pain. ondansetron 2016-07 Yes 4mg Take [address] (ZOFRAN) 4 0-31 by mouth 2 [place] [facility] - MG tablet 13:10: (two) Medical 39 times Center daily as needed for Nausea. simvastatin 2016-07 Yes 20mg QD Take [address] (ZOCOR) 20 0-31 by mouth [facility] - MG tablet 13:10: nightly. Medi kh[facility] 39 Center spironolact 2016-07 Yes 25mg QD Take [address] [facility] one 0-31 by mouth [facility] - (ALDACTONE) 13:10: daily. Medi kh[facility]ram 25 MG 39 Center tablet metroNIDAZO 2016-07 Yes 500mg Take [address] LE (FLAGYL) 0-31 mg by [facility] - 500 MG 13:10: mouth Medical tablet 39 every 8 Center (eight) hours. pantoprazol 2016-07 Yes 40mg QD Take [address] [facility] e 0-31 by mouth [facility] - (PROTONIX) 13:10: daily. Medic al 40 MG 39 Center tablet ambrisentan 2016-07 Yes 10mg QD Take [address] (LETAIRIS) 0-31 by mouth [facility] - 10 MG 13:10: daily. Medical tablet 39 Center furosemide 2016-07 Yes 20mg Q.5D Take [address] (LASIX) 20 0-31 by mouth 2 [place] [facility] - MG tablet 13:10: (two) Medical 39 times Center daily. colchicine 2016-07 Yes .6mg Q.5D Take 0.[address] (COLCRYS) 0-31 mg by [facility] - 0.6 mg 13:10: mouth 2 Medical tablet 39 (two) Center times daily. ciprofloxac 2016-07 Yes 500mg Q.5D Take [address] in HCl 0-31 mg by [facility] - (CIPRO) 500 13:10: mouth 2 Med ical MG tablet 39 (two) Center times daily. cyanocobala 2016-07 Yes 1{tbl} QD Take [address] min, 0-31 tablet by [facility] - vitamin 13:10: mouth Medical B-12, 39 daily. Center ([employer]) 1,500 mcg TbDL cinnamon 2016-07 Yes 500mg QD Take [address] bark 0-31 mg by [facility] - (CINNAMON) 13:10: mouth Medica l 500 mg 39 daily Take Center capsule 2 capsules per day . predniSONE 2016-07 Yes Take [address] (DELTASONE) 0-16 PO daily Luke s - 20 MG 00:00: for 3 Medical tablet 00 daysthen Center 10 mg PO daily for 4 days. Immunizations Ordered Immunization Filled Immunization Date Status Commen ts Source Name Name Influenza High Dose 2017-05-01 [facility]:00 [facility] Procedures Procedure Date / Time Performed Performing Clinician Sourc e SARS-COV2/RT-PCR ([facility] 2019-11-05 06:47:00 [facility] Medical Center Plan of Care Planned Activity Planned Date Details Comments Source Future Scheduled 2020-03-02 INFLUENZA VACCINE (#1) [facility] - Test 00:00:00 [code = INFLUENZA Medical Ce nter VACCINE (#1)] Future Scheduled 2018-04-[address] [facility] - Test 00:00:00 WELLNESS (YEAR 2 or Medical Center FIRST YEAR if no IPPE) [code = MEDICARE ANNUAL WELLNESS (YEAR 2 or FIRST YEAR if no IPPE)] Future Scheduled 2017-10-[address] [facility] - Test 00:00:00 measurement [facility] (procedure) [code = 49772120] Future Scheduled 2013 PNEUMOCOCCAL 65+ YRS [facility] - Test 00:00:00 (1 of 1 - Medical Center [id number]) [code = PNEUMOCOCCAL 65+ YRS (1 of 1 - [id number] PCV13)] Future Scheduled [address] DIABETIC EYE EXAM [facility] - Test 00:00:00 [code = DIABETIC EYE Medical Center EXAM] Future Scheduled [address] - Test 00:00:00 examination Medical Center (regime/therapy) [code = 778983344] Future Scheduled 1958 Urine screening for [facility] - Test 00:00:00 protein (procedure) Medical Center [code = 063318090] Future Scheduled [address] [facility] - Test 00:00:00 malignant neoplasm of [facility] breast (procedure) [code = 928356499] Future Scheduled [address] [facility] - Test 00:00:00 malignant [facility] colon (procedure) [code = 671787564] Encounters Start End Encounter Admission Attending Care Care Encounter Source Date/Time Date/Time Type Type Clinicians Facility Department ID 2019-08-26 2019-08-26 [facility] [id number] 07:28:00 09:53:00 Encounter Earnestine Eden [id number] [place] 4.2.7.2.686 Surgical [id number] [place] 07 2019-08-26 2019-08-26 Orders Doctor NAYELI [id number] 00:00:00 00:00:00 Only UnassignedNOHEMI 350.1.13.10 [place] [facility] [id number] [id number] 009 2019-08-13 2019-08-13 Orders Doctor NAYELI [id number] 00:00:00 00:00:00 Only UnassignedNOHEMI 350.1.13.10 [place] [facility] 4.2.7.2.686 [id number] 009 2019-03-21 2019-03-21 Office Alvaro MERARINESTOR [id number] 10:57:14 12:10:14 Visit Cinthia Teixeira [employer] [id number] [facility] 4.2.7.2.686 MATERNAL [id number] & [address] Results Test Description Test Time Test Comments Results Result Comments Source SARS-CoV2/RT-PCR ([facility] & Ref Labs) 2019-11-05 13:47:00 Test Item Value Reference Range Interpretation Comme nts SARS-COV2/RT-PCR (test code = Not Detected Not Detected, Negative 13235-1) SARS-COV-2 PERFORMING LAB [facility] (test code = 78762-8) REEMA (test code = REEMA) Negative results do not preclude SARS-CoV-2 infection and should not be used as [...] of the Act. Fact Sheet for Healthcare Providers:https://www.Ripl/Documents/Xpert%20Xpress %20SARS%20CoV-2/Fact%20Sheets /3023802%89TWSO-JJZ-2%20HEAL THCARE%20PROVIDERS%20FACT%20S HEET.pdf Fact Sheet for Healthcare Patients:https://www.ICVRx/Documents/Xpert%20Xpress% 20SARS%20CoV-2/Fact%20Sheets/ 302-3801%93LDKH-RMD-1%20PATIE NT%20FACT%20SHEET.pdf Performing Laboratory:[facility] [place], [place] [address], [place] [address] [place], [place] [address]ARS-COV2/RT-PCR ([facility] REF [facility])2019-11-05 13:47:00 Test Item Value Reference Range Interpretation Comments SARS-COV2/RT-PCR (test Not Detected Not Detected, Negative code = 1338551) SARS-COV-2 PERFORMING LAB [facility] (test code = 2600746) Negative results do not preclude SARS-CoV-2 infection and should not be used as the sole basis for patient management decisions. Negative results must be combined with clinical observations, patient history, and epidemiological information. A false negative result may occur if a specimen is improperly collected, transported or handled.The limit of detection for this assay is 250 copies/mL.This SARS CoV-2 test is a rapid, real-time RT-PCR test intended for the qualitative detection of nucleic acid from SARS-CoV-2 in a nasopharyngeal swab specimen collected from individuals suspected of COVID-19 by their healthcare provider.This test has not been Food and Drug [...] is revoked under Section 564(g) of the Act.Fact Sheet for Healthcare Pro viders:https://www.[employer]/Documents/Xpert%20Xpress%20SARS%20CoV-2/Fact%20Sh eets/302-3802%68TSYW-JGA-4%20HEALTHCARE%20PROVIDERS%20FACT%20SHEET.pdfFact Sheet for Healthcare Patients:https://www.pSivida/Documents/Xpert%20Xpress%20SARS%20CoV-2/Fact%20Sheets/302-3801%20SARS-COV -2%20PATIENT%20FACT%20SHEET.pdfPerforming Laboratory:[facility] [place], [place] [id number] 14:46:00 RUN DATE: 07/15/19 [facility] PAGE 1 RUN TIME: 1446 Specimen Inquiry RUN USER: INTERFACE PATIENT: BARBARA PASCUAL LOC: DarylCharismaROGER U #: [id number] AGE/SX: 68/F ROOM: RE07/14/19REG DR: Uday Peter MD : 46 BED: DIS: STATUS: DEP [facility] TLOC: SPEC #: [id number] RECD: 07/14/19 STATUS: FRANKLYN PISANO #: [id number] MIRIAM: 07/14/[address]: Uday Peter MD ENTERED: 07/14/19 SP TYPE: SURG OTHR DR: Jass Jasmine MD ORDERED: SURG PATH LVL / COPIES TO: Jass Jasmine MD [address] [place] [address] Uday Peter MD [address] [place], [place] [address] HISTOLOGY: TISSUE ID BLK PCS ANG LEV PROCEDURE DISPOSITION ___ ___ ___ STOMACH, NOS A 1 2 STOMACH, NOS B 1 2 PROCEDURES: SURG PATH LVL 4 (07/14/19) TISSUES: A. STOMACH, NOS - ANTRUM BIOPSY B. STOMACH, NOS - BODY AND FUNDUS BIOPSY CLINICAL HISTORY ABD PAIN - R10.84; NAUSEA -R11 CPT CODES CPT CODE(S):80848I6 , , , , , , FINAL DIAGNOSIS A. Stomach, antrum, biopsy: REACTIVE/CHEMICAL GASTROPATHY NEGATIVE FOR HELICOBACTER PYLORIORGANISMS NEGATIVE FOR INTESTINAL METAPLASIA, DYSPLASIA, OR MALIGNANCY B. Stomach, body andfundus, biopsy: GASTRIC MUCOSA WITH NO PATHOLOGIC DIAGNOSIS NEGATIVE FOR INTESTINAL METAPLASIA, DYSPLASIA, OR MALIGNANCY CONTINUED ON NEXT PAGE R UN DATE: 07/15/19 [facility] PAGE 2 RUN TIME: 1446 Specimen Inquiry RUN USER: INTERFACE SPEC #: [id number] PATIENT: BARBARA PASCUAL #[id number] (Cont inued) FINAL DIAGNOSIS (Continued) NEGATIVE FOR HELICOBACTER PYLORI ORGANISMS GROSS DESCRIPTION A. Antrum biopsy. Received in formalin is a ferreira tissue fragment, 0.3 cm. The entire specimen submitted as A. B. Body and fundus biopsy. Received in formalin are two ferreira tissue fragments, 0.1 and 0.8 cm. The entire specimen submitted as B. camila/nr Grossing performed at [facility] Pathology, [address] [place] [address], [address], [place] [address]. Male Impersonator: Rubens Cormier M.D. MICROSCOPIC DESCRIPTION A. Antrum biopsy. Sections demonstrate gastric mucosa is slightly reactive appearance. The lamina propria demonstrates spindle cell muscle cells, consistent with reactive gastropathy. No dysplasia or malignancy is identified. B. Body and fundus biopsy. Sections demonstrate gastric mucosa with no increased inflammation. No dysplasia or malignancy is identified. Signed SIGNATURE ON FILE Nicho Xavier 07/15/19 1446 END OF REPORT GLUCOSE BEDSIDE [id number] 07:00:00 Test Item Value Reference Range Interpretation Comments GLUCOSE BEDSIDE TESTING (test code = 89 mg/dL 70-110 N GLUBED) B-TYPE NATRIURETIC FACTOR (BNP)2017-05-01 14:47:00 Test Item Value Reference Range Interpretation Comments B-TYPE NATRIURETIC PEPTIDE (BEAKER) 393 pg/mL 0-100 H (test code = 700) [id number] 14:39:00 Test Item Value Reference Range Interpretation Comments MAGNESIUM (BEAKER) (test code = 1.5 mg/dL 1.6-2.6 L 627) BASIC METABOLIC [id number] 14:39:00 Test Item Value Reference Range Interpretation Comments SODIUM (BEAKER) 140 meq/L 136-145 (test code = 381) POTASSIUM (BEAKER) 4.2 meq/L 3.5-5.1 (test code = 379) CHLORIDE (BEAKER) 99 meq/L 98-107 (test code = 382) CO2 (BEAKER) (test 31 meq/L 22-29 H code = 355) BLOOD UREA NITROGEN 19 mg/dL 7-21 (BEAKER) (test code = 354) CREATININE (BEAKER) 1.45 mg/dL 0.57-1.25 H (test code = 358) GLUCOSE RANDOM 99 mg/dL 70-105 (BEAKER) (test code = 652) CALCIUM (BEAKER) 9.7 mg/dL 8.4-10.2 (test code = 697) EGFR (BEAKER) (test 44 mL/min/1.73 ESTIMA RENAE GFR IS code = 1092) sq m NOT ACCURATE CREATININE CLEARANCE IN PREDICTING GLOMERULAR FILTRATION RATE . ESTIMATED GFR I S NOT APPLICABLE FOR DIALYSIS PATIEN TS. POCT-GLUCOSE [id number] 11:53:00 Test Item Value Reference Range Interpretation Comments POC-GLUCOSE METER 150 mg/dL 70-110 H TESTED AT [place] [address] ([facility]) (test code = [facility] 1538) [address] POCT-GLUCOSE [id number] 07:44:00 Test Item Value Reference Range Interpretation Comments POC-GLUCOSE METER 80 mg/dL 70-110 TESTED AT [place] [address] ([facility]) (test code = [facility] [address] 1538) CBC (HEMOGRAM ONLY)2017-04-16 04:17:00 Test Item Value Reference Range Interpretation Comments WHITE BLOOD CELL COUNT (BEAKER) 12.8 K/ L 3.5-10.5 H (test code = 775) RED BLOOD CELL COUNT (BEAKER) 3.43 M/ L 3.93-5.22 L (test code = 761) HEMOGLOBIN (BEAKER) (test code = 9.9 GM/DL 11.2-15.7 L 410) HEMATOCRIT (BEAKER) (test code = 31.9 % 34.1-44.9 L 411) MEAN CORPUSCULAR VOLUME (BEAKER) 93.0 fL 79.4-94.8 (test code = 753) MEAN CORPUSCULAR HEMOGLOBIN 28.9 pg 25.6-32.2 (BEAKER) (test code = 751) MEAN CORPUSCULAR HEMOGLOBIN CONC 31.0 GM/DL 32.2-35.5 L (BEAKER) (test code = 752) RED CELL DISTRIBUTION WIDTH 15.0 % 11.7-14.4 H (BEAKER) (test code = 412) PLATELET COUNT (BEAKER) (test 223 K/CU MM 150-450 code = 756) MEAN PLATELET VOLUME (BEAKER) 9.3 fL 9.4-12.3 L (test code = 754) NUCLEATED RED BLOOD CELLS 0 /100 WBC 0-0 (BEAKER) (test code = 413) POCT-GLUCOSE [id number] 21:08:00 Test Item Value Reference Range Interpretation Comments POC-GLUCOSE METER 112 mg/dL 70-110 H TESTED AT [place] [address] ([facility]) (test code = [facility] 1538) [address] POCT-GLUCOSE [id number] 18:00:00 Test Item Value Reference Range Interpretation Comments POC-GLUCOSE METER 223 mg/dL 70-110 H TESTED AT [place] [address] ([facility]) (test code = [facility] 1538) [address] POCT-GLUCOSE [id number] 11:55:00 Test Item Value Reference Range Interpretation Comments POC-GLUCOSE METER 175 mg/dL 70-110 H TESTED AT [place] [address] (BEAKER) (test code = [facility] 1538) [address] BLOOD [id number] 11:00:00 Test Item Value Reference Range Interpretation Comments CULTURE (BEAKER) (test No growth in 5 days code = 1095) BLOOD [id number] 11:00:00 Test Item Value Reference Range Interpretation Comments CULTURE (BEAKER) (test No growth in 5 days code = 1095) POCT-GLUCOSE [id number] 08:11:00 Test Item Value Reference Range Interpretation Comments POC-GLUCOSE METER 85 mg/dL 70-110 TESTED AT [place] [address] (BEAKER) (test code = [facility] [address] 1538) BASIC METABOLIC [id number] 06:23:00 Test Item Value Reference Range Interpretation Comments SODIUM (BEAKER) 142 meq/L 136-145 (test code = 381) POTASSIUM (BEAKER) 3.7 meq/L 3.5-5.1 (test code = 379) CHLORIDE (BEAKER) 97 meq/L 98-107 L (test code = 382) CO2 (BEAKER) (test 36 meq/L 22-29 H code = 355) BLOOD UREA NITROGEN 47 mg/dL 7-21 H (BEAKER) (test code = 354) CREATININE (BEAKER) 1.32 mg/dL 0.57-1.25 H (test code = 358) GLUCOSE RANDOM 82 mg/dL 70-105 (BEAKER) (test code = 652) CALCIUM (BEAKER) 9.1 mg/dL 8.4-10.2 (test code = 697) EGFR (BEAKER) (test 49 mL/min/1.73 ESTIMA RENAE GFR IS code = 1092) sq m NOT ACCURATE CREATININE CLEARANCE IN PREDICTING GLOMERULAR FILTRATION RATE . ESTIMATED GFR I S NOT APPLICABLE FOR DIALYSIS PATIEN TS. CBC (HEMOGRAM ONLY)2017-04-15 05:42:00 Test Item Value Reference Range Interpretation Comments WHITE BLOOD CELL COUNT (BEAKER) 11.3 K/ L 3.5-10.5 H (test code = 775) RED BLOOD CELL COUNT (BEAKER) 3.60 M/ L 3.93-5.22 L (test code = 761) HEMOGLOBIN (BEAKER) (test code = 10.5 GM/DL 11.2-15.7 L 410) HEMATOCRIT (BEAKER) (test code = 33.6 % 34.1-44.9 L 411) MEAN CORPUSCULAR VOLUME (BEAKER) 93.3 fL 79.4-94.8 (test code = 753) MEAN CORPUSCULAR HEMOGLOBIN 29.2 pg 25.6-32.2 (BEAKER) (test code = 751) MEAN CORPUSCULAR HEMOGLOBIN CONC 31.3 GM/DL 32.2-35.5 L (BEAKER) (test code = 752) RED CELL DISTRIBUTION WIDTH 15.3 % 11.7-14.4 H (BEAKER) (test code = 412) PLATELET COUNT (BEAKER) (test 223 K/CU MM 150-450 code = 756) MEAN PLATELET VOLUME (BEAKER) 9.2 fL 9.4-12.3 L (test code = 754) NUCLEATED RED BLOOD CELLS 0 /100 WBC 0-0 (BEAKER) (test code = 413) CBC W/PLT COUNT & AUTO [id number] 05:42:00 Test Item Value Reference Range Interpretation Comments WHITE BLOOD CELL COUNT (BEAKER) 11.3 K/ L 3.5-10.5 H (test code = 775) RED BLOOD CELL COUNT (BEAKER) 3.60 M/ L 3.93-5.22 L (test code = 761) HEMOGLOBIN (BEAKER) (test code = 10.5 GM/DL 11.2-15.7 L 410) HEMATOCRIT (BEAKER) (test code = 33.6 % 34.1-44.9 L 411) MEAN CORPUSCULAR VOLUME (BEAKER) 93.3 fL 79.4-94.8 (test code = 753) MEAN CORPUSCULAR HEMOGLOBIN 29.2 pg 25.6-32.2 (BEAKER) (test code = 751) MEAN CORPUSCULAR HEMOGLOBIN CONC 31.3 GM/DL 32.2-35.5 L (BEAKER) (test code = 752) RED CELL DISTRIBUTION WIDTH 15.3 % 11.7-14.4 H (BEAKER) (test code = 412) PLATELET COUNT (BEAKER) (test 223 K/CU MM 150-450 code = 756) MEAN PLATELET VOLUME (BEAKER) 9.2 fL 9.4-12.3 L (test code = 754) NUCLEATED RED BLOOD CELLS 0 /100 WBC 0-0 (BEAKER) (test code = 413) NEUTROPHILS RELATIVE PERCENT 71 % (BEAKER) (test code = 429) LYMPHOCYTES RELATIVE PERCENT 19 % (BEAKER) (test code = 430) MONOCYTES RELATIVE PERCENT 7 % (BEAKER) (test code = 431) EOSINOPHILS RELATIVE PERCENT 1 % (BEAKER) (test code = 432) BASOPHILS RELATIVE PERCENT 0 % (BEAKER) (test code = 437) NEUTROPHILS ABSOLUTE COUNT 7.99 K/ L 1.56-6.13 H (BEAKER) (test code = 670) LYMPHOCYTES ABSOLUTE COUNT 2.15 K/ L 1.18-3.74 (BEAKER) (test code = 414) MONOCYTES ABSOLUTE COUNT (BEAKER) 0.79 K/ L 0.24-0.36 H (test code = 415) EOSINOPHILS ABSOLUTE COUNT 0.16 K/ L 0.04-0.36 (BEAKER) (test code = 416) BASOPHILS ABSOLUTE COUNT (BEAKER) 0.02 K/ L 0.01-0.08 (test code = 417) IMMATURE GRANULOCYTES-RELATIVE 2 % 0-1 H PERCENT (BEAKER) (test code = 2801) POCT-GLUCOSE [id number] 21:27:00 Test Item Value Reference Range Interpretation Comments POC-GLUCOSE METER 185 mg/dL 70-110 H TESTED AT [facility] 6720 ([facility]) (test code = [place] 1538) [address] POCT-GLUCOSE [id number] 17:35:00 Test Item Value Reference Range Interpretation Comments POC-GLUCOSE METER 255 mg/dL 70-110 H TESTED AT [facility] 67[address] ([facility]) (test code = [place] 1538) [address] PET, CARDIAC PERFUSION MULTIPLE STUDIES, REST AND [id number] 14:55:00 Reason for exam:->NSTEMIFINAL REPORT PROCEDURE: Rest/Stress MYOCARDIAL PERFUSION PET with regadenoson\XA9\CPT CODE: 41061NZWDPIDHOL: NSTEMIPROTOCOL: Limited low-dose CT imaging was performed [...] Rowell MDReport Verified Date/Time: 04/14/2017 14:55:49 POCT-GLUCOSE [id number] 11:00:00 Test Item Value Reference Range Interpretation Comments POC-GLUCOSE METER 131 mg/dL 70-110 H TESTED AT [facility] 67[address] ([facility]) (test code = [place] 1538) [address] ANTI-NUCLEAR ANTIBODY (WAGNER)2017-04-14 10:42:00 Test Item Value Reference Range Interpretation Comments ANTI-NUCLEAR ANTIBODY (WAGNER) ([employer]) Negative Negative (test code = 418) SEDIMENTATION [id number] 09:35:00 Test Item Value Reference Range Interpretation Comments SEDIMENTATION RATE, ERYTHROCYTE 17 mm/HR 0-40 (BEAKER) (test code = 766) HIV-1 ANTIGEN WITH HIV-1/2 [id number] 09:09:00 Test Item Value Reference Range Interpretation Comments HIV-1 ANTIGEN WITH HIV 1\T\2 Nonreactive Nonreactive ANTIBODY (2) (BEAKER) (test code = 2586) POCT-GLUCOSE [id number] 09:08:00 Test Item Value Reference Range Interpretation Comments POC-GLUCOSE METER 86 mg/dL 70-110 TESTED AT [facility] 6720 (AKER) (test code = [place] [address] 4425) RHEUMATOID FACTOR AB, REFLEX TO [id number] 06:02:00 Test Item Value Reference Range Interpretation Comments RHEUMATOID FACTOR (BEAKER) (test Negative code = 573) BASIC METABOLIC [id number] 05:46:00 Test Item Value Reference Range Interpretation Comments SODIUM (BEAKER) 140 meq/L 136-145 (test code = 381) POTASSIUM (BEAKER) 3.8 meq/L 3.5-5.1 (test code = 379) CHLORIDE (BEAKER) 97 meq/L 98-107 L (test code = 382) CO2 (BEAKER) (test 35 meq/L 22-29 H code = 355) BLOOD UREA NITROGEN 48 mg/dL 7-21 H (BEAKER) (test code = 354) CREATININE (BEAKER) 1.34 mg/dL 0.57-1.25 H (test code = 358) GLUCOSE RANDOM 99 mg/dL 70-105 (BEAKER) (test code = 652) CALCIUM (BEAKER) 9.0 mg/dL 8.4-10.2 (test code = 697) EGFR (BEAKER) (test 48 mL/min/1.73 ESTIMA RENAE GFR IS code = 1092) sq m NOT ACCURATE CREATININE CLEARANCE IN PREDICTING GLOMERULAR FILTRATION RATE . ESTIMATED GFR I S NOT APPLICABLE FOR DIALYSIS PATIEN TS. C-REACTIVE [id number] 05:46:00 Test Item Value Reference Range Interpretation Comments C-REACTIVE PROTEIN (BEAKER) (test 0.43 mg/dL 0.00-0.50 code = 676) CBC (HEMOGRAM ONLY)2017-04-14 04:37:00 Test Item Value Reference Range Interpretation Comments WHITE BLOOD CELL COUNT (BEAKER) 11.0 K/ L 3.5-10.5 H (test code = 775) RED BLOOD CELL COUNT (BEAKER) 3.69 M/ L 3.93-5.22 L (test code = 761) HEMOGLOBIN (BEAKER) (test code = 10.9 GM/DL 11.2-15.7 L 410) HEMATOCRIT (BEAKER) (test code = 34.1 % 34.1-44.9 411) MEAN CORPUSCULAR VOLUME (BEAKER) 92.4 fL 79.4-94.8 (test code = 753) MEAN CORPUSCULAR HEMOGLOBIN 29.5 pg 25.6-32.2 (BEAKER) (test code = 751) MEAN CORPUSCULAR HEMOGLOBIN CONC 32.0 GM/DL 32.2-35.5 L (BEAKER) (test code = 752) RED CELL DISTRIBUTION WIDTH 15.1 % 11.7-14.4 H (BEAKER) (test code = 412) PLATELET COUNT (BEAKER) (test 220 K/CU MM 150-450 code = 756) MEAN PLATELET VOLUME (BEAKER) 9.3 fL 9.4-12.3 L (test code = 754) NUCLEATED RED BLOOD CELLS 0 /100 WBC 0-0 (BEAKER) (test code = 413) CBC W/PLT COUNT & AUTO [id number] 04:37:00 Test Item Value Reference Range Interpretation Comments WHITE BLOOD CELL COUNT (BEAKER) 11.0 K/ L 3.5-10.5 H (test code = 775) RED BLOOD CELL COUNT (BEAKER) 3.69 M/ L 3.93-5.22 L (test code = 761) HEMOGLOBIN (BEAKER) (test code = 10.9 GM/DL 11.2-15.7 L 410) HEMATOCRIT (BEAKER) (test code = 34.1 % 34.1-44.9 411) MEAN CORPUSCULAR VOLUME (BEAKER) 92.4 fL 79.4-94.8 (test code = 753) MEAN CORPUSCULAR HEMOGLOBIN 29.5 pg 25.6-32.2 (BEAKER) (test code = 751) MEAN CORPUSCULAR HEMOGLOBIN CONC 32.0 GM/DL 32.2-35.5 L (BEAKER) (test code = 752) RED CELL DISTRIBUTION WIDTH 15.1 % 11.7-14.4 H (BEAKER) (test code = 412) PLATELET COUNT (BEAKER) (test 220 K/CU MM 150-450 code = 756) MEAN PLATELET VOLUME (BEAKER) 9.3 fL 9.4-12.3 L (test code = 754) NUCLEATED RED BLOOD CELLS 0 /100 WBC 0-0 (BEAKER) (test code = 413) NEUTROPHILS RELATIVE PERCENT 72 % (BEAKER) (test code = 429) LYMPHOCYTES RELATIVE PERCENT 17 % (BEAKER) (test code = 430) MONOCYTES RELATIVE PERCENT 8 % (BEAKER) (test code = 431) EOSINOPHILS RELATIVE PERCENT 1 % (BEAKER) (test code = 432) BASOPHILS RELATIVE PERCENT 0 % (BEAKER) (test code = 437) NEUTROPHILS ABSOLUTE COUNT 7.92 K/ L 1.56-6.13 H (BEAKER) (test code = 670) LYMPHOCYTES ABSOLUTE COUNT 1.91 K/ L 1.18-3.74 (BEAKER) (test code = 414) MONOCYTES ABSOLUTE COUNT (BEAKER) 0.89 K/ L 0.24-0.36 H (test code = 415) EOSINOPHILS ABSOLUTE COUNT 0.09 K/ L 0.04-0.36 (BEAKER) (test code = 416) BASOPHILS ABSOLUTE COUNT (BEAKER) 0.00 K/ L 0.01-0.08 L (test code = 417) IMMATURE GRANULOCYTES-RELATIVE 1 % 0-1 PERCENT (BEAKER) (test code = 2801) CBC (HEMOGRAM ONLY)2017-04-14 04:36:00 Test Item Value Reference Range Interpretation Comments WHITE BLOOD CELL COUNT (BEAKER) 10.9 K/ L 3.5-10.5 H (test code = 775) RED BLOOD CELL COUNT (BEAKER) 3.65 M/ L 3.93-5.22 L (test code = 761) HEMOGLOBIN (BEAKER) (test code = 10.6 GM/DL 11.2-15.7 L 410) HEMATOCRIT (BEAKER) (test code = 33.8 % 34.1-44.9 L 411) MEAN CORPUSCULAR VOLUME (BEAKER) 92.6 fL 79.4-94.8 (test code = 753) MEAN CORPUSCULAR HEMOGLOBIN 29.0 pg 25.6-32.2 (AKER) (test code = 751) MEAN CORPUSCULAR HEMOGLOBIN CONC 31.4 GM/DL 32.2-35.5 L ([facility]) (test code = 752) RED CELL DISTRIBUTION WIDTH 15.1 % 11.7-14.4 H ([facility]) (test code = 412) PLATELET COUNT ([facility]) (test 223 K/CU MM 150-450 code = 756) MEAN PLATELET VOLUME ([facility]) 9.5 fL 9.4-12.3 (test code = 754) NUCLEATED RED BLOOD CELLS 0 /100 WBC 0-0 ([facility]) (test code = 413) POCT-GLUCOSE [id number] 04:31:00 Test Item Value Reference Range Interpretation Comments POC-GLUCOSE METER 111 mg/dL 70-110 H TESTED AT [place] [address] ([facility]) (test code = [facility] 1538) [id number] POCT-GLUCOSE [id number] 21:57:00 Test Item Value Reference Range Interpretation Comments POC-GLUCOSE METER 153 mg/dL 70-110 H TESTED AT [place] [address] ([facility]) (test code = [facility] 1538) [id number] POCT-GLUCOSE [id number] 17:20:00 Test Item Value Reference Range Interpretation Comments POC-GLUCOSE METER 240 mg/dL 70-110 H TESTED AT [place] [address] ([facility]) (test code = [facility] 1538) [address] PUL PERF IMAGING, PARTIC, [id number] 17:00:00With NM brain/kidneys to look for shunting as well as CTEPHFINAL REPORT PROCEDURE: V/Q LUNG SCAN CPT CODE: 43697 INDICATION: Pulmonary hypertension acute respiratory failure PROTOCOL: [...] physiological. IMPRESSION: Normal ventilation/perfusion lung scan. Signed: Kc, Daniel MDReport Verified Date/Time: 04/13/2017 17:00:02 Reading Location: [address] Reading Room POCT-GLUCOSE METER 2017-04-13 12:20:00 Test Item Value Reference Range Interpretation Comments POC-GLUCOSE METER 178 mg/dL 70-110 H TESTED AT [facility] ([facility]) (test code = [facility] 1538) [address] POCT-GLUCOSE [id number] 08:33:00 Test Item Value Reference Range Interpretation Comments POC-GLUCOSE METER 79 mg/dL 70-110 TESTED AT [place] [address] ([facility]) (test code = [facility] [id number] 1538) B-TYPE NATRIURETIC FACTOR (BNP)2017-04-13 05:58:00 Test Item Value Reference Range Interpretation Comments B-TYPE NATRIURETIC PEPTIDE (BEAKER) 312 pg/mL 0-100 H (test code = 700) BASIC METABOLIC [id number] 05:47:00 Test Item Value Reference Range Interpretation Comments SODIUM (BEAKER) 141 meq/L 136-145 (test code = 381) POTASSIUM (BEAKER) 4.3 meq/L 3.5-5.1 (test code = 379) CHLORIDE (BEAKER) 99 meq/L 98-107 (test code = 382) CO2 (BEAKER) (test 35 meq/L 22-29 H code = 355) BLOOD UREA NITROGEN 44 mg/dL 7-21 H (BEAKER) (test code = 354) CREATININE (BEAKER) 1.40 mg/dL 0.57-1.25 H (test code = 358) GLUCOSE RANDOM 96 mg/dL 70-105 (BEAKER) (test code = 652) CALCIUM (BEAKER) 9.0 mg/dL 8.4-10.2 (test code = 697) EGFR (BEAKER) (test 45 mL/min/1.73 ESTIMA RENAE GFR IS code = 1092) sq m NOT ACCURATE CREATININE CLEARANCE IN PREDICTING GLOMERULAR FILTRATION RATE . ESTIMATED GFR I S NOT APPLICABLE FOR DIALYSIS PATIEN TS. CBC W/PLT COUNT & AUTO [id number] 05:39:00 Test Item Value Reference Range Interpretation Comments WHITE BLOOD CELL COUNT (BEAKER) 11.5 K/ L 3.5-10.5 H (test code = 775) RED BLOOD CELL COUNT (BEAKER) 3.44 M/ L 3.93-5.22 L (test code = 761) HEMOGLOBIN (BEAKER) (test code = 10.0 GM/DL 11.2-15.7 L 410) HEMATOCRIT (BEAKER) (test code = 32.0 % 34.1-44.9 L 411) MEAN CORPUSCULAR VOLUME (BEAKER) 93.0 fL 79.4-94.8 (test code = 753) MEAN CORPUSCULAR HEMOGLOBIN 29.1 pg 25.6-32.2 (BEAKER) (test code = 751) MEAN CORPUSCULAR HEMOGLOBIN CONC 31.3 GM/DL 32.2-35.5 L (BEAKER) (test code = 752) RED CELL DISTRIBUTION WIDTH 15.3 % 11.7-14.4 H (BEAKER) (test code = 412) PLATELET COUNT (BEAKER) (test 216 K/CU MM 150-450 code = 756) MEAN PLATELET VOLUME (BEAKER) 8.9 fL 9.4-12.3 L (test code = 754) NUCLEATED RED BLOOD CELLS 0 /100 WBC 0-0 (BEAKER) (test code = 413) NEUTROPHILS RELATIVE PERCENT 75 % (BEAKER) (test code = 429) LYMPHOCYTES RELATIVE PERCENT 16 % (BEAKER) (test code = 430) MONOCYTES RELATIVE PERCENT 8 % (BEAKER) (test code = 431) EOSINOPHILS RELATIVE PERCENT 1 % (BEAKER) (test code = 432) BASOPHILS RELATIVE PERCENT 0 % (BEAKER) (test code = 437) NEUTROPHILS ABSOLUTE COUNT 8.61 K/ L 1.56-6.13 H (BEAKER) (test code = 670) LYMPHOCYTES ABSOLUTE COUNT 1.81 K/ L 1.18-3.74 (BEAKER) (test code = 414) MONOCYTES ABSOLUTE COUNT (BEAKER) 0.92 K/ L 0.24-0.36 H (test code = 415) EOSINOPHILS ABSOLUTE COUNT 0.11 K/ L 0.04-0.36 (BEAKER) (test code = 416) BASOPHILS ABSOLUTE COUNT (BEAKER) 0.01 K/ L 0.01-0.08 (test code = 417) IMMATURE GRANULOCYTES-RELATIVE 1 % 0-1 PERCENT (BEAKER) (test code = 2801) POCT-GLUCOSE [id number] 05:04:00 Test Item Value Reference Range Interpretation Comments POC-GLUCOSE METER 103 mg/dL 70-110 TESTED AT [place] [address] ([facility]) (test code = [facility] 1538) [id number] POCT-GLUCOSE [id number] 21:41:00 Test Item Value Reference Range Interpretation Comments POC-GLUCOSE METER 176 mg/dL 70-110 H TESTED AT [place] [address] ([facility]) (test code = [facility] 1538) [address] POCT-GLUCOSE [id number] 17:05:00 Test Item Value Reference Range Interpretation Comments POC-GLUCOSE METER 207 mg/dL 70-110 H TESTED AT [place] [address] ([facility]) (test code = [place] 878368) [address] TROPONIN [id number] 13:44:00 Test Item Value Reference Range Interpretation Comments TROPONIN I ([facility]) (test code = 0.35 ng/mL 0.00-0.03 [facility]) Troponin I (TnI) levels must be interpreted [...] acidosis, acute neurological disease, and persistent tachyarrhythmia.HEMOGLOBIN [id number] 12:54:00 Test Item Value Reference Range Interpretation Comments HEMOGLOBIN A1C ([facility]) (test code = 5.8 % 4.3-6.1 368) POCT-GLUCOSE [id number] 11:37:00 Test Item Value Reference Range Interpretation Comments POC-GLUCOSE METER 231 mg/dL 70-110 H TESTED AT [place] [address] ([facility]) (test code = [facility] 1538) [address] URINE [id number] 10:51:00 Test Item Value Reference Range Interpretation Comments CULTURE ([facility]) (test code = 1095) No growth POCT-GLUCOSE [id number] 08:01:00 Test Item Value Reference Range Interpretation Comments POC-GLUCOSE METER 134 mg/dL 70-110 H TESTED AT [facility] 67[facility] (BEAKER) (test code = [facility] 1538) [address] BASIC METABOLIC [id number] 05:36:00 Test Item Value Reference Range Interpretation Comments SODIUM (BEAKER) 136 meq/L 136-145 (test code = 381) POTASSIUM (BEAKER) 5.2 meq/L 3.5-5.1 H (test code = 379) CHLORIDE (BEAKER) 99 meq/L 98-107 (test code = 382) CO2 (BEAKER) (test 30 meq/L 22-29 H code = 355) BLOOD UREA NITROGEN 43 mg/dL 7-21 H (BEAKER) (test code = 354) CREATININE (BEAKER) 1.53 mg/dL 0.57-1.25 H (test code = 358) GLUCOSE RANDOM 159 mg/dL 70-105 H (BEAKER) (test code = 652) CALCIUM (BEAKER) 8.8 mg/dL 8.4-10.2 (test code = 697) EGFR (BEAKER) (test 41 mL/min/1.73 ESTIMA RENAE GFR IS code = 1092) sq m NOT ACCURATE CREATININE CLEARANCE IN PREDICTING GLOMERULAR FILTRATION RATE . ESTIMATED GFR I S NOT APPLICABLE FOR DIALYSIS PATIEN TS. CBC W/PLT COUNT & AUTO [id number] 05:33:00 Test Item Value Reference Range Interpretation Comments WHITE BLOOD CELL COUNT (BEAKER) 14.2 K/ L 3.5-10.5 H (test code = 775) RED BLOOD CELL COUNT (BEAKER) 3.53 M/ L 3.93-5.22 L (test code = 761) HEMOGLOBIN (BEAKER) (test code = 10.5 GM/DL 11.2-15.7 L 410) HEMATOCRIT (BEAKER) (test code = 33.0 % 34.1-44.9 L 411) MEAN CORPUSCULAR VOLUME (BEAKER) 93.5 fL 79.4-94.8 (test code = 753) MEAN CORPUSCULAR HEMOGLOBIN 29.7 pg 25.6-32.2 (BEAKER) (test code = 751) MEAN CORPUSCULAR HEMOGLOBIN CONC 31.8 GM/DL 32.2-35.5 L (BEAKER) (test code = 752) RED CELL DISTRIBUTION WIDTH 15.1 % 11.7-14.4 H (BEAKER) (test code = 412) PLATELET COUNT (BEAKER) (test 229 K/CU MM 150-450 code = 756) MEAN PLATELET VOLUME (BEAKER) 9.6 fL 9.4-12.3 (test code = 754) NUCLEATED RED BLOOD CELLS 0 /100 WBC 0-0 (BEAKER) (test code = 413) NEUTROPHILS RELATIVE PERCENT 90 % (BEAKER) (test code = 429) LYMPHOCYTES RELATIVE PERCENT 5 % (BEAKER) (test code = 430) MONOCYTES RELATIVE PERCENT 4 % (BEAKER) (test code = 431) EOSINOPHILS RELATIVE PERCENT 0 % (BEAKER) (test code = 432) BASOPHILS RELATIVE PERCENT 0 % (BEAKER) (test code = 437) NEUTROPHILS ABSOLUTE COUNT 12.74 K/ L 1.56-6.13 H (BEAKER) (test code = 670) LYMPHOCYTES ABSOLUTE COUNT 0.76 K/ L 1.18-3.74 L (BEAKER) (test code = 414) MONOCYTES ABSOLUTE COUNT (BEAKER) 0.52 K/ L 0.24-0.36 H (test code = 415) EOSINOPHILS ABSOLUTE COUNT 0.00 K/ L 0.04-0.36 L (BEAKER) (test code = 416) BASOPHILS ABSOLUTE COUNT (BEAKER) 0.01 K/ L 0.01-0.08 (test code = 417) IMMATURE GRANULOCYTES-RELATIVE 1 % 0-1 PERCENT (BEAKER) (test code = 2801) CBC (HEMOGRAM ONLY)2017-04-12 05:25:00 Test Item Value Reference Range Interpretation Comments WHITE BLOOD CELL COUNT (BEAKER) 14.2 K/ L 3.5-10.5 H (test code = 775) RED BLOOD CELL COUNT (BEAKER) 3.53 M/ L 3.93-5.22 L (test code = 761) HEMOGLOBIN (BEAKER) (test code = 10.5 GM/DL 11.2-15.7 L 410) HEMATOCRIT (BEAKER) (test code = 33.0 % 34.1-44.9 L 411) MEAN CORPUSCULAR VOLUME (BEAKER) 93.5 fL 79.4-94.8 (test code = 753) MEAN CORPUSCULAR HEMOGLOBIN 29.7 pg 25.6-32.2 (BEAKER) (test code = 751) MEAN CORPUSCULAR HEMOGLOBIN CONC 31.8 GM/DL 32.2-35.5 L (AKER) (test code = 752) RED CELL DISTRIBUTION WIDTH 15.1 % 11.7-14.4 H (AKER) (test code = 412) PLATELET COUNT ([facility]) (test 229 K/CU MM 150-450 code = 756) MEAN PLATELET VOLUME (AKER) 9.6 fL 9.4-12.3 (test code = 754) NUCLEATED RED BLOOD CELLS 0 /100 WBC 0-0 (AKER) (test code = 413) POCT-GLUCOSE [id number] 21:38:00 Test Item Value Reference Range Interpretation Comments POC-GLUCOSE METER 178 mg/dL 70-110 H TESTED AT [place] [address] ([facility]) (test code = [facility] 1538) [address] POCT-GLUCOSE [id number] 16:53:00 Test Item Value Reference Range Interpretation Comments POC-GLUCOSE METER 305 mg/dL 70-110 H TESTED AT [place] [address] ([facility]) (test code = [facility] 1538) [address] POCT-GLUCOSE [id number] 12:07:00 Test Item Value Reference Range Interpretation Comments POC-GLUCOSE METER 213 mg/dL 70-110 H TESTED AT [place] [address] ([facility]) (test code = [facility] 1538) [address] POCT-GLUCOSE [id number] 08:42:00 Test Item Value Reference Range Interpretation Comments POC-GLUCOSE METER 179 mg/dL 70-110 H TESTED AT [place] [address] ([facility]) (test code = [facility] 1538) [address] BASIC METABOLIC [id number] 05:03:00 Test Item Value Reference Range Interpretation Comments SODIUM (BEAKER) 138 meq/L 136-145 (test code = 381) POTASSIUM (BEAKER) 4.7 meq/L 3.5-5.1 (test code = 379) CHLORIDE (BEAKER) 98 meq/L 98-107 (test code = 382) CO2 (BEAKER) (test 34 meq/L 22-29 H code = 355) BLOOD UREA NITROGEN 32 mg/dL 7-21 H (BEAKER) (test code = 354) CREATININE (BEAKER) 1.41 mg/dL 0.57-1.25 H (test code = 358) GLUCOSE RANDOM 179 mg/dL 70-105 H (BEAKER) (test code = 652) CALCIUM (BEAKER) 9.0 mg/dL 8.4-10.2 (test code = 697) EGFR (BEAKER) (test 45 mL/min/1.73 ESTIMA RENAE GFR IS code = 1092) sq m NOT ACCURATE CREATININE CLEARANCE IN PREDICTING GLOMERULAR FILTRATION RATE . ESTIMATED GFR I S NOT APPLICABLE FOR DIALYSIS PATIEN TS. CBC W/PLT COUNT & AUTO [id number] 04:53:00 Test Item Value Reference Range Interpretation Comments WHITE BLOOD CELL COUNT (BEAKER) 12.2 K/ L 3.5-10.5 H (test code = 775) RED BLOOD CELL COUNT (BEAKER) 3.37 M/ L 3.93-5.22 L (test code = 761) HEMOGLOBIN (BEAKER) (test code = 9.7 GM/DL 11.2-15.7 L 410) HEMATOCRIT (BEAKER) (test code = 31.7 % 34.1-44.9 L 411) MEAN CORPUSCULAR VOLUME (BEAKER) 94.1 fL 79.4-94.8 (test code = 753) MEAN CORPUSCULAR HEMOGLOBIN 28.8 pg 25.6-32.2 (BEAKER) (test code = 751) MEAN CORPUSCULAR HEMOGLOBIN CONC 30.6 GM/DL 32.2-35.5 L (BEAKER) (test code = 752) RED CELL DISTRIBUTION WIDTH 14.7 % 11.7-14.4 H (BEAKER) (test code = 412) PLATELET COUNT (BEAKER) (test 202 K/CU MM 150-450 code = 756) MEAN PLATELET VOLUME (BEAKER) 9.5 fL 9.4-12.3 (test code = 754) NUCLEATED RED BLOOD CELLS 0 /100 WBC 0-0 (BEAKER) (test code = 413) NEUTROPHILS RELATIVE PERCENT 92 % (BEAKER) (test code = 429) LYMPHOCYTES RELATIVE PERCENT 4 % (BEAKER) (test code = 430) MONOCYTES RELATIVE PERCENT 3 % (BEAKER) (test code = 431) EOSINOPHILS RELATIVE PERCENT 0 % (BEAKER) (test code = 432) BASOPHILS RELATIVE PERCENT 0 % (BEAKER) (test code = 437) NEUTROPHILS ABSOLUTE COUNT 11.29 K/ L 1.56-6.13 H (BEAKER) (test code = 670) LYMPHOCYTES ABSOLUTE COUNT 0.44 K/ L 1.18-3.74 L (BEAKER) (test code = 414) MONOCYTES ABSOLUTE COUNT (BEAKER) 0.41 K/ L 0.24-0.36 H (test code = 415) EOSINOPHILS ABSOLUTE COUNT 0.00 K/ L 0.04-0.36 L (BEAKER) (test code = 416) BASOPHILS ABSOLUTE COUNT (BEAKER) 0.01 K/ L 0.01-0.08 (test code = 417) IMMATURE GRANULOCYTES-RELATIVE 1 % 0-1 PERCENT (BEAKER) (test code = 2801) POCT-GLUCOSE [id number] 04:46:00 Test Item Value Reference Range Interpretation Comments POC-GLUCOSE METER 201 mg/dL 70-110 H TESTED AT [facility] 67[facility] ([facility]) (test code = [facility] [place] 1538) [address] CT, CHEST, WITHOUT [id number] 02:12:00FINAL REPORT EXAMINATION: CT SCAN OF THE [...] MDReport Verified Date/Time: 04/11/2017 02:12:58 Reading Location: [address] [place], ABDOMEN 2017-04-11 02:12:00FINAL [...] MDReport Verified Date/Time: 04/11/2017 02:12:58 Reading Location: [address] Reading Room POCT-GLUCOSE [id number] 00:26:00 Test Item Value Reference Range Interpretation Comments POC-GLUCOSE METER 225 mg/dL 70-110 H TESTED AT [place] [address] ([facility]) (test code = [facility] [place] 1538) [address] BLOOD GAS, [id number] 20:54:00 Test Item Value Reference Range Interpretation Comments PH ARTERIAL (BEAKER) (test code = 7.45 7.35-7.45 383) PCO2 ARTERIAL (BEAKER) (test code 51 mmHg 35-45 H = 384) PO2 ARTERIAL (BEAKER) (test code = 151 mmHg 80-90 H 385) O2 SATURATION ARTERIAL (BEAKER) 99.0 % 96.0-97.0 H (test code = 386) HCO3 ARTERIAL (BEAKER) (test code 35 mmol/L 21-29 H = 388) BASE EXCESS ARTERIAL (BEAKER) 9.9 mmol/L -2.0-3.0 H (test code = 387) PATIENT TEMPERATURE (BEAKER) (test 37.0 C code = 1818) FIO2 (BEAKER) (test code = 1819) 36.0 % POCT-GLUCOSE [id number] 20:50:00 Test Item Value Reference Range Interpretation Comments POC-GLUCOSE METER 211 mg/dL 70-110 H TESTED AT [place] [address] (BEAKER) (test code = [facility] [place] 1538) [id number] POCT-GLUCOSE [id number] 16:25:00 Test Item Value Reference Range Interpretation Comments POC-GLUCOSE METER 227 mg/dL 70-110 H TESTED AT [place] [address] ([facility]) (test code = [facility] [place] 1538) [address] BLOOD GAS, [id number] 14:59:00 Test Item Value Reference Range Interpretation Comments PH ARTERIAL (BEAKER) (test code = 7.35 7.35-7.45 383) PCO2 ARTERIAL (BEAKER) (test code 70 mmHg 35-45 HH = 384) PO2 ARTERIAL (BEAKER) (test code = 46 mmHg 80-90 L 385) O2 SATURATION ARTERIAL (BEAKER) 78.2 % 96.0-97.0 L (test code = 386) HCO3 ARTERIAL (BEAKER) (test code 37 mmol/L 21-29 H = 388) BASE EXCESS ARTERIAL (BEAKER) 9.3 mmol/L -2.0-3.0 H (test code = 387) PATIENT TEMPERATURE (BEAKER) (test 37.0 C code = 1818) FIO2 (BEAKER) (test code = 1819) 40.0 % POCT-GLUCOSE [id number] 12:11:00 Test Item Value Reference Range Interpretation Comments POC-GLUCOSE METER 268 mg/dL 70-110 H TESTED AT [facility] 67[address] (BEAKER) (test code = [facility] 1538) [address] BLOOD GAS, [id number] 11:51:00 Test Item Value Reference Range Interpretation Comments PH ARTERIAL (BEAKER) (test code = 7.33 7.35-7.45 L 383) PCO2 ARTERIAL (BEAKER) (test code 71 mmHg 35-45 HH = 384) PO2 ARTERIAL (BEAKER) (test code = 69 mmHg 80-90 L 385) O2 SATURATION ARTERIAL (BEAKER) 92.0 % 96.0-97.0 L (test code = 386) HCO3 ARTERIAL (BEAKER) (test code 37 mmol/L 21-29 H = 388) BASE EXCESS ARTERIAL (BEAKER) 8.7 mmol/L -2.0-3.0 H (test code = 387) PATIENT TEMPERATURE (BEAKER) (test 37.0 C code = 1818) FIO2 (BEAKER) (test code = 1819) 40.0 % U/S, ABDOMINAL, [id number] 10:09:00Reason for exam:->abdominal pain, cholecystitis, ascitesFINAL REPORT [...] Matthewseport Verified Date/Time: 04/10/2017 10:09:29 Reading Location: [facility] [id number] Ultrasound ReadingRoom [id number] 09:53:00 Test Item Value Reference Range Interpretation Comments LIPASE (BEAKER) (test code = 749) 8 U/L 8-78 BASIC METABOLIC [id number] 09:53:00 Test Item Value Reference Range Interpretation Comments SODIUM (BEAKER) 136 meq/L 136-145 (test code = 381) POTASSIUM (BEAKER) 5.0 meq/L 3.5-5.1 (test code = 379) CHLORIDE (BEAKER) 95 meq/L 98-107 L (test code = 382) CO2 (BEAKER) (test 36 meq/L 22-29 H code = 355) BLOOD UREA NITROGEN 32 mg/dL 7-21 H (BEAKER) (test code = 354) CREATININE (BEAKER) 1.76 mg/dL 0.57-1.25 H (test code = 358) GLUCOSE RANDOM 249 mg/dL 70-105 H (BEAKER) (test code = 652) CALCIUM (BEAKER) 8.8 mg/dL 8.4-10.2 (test code = 697) EGFR (BEAKER) (test 35 mL/min/1.73 ESTIMA RENAE GFR IS code = 1092) sq m NOT ACCURATE CREATININE CLEARANCE IN PREDICTING GLOMERULAR FILTRATION RATE . ESTIMATED GFR I S NOT APPLICABLE FOR DIALYSIS PATIEN TS. [id number] 09:11:00 Test Item Value Reference Range Interpretation Comments HAPTOGLOBIN (BEAKER) (test code = 194 mg/dL 14-258 366) VITAMIN B12 AND [id number] 08:57:00 Test Item Value Reference Range Interpretation Comments VITAMIN B12 (BEAKER) (test code = > pg/mL 213-816 H 774) FOLATE (BEAKER) (test code = 362) 14.9 ng/mL >=7.0 POCT-GLUCOSE [id number] 08:29:00 Test Item Value Reference Range Interpretation Comments POC-GLUCOSE METER 270 mg/dL 70-110 H TESTED AT [facility] 6720 (BEAKER) (test code = [place] 1538) [address] [id number] 08:24:00 Test Item Value Reference Range Interpretation Comments FERRITIN (BEAKER) (test code = 361) 106 ng/mL 5-275 PROTEIN, RANDOM [id number] 08:14:00 Test Item Value Reference Range Interpretation Comments PROTEIN, URINE (BEAKER) (test code = < mg/dL 0-14 1569) SODIUM, RANDOM [id number] 08:14:00 Test Item Value Reference Range Interpretation Comments SODIUM URINE (BEAKER) (test code = < meq/L 243) Reference Range: No NormalsRETICULOCYTE [id number] 08:03:00 Test Item Value Reference Range Interpretation Comments RETICULOCYTE COUNT PCT (BEAKER) (test 1.9 % 0.5-1.7 H code = 575) IRON, TIBC, % SAT. (WITHOUT FERRITIN)2017-04-10 08:02:00 Test Item Value Reference Range Interpretation Comments IRON (BEAKER) (test code = 547) 20 ug/dL 40-160 L TOTAL IRON BINDING CAPACITY 243 ug/dL 250-450 L (BEAKER) (test code = 769) IRON % SATURATION (2) (BEAKER) 8 % 20-55 L (test code = 2590) LIPID [id number] 08:01:00 Test Item Value Reference Range Interpretation Comments TRIGLYCERIDES (BEAKER) (test code = 54 mg/dL 540) CHOLESTEROL (BEAKER) (test code = 107 mg/dL 631) HDL CHOLESTEROL (BEAKER) (test code 41 mg/dL = 976) LDL CHOLESTEROL CALCULATED (BEAKER) 55 mg/dL (test code = 633) Triglyceride Reference Range: Low Risk <150 Borderline 150-199 High Risk 200-499 Very High Risk >=500Cholesterol Reference Range: Low Risk <200 Borderline 200-239 High Risk >240HDL Cholesterol Reference Range: Low Risk >=60 High Risk <40LDL Cholesterol Reference Range: Optimal <100 Near Optimal 100-129 Borderline 130-159 High 160-189 Very High >=190LACTATE DEHYDROGENASE (LDH)2017-04-10 08:01:00 Test Item Value Reference Range Interpretation Comments LACTATE DEHYDROGENASE (BEAKER) (test 276 U/L 125-220 H code = 635) CREATININE, RANDOM [id number] 08:01:00 Test Item Value Reference Range Interpretation Comments CREATININE URINE (BEAKER) (test 92.9 mg/dL code = 375) Reference Range: No NormalsURINALYSIS W/ REFLEX URINE [id number] 07:54:00 Test Item Value Reference Range Interpretation Comments COLOR (BEAKER) (test code = 470) Yellow CLARITY (BEAKER) (test code = 469) Clear SPECIFIC GRAVITY UA (BEAKER) (test 1.007 1.001-1.035 code = 468) PH UA (BEAKER) (test code = 467) 5.0 5.0-8.0 PROTEIN UA (BEAKER) (test code = Negative Negative 464) GLUCOSE UA (BEAKER) (test code = Negative Negative 365) KETONES UA (BEAKER) (test code = Negative Negative 371) BILIRUBIN UA (BEAKER) (test code = Negative Negative 462) BLOOD UA (BEAKER) (test code = 461) Negative Negative NITRITE UA (BEAKER) (test code = Negative Negative 465) LEUKOCYTE ESTERASE UA (BEAKER) Negative Negative (test code = 466) UROBILINOGEN UA (BEAKER) (test code 0.2 mg/dL 0.2-1.0 = 463) RBC UA (BEAKER) (test code = 519) 1 /HPF WBC UA (BEAKER) (test code = 520) 0 /HPF BACTERIA (BEAKER) (test code = 517) Rare HYALINE CASTS (BEAKER) (test code = 6 /LPF 514) SOURCE(BEAKER) (test code = 2795) PLATELET [id number] 07:26:00 Test Item Value Reference Range Interpretation Comments PLATELET COUNT (BEAKER) (test 201 K/CU MM 150-450 code = 756) POCT-GLUCOSE [id number] 07:15:00 Test Item Value Reference Range Interpretation Comments POC-GLUCOSE METER 258 mg/dL 70-110 H TESTED AT [facility] 6720 (BEAKER) (test code = [place] 1538) [address] BASIC METABOLIC [id number] 06:52:00 Test Item Value Reference Range Interpretation Comments SODIUM (BEAKER) 136 meq/L 136-145 (test code = 381) POTASSIUM (BEAKER) 4.9 meq/L 3.5-5.1 (test code = 379) CHLORIDE (BEAKER) 95 meq/L 98-107 L (test code = 382) CO2 (BEAKER) (test 32 meq/L 22-29 H code = 355) BLOOD UREA NITROGEN 33 mg/dL 7-21 H (BEAKER) (test code = 354) CREATININE (BEAKER) 1.85 mg/dL 0.57-1.25 H (test code = 358) GLUCOSE RANDOM 247 mg/dL 70-105 H (BEAKER) (test code = 652) CALCIUM (BEAKER) 8.6 mg/dL 8.4-10.2 (test code = 697) EGFR (BEAKER) (test 33 mL/min/1.73 ESTIMA RENAE GFR IS code = 1092) sq m NOT ACCURATE CREATININE CLEARANCE IN PREDICTING GLOMERULAR FILTRATION RATE . ESTIMATED GFR I S NOT APPLICABLE FOR DIALYSIS PATIEN TS. BLOOD GAS, [id number] 06:49:00 Test Item Value Reference Range Interpretation Comments PH ARTERIAL (BEAKER) (test code = 7.30 7.35-7.45 L 383) PCO2 ARTERIAL (BEAKER) (test code 75 mmHg 35-45 HH = 384) PO2 ARTERIAL (BEAKER) (test code = 84 mmHg 80-90 385) O2 SATURATION ARTERIAL (BEAKER) 94.9 % 96.0-97.0 L (test code = 386) HCO3 ARTERIAL (BEAKER) (test code 36 mmol/L 21-29 H = 388) BASE EXCESS ARTERIAL (BEAKER) 7.4 mmol/L -2.0-3.0 H (test code = 387) PATIENT TEMPERATURE (BEAKER) (test 37.0 C code = 1818) FIO2 (BEAKER) (test code = 1819) 50.0 % RAD, CHEST, 1 VIEW, NON [id number] 06:34:00Reason for exam:->central line placement Should this be performed at the bedside?->YesFINAL REPORT Comparison exam: 04/10/2017 time 1:09 AM Interval placement of a right IJ central venous catheter with the tip located in the superior vena cava. No pneumothorax. No focal pulmonary consolidation or significant pleural effusion. Stable cardiomediastinal contours. Signed: Ariel Leigh [id number] Verified Date/Time: 04/10/2017 06:34:32 Reading Location: [facility] [id number] Ortho Consult Reading Room [id number] 06:04:00 Test Item Value Reference Range Interpretation Comments PARTIAL THROMBOPLASTIN TIME 34.8 seconds 22.5-36.0 (BEAKER) (test code = 760) Prior to initiating heparinCBC W/PLT COUNT & AUTO [id number] 02:14:00 Test Item Value Reference Range Interpretation Comments WHITE BLOOD CELL COUNT (BEAKER) 10.1 K/ L 3.5-10.5 (test code = 775) RED BLOOD CELL COUNT (BEAKER) 3.72 M/ L 3.93-5.22 L (test code = 761) HEMOGLOBIN (BEAKER) (test code = 10.9 GM/DL 11.2-15.7 L 410) HEMATOCRIT (BEAKER) (test code = 36.7 % 34.1-44.9 411) MEAN CORPUSCULAR VOLUME (BEAKER) 98.7 fL 79.4-94.8 H (test code = 753) MEAN CORPUSCULAR HEMOGLOBIN 29.3 pg 25.6-32.2 (BEAKER) (test code = 751) MEAN CORPUSCULAR HEMOGLOBIN CONC 29.7 GM/DL 32.2-35.5 L (BEAKER) (test code = 752) RED CELL DISTRIBUTION WIDTH 14.6 % 11.7-14.4 H (BEAKER) (test code = 412) PLATELET COUNT (BEAKER) (test 177 K/CU MM 150-450 code = 756) MEAN PLATELET VOLUME (BEAKER) 9.7 fL 9.4-12.3 (test code = 754) NUCLEATED RED BLOOD CELLS 0 /100 WBC 0-0 (BEAKER) (test code = 413) NEUTROPHILS RELATIVE PERCENT 96 % (BEAKER) (test code = 429) LYMPHOCYTES RELATIVE PERCENT 3 % (BEAKER) (test code = 430) MONOCYTES RELATIVE PERCENT 1 % (BEAKER) (test code = 431) EOSINOPHILS RELATIVE PERCENT 0 % (BEAKER) (test code = 432) BASOPHILS RELATIVE PERCENT 0 % (BEAKER) (test code = 437) NEUTROPHILS ABSOLUTE COUNT 9.70 K/ L 1.56-6.13 H (BEAKER) (test code = 670) LYMPHOCYTES ABSOLUTE COUNT 0.26 K/ L 1.18-3.74 L (BEAKER) (test code = 414) MONOCYTES ABSOLUTE COUNT (BEAKER) 0.09 K/ L 0.24-0.36 L (test code = 415) EOSINOPHILS ABSOLUTE COUNT 0.00 K/ L 0.04-0.36 L (BEAKER) (test code = 416) BASOPHILS ABSOLUTE COUNT (BEAKER) 0.01 K/ L 0.01-0.08 (test code = 417) IMMATURE GRANULOCYTES-RELATIVE 1 % 0-1 PERCENT (BEAKER) (test code = 2801) TROPONIN [id number] 01:56:00 Test Item Value Reference Range Interpretation Comments TROPONIN I (BEAKER) (test code = 0.62 ng/mL 0.00-0.03 [facility]) Troponin I (TnI) levels must be interpreted [...] acute neurological disease, and persistent tachyarrhythmia.BASIC METABOLIC [id number] 01:46:00 Test Item Value Reference Range Interpretation Comments SODIUM (BEAKER) 135 meq/L 136-145 L (test code = 381) POTASSIUM (BEAKER) 5.1 meq/L 3.5-5.1 Specimen slightly (test code = 379) hemolyzed CHLORIDE (BEAKER) 95 meq/L 98-107 L (test code = 382) CO2 (BEAKER) (test 31 meq/L 22-29 H code = 355) BLOOD UREA NITROGEN 33 mg/dL 7-21 H (BEAKER) (test code = 354) CREATININE (BEAKER) 2.04 mg/dL 0.57-1.25 H Specimen slightly (test code = 358) hemolyzed GLUCOSE RANDOM 234 mg/dL 70-105 H (BEAKER) (test code = 652) CALCIUM (BEAKER) 8.6 mg/dL 8.4-10.2 (test code = 697) EGFR (BEAKER) (test 29 mL/min/1.73 ESTIMA RENAE GFR IS code = 1092) sq m NOT ACCURATE CREATININE CLEARANCE IN PREDICTING GLOMERULAR FILTRATION RATE . ESTIMATED GFR I S NOT APPLICABLE FOR DIALYSIS PATIEN TS. [id number] 01:46:00 Test Item Value Reference Range Interpretation Comments PROTIME (BEAKER) (test code = 14.7 seconds 11.7-14.7 759) INR (BEAKER) (test code = 370) 1.2 <=5.9 PARTIAL THROMBOPLASTIN TIME 45.8 seconds 22.5-36.0 H (BEAKER) (test code = 760) RECOMMENDED COUMADIN/WARFARIN INR THERAPY RANGESSTANDARD DOSE: 2.0 - 3.0 Includes: PROPHYLAXIS forvenous thrombosis, systemic embolization; TREATMENT for venous thrombosis and/or pulmonary embolus.HIGH RISK: Target INR is 2.5-3.5 for patients with mechanical heart valves.PROTHROMBIN [id number] 01:45:00 Test Item Value Reference Range Interpretation Comments PROTIME (BEAKER) (test code = 14.7 seconds 11.7-14.7 759) INR (BEAKER) (test code = 370) 1.2 <=5.9 RECOMMENDED COUMADIN/WARFARIN INR THERAPY RANGESSTANDARD DOSE: 2.0 - 3.0 Includes: PROPHYLAXIS forvenous thrombosis, systemic embolization; TREATMENT for venous thrombosis and/or pulmonary embolus.HIGH RISK: Target INR is 2.5-3.5 for patients with mechanical heart valves.CREATINE KINASE (CK), TOTAL AND MB 2017-04-10 01:44:00 Test Item Value Reference Range Interpretation Comments CREATINE KINASE TOTAL (BEAKER) 89 U/L 29-200 (test code = 380) CREATINE KINASE-MB (BEAKER) (test 2.1 ng/mL 0.0-6.6 code = 750) CREATINE KINASE-MB INDEX (BEAKER) 2.4 % (test code = 395) CK-MB Reference Range:<6.7 Normal6.7-10.0 Borderline>10.0 AbnormalRAD, CHEST, 1 VIEW, NON [id number] 01:44:00Reason for exam:- >acute hypoxemic hypercapnic respiratory failure; pneumonia, pulmonary edemaShould this be performed at the bedside?->YesFINAL REPORT Comparison examination: None No pneumothorax, focal pulmonary co nsolidation, or significant pleural effusion. The cardiac size is magnified by the portable technique. Normal mediastinal contours. Normal skeleton and soft tissues. Impression: No acute abnormality.Signed: Ariel Leigh Verified Date/Time: 04/10/2017 01:44:25 Reading Location: [address] Ortho Consult Reading Room B-TYPE NATRIURETIC FACTOR (BNP)2017-04-10 01:43:00 Test Item Value Reference Range Interpretation Comments B-TYPE NATRIURETIC PEPTIDE 1410 pg/mL 0-100 H (BEAKER) (test code = 700) [id number] 01:38:00 Test Item Value Reference Range Interpretation Comments MAGNESIUM (BEAKER) 1.8 mg/dL 1.6-2.6 Specimen slightly (test code = 627) hemolyzed [id number] 01:38:00 Test Item Value Reference Range Interpretation Comments PHOSPHORUS (BEAKER) 4.1 mg/dL 2.3-4.7 Specimen slightly (test code = 604) hemolyzed HEPATIC FUNCTION [id number] 01:38:00 Test Item Value Reference Range Interpretation Comments TOTAL PROTEIN (BEAKER) 7.2 gm/dL 6.0-8.3 Speci men slightly (test code = 770) hemolyzed ALBUMIN (BEAKER) (test 3.2 g/dL 3.5-5.0 L Speci men slightly code = 1145) hemolyzed BILIRUBIN TOTAL 0.3 mg/dL 0.2-1.2 Specimen sli ghtly (BEAKER) (test code = hemoly zed 377) BILIRUBIN DIRECT 0.2 mg/dL 0.1-0.5 Specimen sl ightly (BEAKER) (test code = hemoly zed 706) ALKALINE PHOSPHATASE 62 U/L 40-150 (BEAKER) (test code = 346) AST (SGOT) (BEAKER) 40 U/L 5-34 H Specimen slightly (test code = 353) hemolyzed ALT (SGPT) (BEAKER) 28 U/L 6-55 Specimen slightly (test code = 347) hemolyzed LACTIC ACID, VENOUS, WHOLE [id number] 01:32:00 Test Item Value Reference Range Interpretation Comments LACTATE BLOOD VENOUS 0.7 mmol/L 0.5-2.2 Specime n slightly (2) (BEAKER) (test hemolyzed code = 2872) Effective 11/03/2015: Units/Reference Range ChangeNew: 0.5-2.2 mmol/L Previous: 5-20 mg/dLBLOOD GAS, [id number] 01:23:00 Test Item Value Reference Range Interpretation Comments PH ARTERIAL (BEAKER) (test code = 7.26 7.35-7.45 L 383) PCO2 ARTERIAL (BEAKER) (test code 81 mmHg 35-45 HH = 384) PO2 ARTERIAL (BEAKER) (test code = 250 mmHg 80-90 H 385) O2 SATURATION ARTERIAL (BEAKER) 99.4 % 96.0-97.0 H (test code = 386) HCO3 ARTERIAL (BEAKER) (test code 35 mmol/L 21-29 H = 388) BASE EXCESS ARTERIAL (BEAKER) 5.9 mmol/L -2.0-3.0 H (test code = 387) PATIENT TEMPERATURE (BEAKER) (test 37.1 C code = 1818) FIO2 (BEAKER) (test code = 1819) 70.0 % POCT-GLUCOSE [id number] 23:56:00 Test Item Value Reference Range Interpretation Comments POC-GLUCOSE METER 243 mg/dL 70-110 H TESTED AT [facility] 67 (SACHA) (test code = [place] 1538) [id number]
[2020-04-15] MEDS ORDERED: ACETAMINOPHEN 650MG/RECT SUPP PR ONE (20:54)
[2020-04-15] MEDS ORDERED: NA CHLORIDE 0.9% 2,000 ML ONE (20:54)
[2020-04-15] MEDS ORDERED: PIPER/TAZO/NS 3.375gm 3.375 GM/100 ML BAG ONE (20:55)
[2020-04-15 21:03] LABS: Absolute Lymphocytes (CBC) 1.2 K/uL (0.7-4.9); Basophils % 0.4 % (0-1.3); Hematocrit 38.1 % (36.0-45.0); Lymphocytes % 21.8 % (15.3-44.8); MPV 8.2 fL (7.6-11.3); RBC Red Blood Cell Count 4.09 M/uL (3.86-4.86)
[2020-04-15 21:06] LABS: Protime INR 1.04
[2020-04-15 21:23] LABS: ALT/SGPT 19 U/L (12-78); Albumin 3.4 g/dL (3.4-5.0); Alkaline Phosphatase 83 U/L (45-117); BUN Blood Urea Nitrogen 29 mg/dL (7-18); Bicarbonate 36 mmol/L (21-32); Bilirubin Direct < 0.1 mg/dL (0-0.2); Bilirubin Total 0.3 mg/dL (0.2-1.0); Glucose Level 171 mg/dL (74-106); NT PRO-BNP 1232 pg/mL (<125); Protein, Total 7.7 g/dL (6.4-8.2); Sodium Level 136 mmol/L (136-145); Troponin (Emerg Dept Use Only) 0.07 ng/mL (0.0-0.045)
[2020-04-15 21:25] LABS: AST/SGOT 40 U/L (15-37); Magnesium 1.9 mg/dL (1.8-2.4); Potassium 4.3 mmol/L (3.5-5.1)
[2020-04-15 21:29] LABS: Urine Blood 1+ (NEG); Urine Glucose NEGATIVE (NEG); Urine Protein TRACE (NEG); Urine Specific Gravity 1.015 (1.005-1.030); Urine pH 5.5 (5.0-7.0)
[2020-04-15] MEDS ORDERED: IPRATROPIUM BROM 0.5MG/2.5ML ONE (22:53)
[2020-04-15] MEDS ORDERED: LEVALBUTEROL 1.25 MG/3 ML NEB ONE ×2 (22:53→23:45)
[2020-04-15] MEDS ORDERED: METHYLPREDNISOLONE 125 MG INJ ONE (22:53)
[2020-04-15] MEDS ORDERED: FAMOTIDINE 20 MG/2 ML VIAL IV ONE (23:25)
[2020-04-15] MEDS ORDERED: NA CHLORIDE 0.9% 250 ML ONE (23:25)
[2020-04-15] MEDS ORDERED: AZITHROMYCIN 500 MG INJ IVPB ONE (23:25)
--- NOTE | 2020-04-15 23:28 | ER ---
Nurse's Notes [facility] Name: Radha Valencia Age: 69 yrs Sex: Female : 1950 Arrival Date: 04/15/2020 Time: 19:37 Bed 4 Private MD: Diagnosis: Pneumonia due to other specified infectious organisms;Hypoxemia;Dyspnea;Fever, unspecified;Acute kidney failure;SARS-associated coronavirus as the cause of diseases classified elsewhere-covid 19 Presentation: 04/15 19:50 Chief complaint: Patient states: she has been having difficulty breathing for several bb days with coughing denies fever but has a fever in triage. Coronavirus screen: cough unrelated to allergies, difficulty breathing. Ebola Screen: No symptoms or risks identified at this time. Initial Sepsis Screen: Does the patient meet any 2 criteria? Temp <36.0*C (96.8*F)) or > 38.3*C (100.9*F). Yes Does the patient have a suspected source of infection? Yes: Productive cough/pneumonia. Risk Assessment: Do you want to hurt yourself or someone else? Patient reports no desire to harm self or others. Onset of symptoms was April 11, 2020. 19:50 Method Of Arrival: Wheelchair bb 19:50 Acuity: JAKOB 3 bb Historical: - Allergies: 19:56 No Known Allergies; bb - Home Meds: 19:56 Adcirca 20 mg Oral tab 1 tabs once daily [Active]; aspirin 81 mg Oral chew 1 tab once bb daily [Active]; Caltrate with Vitamin D3 Oral [Active]; Cinnamon 500 mg Oral cap 2 cap twice a day [Active]; Combivent 100 - 20 mcg/inh Inhl 1 puff 4 times a day as needed [Active]; diclofenac-capsicum Topical 4 times day [Active]; doxepin 10 mg Oral cap 1 cap nightly [Active]; furosemide 20 mg Oral tab 1 tab 2 times per day [Active]; gabapentin 800 mg Oral tab 1 tab 3 times per day [Active]; glimepiride 2 mg Oral tab 1 tab once daily [Active]; home o2 dependant [Active]; Iron CR Oral [Active]; Letairis 10 mg Oral tab 1 tab once daily [Active]; nabumetone 500 mg Oral tab 2 tabs once daily [Active]; pantoprazole 40 mg Oral TbEC 1 tab once daily [Active]; simvastatin 20 mg Oral tab 1 tab nightly [Active]; Ultram 50 mg Oral tab 1 tab [Active]; - PMHx: 19:56 CHF; COPD; Diabetes - NIDDM; Hypertension; bb - Immunization history:: Adult Immunizations up to date. - Social history:: Smoking status: unknown. - Family history:: not pertinent. Screenin:55 Abuse screen: Denies threats or abuse. Nutritional screening: No deficits noted. jb4 Tuberculosis screening: No symptoms or risk factors identified. Fall Risk Secondary diagnosis (15 points) COPD w/ home O2. Gait- Weak (10 pts.). Total Briseno Fall Scale indicates Low Risk Score (25-44 pts). Fall prevention measures have been instituted. Side Rails Up X 2 Placed close to Nursing Station Frequent Obs/Assesments occuring Family Present and informed to notify staff if they need to leave bedside As available Patient and Family Educated on Fall Prevention Program and strategies. Assessment: 19:55 General: Appears in no apparent distress. uncomfortable, Behavior is calm, cooperative, jb4 appropriate for age. Pain: Complains of pain in abdomen Pain does not radiate. Pain currently is 5 out of 10 on a pain scale. Neuro: Level of Consciousness is awake, alert, obeys commands, Oriented to person, place, time, situation. Cardiovascular: Patient's skin is warm and dry. Respiratory: Airway is patent Respiratory effort is even, labored, Respiratory pattern is symmetrical, tachypnea Breath sounds are diminished bilaterally. Breath sounds with wheezes in left upper lobe, left lower lobe and left posterior upper lobe. GI: Abdomen is non-distended, obese, Bowel sounds present X 4 quads. Abd is soft and non tender X 4 quads. : No signs and/or symptoms were reported regarding the genitourinary system. EENT: No signs and/or symptoms were reported regarding the EENT system. Derm: Skin is intact, Skin is dry, Skin is normal, Skin temperature is warm. Musculoskeletal: Circulation, motion, and sensation intact. Range of motion: intact in all extremities. 22:14 Reassessment: patient came back from CT scan. awaiting results. patient updated on the plan of care. vital signs stable. patient is comfortable laying on the stretcher. 23:00 Reassessment: Patient appears in no apparent distress at this time. Patient and/or jb4 family updated on plan of care and expected duration. Pain level reassessed. Patient is alert, oriented x 3, equal unlabored respirations, skin warm/dry/pink. Patient states feeling better. Patient states symptoms have improved. Respiratory: Breath sounds are clear bilaterally. 04/16 00:18 Reassessment: Patient appears in no apparent distress at this time. Patient and/or jb4 family updated on plan of care and expected duration. Pain level reassessed. Patient is alert, oriented x 3, equal unlabored respirations, skin warm/dry/pink. 01:15 Reassessment: Patient appears in no apparent distress at this time. Patient and/or jb4 family updated on plan of care and expected duration. Pain level reassessed. Patient is alert, oriented x 3, equal unlabored respirations, skin warm/dry/pink. Vital Signs: 04/15 19:50 BP 122 / 64; Pulse 91; Resp 16 S; Temp 101.7; Pulse Ox 96% on R/A; Weight 102.06 kg (R);bb 20:30 BP 111 / 60; Pulse 86; Resp 19; Pulse Ox 100% on 4 lpm NC; rv 21:00 BP 118 / 49; Pulse 82; Resp 21; Pulse Ox 100% on 4 lpm NC; rv 21:30 BP 124 / 40; Pulse 81; Resp 19; Pulse Ox 100% on 4 lpm NC; rv 22:00 BP 99 / 45; Pulse 79; Resp 19; Pulse Ox 100% on 4 lpm NC; rv 22:34 BP 102 / 46; Pulse 72; Resp 18; Temp 98.9(TE); Pulse Ox 100% on 4 lpm NC; jb4 23:26 BP 90 / 43; Pulse 71; Resp 24; Pulse Ox 100% on 4 lpm NC; rv 04/16 00:18 BP 92 / 46; Pulse 74; Resp 15; Pulse Ox 100% on 4 lpm NC; Pain 0/10; jb4 01:11 BP 95 / 46; Pulse 74; Resp 16; Temp 98.9; Pulse Ox 100% on 4 lpm NC; rv ED Course: 04/15 19:37 Patient arrived in ED. cl3 19:41 Moses Zhong, RN is Primary Nurse. jb4 19:52 Triage completed. bb 19:55 Patient has correct armband on for positive identification. Placed in gown. Bed in low jb4 position. Call light in reach. Side rails up X2. casting chipper on. Pulse ox on. NIBP on. 19:56 Aba Garzon MD is Attending Physician. [facility] 19:56 Arm band placed on Patient placed in an exam room, on a stretcher, on oxygen, on bb supervisor cooler service, on pulse oximetry. EKG completed in triage. Results shown to MD. Family accompanied patient. 20:00 Missed attempt(s): 18 gauge in right antecubital area. Bleeding controlled, band aid jb4 applied, catheter tip intact. 20:30 Initial lab(s) drawn, by me, sent to lab. Inserted saline lock: 20 gauge in right rv antecubital area, using aseptic technique. Blood collected. 21:00 Salas cath inserted, using sterile technique, 16 Fr., by me, balloon inflated, to jb4 gravity drainage, urine specimen collected. returned clear yellow urine. Patient tolerated well. 21:15 XRAY Chest (1 view) In Process Unspecified. EDMS 22:13 Chest Abd Pelvis Wo Con In Process Unspecified. EDMS 23:24 Anna Jasmine MD is Hospitalizing Provider. [facility] 04/16 01:11 No provider procedures requiring assistance completed. IV is patent, with fluids rv infusing freely, Patient admitted, IV remains in place. Administered Medications: 04/15 21:00 Drug: Tylenol Suppository 650 mg Route: AR; jb4 21:00 Drug: NS 0.9% 1000 ml Route: IV; Rate: 1 bolus; Site: right antecubital; jb4 23:27 Follow up: Response: No adverse reaction; IV Status: Completed infusion jb4 21:12 Drug: Zosyn 3.375 grams Route: IVPB; Infused Over: 60 mins; Site: right antecubital; jb4 22:53 Drug: SOLU-Medrol 125 mg Route: IVP; Site: right antecubital; jb4 23:27 Follow up: Response: No adverse reaction jb4 22:53 Drug: Xopenex 1.25 mg Route: Inhalation; jb4 23:27 Follow up: Response: No adverse reaction; Marked relief of symptoms jb4 22:53 Drug: AtroVENT Aerosol 0.5 mg Route: Inhalation; jb4 23:28 Follow up: Response: No adverse reaction; Marked relief of symptoms [facility] 23:26 Drug: Zithromax 500 mg Route: IVPB; Infused Over: 1 hrs; Site: right antecubital; 4 23:27 Drug: NS 0.9% 1000 ml Route: IV; Rate: 125 ml/hr; Site: right antecubital; jb4 23:27 Drug: Pepcid 20 mg Route: IVP; Site: right antecubital; jb4 23:38 Drug: Xopenex 1.25 mg Route: Inhalation; 4 04/16 00:19 Drug: Decadron - Dexamethasone 6 mg Route: IVP; Site: right antecubital; 4 00:19 Drug: Lovenox 40 mg Route: Sub-Q; Site: right lower abdomen; 4 Outcome: 04/15 23:27 Decision to Hospitalize by Provider. yumiko 04/16 01:12 Admitted to ICU accompanied by tech, via stretcher, room 1, with oxygen, Other SBAR, rv EKG Report called to KM LUNDBERG Condition: good Instructed on the need for admit. 01:19 Patient left the ED. rv Signatures: Dispatcher [employer] EDAba Sierra MD MD cha Ballard, Brenda, RN RN bb Bryson, James, RN RN jb4 Franklin Beatty RN RN Harriet Hernández cl3
--- NOTE | 2020-04-15 23:28 | EDPHYS ---
Physician Documentation [facility] Name: Radha Valencia Age: 69 yrs Sex: Female : 1950 Arrival Date: 04/15/2020 Time: 19:37 Bed 4 Private MD: ED Physician Aba Garzon HPI: 04/15 20:25 This 69 yrs old Black Female presents to ER via Wheelchair with complaints of Low yumiko Oxygen, Abdominal Pain. 20:25 The patient has shortness of breath at rest, with light activity. Onset: The yumiko symptoms/episode began/occurred 3 day(s) ago. Duration: The symptoms are continuous, and are steadily getting worse. The patient's shortness of breath is aggravated by nothing, is alleviated by nothing. The patient or guardian reports cough, described as mild, described as moderate, difficulty breathing, flu symptoms, arthralgias, low-grade fever, myalgias. Modifying factors: The symptoms are alleviated by nothing. the symptoms are aggravated by nothing. Severity of symptoms: At their worst the symptoms were. Historical: - Allergies: 19:56 No Known Allergies; bb - Home Meds: 19:56 Adcirca 20 mg Oral tab 1 tabs once daily [Active]; aspirin 81 mg Oral chew 1 tab once bb daily [Active]; Caltrate with Vitamin D3 Oral [Active]; Cinnamon 500 mg Oral cap 2 cap twice a day [Active]; Combivent 100 - 20 mcg/inh Inhl 1 puff 4 times a day as needed [Active]; diclofenac-capsicum Topical 4 times day [Active]; doxepin 10 mg Oral cap 1 cap nightly [Active]; furosemide 20 mg Oral tab 1 tab 2 times per day [Active]; gabapentin 800 mg Oral tab 1 tab 3 times per day [Active]; glimepiride 2 mg Oral tab 1 tab once daily [Active]; home o2 dependant [Active]; Iron CR Oral [Active]; Letairis 10 mg Oral tab 1 tab once daily [Active]; nabumetone 500 mg Oral tab 2 tabs once daily [Active]; pantoprazole 40 mg Oral TbEC 1 tab once daily [Active]; simvastatin 20 mg Oral tab 1 tab nightly [Active]; Ultram 50 mg Oral tab 1 tab [Active]; - PMHx: 19:56 CHF; COPD; Diabetes - NIDDM; Hypertension; bb - Immunization history:: Adult Immunizations up to date. - Social history:: Smoking status: unknown. - Family history:: not pertinent. ROS: 20:25 Eyes: Negative for injury, pain, redness, and discharge, ENT: Negative for injury, yumiko pain, and discharge, Neck: Negative for injury, pain, and swelling, Cardiovascular: Negative for chest pain, palpitations, and edema, Abdomen/GI: Negative for abdominal pain, nausea, vomiting, diarrhea, and constipation, Back: Negative for injury and pain, : Negative for injury, bleeding, discharge, and swelling, MS/Extremity: Negative for injury and deformity, Skin: Negative for injury, rash, and discoloration, Neuro: Negative for headache, weakness, numbness, tingling, and seizure, Psych: Negative for depression, anxiety, suicide ideation, homicidal ideation, and hallucinations, Allergy/Immunology: Negative for hives, rash, and allergies, Endocrine: Negative for neck swelling, polydipsia, polyuria, polyphagia, and marked weight changes. 20:25 Constitutional: Positive for fever, malaise. 20:25 Respiratory: Positive for cough, shortness of breath, wheezing, expiratory. 20:25 Abdomen/GI: Positive for abdominal pain, of the right upper quadrant, left upper quadrant, right lower quadrant and left lower quadrant. Exam: 20:25 Head/Face: Normocephalic, atraumatic. Eyes: Pupils equal round and reactive to light, yumiko extra-ocular motions intact. Lids and lashes normal. Conjunctiva and sclera are non-icteric and not injected. Cornea within normal limits. Periorbital areas with no swelling, redness, or edema. ENT: Nares patent. No nasal discharge, no septal abnormalities noted. Tympanic membranes are normal and external auditory canals are clear. Oropharynx with no redness, swelling, or masses, exudates, or evidence of obstruction, uvula midline. Mucous membranes moist. Neck: Trachea midline, no thyromegaly or masses palpated, and no cervical lymphadenopathy. Supple, full range of motion without nuchal rigidity, or vertebral point tenderness. No Meningismus. Chest/axilla: Normal chest wall appearance and motion. Nontender with no deformity. No lesions are appreciated. Cardiovascular: Regular rate and rhythm with a normal S1 and S2. No gallops, murmurs, or rubs. Normal PMI, no JVD. No pulse deficits. Abdomen/GI: Soft, non-tender, with normal bowel sounds. No distension or tympany. No guarding or rebound. No evidence of tenderness throughout. Back: No spinal tenderness. No costovertebral tenderness. Full range of motion. Female : Normal external genitalia. Skin: Warm, dry with normal turgor. Normal color with no rashes, no lesions, and no evidence of cellulitis. MS/ Extremity: Pulses equal, no cyanosis. Neurovascular intact. Full, normal range of motion. Neuro: Awake and alert, GCS 15, oriented to person, place, time, and situation. Cranial nerves II-XII grossly intact. Motor strength 5/5 in all extremities. Sensory grossly intact. Cerebellar exam normal. Normal gait. Psych: Awake, alert, with orientation to person, place and time. Behavior, mood, and affect are within normal limits. 20:25 Constitutional: The patient appears febrile, in obvious distress, mildly distressed. 20:25 Respiratory: the patient does not display signs of respiratory distress, Respirations: no acute changes, Breath sounds: decreased breath sounds, rhonchi, wheezing: expiratory Vital Signs: 19:50 BP 122 / 64; Pulse 91; Resp 16 S; Temp 101.7; Pulse Ox 96% on R/A; Weight 102.06 kg (R);bb 20:30 BP 111 / 60; Pulse 86; Resp 19; Pulse Ox 100% on 4 lpm NC; rv 21:00 BP 118 / 49; Pulse 82; Resp 21; Pulse Ox 100% on 4 lpm NC; rv 21:30 BP 124 / 40; Pulse 81; Resp 19; Pulse Ox 100% on 4 lpm NC; rv 22:00 BP 99 / 45; Pulse 79; Resp 19; Pulse Ox 100% on 4 lpm NC; rv 22:34 BP 102 / 46; Pulse 72; Resp 18; Temp 98.9(TE); Pulse Ox 100% on 4 lpm NC; jb4 23:26 BP 90 / 43; Pulse 71; Resp 24; Pulse Ox 100% on 4 lpm NC; rv 10/16 00:18 BP 92 / 46; Pulse 74; Resp 15; Pulse Ox 100% on 4 lpm NC; Pain 0/10; 4 01:11 BP 95 / 46; Pulse 74; Resp 16; Temp 98.9; Pulse Ox 100% on 4 lpm NC; rv MDM: 04/15 19:56 Patient medically screened. [facility] 20:27 Differential diagnosis: obstructed airway, bronchitis, flu, URI, viral Infection, yumiko bacterial infection, URI, bronchitis, pneumonia UTI. Antibiotic administration: zosyn. The patient's Wells Deep Vein Thrombosis Score was calculated as follows: Total Score: 0-2 Pts- Low Risk. The patient's pulmonary embolism risk score was calculated as follows: Total Score: 0-2 points. This patient was found to be at low risk for a pulmonary embolism by using the Well's assessment criteria. Immunization status: Pneumococcal vaccine: Influenza vaccine: Data reviewed: vital signs, nurses notes, EMS record, lab test result(s), EKG, radiologic studies. Data interpreted: classroom monitor: rate is 91 beats/min, rhythm is regular, Pulse oximetry: on 2L(s) per nasal canula, is 96 %. Test interpretation: by ED physician or midlevel provider: ECG, plain radiologic studies. Counseling: I had a detailed discussion with the patient and/or guardian regarding: the historical points, exam findings, and any diagnostic results supporting the discharge/admit diagnosis, the presence of at least one elevated blood pressure reading (>120/80) during this emergency department visit, lab results, radiology results, the need for further work-up and treatment in the hospital. 04/15 20:13 Order name: Basic Metabolic Panel; Complete Time: 22:27 [facility] 04/15 20:13 Order name: CBC with Diff; Complete Time: 22:27 [facility] 04/15 20:13 Order name: LFT's; Complete Time: 22:27 [facility] 04/15 20:13 Order name: Magnesium; Complete Time: 22:27 [facility] 04/15 20:13 Order name: NT PRO-BNP; Complete Time: 22:27 [facility] 04/15 20:13 Order name: PT-INR; Complete Time: 22:27 [facility] 04/15 20:13 Order name: Troponin (emerg Dept Use Only); Complete Time: 22:27 [facility] 04/15 20:23 Order name: Lactate; Complete Time: 22:27 [facility] 04/15 20:23 Order name: Procalcitonin; Complete Time: 22:27 [facility] 04/15 20:23 Order name: Urine Culture [facility] 04/15 20:24 Order name: Influenza Screen (a \T\ B) [facility] 04/15 21:26 Order name: Urine Dipstick--Ancillary (enter results); Complete Time: 22:27 [facility] 04/15 22:58 Order name: SARS-COV-2 RT PCR [facility] 04/15 20:13 Order name: XRAY Chest (1 view) [facility] 04/15 20:13 Order name: EKG; Complete Time: 20:14 [facility] 04/15 21:33 Order name: Chest Abd Pelvis Wo Con [facility] 04/15 20:13 Order name: Cardiac monitoring; Complete Time: 20:14 [facility] 04/15 20:13 Order name: EKG - Nurse/Tech; Complete Time: 20:14 [facility] 04/15 20:13 Order name: IV Saline Lock; Complete Time: 20:37 [facility] 04/15 20:13 Order name: Labs collected and sent; Complete Time: 20:37 [facility] 04/15 20:13 Order name: O2 Per Protocol; Complete Time: 20:14 [facility] 04/15 20:13 Order name: O2 Sat Monitoring; Complete Time: 20:14 [facility] 04/15 20:23 Order name: Salas; Complete Time: 21:13 [facility] 04/15 20:23 Order name: Urine Dipstick-Ancillary (obtain specimen); Complete Time: 21:13 [facility] 04/15 23:31 Order name: CONS Physician Consult [facility] Administered Medications: 21:00 Drug: Tylenol Suppository 650 mg Route: CA; jb4 21:00 Drug: NS 0.9% 1000 ml Route: IV; Rate: 1 bolus; Site: right antecubital; jb4 23:27 Follow up: Response: No adverse reaction; IV Status: Completed infusion jb4 21:12 Drug: Zosyn 3.375 grams Route: IVPB; Infused Over: 60 mins; Site: right antecubital; jb4 22:53 Drug: SOLU-Medrol 125 mg Route: IVP; Site: right antecubital; jb4 23:27 Follow up: Response: No adverse reaction jb4 22:53 Drug: Xopenex 1.25 mg Route: Inhalation; jb4 23:27 Follow up: Response: No adverse reaction; Marked relief of symptoms jb4 22:53 Drug: AtroVENT Aerosol 0.5 mg Route: Inhalation; jb4 23:28 Follow up: Response: No adverse reaction; Marked relief of symptoms jb4 23:26 Drug: Zithromax 500 mg Route: IVPB; Infused Over: 1 hrs; Site: right antecubital; jb4 23:27 Drug: NS 0.9% 1000 ml Route: IV; Rate: 125 ml/hr; Site: right antecubital; jb4 23:27 Drug: Pepcid 20 mg Route: IVP; Site: right antecubital; jb4 23:38 Drug: Xopenex 1.25 mg Route: Inhalation; jb4 04/16 00:19 Drug: Decadron - Dexamethasone 6 mg Route: IVP; Site: right antecubital; jb4 00:19 Drug: Lovenox 40 mg Route: Sub-Q; Site: right lower abdomen; jb4 Disposition: 04/15/20 23:27 Hospitalization ordered by Anna Jasmine for Inpatient Admission. Preliminary diagnosis are Pneumonia due to other specified infectious organisms, Hypoxemia, Dyspnea, Fever, unspecified, Acute kidney failure, SARS-associated coronavirus as the cause of diseases classified elsewhere - covid 19. - Bed requested for Intensive Care Unit. - Status is Inpatient Admission. rv - Condition is Fair. - Problem is new. - Symptoms have improved. Signatures: Dispatcher [employer] EDMS Aba Garzon MD MD cha Ballard, Brenda, RN RN bb Shannan Garcia RN RN tl1 Moses Zhong, RN RN jb4 Franklin Beatty RN RN rv Corrections: (The following items were deleted from the chart) 04/15 21:33 20:25 Chest Abdomen Pelvis W Con+CT.RAD.BRZ ordered. EDWI EDMS 22:58 20:25 CORONAVIRUS+MR.LAB.BRZ ordered. EDWI EDMS 04/16 00:03 04/15 23:27 Hospitalization Ordered by Anna Jasmine MD for Inpatient Admission. Preliminary [facility] diagnosis is Pneumonia due to other specified infectious organisms; Hypoxemia; Dyspnea; Fever, unspecified; Acute kidney failure. Bed requested for Telemetry/MedSurg (Inpatient). Status is Inpatient Admission. Condition is Fair. Problem is new. Symptoms have improved. [facility] 04/16 00:06 00:03 04/15/2020 23:27 Hospitalization Ordered by A Mitali WRIGHT for Inpatient Admission. tl1 Preliminary diagnosis is Pneumonia due to other specified infectious organisms; Hypoxemia; Dyspnea; Fever, unspecified; Acute kidney failure; SARS-associated coronavirus as the cause of diseases classified elsewhere - covid 19. Bed requested for Telemetry/MedSurg (Inpatient). Status is Inpatient Admission. Condition is Fair. Problem is new. Symptoms have improved. yumiko 01:19 00:06 04/15/2020 23:27 Hospitalization Ordered by A Mitali WRIGHT for Inpatient Admission. rv Preliminary diagnosis is Pneumonia due to other specified infectious organisms; Hypoxemia; Dyspnea; Fever, unspecified; Acute kidney failure; SARS-associated coronavirus as the cause of diseases classified elsewhere - covid 19. Bed requested for Intensive Care Unit. Status is Inpatient Admission. Condition is Fair. Problem is new. Symptoms have improved. tl1
[2020-04-16] MEDS ORDERED: ENOXAPARIN 40 MG/0.4 ML SQ ONE (00:23)
[2020-04-16] MEDS ORDERED: dexAMETHasone 10 MG/ML VIAL ONE (00:23)
[2020-04-16] MEDS ORDERED: D50W 25 GM/50 ML SYRINGE/VIAL IV PRN (01:17)
[2020-04-16] MEDS ORDERED: ONDANSETRON 4 MG/2 ML VIAL IV PRN (01:17)
[2020-04-16] MEDS ORDERED: ACETAMINOPHEN 325 MG TABLET PO PRN (01:17)
[2020-04-16] MEDS ORDERED: GLUCAGON 1 MG/VIAL IM PRN (01:17)
[2020-04-16] MEDS ORDERED: METHYLPREDNISOLONE 40 MG INJ IV SCH ×2 (01:17→09:00)
[2020-04-16 04:59] LABS: Absolute Lymphocytes (CBC) 0.4 K/uL (0.7-4.9); Basophils % 0.3 % (0-1.3); Hematocrit 34.7 % (36.0-45.0); Lymphocytes % 8.2 % (15.3-44.8); MPV 8.3 fL (7.6-11.3); RBC Red Blood Cell Count 3.65 M/uL (3.86-4.86)
[2020-04-16] MEDS ORDERED: NA CHLORIDE 0.9% 500 ML ONE (05:00)
[2020-04-16 05:08] LABS: Potassium 4.5 mmol/L (3.5-5.1)
[2020-04-16] MEDS ORDERED: NA CHLORIDE 0.9% 1,000 ML ONE (05:38)
[2020-04-16] MEDS ORDERED: NA CHLORIDE 0.9% 500 ML IV PRN (05:40)
[2020-04-16 05:42] LABS: Platelet Estimate DECR; White Blood Cell Scan OK (OK)
[2020-04-16 05:43] LABS: Blood Morphology Comment NOT SEEN (NOT SEEN)
[2020-04-16] MEDS ORDERED: PIPER/TAZO/NS 3.375gm 3.375 GM/100 ML BAG IVPB SCH (06:00)
[2020-04-16] MEDS ORDERED: NA CHLORIDE 0.9% 1,000 ML IV SCH (06:00)
[2020-04-16] MEDS: DOPAMINE/D5W 400 MG/250 ML BAG IV PRN ×2 (07:16→21:23)
[2020-04-16] MEDS ORDERED: PIPERACIL/TAZO 3.375 GM VIAL IV ONE (07:28)
[2020-04-16] MEDS ORDERED: NA CHLORIDE 0.9% 100 ML ONE (07:29)
[2020-04-16] MEDS: INSULIN -REGULAR HUMAN 50 UNIT/0.5 ML ML SQ SCH ×4 (07:30→20:45)
--- NOTE | 2020-04-16 08:59 | RAD REPORT ---
[facility] CLINICAL HISTORY: Cough COMPARISON: April 09, 2020 FINDINGS: Mild left lower lobe opacities. The right lung appears clear of acute infiltrate. The heart is mildly enlarged IMPRESSION: Mild left lower lobe opacities may represent pneumonia
[2020-04-16] MEDS ORDERED: FAMOTIDINE 20 MG/2 ML VIAL IV SCH (09:00)
--- NOTE | 2020-04-16 09:15 | RAD REPORT ---
EXAM DESCRIPTION: [facility] Single View04/16/2020 5:49 am CLINICAL HISTORY: Chest pain COMPARISON: April 15, 2020 FINDINGS: Mild left lower lobe opacities unchanged. Development of mild right lower lobe opacities The heart is mildly enlarged. Central pulmonary arteries prominent indicative of pulmonary arterial h ypertension IMPRESSION: Bibasilar mild lower lobe opacities probably pneumonia
--- NOTE | 2020-04-16 09:16 | RAD REPORT ---
EXAM DESCRIPTION: RAD - Pelvis - 04/16/2020 7:14 am CLINICAL HISTORY: Device placement/femoral line placement FINDINGS: A right femoral line has been placed. The tip overlies the lateral mid right pelvis presum ably within the right iliac vein
--- NOTE | 2020-04-16 12:08 | RAD REPORT ---
EXAM DESCRIPTION: CT - Chest Abd Pelvis Wo Con - 04/16/2020 7:00 am CLINICAL HISTORY: Abdominal distention;COPD;Cough;Dyspnea COMPARISON: 11/08/2019 TECHNIQUE: CT of the chest, abdomen and pelvis performed without IV contrast. Suboptimal evaluation of the soft tissues, solid organs, and vasculature due to lack of IV contrast. Motion artifact. FINDINGS: Chest: Thyroid: No abnormalities of the visualized thyroid. Great Vessels: Great vessels have normal anatomic configuration. Thoracic Aorta: Atherosclerotic calcification of the thoracic aorta. Pulmonary arteries: Enlargement of the main pulmonary artery. Heart: Coronary artery atherosclerosis. No cardiomegaly or significant pericardial effusion. Lymph Nodes: No enlarged mediastinal lymph nodes identified. Esophagus: No abnormalities of the esophagus identified Other: No additional findings. Lungs: Patchy left basilar airspace opacity. Minimal bilateral dependent atelectasis. Respiratory mot ion artifact. Pleura: No pleural effusion or pneumothorax. Trachea/Airways: No acute abnormality of the trachea. Abdomen: Liver: The liver has normal size and density. Gallbladder: No calcified gallstones. Spleen, Pancreas, and Adrenal Glands: The spleen, pancreas, and adrenal glands are unremarkable. Kidneys: No hydronephrosis or obstructing ureteral calculus. 5.0 cm inferior pole right renal cys t. Vasculature: Aortoiliac atherosclerosis. IVC is unremarkable. Stomach: The stomach and duodenum have normal course. Other: No free intraperitoneal air. No free fluid or lymphadenopathy. Fat-containing umbilical he rnia. Pelvis: Bladder: Salas catheter in the urinary bladder. Bowel: Mild prominence of the proximal small bowel without definite distal decompression. No transi tion point identified. Scattered diverticula of the colon. Appendix: Normal appendix. Pelvis: Uterus is not enlarged. Bones: Multilevel degenerative endplate spondylosis, facet arthropathy, and disc height narrowing. Os teoarthritic change of the hips. IMPRESSION: 1. Patchy left basilar airspace opacity compatible with pneumonia. Continued radiographi c follow-up to resolution recommended. 2. Enlargement main pulmonary artery. This could be seen with pulmonary arterial hypertension. 3. Coronary artery atherosclerosis. 4. Mildly prominent loops of proximal small bowel without significant distal decompression or transit ion point. Findings most compatible with enteritis/ileus. 5. Diverticulosis without evidence of acute diverticulitis. This exam was performed according to our departmental dose-optimization program, which includes autom ated exposure control, adjustment of the mA and/or kV according to patient size and/or use of iterati ve reconstruction technique. Electronically signed by: Alonzo Lozano 04/15/2020 10:46 PM CDT Due to temporary technical issues with the PACS/Fluency reporting system, reports are being signed by the in house radiologist without review as a courtesy to ensure prompt reporting. The interpreting r adiologist is fully responsible for the content of the report.
[2020-04-16] MEDS ORDERED: Pharmacy Consult 1 EA XX PRN (12:27)
[2020-04-16] MEDS ORDERED: COLCHICINE 0.6 MG TAB PO PRN (12:38)
--- NOTE | 2020-04-16 12:40 | P.CNS ---
Date of Consult: 04/16/20 Reason for Consult: Shock positive for valderrama virus Chief Complaint: Shock positive for valderrama virus History of Present Illness: Patient is 69 years of age well known to me with a history of severe COPD severe pulmonary hypertension has been stable for quite some time although in the past few months she has been complaining of shortness of breath on exertion compliant with therapy admitted to the hospital with a worsening shortness of breath as found to be positive for valderrama virus although this is not seem to be any evidence of acute lung injury patient was hypotensive currently stable doing well animal oxygen she is saturating 100% on 4 L DT scan does not show any evidence of interstitial lung disease patient is currently on dopamine as VC some IV fluid boluses she does take prednisone on a regular basis Allergies No Known Drug Allergies Allergy (Verified 04/16/20 03:46) Unknown Home Medications: Simvastatin 20 mg PO BEDTIME 10/09/14 Aspirin [Aspirin EC 81 MG] 81 mg PO DAILY 01/10/17 Ipratropium/Albuterol Sulfate [Combivent Respimat 20-100 Mcg] 4 gm IH QID PRN 01/10/17 Tramadol HCl [Ultram] 50 mg PO Q6HP PRN 01/10/17 Spironolactone [Aldactone*] 25 mg PO BID #60 tab 01/17/17 Ambrisentan [Letairis] 10 mg PO DAILY 04/16/20 Carbamazepine [Equetro] 100 mg PO BID 04/16/20 Cholecalciferol (Vitamin D3) [Vitamin D3] 1,000 units PO DAILY 04/16/20 Colchicine [Colcrys] 0.6 mg PO BIDP PRN 04/16/20 Gabapentin 900 mg PO TID 04/16/20 Ipratropium/Albuterol Sulfate [Combivent Respimat 20-100 Mcg] 1 puff IH Q4HP PRN 04/16/20 Linagliptin [Tradjenta] 5 mg PO DAILY 04/16/20 Magnesium Oxide [Mag-Oxide] 400 mg PO DAILY 04/16/20 Omeprazole [Prilosec] 40 mg PO DAILY 04/16/20 Tiotropium [Spiriva Handihaler*] 2 puff IH DAILY 04/16/20 predniSONE [Deltasone*] 10 mg PO DAILY 04/16/20 - Past Medical/Surgical History Diabetic: Yes -: dm -: htn/ hypotension -: hypercholesterol -: sleep apnea -: COPD -: Severe Pulmonary HTN -: CHF -: GERD -: sleep apnea -: GErd -: tubal ligation - Family History Father Medical History: Heart disease, Hypertension, Diabetes Sister Medical History: Hypertension, Kidney disease Notes: pt is intubated, family could not provide me with a good history on leni phone today. - Social History Smoking Status: Unknown if ever smoked Alcohol use: No CD- Drugs: No Caffeine use: No Place of Residence: Home Physical Examination Temp Pulse Resp BP Pulse Ox 94.3 F L 51 13 102/45 L 100 04/16/20 04:00 04/16/20 11:15 04/16/20 11:15 04/16/20 11:15 04/16/20 11:15 General: Alert, Oriented x3, Cooperative Neck: Supple Respiratory: Clear to auscultation bilaterally Cardiovascular: Normal S1 S2, Edema Laboratory Data (last 24 hrs) 04/15/20 20:30: PT 12.3, INR 1.04 04/15/20 20:30: Sodium 136, Potassium 4.3, BUN 29 H, Creatinine 1.69 H, Glucose 171 H, Magnesium 1.9, Total Bilirubin 0.3, AST 40 H, ALT 19, Alkaline Phosphatase 83 04/15/20 20:13: WBC 5.6, Hgb 12.3, Hct 38.1, Plt Count 118 L - Problems (1) Shock Current Visit: Yes Status: Acute Plan: Patient is 69 years of age admitted with hypotension she is currently on dopamine positive for valderrama virus no evidence of interstitial lung disease in acute lung injury patient has oxygen at home severe COPD severe pulmonary hypertension is been stable the she has been experiencing dyspnea on exertion for quite some time an echocardiogram done in April of this month was normal did not have any significant pulmonary hypertension patient has acute on chronic renal failure may all be prerenal hr some blood cultures add vancomycin Dc Zithromax continue with IV steroids she does take prednisone daily basis continue with bronchodilators
[2020-04-16] MEDS: NA CHLORIDE 0.9% 1,000 ML IV SCH ×2 (13:34→20:29)
[2020-04-16] MEDS: VANCOMYCIN 1.75 GM in NA CHLORIDE 0.9% 500 ML IVPB SCH (13:34)
[2020-04-16] MEDS: GABAPENTIN 300 MG CAP PO SCH ×2 (13:35→20:28)
[2020-04-16] MEDS: ENOXAPARIN 30 MG/0.3 ML SQ SCH (16:44)
[2020-04-16] MEDS: PIPER/TAZO/NS 3.375gm 3.375 GM/100 ML BAG IVPB SCH (16:45)
[2020-04-16] MEDS ORDERED: ENOXAPARIN 40 MG/0.4 ML SQ SCH (17:00)
[2020-04-16] MEDS: ARFORMOTEROL TARTRATE 15 MCG/2 ML VIAL.NEB NEB SCH (20:05)
[2020-04-16] MEDS: ATORVASTATIN 10 MG TAB PO SCH (20:28)
[2020-04-16] MEDS: carBAMazepine 200 MG TAB PO SCH (20:28)
[2020-04-16] MEDS: METHYLPREDNISOLONE 40 MG INJ IV SCH (20:28)
[2020-04-16] MEDS ORDERED: AZITHROMYCIN IV 500 MG in NA CHLORIDE 0.9% 250 ML IVPB SCH (21:00)
[2020-04-16] MEDS ORDERED: HOME MED 1 EA UNK (Simvastatin [Simvastatin] 20 MG) PO SCH (21:00)
--- NOTE | 2020-04-16 21:46 | HP ---
Date of Admission: 04/16/2020 Chief Complaint: Cough, fever. History Of Present Illness: This is a 69-year-old female patient, who was admitted to the hospital with 4 to 5 days history of cough and fever. The patient lives at home with her . Last time she went out was about 4 to 5 days ago for her to hair appointment at a hair salon. She is denying any nausea, vomiting, diarrhea. No known exposure to COVID-19 patients. After she came into emergency room, she was evaluated and her COVID-19 test came back positive, and she was admitted to intensive care unit. Her blood pressure was low and she has received 2.5 L of IV fluid bolus and now on maintenance IV fluid, and she is also on dopamine drip. When I saw her, her systolic blood pressure was around 120 range. When I saw her, she was not in any respiratory distress. Allergies: NO KNOWN ALLERGIES. Medications: List reviewed. Review of Systems: Respiratory: As mentioned above. Constitutional: As mentioned above. All other systems reviewed and negative. Past Medical History: Significant for headache, peripheral neuropathy due to diabetes, COPD, pulmonary hypertension, type 2 diabetes mellitus with diabetic neuropathy, hypertension, hyperlipidemia, gastroesophageal reflux disease, diverticulosis, chronic kidney disease stage 3, osteoarthritis at multiple sites, anemia due to chronic kidney disease. Past Surgical History: Tubal ligation. Family History: Father had myocardial infarction. Mother , details unknown, but she had hypertension. Sister with hypertension and kidney disorder. Social History: Prior history of smoking, not at present time. Use of alcohol very rarely. Lots of wine. Physical Examination: Vital Signs: When she first came into the emergency room, temperature 101.7, pulse 91, respiratory rate 16, blood pressure 122/64, oxygen saturation 96%. When I saw her, she was on nasal cannula oxygen, high-flow oxygen. Not in any distress. General: Awake, alert, oriented, not in distress. HEENT: Head atraumatic, normocephalic. Conjunctivae nonerythematous. Sclerae white. Mouth, no thrush or edema noted. Ears/Nose, no mass, lesion, discharge noted. Neck: Supple. No JVD, lymph nodes, bruit, thyromegaly noted. Lungs: Bilateral good equal air entry. Clear to auscultation. No rhonchi. No rales. Heart: Normal heart sounds. No murmur or gallop. Abdomen: Soft. Bowel sounds normal. No guarding, rigidity, tenderness, mass, hepatosplenomegaly, distention, or bruit noted. Extremities: No leg edema. No calf tenderness. Skin: No rash, ulcer, cellulitis. Lymphatics: No lymph node enlargement in neck, supraclavicular, infraclavicular region. Neuro: No focal neurological deficit. Chest: Unremarkable. External Genitalia: Deferred. Rectal: Deferred. Laboratory Data: White count last night was 5.6, hemoglobin 12.3, platelets 118. This morning, white count 4.5, hemoglobin 11.1, platelets 96. Yesterday, sodium 136, potassium 4.3, chloride 97, bicarb 36, BUN 29, creatinine 1.69, glucose 171. Liver function tests unremarkable except SGOT 40. Lactic acid 1.1. Procalcitonin less than 0.05. Troponin 0.07 x3. ProBNP 1232. This morning, sodium 139, potassium 4.5, chloride 102, bicarb 34, BUN 33, creatinine 1.61, glucose 174. Urinalysis showed 1+ blood, 1+ leukocyte esterase. COVID-19 test came back positive. Chest x-ray shows initial x-ray from last night shows mild left lower lobe opacity. CAT scan of the chest, abdomen, and pelvis shows patchy left basilar airspace opacity, minimal bilateral dependent atelectasis, 5 cm inferior pole right renal cyst, presence of diverticulosis, mild prominence of proximal small bowel without distal compression. Impression: 1. COVID-19 pneumonia. 2. Anemia due to chronic kidney disease. 3. Thrombocytopenia. 4. Chronic obstructive pulmonary disease. 5. Type 2 diabetes mellitus. 6. Pulmonary hypertension. 7. Hypertension. 8. Hyperlipidemia. 9. Gastroesophageal reflux disease. 10. Diverticulosis. Plan: We will admit the patient to hospital for further evaluation and management of this problem. The patient is appropriate for inpatient and is expected to spend 2 midnights in hospital. The patient will remain in COVID ICU and currently she is hemodynamically stable on low-dose dopamine drip and IV fluid. We will consult Dr. Hernandez from pulmonary and I have discussed details with him. Broad-spectrum empiric antibiotics will be given. We will give IV steroids, DVT prophylaxis, oxygen support, and I will see her tomorrow for followup. Details of plan of treatment discussed with her. She is tolerating diet very well without any problem. FEDERICO/MARIE Voice ID: [id number] [id number]
[2020-04-17] MEDS: PIPER/TAZO/NS 3.375gm 3.375 GM/100 ML BAG IVPB SCH ×3 (00:50→17:44)
[2020-04-17] MEDS: NA CHLORIDE 0.9% 1,000 ML IV SCH ×4 (03:35→21:48)
[2020-04-17 05:10] LABS: Absolute Lymphocytes (CBC) 0.7 K/uL (0.7-4.9); Basophils % 0.1 % (0-1.3); Hematocrit 33.5 % (36.0-45.0); Lymphocytes % 11.6 % (15.3-44.8); MPV 8.9 fL (7.6-11.3); RBC Red Blood Cell Count 3.53 M/uL (3.86-4.86)
[2020-04-17 05:32] LABS: C-Reactive Protein 32.2 mg/L (<3.00); Potassium 5.4 mmol/L (3.5-5.1)
[2020-04-17] MEDS: INSULIN -REGULAR HUMAN 50 UNIT/0.5 ML ML SQ SCH ×4 (07:30→21:00)
[2020-04-17] MEDS: ARFORMOTEROL TARTRATE 15 MCG/2 ML VIAL.NEB NEB SCH ×2 (07:49→19:25)
[2020-04-17] MEDS: METHYLPREDNISOLONE 40 MG INJ IV SCH ×2 (08:45→20:46)
[2020-04-17] MEDS: GABAPENTIN 300 MG CAP PO SCH ×3 (08:46→17:44)
[2020-04-17] MEDS: PANTOPRAZOLE 40MG TABLET PO SCH (08:46)
[2020-04-17] MEDS: carBAMazepine 200 MG TAB PO SCH ×2 (08:47→20:45)
[2020-04-17] MEDS ORDERED: HOME MED 1 EA UNK (Omeprazole [Prilosec] 40 MG) PO SCH (09:00)
[2020-04-17] MEDS ORDERED: SOD POLYSTYREN SUL 15 GM/60 ML UCUP PO ONE (09:27)
--- NOTE | 2020-04-17 13:08 | PN ---
Date of Progress Note: 04/17/2020 Subjective: The patient was seen today for followup in ICU, with use of an interactive audio and video telecommunications system that permits real-time communication between physician and the patient. Patient is not in any distress. Details were discussed with ICU nurse. The patient has poor appetite, but she is tolerating diet well. No nausea. No vomiting. No abdominal pain. She is on oxygen 3 L/minute nasal cannula, maintaining adequate oxygenation and no longer requires high-flow oxygen. She is still requiring vasopressor medication, dopamine at a low dose and that is actually helping her to maintain adequate blood pressure. Objective: Vital signs reviewed. Laboratory Data: White count 5.7, hemoglobin 10.5, platelets 124. Sodium 140, potassium 5.4, chloride 106, bicarb 34, BUN 37, creatinine 1.60, glucose 181. C-reactive protein 32.20. Impression: 1. COVID-19 pneumonia. 2. Hyperkalemia. 3. Volume depletion. 4. Anemia, unspecified. Plan: We will go ahead and continue current steroid broad-spectrum antibiotic, vasopressor medications. Continue DVT prophylaxis. Kayexalate 30 g p.o. x1 dose was ordered. We will follow up on blood work tomorrow and continue to follow with Dr. Hernandez. FEDERICO/MODL Voice ID: [id number] Report ID: [id number] DAISY
[2020-04-17] MEDS ORDERED: carBAMazepine 200 MG TAB PO SCH (17:00)
[2020-04-17] MEDS: ENOXAPARIN 30 MG/0.3 ML SQ SCH (17:44)
[2020-04-17] MEDS: ATORVASTATIN 10 MG TAB PO SCH (20:46)
[2020-04-18] MEDS: VANCOMYCIN 1.75 GM in NA CHLORIDE 0.9% 500 ML IVPB SCH (00:57)
[2020-04-18] MEDS: PIPER/TAZO/NS 3.375gm 3.375 GM/100 ML BAG IVPB SCH ×3 (00:57→17:01)
[2020-04-18 05:04] LABS: Absolute Lymphocytes (CBC) 0.5 K/uL (0.7-4.9); Basophils % 0.1 % (0-1.3); Hematocrit 33.5 % (36.0-45.0); Lymphocytes % 8.3 % (15.3-44.8); MPV 8.7 fL (7.6-11.3); RBC Red Blood Cell Count 3.51 M/uL (3.86-4.86)
[2020-04-18] MEDS: NA CHLORIDE 0.9% 1,000 ML IV SCH (05:09)
[2020-04-18 05:18] LABS: Potassium 4.5 mmol/L (3.5-5.1)
[2020-04-18 06:36] LABS: Blood Morphology Comment NOT SEEN (NOT SEEN); Platelet Estimate ADEQ
[2020-04-18] MEDS ORDERED: FUROSEMIDE 20 MG/ 2ML VIAL IV ONE (07:30)
[2020-04-18] MEDS: INSULIN -REGULAR HUMAN 50 UNIT/0.5 ML ML SQ SCH ×4 (07:30→21:00)
[2020-04-18] MEDS: ARFORMOTEROL TARTRATE 15 MCG/2 ML VIAL.NEB NEB SCH ×2 (07:56→20:20)
[2020-04-18] MEDS ORDERED: carBAMazepine 200 MG TAB PO SCH (09:00)
[2020-04-18] MEDS ORDERED: RIVAROXABAN 15 MG TABLET PO SCH (09:00)
[2020-04-18] MEDS: MORPHINE 2 MG/ML SYR IV PRN (09:29)
[2020-04-18] MEDS: METHYLPREDNISOLONE 40 MG INJ IV SCH ×2 (09:29→20:33)
[2020-04-18] MEDS: PANTOPRAZOLE 40MG TABLET PO SCH (09:31)
[2020-04-18] MEDS: GABAPENTIN 300 MG CAP PO SCH ×3 (09:31→22:20)
[2020-04-18] MEDS: carBAMazepine 200 MG TAB PO SCH ×2 (09:31→20:32)
--- NOTE | 2020-04-18 09:39 | P.PN ---
Subjective Date of Service: 04/18/20 Chief Complaint: Altered mental status respiratory failure Came less responsive today confused blood gases shows hypercapnia her baseline CO2 is around 77 that was done 2 years ago so far cultures are negative Review of Systems is unable to be obtained Physical Examination - Vital Signs Temperature: 97.8 F Blood Pressure: 119/65 Pulse: 66 Respirations: 18 Pulse Ox (%): 95 - Physical Exam General: Unresponsive Respiratory: Clear to auscultation bilaterally Cardiovascular: No edema, Regular rate/rhythm, Edema Gastrointestinal: Normal bowel sounds, Hypoactive - Studies Microbiology Data (last 24 hrs): 04/15/20 21:01 Catheterized Urine [place] Count - Final No growth. 04/15/20 21:01 Catheterized Urine - Final No growth. Assessment & Plan - Problems (Diagnosis) (1) Acute and chronic respiratory failure ([id number]) Current Visit: Yes Status: Acute Plan: Patient is less responsive today CO2 is at baseline acute on chronic respiratory failure patient started on BiPAP continue with bronchodilator chest x-ray no obvious pneumonia shock has resolved patient is on steroids bronchodilators and is fully anti coagulated she probably benefit from a noninvasive ventilator Patient has chronic rectal respiratory failure secondary to COPD and needs a non invasive positive pressure ventilation to prevent hospital Re admissions patient will benefit from a trilogy volume ventilator for nocturnal and daytime uses needed the reduce the risk of hospitalization home BiPAP is insufficient due to severity of patient's condition patient has chronic hypercapnia her baseline CO2 is over 75 has CRP level his less than 30 doubt that this is secondary to valderrama virus infection Qualifiers: Respiratory failure complication: hypoxia and hypercapnia Qualified Code(s): J96.21 - Acute and chronic respiratory failure with hypoxia; J96.22 - Acute and chronic respiratory failure with hypercapnia
[2020-04-18] MEDS: APIXABAN 5 MG TABLET PO SCH ×2 (10:33→20:32)
[2020-04-18 11:40] LABS: Blood Gas Oxyhemoglobin 70.2 % (94-97); Blood O2 Saturation 71.9 % (92-98.5)
--- NOTE | 2020-04-18 11:41 | RAD REPORT ---
EXAM DESCRIPTION: RAD - Chest Single View - 04/18/2020 8:00 am CLINICAL HISTORY: COVID-19 pneumonia Chest pain. COMPARISON: Chest Single View dated 04/16/2020; Chest Single View dated 04/15/2020; Chest Pa And Lat (2 Views) dated 04/09/2020; Chest Single View dated 11/13/2019 FINDINGS: Portable technique limits examination quality. Bilateral interstitial lung markings are again seen appearing slightly improved relative to comparati ve study. This likely represents interstitial pneumonitis/ bronchitis. Haziness in the left lung base laterally may represent atelectasis or a superimposed infiltrate/pneumonia. This appears to be a new finding since the comparative study. The heart is moderately enlarged in size. No displaced fracture s. IMPRESSION: New, small opacity in the left lung base laterally suspicious for superimposed developin g pneumonia.
[2020-04-18 12:42] LABS: Arterial Blood Carboxyhemoglob 1.2 % (0-1.5); Blood Gas Oxyhemoglobin 73.6 % (94-97); Blood O2 Saturation 75.3 % (92-98.5)
--- NOTE | 2020-04-18 14:21 | PN ---
Date of Progress Note: 04/18/2020 Subjective: The patient was seen this morning for followup. She was lying in bed in ICU, not in any distress, but has been having some confusion problem. When I talked to her, we are tele visit as we ll as in person. Today, she was not appearing in any kind of distress and answering questions. Inta ke and output records reviewed. Vital signs reviewed. She was on high-flow oxygen. Appetite is bronson r to poor, had only about 25% of her breakfast this morning. Laboratory Data: White count 6.2, hemoglobin 10.6, platelets 92. Sodium 146, potassium 4.5, chlorid e 111, bicarb 34, BUN 29, creatinine 1.31, glucose 177. C-reactive protein 28.90. Blood gas done to day, pH 7.19, pCO2 87.9, pO2 41.5, and oxygen saturation 71.9% on 32% FiO2. Chest x-ray shows small density in the left lung base. Impression: 1.COVID-19 pneumonia. 2.Acute respiratory failure with hypercapnia. 3.Anemia, unspecified. 4.COVID-19 pneumonia. 5.Chronic obstructive pulmonary disease. 6.Thrombocytopenia. Plan: We will go ahead and continue to follow with Dr. Hernandez. Details were discussed with him. We will go ahead and start Eliquis 5 mg 2 times a day. So far, the patient was getting Lovenox. Con tinue nebulizer treatment and oxygen. The patient will be started on BiPAP today and we will continu e to monitor her closely. We will also continue her other current medication. Diabetes will be niki ged with sliding scale insulin and continue current empiric antibiotics. She has not required any va sopressor medication as of yesterday around noon time. I did call the patient's son and gave him updates. We will repeat blood work tomorrow. FEDERICO/MODL Voice ID: [id number] Report ID: [id number]
[2020-04-18 15:40] LABS: Arterial Blood Carboxyhemoglob 1.2 % (0-1.5); Blood O2 Saturation 89.3 % (92-98.5)
[2020-04-18] MEDS ORDERED: VANCOMYCIN 1.75 GM in NA CHLORIDE 0.9% 500 ML IVPB SCH (19:00)
[2020-04-18] MEDS: ATORVASTATIN 10 MG TAB PO SCH (20:32)
[2020-04-19] MEDS: PIPER/TAZO/NS 3.375gm 3.375 GM/100 ML BAG IVPB SCH ×3 (00:03→17:04)
[2020-04-19] MEDS ORDERED: VANCOMYCIN 1.75 GM in NA CHLORIDE 0.9% 500 ML IVPB SCH (01:00)
[2020-04-19 06:06] LABS: Absolute Lymphocytes (CBC) 0.5 K/uL (0.7-4.9); Basophils % 0.2 % (0-1.3); Hematocrit 31.7 % (36.0-45.0); Lymphocytes % 8.8 % (15.3-44.8); MPV 8.5 fL (7.6-11.3); RBC Red Blood Cell Count 3.35 M/uL (3.86-4.86)
[2020-04-19 06:33] LABS: Blood Morphology Comment NOT SEEN (NOT SEEN); Platelet Estimate DECR; White Blood Cell Scan OK (OK)
[2020-04-19 06:37] LABS: C-Reactive Protein 85.4 mg/L (<3.00); Magnesium 2.1 mg/dL (1.8-2.4); Potassium 4.8 mmol/L (3.5-5.1); Thyroid Stimulating Hormone 0.646 uIU/mL (0.360-3.740)
[2020-04-19] MEDS: INSULIN -REGULAR HUMAN 50 UNIT/0.5 ML ML SQ SCH ×4 (07:30→21:00)
[2020-04-19] MEDS: ARFORMOTEROL TARTRATE 15 MCG/2 ML VIAL.NEB NEB SCH ×2 (08:23→21:20)
[2020-04-19] MEDS: GABAPENTIN 300 MG CAP PO SCH ×2 (08:32→16:05)
[2020-04-19] MEDS: carBAMazepine 200 MG TAB PO SCH ×2 (08:32→20:02)
[2020-04-19] MEDS: PANTOPRAZOLE 40MG TABLET PO SCH (08:32)
[2020-04-19] MEDS: APIXABAN 5 MG TABLET PO SCH ×2 (08:32→20:02)
[2020-04-19] MEDS: GLUCERNA SHAKE 237 ML CAN PO SCH ×3 (08:33→20:03)
[2020-04-19] MEDS: METHYLPREDNISOLONE 40 MG INJ IV SCH ×2 (08:34→20:02)
[2020-04-19 11:41] LABS: Arterial Blood Carboxyhemoglob 1.3 % (0-1.5); Blood Gas Oxyhemoglobin 86.5 % (94-97); Blood O2 Saturation 88.8 % (92-98.5)
[2020-04-19] MEDS: MORPHINE 2 MG/ML SYR IV PRN ×3 (12:08→20:55)
--- NOTE | 2020-04-19 13:33 | P.PN ---
Subjective Date of Service: 04/19/20 Chief Complaint: Altered mental status respiratory failure Patient is confused agitated requiring BiPAP Review of Systems is unable to be obtained Physical Examination - Vital Signs Temperature: 97.9 F Blood Pressure: 160/68 Pulse: 88 Respirations: 16 Pulse Ox (%): 94 - Physical Exam General: Delirious, Unresponsive Respiratory: Clear to auscultation bilaterally, Diminished Cardiovascular: Edema Assessment & Plan - Problems (Diagnosis) (1) Acute and chronic respiratory failure ([id number]) Current Visit: Yes Status: Acute Plan: Patient admitted with acute on chronic respiratory failure she has brain baseline chronic hypoxemia recently tested positive for coal weighed continue with BiPAP titrate sat to 85-90% chemistries reviewed his CRP as there double to he a 85 oxygenation satisfactory mildly acidotic on BiPAP mild hypernatremia blood cultures most likely contaminant shock has resolved of started patient on thymine patient is in steroids continue with supportive therapy Qualifiers: Respiratory failure complication: hypoxia and hypercapnia Qualified Code(s): J96.21 - Acute and chronic respiratory failure with hypoxia; J96.22 - Acute and chronic respiratory failure with hypercapnia
[2020-04-19] MEDS ORDERED: WATER FOR INJ,STERILE 10 ML IM PRN (15:54)
[2020-04-19] MEDS: ATORVASTATIN 10 MG TAB PO SCH (20:03)
--- NOTE | 2020-04-19 21:10 | PN ---
Date of Progress Note: 04/19/2020 Subjective: The patient was seen this morning for followup. She was lying in bed, not in any distre ss. She had her BiPAP on. BiPAP was started yesterday. As long as she keeps the BiPAP on, her oxyg enation is adequate, but she has been taking her BiPAP off from time to time. She does have confusio n off and on. Objective: Vital Signs: Reviewed. Intake and output records reviewed. Laboratory Data: White count 5.3, hemoglobin 10.2, platelets 91. Sodium 146, potassium 4.8, chlorid e 112, bicarb 36, BUN 24, creatinine 1.2, glucose 174. CRP 85.40. TSH 0.64. Impression: 1.COVID-19 pneumonia. 2.Acute respiratory failure with hypercapnia. 3.Chronic obstructive pulmonary disease. 4.Anemia. 5.Thrombocytopenia. Plan: We will continue current medications. Remove Salas catheter. Start the patient on nutritiona l supplement using Glucerna. Continue steroid, antibiotics, BiPAP. The patient had periods of agita tion, restlessness, anxiety problem, and she has morphine. Nurse was also advised to use Ativan 0.5 mg every 6 hours if morphine does not help. I will call the patient's son this evening and discuss d etails with him. FEDERICO/MODL Voice ID: [id number] Report ID: [id number]
[2020-04-19] MEDS: IPRATROPIUM BROM 0.5MG/2.5ML NEB PRN (21:20)
[2020-04-19] MEDS: ZIPRASIDONE MESYLA 20 MG/VIAL IM PRN (22:00)
[2020-04-20] MEDS: MORPHINE 2 MG/ML SYR IV PRN ×3 (00:32→08:31)
[2020-04-20] MEDS: PIPER/TAZO/NS 3.375gm 3.375 GM/100 ML BAG IVPB SCH ×3 (00:32→16:56)
[2020-04-20 05:35] LABS: Absolute Lymphocytes (CBC) 0.4 K/uL (0.7-4.9); Basophils % 0.2 % (0-1.3); Lymphocytes % 7.1 % (15.3-44.8); MPV 9.3 fL (7.6-11.3); RBC Red Blood Cell Count 3.38 M/uL (3.86-4.86)
[2020-04-20 05:46] LABS: C-Reactive Protein 75.2 mg/L (<3.00); Magnesium 2.1 mg/dL (1.8-2.4); Potassium 4.7 mmol/L (3.5-5.1)
[2020-04-20] MEDS: INSULIN -REGULAR HUMAN 50 UNIT/0.5 ML ML SQ SCH ×4 (07:30→20:13)
[2020-04-20] MEDS: ZIPRASIDONE MESYLA 20 MG/VIAL IM PRN (07:42)
[2020-04-20] MEDS: ARFORMOTEROL TARTRATE 15 MCG/2 ML VIAL.NEB NEB SCH ×2 (08:10→20:35)
[2020-04-20] MEDS: IPRATROPIUM BROM 0.5MG/2.5ML NEB PRN ×2 (08:10→14:58)
[2020-04-20] MEDS: ALBUTEROL 2.5 MG/3 ML NEB SOL NEB PRN ×2 (08:10→14:58)
[2020-04-20] MEDS: METHYLPREDNISOLONE 40 MG INJ IV SCH ×2 (08:39→20:16)
[2020-04-20] MEDS: THIAMINE 200 MG/2 ML INJ IVP SCH (08:40)
[2020-04-20] MEDS: GLUCERNA SHAKE 237 ML CAN PO SCH ×3 (09:00→21:22)
[2020-04-20] MEDS ORDERED: ZIPRASIDONE MESYLA 20 MG/VIAL IM PRN (09:00)
[2020-04-20] MEDS: carBAMazepine 200 MG TAB PO SCH ×2 (09:00→21:22)
[2020-04-20] MEDS: GABAPENTIN 300 MG CAP PO SCH ×2 (09:00→16:55)
[2020-04-20] MEDS: PANTOPRAZOLE 40MG TABLET PO SCH (09:00)
--- NOTE | 2020-04-20 09:07 | RAD REPORT ---
EXAM DESCRIPTION: RAD - Chest Single View - 04/20/2020 5:43 am CLINICAL HISTORY: COVID 19 pneumonia Chest pain. COMPARISON: Chest Single View dated 04/18/2020; Chest Single View dated 04/16/2020; Chest Single Vie w dated 04/15/2020; Chest Pa And Lat (2 Views) dated 04/09/2020 FINDINGS: Portable technique limits examination quality. Moderate bilateral pulmonary opacities are present, worse on the right, likely representing pneumonia . The heart is mildly prominent size. No displaced fractures.
[2020-04-20] MEDS: Enoxaparin 120 MG/0.8 ML SYR SQ SCH ×2 (10:14→20:12)
[2020-04-20] MEDS: LORazepam 2 MG/ML VIAL IV PRN ×3 (12:29→20:11)
--- NOTE | 2020-04-20 12:59 | P.PN ---
Subjective Date of Service: 04/20/20 Chief Complaint: Delirium Patient is confused agitated restless delirious Review of Systems is unable to be obtained Physical Examination - Vital Signs Temperature: 97.6 F Blood Pressure: 136/63 Pulse: 80 Respirations: 16 Pulse Ox (%): 96 - Physical Exam General: Moderate distress Respiratory: Clear to auscultation bilaterally Cardiovascular: Normal S1 S2, Edema Assessment & Plan - Problems (Diagnosis) (1) Acute and chronic respiratory failure ([id number]-[id number]) Current Visit: Yes Status: Acute Plan: Patient's respiratory failure his stable oxygenation satisfactory on high-flow nasal cannula oxygen Qualifiers: Respiratory failure complication: hypoxia and hypercapnia Qualified Code(s): J96.21 - Acute and chronic respiratory failure with hypoxia; J96.22 - Acute and chronic respiratory failure with hypercapnia (2) Delirium Current Visit: Yes Status: Acute Plan: Possibly from valderrama virus no evidence of active sepsis CRP is declining patient is on steroids and thymine chemistries reviewed blood cultures negative patient is on Zosyn will have an NG tube inserted and the patient can keep at with may start some tube feeds
--- NOTE | 2020-04-20 17:36 | RAD REPORT ---
EXAM DESCRIPTION: RAD - Abdomen 1 View (KUB) - 04/20/2020 5:29 pm CLINICAL HISTORY: Device placement Dobhoff tube placement FINDINGS: ADobhoff tube extends into the proximal and mid stomach. The tip of a Dobhoff tube is not included in the field of view.
--- NOTE | 2020-04-20 19:19 | RAD REPORT ---
EXAM DESCRIPTION: Giovanni Single View04/20/2020 6:55 pm CLINICAL HISTORY: Chest pain COMPARISON: April 18 FINDINGS: Moderate to marked right basilar opacities. [id number] left pulmonary opacities The heart remains enlarged. A feeding tube enters the abdomen IMPRESSION: Moderate to marked right and gkcx-ck-fvilpzbe left pulmonary opacities minimally improv ed from the prior exam could represent pneumonia or aspiration pneumonitis
[2020-04-20] MEDS: ATORVASTATIN 10 MG TAB PO SCH (21:22)
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
[2020-04-21] MEDS: PIPER/TAZO/NS 3.375gm 3.375 GM/100 ML BAG IVPB SCH ×3 (00:11→16:58)
[2020-04-21] MEDS: LORazepam 2 MG/ML VIAL IV PRN ×2 (00:12→04:25)
[2020-04-21] MEDS: MORPHINE 2 MG/ML SYR IV PRN (06:38)
[2020-04-21] MEDS: INSULIN -REGULAR HUMAN 50 UNIT/0.5 ML ML SQ SCH ×4 (07:30→20:31)
[2020-04-21] MEDS: IPRATROPIUM BROM 0.5MG/2.5ML NEB PRN ×2 (08:05→21:25)
[2020-04-21] MEDS: ARFORMOTEROL TARTRATE 15 MCG/2 ML VIAL.NEB NEB SCH ×2 (08:05→20:55)
[2020-04-21] MEDS: ALBUTEROL 2.5 MG/3 ML NEB SOL NEB PRN ×2 (08:05→21:25)
[2020-04-21] MEDS: PANTOPRAZOLE 40MG TABLET PO SCH (09:00)
[2020-04-21] MEDS: GLUCERNA SHAKE 237 ML CAN PO SCH ×3 (09:00→20:31)
[2020-04-21] MEDS: carBAMazepine 200 MG TAB PO SCH ×2 (09:29→20:35)
[2020-04-21] MEDS: METHYLPREDNISOLONE 40 MG INJ IV SCH ×2 (09:29→20:34)
[2020-04-21] MEDS: Enoxaparin 120 MG/0.8 ML SYR SQ SCH ×2 (09:29→20:35)
[2020-04-21] MEDS: THIAMINE 200 MG/2 ML INJ IVP SCH (09:29)
[2020-04-21] MEDS: GABAPENTIN 300 MG CAP PO SCH ×2 (09:29→16:58)
--- NOTE | 2020-04-21 09:46 | RAD REPORT ---
EXAM DESCRIPTION: RAD - Chest Single View - 04/21/2020 9:35 am CLINICAL HISTORY: pneumonia COMPARISON: April 20 TECHNIQUE: AP portable chest image was obtained 04/21/2020 9:35 am . FINDINGS: Right base airspace infiltrate shows no measurable change. Patient has patchy right upper lobe airspace findings that are progressive. Left base infiltrative changes are less well visualized. No clear change from prior day study. Feeding tube is in place poorly visualized. The tip is not imaged on this study. Heart size is promin ent but stable. No change to the vasculature. No pneumothorax or enlarging pleural effusion. No acute bony abnormality seen. No acute aortic findings suspected. IMPRESSION: Bilateral infectious or aspiration pneumonia findings not significantly different from p rior day study. Questionable new or progressive right upper lobe airspace disease.
[2020-04-21] MEDS: Pantoprazole (granules) 40 MG/BLIST PACKET FT SCH (10:36)
[2020-04-21 14:40] LABS: Absolute Lymphocytes (CBC) 0.4 K/uL (0.7-4.9); Basophils % 0.2 % (0-1.3); Lymphocytes % 5.3 % (15.3-44.8); MPV 8.7 fL (7.6-11.3)
[2020-04-21 15:06] LABS: Albumin 2.4 g/dL (3.4-5.0); Bilirubin Total 0.3 mg/dL (0.2-1.0); Magnesium 2.1 mg/dL (1.8-2.4); Protein, Total 6.4 g/dL (6.4-8.2)
[2020-04-21 15:21] LABS: White Blood Cell Scan OK (OK)
[2020-04-21 15:22] LABS: Blood Morphology Comment NOT SEEN (NOT SEEN); Platelet Estimate ADEQ
[2020-04-21] MEDS: D5 0.45 NS 1,000 ML IV SCH (16:58)
--- NOTE | 2020-04-21 19:57 | PN ---
Date of Progress Note: 04/21/2020 Subjective: The patient was seen this morning for followup. No new complaints or problems reported by nursing staff. I evaluated the tele visit with audio and video component. She had uneventful nig ht. She was on BiPAP this morning when I evaluated her, maintaining adequate oxygenation. She respo nded well to Ativan for her agitation. Objective: Vital signs reviewed. Imaging: Chest x-ray results from this morning reviewed. Impression: 1.Aspiration pneumonia. 2.COVID-19 pneumonia. 3.Chronic obstructive pulmonary disease. Plan: We will continue current antibiotic, continue Lovenox, and we will continue to follow with Dr. Hernandez. We will repeat blood work tomorrow and I will see her tomorrow for followup. Details wer e discussed with the patient's son, who was contacted this evening. FEDERICO/MODL Voice ID: [id number] Report ID: [id number]
[2020-04-21] MEDS: ATORVASTATIN 10 MG TAB PO SCH (20:35)
[2020-04-22] MEDS: PIPER/TAZO/NS 3.375gm 3.375 GM/100 ML BAG IVPB SCH ×3 (01:14→17:44)
[2020-04-22 05:20] LABS: Absolute Lymphocytes (CBC) 0.5 K/uL (0.7-4.9); Basophils % 0.1 % (0-1.3); Hematocrit 32.5 % (36.0-45.0); Lymphocytes % 8.1 % (15.3-44.8); MPV 8.9 fL (7.6-11.3); RBC Red Blood Cell Count 3.41 M/uL (3.86-4.86)
[2020-04-22 05:43] LABS: Albumin 2.2 g/dL (3.4-5.0); Bilirubin Total 0.3 mg/dL (0.2-1.0); Magnesium 2.2 mg/dL (1.8-2.4); Potassium 5.3 mmol/L (3.5-5.1); Protein, Total 6.6 g/dL (6.4-8.2)
[2020-04-22] MEDS: LORazepam 2 MG/ML VIAL IV PRN ×2 (06:00→23:36)
[2020-04-22] MEDS: D5 0.45 NS 1,000 ML IV SCH ×4 (07:18→20:50)
[2020-04-22] MEDS: INSULIN -REGULAR HUMAN 50 UNIT/0.5 ML ML SQ SCH ×4 (07:30→20:48)
[2020-04-22] MEDS: IPRATROPIUM BROM 0.5MG/2.5ML NEB PRN ×3 (08:05→20:10)
[2020-04-22] MEDS: ALBUTEROL 2.5 MG/3 ML NEB SOL NEB PRN ×3 (08:05→20:10)
[2020-04-22] MEDS: ARFORMOTEROL TARTRATE 15 MCG/2 ML VIAL.NEB NEB SCH ×2 (08:05→20:10)
[2020-04-22] MEDS: GLUCERNA SHAKE 237 ML CAN PO SCH (09:00)
[2020-04-22] MEDS: METHYLPREDNISOLONE 40 MG INJ IV SCH ×2 (09:18→20:49)
[2020-04-22] MEDS: THIAMINE 200 MG/2 ML INJ IVP SCH (09:18)
[2020-04-22] MEDS: GABAPENTIN 300 MG CAP PO SCH ×2 (09:18→17:44)
[2020-04-22] MEDS: carBAMazepine 200 MG TAB PO SCH ×2 (09:18→21:00)
[2020-04-22] MEDS: Enoxaparin 120 MG/0.8 ML SYR SQ SCH (09:18)
[2020-04-22] MEDS: Pantoprazole (granules) 40 MG/BLIST PACKET FT SCH (09:19)
[2020-04-22] MEDS: carvediloL 3.125 MG TAB PO SCH ×2 (09:22→17:43)
[2020-04-22] MEDS ORDERED: VITAL HP 1,000 ML BOT RTH SCH (11:00)
--- NOTE | 2020-04-22 13:00 | P.PN ---
Subjective Date of Service: 04/22/20 Chief Complaint: Respiratory failure Patient's condition is worsening she is requiring increasing concentrations of oxygen delirious agitated Review of Systems is unable to be obtained Physical Examination - Vital Signs Temperature: 97.1 F Blood Pressure: 108/46 Pulse: 85 Respirations: 21 Pulse Ox (%): 92 - Physical Exam General: Unresponsive Respiratory: Clear to auscultation bilaterally, Diminished Cardiovascular: Edema Assessment & Plan - Problems (Diagnosis) (1) Acute and chronic respiratory failure ([id number]-fl-vhsbbep) Current Visit: Yes Status: Acute Plan: Patient's condition is worsening the requiring 90% FiO2 now delirious agitated started on tube feeds hypernatremia renal failure I have also increased her IV fluids CRP level is elevated Solu-Medrol was increased yesterday blood pressure stable prognosis very poor of discuss with the son regarding DNR this time and his decision is full code including ventilation Qualifiers: Respiratory failure complication: hypoxia and hypercapnia Qualified Code(s): J96.21 - Acute and chronic respiratory failure with hypoxia; J96.22 - Acute and chronic respiratory failure with hypercapnia (2) Delirium Current Visit: Yes Status: Acute Plan: P no change in her condition still delirious agitated
[2020-04-22] MEDS ORDERED: GLUCERNA 1.2 CAL 1,000 ML BOT FT SCH (14:00)
--- NOTE | 2020-04-22 17:44 | RAD REPORT ---
EXAM DESCRIPTION: RAD - Chest Single View - 04/22/2020 5:35 pm CLINICAL HISTORY: pneumonia Chest pain. COMPARISON: Chest Single View dated 04/21/2020; Chest Single View dated 04/20/2020; Abdomen 1 View ( KUB) dated 04/20/2020; Chest Single View dated 04/20/2020 FINDINGS: Portable technique limits examination quality. Since 04/21/2020, mild worsening and right lower infiltrate is seen. The heart is moderately enlarged in size. Enteric tube is noted. IMPRESSION: Mild worsening in right lower lobe pneumonia since comparative study.
[2020-04-22 18:37] LABS: Potassium 5.3 mmol/L (3.5-5.1)
[2020-04-22 18:38] LABS: Magnesium 2.3 mg/dL (1.8-2.4)
[2020-04-22] MEDS: ENOXAPARIN 100 MG/ML SYR SQ SCH (20:52)
[2020-04-22] MEDS: ATORVASTATIN 10 MG TAB PO SCH (21:00)
--- NOTE | 2020-04-22 23:31 | PN ---
Date of Progress Note: 04/22/2020 Subjective: Patient was seen this morning for followup. She was evaluated via tele visit today. Vi yarelis signs reviewed. No new complaints or problems reported by nursing staff overnight. Patient saurabh ins on BiPAP. When I evaluated her this morning, she was sleeping, not in any distress, on BiPAP. Laboratory Data: This morning white count 5.7, hemoglobin 10.4, platelets 165. Sodium 151, potassiu m 5.3, chloride 113, bicarb 39, BUN 29, creatinine 1.14, glucose 226. Liver function tests unremarka ble. C-reactive protein 111. Repeat blood work done this evening, sodium 151, potassium 5.3, chloride 113, bicarb 40, BUN 29, crea tinine 1.19, glucose 241, and a chest x-ray shows mild worsening of the right lower lobe pneumonia si nce previous x-ray. Impression: 1.COVID-19 pneumonia. 2.Aspiration pneumonia. 3.Chronic obstructive pulmonary disease. 4.Hyperkalemia. 5.Anemia. Plan: We will go ahead and continue steroid, antibiotic. Continue oxygen, BiPAP support. Continue Lovenox. We will continue to follow with Dr. Hernandez. Dr. Hernandez did call me and informed me thi s afternoon that patient's condition is deteriorating and prognosis is really very poor, and he did c all the patient's son to discuss all these details and also to discuss advanced directives and the stefania reich's son informed him that family wants everything done, so she is a full code. I did try to cont act the patient's son this evening, but he was not available, so I will try to talk to him again radha dayami. Details were discussed with Dr. Hernandez this evening as well and the patient continues to rem ain on BiPAP and oxygen. Her blood pressure was elevated this morning. So, carvedilol 3.125 mg twic e a day was started and the patient now is receiving feeding through the Dobbhoff tube. FEDERICO/MODL Voice ID: [id number] Report ID: [id number]
[2020-04-23] MEDS: ALBUTEROL 2.5 MG/3 ML NEB SOL NEB PRN (01:09)
[2020-04-23] MEDS: IPRATROPIUM BROM 0.5MG/2.5ML NEB PRN (01:09)
[2020-04-23] MEDS: D5 0.45 NS 1,000 ML IV SCH (04:05)
[2020-04-23 04:51] LABS: Absolute Lymphocytes (CBC) 0.6 K/uL (0.7-4.9); Basophils % 0.2 % (0-1.3); Hematocrit 32.7 % (36.0-45.0); Lymphocytes % 10.3 % (15.3-44.8); MPV 8.5 fL (7.6-11.3); RBC Red Blood Cell Count 3.38 M/uL (3.86-4.86)
[2020-04-23 05:01] LABS: Albumin 2.2 g/dL (3.4-5.0); Bilirubin Total 0.2 mg/dL (0.2-1.0); C-Reactive Protein 60.9 mg/L (<3.00); Potassium 5.3 mmol/L (3.5-5.1); Protein, Total 6.3 g/dL (6.4-8.2)
[2020-04-23] MEDS: carvediloL 3.125 MG TAB PO SCH (06:00)
[2020-04-23] MEDS ORDERED: GLUCAGON 1 MG/VIAL IM PRN (08:21)
[2020-04-23] MEDS ORDERED: D50W 25 GM/50 ML SYRINGE/VIAL IV PRN (08:21)
[2020-04-23] MEDS: ARFORMOTEROL TARTRATE 15 MCG/2 ML VIAL.NEB NEB SCH ×2 (08:42→20:00)
[2020-04-23] MEDS: Pantoprazole (granules) 40 MG/BLIST PACKET FT SCH (09:49)
[2020-04-23] MEDS: carBAMazepine 200 MG TAB PO SCH ×2 (09:49→21:10)
[2020-04-23] MEDS: INSULIN GLARGINE 100 UNITS/ML SQ SCH ×2 (09:50→21:08)
[2020-04-23] MEDS: INSULIN -REGULAR HUMAN 50 UNIT/0.5 ML ML SQ SCH ×4 (09:50→21:00)
[2020-04-23] MEDS: ENOXAPARIN 100 MG/ML SYR SQ SCH ×2 (09:50→21:09)
[2020-04-23] MEDS: THIAMINE 200 MG/2 ML INJ IVP SCH (09:51)
[2020-04-23] MEDS: METHYLPREDNISOLONE 40 MG INJ IV SCH ×2 (09:51→21:10)
[2020-04-23] MEDS: carvediloL 6.25 MG TAB PO SCH ×2 (09:51→21:08)
[2020-04-23] MEDS: GABAPENTIN 300 MG CAP PO SCH ×2 (09:52→17:33)
[2020-04-23] MEDS: D5W 1,000 ML IV SCH (09:53)
--- NOTE | 2020-04-23 12:06 | P.PN ---
Subjective Date of Service: 04/23/20 Chief Complaint: Respiratory failure No change in patient's condition she continues to remain delirious on a BiPAP Review of Systems is unable to be obtained Physical Examination - Vital Signs Temperature: 96.5 F Blood Pressure: 150/77 Pulse: 78 Respirations: 88 Pulse Ox (%): 88 - Physical Exam General: Unresponsive Respiratory: Clear to auscultation bilaterally Cardiovascular: Normal S1 S2, Edema Assessment & Plan - Problems (Diagnosis) (1) Acute and chronic respiratory failure ([id number]) Current Visit: Yes Status: Acute Plan: Respiratory failure discuss with patient's son regarding remdesmir and convalescent plasma /patient is hypernatremic change to D5 water renal function is improving tolerating tube feeds blood sugars elevated add Lantus CRP is declining continue with current dose of Solu-Medrol I spoke with patient's son Mr Guardado. I informed him to obtain a copy of fact sheet on the Internet for review I stated that the drug have given him approved for emergency use authorization and has not been fully evaluated approved and reviewed by a FDA the patient meets the EUA requirements/I shared that the drug may cause liver abnormalities any infusion related side effect additionally other side effects of possible but not known as the drug has had limited studies I discussed the potential treatment Posada Virus that apparently not FDA approved to treat posada virus 19 infection offered opportunity to ask questions and answered Qualifiers: Respiratory failure complication: hypoxia and hypercapnia Qualified Code(s): J96.21 - Acute and chronic respiratory failure with hypoxia; J96.22 - Acute and chronic respiratory failure with hypercapnia (2) Delirium Current Visit: Yes Status: Acute Plan: P no change in her condition still delirious agitated
[2020-04-23] MEDS ORDERED: Remdesivir 200 MG in NA CHLORIDE 0.9% 250 ML IV ONE (12:45)
[2020-04-23] MEDS: PIPER/TAZO/NS 3.375gm 3.375 GM/100 ML BAG IVPB SCH (17:32)
[2020-04-23] MEDS ORDERED: NA CHLORIDE 0.9% 50 ML ONE (18:21)
--- NOTE | 2020-04-23 21:01 | PN ---
Date of Progress Note: 04/23/2020 Subjective: The patient was seen this morning for followup. Her daughter was present with her at [facility]. She remains on BiPAP and she responds minimally on verbal commands, not in any respiratory di stress. She does require some sedation from time to time because of her agitation and restlessness. Objective: Vital Signs: Reviewed. HEENT: Unremarkable. Lungs: Clear to auscultation. No rales. No wheezing. Heart: Normal. Abdomen: Soft. Bowel sounds normal. No guarding, rigidity, tenderness, or distention. Extremities: No leg edema. Laboratory Data: White count 5.4, hemoglobin 10.4, platelets 193. Sodium 150, potassium 5.3, chlori de 112, bicarb 40, BUN 31, creatinine 1.13, glucose 283. Liver function tests unremarkable. C-react lulu protein 60.90. Impression: 1.COVID-19 pneumonia. 2.Aspiration pneumonia. 3.Chronic obstructive pulmonary disease. 4.Acute respiratory failure with hypercapnia and hypoxia. 5.Anemia. 6.Hyperkalemia. 7.Volume depletion. Plan: We will go ahead and continue current medication. We will continue current antibiotics, oxyge n nebulizer treatment, BiPAP support, and increase dose of carvedilol to have a better control on blo od pressure, dose will be increased to 6.25 mg 2 times a day. We will continue current Lovenox. I d id discuss details with Dr. Hernandez and the patient will be given remdesivir and convalescent plasma today. I did call the patient's son and details were discussed with him and updates given to him as well. Overall, prognosis is poor. FEDERICO/MODL Voice ID: [id number] Report ID: [id number]
[2020-04-23] MEDS: ATORVASTATIN 10 MG TAB PO SCH (21:09)
[2020-04-24] MEDS: D5W 1,000 ML IV SCH ×2 (00:03→13:42)
[2020-04-24] MEDS: PIPER/TAZO/NS 3.375gm 3.375 GM/100 ML BAG IVPB SCH ×3 (00:04→16:44)
[2020-04-24 05:43] LABS: Absolute Lymphocytes (CBC) 0.8 K/uL (0.7-4.9); Basophils % 0.3 % (0-1.3); Hematocrit 32.4 % (36.0-45.0); Lymphocytes % 9.1 % (15.3-44.8); MPV 8.5 fL (7.6-11.3)
[2020-04-24 06:43] LABS: ALT/SGPT 24 U/L (12-78); AST/SGOT 22 U/L (15-37); Albumin 2.5 g/dL (3.4-5.0); Alkaline Phosphatase 78 U/L (45-117); BUN Blood Urea Nitrogen 32 mg/dL (7-18); Bicarbonate 40 mmol/L (21-32); Bilirubin Direct < 0.1 mg/dL (0-0.2); Bilirubin Total 0.3 mg/dL (0.2-1.0); Glucose Level 254 mg/dL (74-106); Magnesium 1.9 mg/dL (1.8-2.4); Potassium 5.2 mmol/L (3.5-5.1); Sodium Level 149 mmol/L (136-145)
[2020-04-24] MEDS: METHYLPREDNISOLONE 40 MG INJ IV SCH ×2 (07:54→20:31)
[2020-04-24] MEDS: carvediloL 6.25 MG TAB PO SCH ×2 (07:54→20:29)
[2020-04-24] MEDS: INSULIN GLARGINE 100 UNITS/ML SQ SCH (07:55)
[2020-04-24] MEDS: ENOXAPARIN 100 MG/ML SYR SQ SCH ×2 (07:55→20:30)
[2020-04-24] MEDS: GABAPENTIN 300 MG CAP PO SCH ×2 (07:56→16:45)
[2020-04-24] MEDS: carBAMazepine 200 MG TAB PO SCH ×2 (07:56→20:31)
[2020-04-24] MEDS: Pantoprazole (granules) 40 MG/BLIST PACKET FT SCH (07:56)
[2020-04-24] MEDS: THIAMINE 200 MG/2 ML INJ IVP SCH (07:59)
[2020-04-24] MEDS: ARFORMOTEROL TARTRATE 15 MCG/2 ML VIAL.NEB NEB SCH ×2 (08:00→20:02)
[2020-04-24] MEDS: INSULIN -REGULAR HUMAN 50 UNIT/0.5 ML ML SQ SCH ×4 (08:13→20:41)
[2020-04-24] MEDS: Remdesivir 100 MG in NA CHLORIDE 0.9% 250 ML IV SCH (08:49)
[2020-04-24] MEDS: FAMOTIDINE 20 MG/2 ML VIAL IV SCH (08:49)
[2020-04-24] MEDS: SITAGLIPTIN PHOS 100 MG TAB PO SCH (08:50)
[2020-04-24] MEDS ORDERED: AMLODIPINE 5 MG TAB PO SCH (09:00)
--- NOTE | 2020-04-24 11:18 | PN ---
Date of Progress Note: 04/24/2020 Subjective: The patient was evaluated this morning via tele visit that included audio and video comp onent with help of ICU nurse. No new complaints or problems reported overnight. Vital signs reviewe d. The patient remains weepy and when I evaluated her this morning, she was on 75% oxygen with BiPAP . She did not require any medications overnight for any agitation. No change in condition reported overnight by nursing staff. She did have 2 bowel movement in last 24 hours. Vital signs are stable. She is maintaining adequate oxygenation. Physical Examination: VITAL SIGNS: This morning, temperature was 97.2, last pulse 79, respiratory rate 21, blood pressure 170/80, oxygen saturation 90%. When I evaluated her, she was lying in bed with BiPAP on, not using any accessory muscles of respirat ion. Upon verbal commands, she moans and moves her extremities spontaneously at times. Laboratory Data: White count 8.4, hemoglobin 10.6, platelets 240. Sodium 149, potassium 5.2, chlori de 109, bicarb 40, BUN 32, creatinine 1.06, glucose 254. Liver function tests unremarkable. CRP 30. 20 and yesterday it was 60.90. Impression: 1.COVID-19 pneumonia. 2.Aspiration pneumonia. 3.Acute respiratory failure with hypoxia and hypercapnia. 4.Anemia. 5.Volume depletion. 6.Hyperkalemia. Plan: We will go ahead and order PICC line for her and once that is in place, then we will remove he r femoral central line. Continue steroid. Continue Lovenox. Continue antibiotics per order and BiP AP with oxygen nebulizer treatment per order. She is on carvedilol 6.25 mg 2 times a day. We will c ontinue that. As of this morning, we will start amlodipine 5 mg daily per her feeding tube. She is tolerating feeding very well and receiving water through the feeding tube. I will call and communicate details with the patient's son. FEDERICO/MODL Voice ID: [id number] Report ID: [id number]
[2020-04-24 12:35] LABS: Blood Morphology Comment NOT SEEN (NOT SEEN); Platelet Estimate ADEQ
[2020-04-24] MEDS: ALBUTEROL 2.5 MG/3 ML NEB SOL NEB PRN (20:02)
[2020-04-24] MEDS: ATORVASTATIN 10 MG TAB PO SCH (20:29)
[2020-04-24] MEDS ORDERED: INSULIN GLARGINE 100 UNITS/ML SQ SCH (21:00)
[2020-04-25] MEDS: PIPER/TAZO/NS 3.375gm 3.375 GM/100 ML BAG IVPB SCH ×3 (00:25→16:46)
[2020-04-25] MEDS: D5W 1,000 ML IV SCH (00:25)
[2020-04-25 05:16] LABS: Basophils % 0.5 % (0-1.3); Hematocrit 31.1 % (36.0-45.0); Lymphocytes % 12.7 % (15.3-44.8); RBC Red Blood Cell Count 3.32 M/uL (3.86-4.86)
[2020-04-25 05:49] LABS: Albumin 2.2 g/dL (3.4-5.0); Bilirubin Direct 0.1 mg/dL (0-0.2); Bilirubin Total 0.3 mg/dL (0.2-1.0); Magnesium 1.5 mg/dL (1.8-2.4); Potassium 5.1 mmol/L (3.5-5.1); Protein, Total 6.2 g/dL (6.4-8.2)
[2020-04-25 05:57] VITALS: BMI 39.2
[2020-04-25] MEDS: INSULIN -REGULAR HUMAN 50 UNIT/0.5 ML ML SQ SCH ×4 (07:30→20:20)
[2020-04-25] MEDS: ARFORMOTEROL TARTRATE 15 MCG/2 ML VIAL.NEB NEB SCH ×2 (07:52→19:20)
[2020-04-25] MEDS: INSULIN GLARGINE 100 UNITS/ML SQ SCH ×2 (08:34→20:19)
[2020-04-25] MEDS: THIAMINE 200 MG/2 ML INJ IVP SCH (08:35)
[2020-04-25] MEDS: GABAPENTIN 300 MG CAP PO SCH ×2 (08:35→16:48)
[2020-04-25] MEDS: carvediloL 6.25 MG TAB PO SCH ×2 (08:36→20:19)
[2020-04-25] MEDS: AMLODIPINE 5 MG TAB PO SCH ×2 (08:36→20:19)
[2020-04-25] MEDS: SITAGLIPTIN PHOS 100 MG TAB PO SCH (08:36)
[2020-04-25] MEDS: FAMOTIDINE 20 MG/2 ML VIAL IV SCH (08:39)
[2020-04-25] MEDS: Remdesivir 100 MG in NA CHLORIDE 0.9% 250 ML IV SCH (08:40)
[2020-04-25] MEDS: Pantoprazole (granules) 40 MG/BLIST PACKET FT SCH (08:41)
[2020-04-25] MEDS: carBAMazepine 200 MG TAB PO SCH ×2 (08:41→20:18)
[2020-04-25] MEDS ORDERED: METHYLPREDNISOLONE 125 MG INJ IV SCH (09:00)
[2020-04-25] MEDS ORDERED: ALBUTEROL 2.5 MG/3 ML NEB SOL NEB PRN (10:00)
[2020-04-25] MEDS ORDERED: IPRATROPIUM BROM 0.5MG/2.5ML NEB PRN (10:00)
--- NOTE | 2020-04-25 10:10 | P.PN ---
Subjective Date of Service: 04/25/20 Chief Complaint: Respiratory failure Patient is improving she is much more alert and responsive oxygen requirements have declined Review of Systems General: Weakness Respiratory: Shortness of Breath Physical Examination - Vital Signs Temperature: 97 F Blood Pressure: 154/85 Pulse: 60 Respirations: 16 Pulse Ox (%): 91 - Physical Exam General: Alert, Cooperative Respiratory: Clear to auscultation bilaterally, Diminished Assessment & Plan - Problems (Diagnosis) (1) Acute and chronic respiratory failure (qskaa-zl-[id number]) Current Visit: Yes Status: Acute Plan: R patient admitted with respiratory failure improving blood pressure is little elevated oxygen requirements are declining CRP levels have declined to 21 chest x-ray still shows some inflammatory changes in the right lower lobe blood cultures likely contaminant coagulase negative Staph consider Dc antibiotics Qualifiers: Respiratory failure complication: hypoxia and hypercapnia Qualified Code(s): J96.21 - Acute and chronic respiratory failure with hypoxia; J96.22 - Acute and chronic respiratory failure with hypercapnia (2) Delirium Current Visit: Yes Status: Acute Plan: Mentation improving decrease the dose of Solu-Medrol
--- NOTE | 2020-04-25 10:12 | P.PN ---
Subjective Date of Service: 04/24/20 Chief Complaint: Respiratory failure Condition stable no change oxygen requirements have been declining condition improving slowly Review of Systems is unable to be obtained Physical Examination - Vital Signs Temperature: 97 F Blood Pressure: 154/85 Pulse: 60 Respirations: 16 Pulse Ox (%): 91 Assessment & Plan - Problems (Diagnosis) (1) Acute and chronic respiratory failure (erowq-[id number]) Current Visit: Yes Status: Acute Plan: Condition stable status post Remdesmir an convalescent plasma oxygen requirements have been declining CRP is declining at Pepcid and sitagliptin Qualifiers: Respiratory failure complication: hypoxia and hypercapnia Qualified Code(s): J96.21 - Acute and chronic respiratory failure with hypoxia; J96.22 - Acute and chronic respiratory failure with hypercapnia (2) Delirium Current Visit: Yes Status: Acute Plan: Delirium improving
--- NOTE | 2020-04-25 10:26 | P.PN ---
Subjective Date of Service: 04/25/20 Chief Complaint: Respiratory failure No change in patient's condition she continues to remain delirious on a BiPAP Physical Examination - Vital Signs Temperature: 97 F Blood Pressure: 154/85 Pulse: 60 Respirations: 16 Pulse Ox (%): 91 Assessment & Plan - Problems (Diagnosis) (1) Acute and chronic respiratory failure (quwdf-fb-[id number]) Current Visit: Yes Status: Acute Plan: Respiratory failure discuss with patient's son regarding remdesmir and convalescent plasma /patient is hypernatremic change to D5 water renal function is improving tolerating tube feeds blood sugars elevated add Lantus CRP is declining continue with current dose of Solu-Medrol I spoke with patient's son Mr Guardado. I informed him to obtain a copy of fact sheet on the Internet for review I stated that the drug have given him approved for emergency use authorization and has not been fully evaluated approved and reviewed by a FDA the patient meets the EUA requirements/I shared that the drug may cause liver abnormalities any infusion related side effect additionally other side effects of possible but not known as the drug has had limited studies I discussed the potential treatment Posada Virus that apparently not FDA approved to treat posada virus 19 infection offered opportunity to ask questions and answered Qualifiers: Respiratory failure complication: hypoxia and hypercapnia Qualified Code(s): J96.21 - Acute and chronic respiratory failure with hypoxia; J96.22 - Acute and chronic respiratory failure with hypercapnia (2) Delirium Current Visit: Yes Status: Acute Plan: P no change in her condition still delirious agitated
--- NOTE | 2020-04-25 10:40 | PN ---
Date of Progress Note: 04/25/2020 Subjective: The patient was seen this morning for followup. No new complaints or problems reported by nursing staff. Overall last 24 hours, the patient has shown improvement compared to previous few days. She still remains on BiPAP, but her FiO2 is down to 55%, maintaining adequate oxygenation. Vi yarelis signs are stable. Blood pressure was well controlled after amlodipine 5 mg dose given yesterday morning, but overnight her blood pressure has started to go up, so we will increase the dose of amlod ipine. She is tolerating feeding well. The patient is trying to communicate, answering questions, s till has some confusion, but she recognizes my voice and able to tell me my name. The patient was ev aluated today via tele visit that included audio and video component. Laboratory Data: White count 7.9, hemoglobin 10, platelets 222. Sodium 145, potassium 5.1, chloride 105, bicarb 41, BUN 32, creatinine 0.85, glucose 241, magnesium 1.5. Liver function tests unremarka ble. C-reactive protein 21, which is much lower than last few days. Impression: 1.COVID-19 pneumonia. 2.Aspiration pneumonia. 3.Acute respiratory failure with hypoxia and hypercapnia. 4.Anemia, unspecified. 5.Hypertension. 6.Diabetes mellitus. Plan: We will go ahead and increase the dose of Lantus insulin to 25 units twice a day. Fingerstick blood sugar readings reviewed. Blood pressure readings reviewed and we will increase dose of amlodi pine to 5 mg 2 times a day and continue current carvedilol. Continue current antibiotic oxygen nebul izer treatment. We will reduce dose of steroid Solu-Medrol from 80 mg every 12 hours down to 60 mg e very 12 hours. I did reach out to the patient's son and discussed all the details with him. FEDERICO/MODL Voice ID: [id number] Report ID: [id number]
[2020-04-25] MEDS: CODEINE 30MG/APAP 300MG TAB PO PRN (15:16)
[2020-04-25] MEDS: ENOXAPARIN 100 MG/ML SYR SQ SCH (15:37)
[2020-04-25] MEDS: METHYLPREDNISOLONE 40 MG INJ IV SCH (20:18)
[2020-04-25] MEDS: ATORVASTATIN 10 MG TAB PO SCH (20:19)
[2020-04-26] MEDS: PIPER/TAZO/NS 3.375gm 3.375 GM/100 ML BAG IVPB SCH ×3 (00:02→16:35)
[2020-04-26] MEDS: D5W 1,000 ML IV SCH ×2 (03:40→03:49)
[2020-04-26] MEDS: ENOXAPARIN 100 MG/ML SYR SQ SCH ×2 (03:49→16:33)
[2020-04-26] MEDS: CODEINE 30MG/APAP 300MG TAB PO PRN ×4 (03:54→19:59)
[2020-04-26 05:36] LABS: Absolute Lymphocytes (CBC) 1.1 K/uL (0.7-4.9); Basophils % 0.2 % (0-1.3); Hematocrit 28.3 % (36.0-45.0); Lymphocytes % 13.9 % (15.3-44.8); MPV 8.3 fL (7.6-11.3); RBC Red Blood Cell Count 2.92 M/uL (3.86-4.86)
[2020-04-26 05:49] LABS: Albumin 2.1 g/dL (3.4-5.0); Bilirubin Direct 0.1 mg/dL (0-0.2); Bilirubin Total 0.3 mg/dL (0.2-1.0); C-Reactive Protein 15.2 mg/L (<3.00); Magnesium 1.5 mg/dL (1.8-2.4); Potassium 4.8 mmol/L (3.5-5.1); Protein, Total 5.8 g/dL (6.4-8.2)
[2020-04-26] MEDS ORDERED: D50W 25 GM/50 ML SYRINGE/VIAL IV PRN (06:23)
[2020-04-26] MEDS ORDERED: GLUCAGON 1 MG/VIAL IM PRN (06:23)
[2020-04-26] MEDS ORDERED: INSULIN -REGULAR HUMAN 50 UNIT/0.5 ML ML IV ONE (06:24)
[2020-04-26 07:35] LABS: White Blood Cell Scan OK (OK)
[2020-04-26 07:36] LABS: Blood Morphology Comment NOT SEEN (NOT SEEN); Platelet Estimate ADEQ
[2020-04-26] MEDS: ARFORMOTEROL TARTRATE 15 MCG/2 ML VIAL.NEB NEB SCH ×2 (07:55→19:45)
[2020-04-26] MEDS: AMLODIPINE 5 MG TAB PO SCH ×2 (08:45→19:56)
[2020-04-26] MEDS: carvediloL 6.25 MG TAB PO SCH ×2 (08:45→19:55)
[2020-04-26] MEDS: GABAPENTIN 300 MG CAP PO SCH ×2 (08:46→16:33)
[2020-04-26] MEDS: INSULIN GLARGINE 100 UNITS/ML SQ SCH (08:46)
[2020-04-26] MEDS: METHYLPREDNISOLONE 40 MG INJ IV SCH ×2 (08:47→19:56)
[2020-04-26] MEDS: THIAMINE 200 MG/2 ML INJ IVP SCH (08:47)
[2020-04-26] MEDS: FAMOTIDINE 20 MG/2 ML VIAL IV SCH (08:47)
[2020-04-26] MEDS ORDERED: SITAGLIPTIN PHOS 100 MG TAB PO SCH (09:00)
[2020-04-26] MEDS: carBAMazepine 200 MG TAB PO SCH ×2 (09:17→19:56)
[2020-04-26] MEDS: INSULIN -REGULAR HUMAN 50 UNIT/0.5 ML ML SQ SCH ×4 (09:17→19:57)
[2020-04-26] MEDS: Remdesivir 100 MG in NA CHLORIDE 0.9% 250 ML IV SCH (09:17)
--- NOTE | 2020-04-26 13:00 | RAD REPORT ---
EXAM DESCRIPTION: RAD - Chest Single View - 04/24/2020 11:56 pm ADDENDUM: The patient's April 22 and April 21 studies were compared. History indicates patient h as COVID pneumonia. Interstitial and alveolar opacification is present throughout the lung ross. Findings are most pron ounced at the right hilar and infrahilar regions. Lung parenchymal changes are not substantially diff erent. The patient has some minimal improvement in the right lung base compared to the April 22 ariel dy. EXAM DESCRIPTION: XR Chest 1 View CLINICAL HISTORY: Picc placement TECHNIQUE: Single frontal view of the chest is submitted. COMPARISON: None available for comparison FINDINGS: Heart: The cardiothymic silhouette is enlarged. Lungs: Central pulmonary vascular and interstitial prominence and bilateral perihilar and basilar opa cities. Mediastinum: Thoracic aortic atherosclerosis. Pleura: Blunting of the costophrenic angles bilaterally. Bones: Multilevel spondylosis. No acute fracture. Upper abdomen: Unremarkable Other: Right upper extremity PICC in place. The distal visualized portion projects over the proximal superior vena cava. Feeding tube in place. The tip is collimated off the [id number]-wohi. The distal vi sualized portion projects over the left upper quadrant. IMPRESSION: 1. The distal visualized portion of the right upper extremity PICC projects over the p roximal superior vena cava. 2. Findings suggestive of pulmonary congestion including small bilateral pleural effusions. Superim posed infection not excluded. Electronically signed by: Nara Jeter MD 04/25/2020 12:08 AM CDT Due to temporary technical issues with the PACS/Fluency reporting system, reports are being signed by the in house radiologist without review as a courtesy to ensure prompt reporting. The interpreting r adiologist is fully responsible for the content of the report.
[2020-04-26] MEDS: ATORVASTATIN 10 MG TAB PO SCH (19:55)
[2020-04-26 20:19] VITALS: O2SAT 88
[2020-04-26 20:23] VITALS: TEMP 97
[2020-04-26] MEDS ORDERED: INSULIN -REGULAR HUMAN 50 UNIT/0.5 ML ML SQ SCH (21:00)
[2020-04-26] MEDS ORDERED: INSULIN GLARGINE 100 UNITS/ML SQ SCH (21:00)
[2020-04-26 21:32] VITALS: BP 76/33
[2020-04-26] MEDS ORDERED: RSI MEDICATION KIT IV ONE (21:41)
[2020-04-27] MEDS ORDERED: EPINEPHrine 1 MG/10 ML SYR IV ONE (00:04)
--- NOTE | 2020-04-28 22:34 | DS ---
Date of Discharge: 04/26/2020 Disposition: The patient today. Laboratory Data: Upon admission, white count 5.6, hemoglobin 12.3, platelets 118. Last CBC today; w khadar count 7.8, hemoglobin 9.1, platelets 202. Blood gas on 04/18/2020; pH 7.19, pCO2 87.9, pO2 41.5 , oxygen saturation 71.9% on 32% FiO2. Last blood gas on 04/19/2020; pH 7.31, pCO2 68.5, pO2 58.1, o xygen saturation 88.8 on 50% FiO2. Last chemistry today; sodium 137, potassium 4.8, chloride 95, bic arb 31, BUN 29, creatinine 0.89, glucose 410, magnesium 1.5. Liver function tests unremarkable. C-r eactive protein 15.2. On admission sodium 136, potassium 4.3, chloride 97, bicarb 36, BUN 29, creati nine 1.69, glucose 171. Hospital Course: A 69-year-old pleasant female patient, admitted to the hospital with cough and feve r. Please see dictated H and P for more information. After the patient was evaluated, she was admit piter to the hospital with COVID-19 pneumonia. The patient stayed in our intensive care unit throughou t this hospital stay. Initially, she was on nasal cannula oxygen. Subsequently, she required high-f low oxygen per nasal cannula, and then subsequently as her condition deteriorated, she required BiPAP . Dr. Hernandez from Pulmonary was consulted. As her condition deteriorated, we also noted that she started to have some confusion and hallucination. She did go into acute respiratory failure that req uired use of BiPAP and she responded well to that. When her condition deteriorated and required BiPA P around the time, she was not able to eat or drink anything so Dobhoff tube was placed, and she was started nutritional support through Dobhoff. We were also giving her water through the Dobbhoff tube because of volume depletion problem. Diabetes was managed with sliding scale insulin and Lantus ins ulin. She had aspiration pneumonia as well and the patient received appropriate IV antibiotics and I V steroid therapy. In the beginning, she was on Eliquis and subsequently we changed her to Lovenox w hen we were concerned about her ability to swallow, so we changed it to Lovenox at that time. She re mained at a therapeutic dose throughout this hospital stay. I did communicate with the patient's son on a regular basis. On the last day, which is today, I evaluated her in the morning via tele visit which included audio and video component and in fact today was the best day that we had seen in terms of how well she was doing. Overall, her breathing had improved. She no longer required BiPAP and s he was on high-flow oxygen maintaining adequate oxygenation. Blood pressure was stable, and in the orning when her blood glucose was 410, she was getting IV fluid with D5W, which was discontinued as h er volume depletion and electrolyte imbalance mainly high chloride and high sodium problem improved, so we discontinued IV fluid, gave her 5 units of regular insulin IV, and her fingerstick blood sugar remained much stable. She was more awake, alert, still had little confusion, was communicating, and started to eat also, even though appetite was poor but at least she started to eat, so overall today was probably her best day compared to last few days, and we were hoping for her to continue to show i mprovement, but later on in the late evening hours all of a sudden the patient became bradycardic and rapidly became asystolic and code was called and ER physician responded to the code and the patient was intubated during the code, but we were not able to save her, and the patient later this e vening. The patient's family was at the hospital and I did communicate with the patient's son as luis oliveira. The patient's last chest x-ray had started to show some improvement in pneumonia. Final Diagnosis: 1.COVID-19 infection. 2.COVID-19 pneumonia. 3.Aspiration pneumonia. 4.Acute respiratory failure with hypoxia and hypercapnia. 5.Thrombocytopenia. 6.Anemia due to chronic kidney disease. 7.Volume depletion. 8.Chronic obstructive pulmonary disease. 9.Type 2 diabetes mellitus. 10.Pulmonary hypertension. 11.Hyperlipidemia. 12.Hypertension. 13.Gastroesophageal reflux disease. 14.Diverticulosis. FEDERICO/MODL Voice ID: [id number] Report ID: [id number]
== END 2020-04-26 21:44 | disposition expired | DRG 177 ==
LOC: ER 19:36 → ERHOLD 23:29 → 3RD-ICU 04-16 00:28 → UNDODISIN 04-27 00:05
PROVIDERS: ADMIT Internal Medicine; ATTEND Internal Medicine
PROC: 5A09557 Assistance with Respiratory Ventilation, Greater than 96 Consecutive Hours, Continuous Positive Airway Pressure (ICD-10-PCS; 2020-04-16)
PROC: XW033E5 Introduction of Remdesivir Anti-infective into Peripheral Vein, Percutaneous Approach, New Technology Group 5 (ICD-10-PCS; principal; 2020-04-23)
PROC: XW13325 Transfusion of Convalescent Plasma (Nonautologous) into Peripheral Vein, Percutaneous Approach, New Technology Group 5 (ICD-10-PCS; 2020-04-23)
PROC: 02HV33Z Insertion of Infusion Device into Superior Vena Cava, Percutaneous Approach (ICD-10-PCS; 2020-04-24)
PROC: 5A12012 Performance of Cardiac Output, Single, Manual (ICD-10-PCS; 2020-04-26)
DX: U07.1 COVID-19 (principal); J12.89 Other viral pneumonia; J96.22 Acute and chronic respiratory failure with hypercapnia; J96.21 Acute and chronic respiratory failure with hypoxia; J69.0 Pneumonitis due to inhalation of food and vomit; J44.0 Chronic obstructive pulmonary disease with (acute) lower respiratory infection; E87.0 Hyperosmolality and hypernatremia; R44.3 Hallucinations, unspecified; E11.42 Type 2 diabetes mellitus with diabetic polyneuropathy; E78.5 Hyperlipidemia, unspecified; K21.9 Gastro-esophageal reflux disease without esophagitis; I12.9 Hypertensive chronic kidney disease with stage 1 through stage 4 chronic kidney disease, or unspecified chronic kidney disease; N18.30 Chronic kidney disease, stage 3 unspecified; E11.22 Type 2 diabetes mellitus with diabetic chronic kidney disease; D63.1 Anemia in chronic kidney disease; D69.6 Thrombocytopenia, unspecified; I27.20 Pulmonary hypertension, unspecified; K57.90 Diverticulosis of intestine, part unspecified, without perforation or abscess without bleeding; E87.5 Hyperkalemia; E86.9 Volume depletion, unspecified; R41.0 Disorientation, unspecified; Z79.82 Long term (current) use of aspirin; Z79.84 Long term (current) use of oral hypoglycemic drugs; Z98.51 Tubal ligation status; Z87.891 Personal history of nicotine dependence; Z99.81 Dependence on supplemental oxygen; Z79.52 Long term (current) use of systemic steroids; Z79.899 Other long term (current) drug therapy
CPT/HCPCS: 36415; 36569; 51702; 71045; 71250; 72170; 74018; 74176; 80048; 80053; 80076; 80202; 81003; 82248; 82565; 82805; 82947; 83605; 83735; 83880; 84145; 84443; 84484; 85025; 85610; 86140; 86900; 86901; 86927; 87040; 87086; 87088; 87205; 87804; 93005; 94002; 94003; 94640; 94660; 94760; 96361; 96372; 96374; 96375; 99285; J0171; J0456; J1100; J1265; J1650; J1815; J1940; J2270; J2405; J2543; J2920; J2930; J3370; J3411; J3486; J7030; J7040; J7050; J7605; J7799; U0003